=== PATIENT | male | born 1940 | race Two or more races ===

== ENCOUNTER 2024-11-09 09:48 | Emergency (ER) | payer OTHER, SELFPAY ==
[2024-11-09 09:59] VITALS: BP 187/79; PULSE 96; TEMP 37; O2SAT 98; BMI 32.3
--- NOTE | 2024-11-09 13:50 | ED_ITS ---
HPI - Abdominal Pain General Chief Complaint: Abdominal Pain Stated Complaint: ABDOMINAL PAIN Time Seen by Provider: 11/09/24 10:06 Mode of arrival: walk-in Limitations: no limitations History of Present Illness HPI narrative: The patient is coming to the ER with abdominal pain mostly only in the left lower abdomen and right, the patient mentioned that the pain only there when he strains to go to the bathroom and he did notice some constipation for the last 3 days although he did have some small bowel movement yesterday, the patient has not been using any [id number] constipation medication he did try some prune juice Related Data Home Medications ?Medication ?Instructions ?Recorded ?Confirmed albuterol sulfate 90 mcg/actuation inhalation 11/09/24 aerosol inhaler amlodipine 10 mg tablet mg 11/09/24 finasteride 5 mg tablet mg 11/09/24 lisinopril 20 mg tablet mg 11/09/24 omeprazole 20 mg capsule,delayed mg 11/09/24 release Previous Rx's ?Medication ?Instructions ?Recorded amoxicillin 875 mg-potassium 1 tab PO Q8H 7 days #21 tabs 11/09/24 clavulanate 125 mg tablet bisacodyl 5 mg tablet,delayed 5 mg PO DAILY PRN constipation #10 11/09/24 release (Dulcolax (bisacodyl)) tabs Allergies Allergy/AdvReac Type Severity Reaction Status Date / Time No Known Drug Allergies Allergy Verified 11/09/24 10:03 Review of Systems ROS Status of ROS 10 or more systems reviewed and unremark able except as noted in history and below PFSH PFSH Social History Little interest or pleasure in doing things: not at all Feeling down, depressed, or hopeless: not at all Exam Narrative Exam Narrative: Nurses notes and vital signs reviewed and patient is not hypoxic. General: Well-appearing and in no apparent distress. Skin: Warm, dry, no pallor noted. No rash. Head: Normocephalic, atraumatic. Neck: Supple, non-tender. Eye: Pupils are equal, round and EOMI. No scleral icterus. Ears, Nose, Mouth, and Throat: TM are clear, no nasal mucosal hypertrophy. Oral mucosa is moist, no posterior oropharynx erythema, uvula is mid-line Cardiovascular: Regular Rate and Rhythm without murmur, gallop or rub. Respiratory: No accessory muscle use or respiratory distress. Lungs are clear to auscultation, no wheezing, rales or rhonchi Chest Wall: no tenderness Back: No midline thoracic or lumbar vertebral tenderness. No CVA tenderness Musculoskeletal: normal ROM, no calf or popliteal tenderness, no lower extremity edema/swelling GI: Abdomen is soft, tenderness in the left lower quadrant with deep palpation Constitutional Vital Signs, click to edit/add: Last Vital Signs Temp 98.6 F 11/09/24 09:59 Pulse 96 H 11/09/24 09:59 Resp 20 11/09/24 09:59 BP 187/79 H 11/09/24 09:59 Pulse Ox 98 11/09/24 09:59 O2 Del Method Room Air 11/09/24 09:59 Course Vital Signs Vital signs: Vital Signs Temperature 98.6 F 11/09/24 09:59 Pulse Rate 96 H 11/09/24 09:59 Respiratory Rate 20 11/09/24 09:59 Blood Pressure 187/79 H 11/09/24 09:59 Pulse Oximetry 98 11/09/24 09:59 Oxygen Delivery Method Room Air 11/09/24 09:59 Temperature 98.6 F 11/09/24 09:59 Pulse Rate 96 H 11/09/24 09:59 Respiratory Rate 20 11/09/24 09:59 Blood Pressure 187/79 H 11/09/24 09:59 Pulse Oximetry 98 11/09/24 09:59 Oxygen Delivery Method Room Air 11/09/24 09:59 MDM - Abdominal Pain MDM Narrative Medical decision making narrative: The patient CAT scan of the abdomen shows a diverticulitis that is mild Patient started Augmentin 3 times daily according to up-to-date and he also started on Dulcolax Patient instructed about hydration and soft diet for the next few days The patient is to follow up with primary care physician in next 2-3 days or to return to the emergency department should any of the signs or symptoms worsen or new symptoms develop. The patient agrees with the following Diagnosis and Treatment plan and the patient will be discharged home. Discharge Plan Discharge Chief Complaint: Abdominal Pain Clinical Impression: Diverticulitis Patient Disposition: Home, Self-Care Time of Disposition Decision: 11:03 Prescriptions / Home Meds: New amoxicillin-pot clavulanate 875-125 mg tablet 1 tab PO Q8H 7 Days Qty: 21 0RF bisacodyl [Dulcolax (bisacodyl)] 5 mg tablet,delayed release (DR/EC) 5 mg PO DAILY PRN (Reason: constipation) Qty: 10 0RF No Action lisinopril 20 mg tablet amlodipine 10 mg tablet omeprazole 20 mg capsule,delayed release(DR/EC) albuterol sulfate 90 mcg/actuation HFA aerosol inhaler INHALATION finasteride 5 mg tablet Print Language: [place] Instructions: Diverticulitis (ED), GI (Gastrointestinal) Soft Diet (ED) Referrals: Linda Bradley NP [Primary Care Provider] - 1 week Discharge Date/Time: 11/09/24 11:11
== END 2024-11-09 11:11 | disposition home or self-care (01) ==
PROVIDERS: Emergency Provider Emergency Medicine; PCP Nurse Practitioner
DX: K57.32 Diverticulitis of large intestine without perforation or abscess without bleeding (principal)
CPT/HCPCS: 74176; 99284

== ENCOUNTER 2025-01-07 09:23 | Outpatient (OUT) | payer OTHER, SELFPAY ==
--- NOTE | 2025-01-07 09:30 | XR_ITS ---
[place] [id number] Patient Name: FLEIZ ALVARADO MRN: [id number] date: 1940 Sex: M Assigned Patient Location: [facility] Current Patient Location: [facility] Accession/Order Number: [id number] Exam Date: 01/07/2025 13:42 Report Date: 01/07/2025 13:43 At the request of: AWAIS SORTO NP Procedure: XR lumbar spine 2-3V LUMBAR SPINE - 2 views CLINICAL HISTORY: Lumbar Back Pain COMPARISON: None FINDINGS: Vertebral body heights appear maintained. Diffuse moderate degenerative disc disease with endplate and facet joint degenerative changes. SI joints also demonstrate degenerative change. Mild scoliosis. XR/XR lumbar spine 2-3V IMPRESSION: MILD SCOLIOSIS WITH MODERATE MULTILEVEL DEGENERATIVE DISC DISEASE. Impression dictated by: Surya Salinas Jr., D.O.01/07/2025 1:43 PM Dictation Location: [place] [address] Electronically authenticated by: [id number] Y Date: 01/07/2025 13:43
== END 2025-01-07 09:24 | disposition home or self-care (01) ==
LOC: RAD 09:25
PROVIDERS: PCP Nurse Practitioner; Visit Provider Nurse Practitioner
DX: M54.50 Low back pain, unspecified (principal); M51.369 Other intervertebral disc degeneration, lumbar region without mention of lumbar back pain or lower extremity pain
CPT/HCPCS: 72100

== ENCOUNTER 2025-04-14 09:49 | Outpatient (OUT) | payer OTHER, SELFPAY ==
--- OUTSIDE RECORDS SUMMARY | 2025-04-14 09:51 | XMS_ITS | Encounter Summary ---
Author Organization [facility] Address [address], [address] [place] [address] Care Team Providers Care Consumer Lender Name Role Phone Satinder Dyer Primary Care Provider Unavailabl e Reason for Visit * Reason Comments Medication Refill Encounter Details Date Type Department Care Team (Late st Contact Info) Description 10/26/2016 Refill [facility] - [address] [place] [id number] Gavin Najera MD [address] [place] [address] Medication Refill Social History Tobacco Use Types Packs/Day Years Used Date Smoking Tobacco: Never Smokeless Tobacco: Never Alcohol Use Standard Drinks/Week Comments No 0 (1 standard drink = 0.6 oz pur e alcohol) Sex and Gender Information Value Date Recorded Sex Assigned at Not on file Legal Sex Male 11:37 AM EST Gender Identity Not on file Sexual Orientation Not on file documented as of this encounter Plan of Treatment Not on file documented as of this encounter Visit Diagnoses Diagnosis Nocturia Benign non-nodular prostatic hyperplasia with lower urinary tract symptoms documented in this encounter Care Teams Consumer Lender Relationship Specialty Start Date End Date Satinder Dyer PCP - General 07/15/15 documented as of this encounter
--- OUTSIDE RECORDS SUMMARY | 2025-04-14 09:51 | XMS_ITS | Encounter Summary ---
Author Organization [facility] Address [address] [place] [address] Care Team Providers Care Jointer Submarine Cable Name Role Phone JulianneedinadeemLinda edwards STACIE Unavailable [phone] Zohaib Cross MD Unavailable Zohaib Cross MD Primary Care Provider [phone] Encounter Details Date Type Department Care Team (Late st Contact Info) Description 11/16/2024 [facility] [address] [place] [address] Social History Tobacco Use Types Packs/Day Years Used Date Smoking Tobacco: Never Smokeless Tobacco: Never Alcohol Use Standard Drinks/Week Comments Yes 0 (1 standard drink = 0.6 oz pur e alcohol) 2-4 times a month Humiliation, Afraid, Rape, and Kick questionnair e Answer Date Recorded Within the last year, have y ou been afraid of your partner or ex-partner? No 12/03/2023 Within the last year, have y ou been humiliated or emotionally abused in other ways by your partner or ex-partner? No Within the last year, have y ou been kicked, hit, slapped, or otherwise physically hurt by your partner or ex-partner? No 12/03/2023 Within the last year, have y ou been raped or forced to have any kind of sexual activity by your partner or ex-partner? No 12/03/2023 Social Connection and Isolation Panel [NHANES] A nswer Date Recorded In a typical week, how many times do you talk on the phone with family, friends, or neighbors? Never 12/03/19 24 How often do you get togethe r with friends or relatives? Three times a week 12/03/2023 How often do you attend chur ch or episcopal services? 1 to 4 times per year 12/03/2023 Do you belong to any clubs o r organizations such as sabianist groups, unions, fraternal or athletic groups, or school groups? No 12/03/2023 How often do you attend meet ings of the clubs or organizations you belong to? Never 12/03/2023 Are you , , di vorced, , never , or living with a partner? 12/03/2023 AUDIT-C Answer Date Recorded Q1: How often do you have a drink containing alc ohol? Monthly or less 12/03/2023 Q2: How many drinks containi ng alcohol do you have on a typical day when you are drinking? 1 or 2 12/03/2023 Q3: How often do you have si x or more drinks on one occasion? Less than monthly 12/03/2023 Overall Financial Resource Strain (CARDIA) Answe r Date Recorded How hard is it for you to pa y for the very basics like food, housing, medical care, and heating? Not hard at all 12/03/2023 PHQ-2 Answer Date Recorded Patient Health Questionnaire-2 Score 0 12/03/2023 [facility] - Occupational Stress Questionnaire Answer Date Recorded Do you feel stress - tense, restless, nervous, or anxious, or unable to sleep at night because your mind is troubled all the time - these days? To some extent 12/03/2023 Exercise Vital Sign Answer Date Recorde d On average, how many days pe r week do you engage in moderate to strenuous exercise (like a brisk walk)? 4 days 12/03/2023 On average, how many minutes do you engage in exercise at this level? 60 min 12/03/2023 Hunger Vital Sign Answer Date Recorded Within the past 12 months, y ou worried that your food would run out before you got the money to buy more. Never true 12/03/19 24 Within the past 12 months, t he food you bought just didn't last and you didn't have money to get more. Never true 12/03/2023 PRAPARE - Transportation Answer Date Re corded In the past 12 months, has l ack of transportation kept you from medical appointments or from getting medications? No 11/14 In the past 12 months, has l ack of transportation kept you from meetings, work, or from getting things needed for daily living? No 12/03/2023 Housing Stability Vital Sign Answer Jim e Recorded In the last 12 months, was t here a time when you were not able to pay the mortgage or rent on time? No 12/03/2023 In the last 12 months, how many places have you lived? 1 12/03/2023 In the last 12 months, was t here a time when you did not have a steady place to sleep or slept in a m[facility] (including now)? No 12/03/2023 Sex and Gender Information Value Date Recorded Sex Assigned at Not on file Legal Sex Male 7:34 PM EDT Gender Identity Not on file Sexual Orientation Not on file documented as of this encounter Plan of Treatment Upcoming Encounters Date Type Department Care Team (Late st Contact Info) Description 05/04/2025 9:40 AM EDT Office Visit [facility] [address] [place] [address] Linda Bradley NP [address] [place] [address] 12/07/2025 11:00 AM EDT Office Visit [facility] [address] [place] [address] Linda Bradley NP [address] [place] [address] documented as of this encounter Procedures Procedure Name Priority Date/Time Associated Diagnosis Comments CT ABDOMEN PELVIS W AND WO IV CONTRAST Routine 11/16/2024 10:12 AM EST documented in this encounter Results * CT abdomen pelvis w and wo IV contrast (11/16/2024 10:12 AM EST) Anatomical Region Laterality Modality Body, Pelvis, Abdomen Computed T omography [facility] CT PROCEDURES Final Result documented in this encounter Visit Diagnoses Not on filedocumented in this encounter Additional Health Concerns Assessment Noted Time PHQ-9 Depression Total Score: 3 12/03/19 24 10:28 AM EDT documented as of this encounter Care Teams Jointer Submarine Cable Relationship Specialty Start Date End Date Zohaib Cross MD [address] [place] [phone] PCP - Devoted 09/16/22 Zohaib Cross MD [address] [place] [phone] PCP - General Family Medicine 10/24/23 Linda Bradley NP [address] [place] [phone] Nurse Practitioner Family Medicine 05/17/23 documented as of this encounter
--- OUTSIDE RECORDS SUMMARY | 2025-04-14 09:51 | XMS_ITS | Encounter Summary ---
Author Organization [facility] Address [address] [place] [address] Care Team Providers Care Material Manager Name Role Phone Julianneedijaxon Linda STACIE Unavailable [phone] Zohaib Cross MD Unavailable Zohaib Cross MD Primary Care Provider [phone] Encounter Details Date Type Department Care Team (Late st Contact Info) Description 12/09/2023 Abstract [facility] [address] [place] [address] Ruben Irwin DOUGH CUTTING MACHINE OPERATOR [address] [place], [place] [id number] Social History Tobacco Use Types Packs/Day Years [...] often do you attend chur ch or mandaen services? 1 to 4 times per year 12/03/2023 Do you belong to any clubs o r organizations such as temple groups, unions, fraternal or athletic groups, or [...] Recorded Patient Health Questionnaire-2 Score 0 12/03/2023 [facility] - Occupational Stress [...] place to sleep or slept in a prison (including now)? No 12/03/2023 Sex and Gender [...] Office Visit [facility] [address] [place] [address] Linda Bradley NP [address] [place] [address] 12/07/2025 11:00 AM EDT Office Visit [facility] [address] [place] [address] Linda Bradley NP [address] [place] [phone] documented as of this encounter Visit Diagnoses Not on filedocumented in this encounter Additional Health Concerns Assessment Noted Time PHQ-9 Depression Total Score: 3 12/03/19 24 10:28 AM EDT documented as of this encounter Care Teams Material Manager Relationship Specialty Start Date End Date Zohaib Cross MD [address] [place] [phone] PCP - [facility] 09/16/22 Zohaib Cross MD [address] [place] [address] PCP - General Family Medicine 10/24/23 Linda Bradley NP [address] [place] [phone] Nurse Practitioner Family Medicine 05/17/23 documented as of this encounter
--- OUTSIDE RECORDS SUMMARY | 2025-04-14 09:51 | XMS_ITS | Clinical Summary ---
Author Organization [facility] Address [address] [place] [address] Care Team Providers Care Cytotechnologist/Cytology Supervisor Name Role Phone Julianneedijaxon Linda QUINONES Unavailable [phone] Zohaib Cross MD Unavailable Zohiab Cross MD Primary Care Provider [phone] Allergies No known active allergies Medications Blood Glucose Monitoring Suppl ([employer] Verio Reflect) w/Device kit 1 each by Other route Daily as needed (as needed) 3 Active Financetes[employer]Touch Verio test strip 1 each by Other route Daily as needed 3 Active albuterol HFA 90 mcg/act inhalerIndicatio ns:Bronchitis Inhale 2 puffs every 6 (six) hours if needed for shortness of breath or wheezing 18 g 5 Active Fluticasone-Umec lidin-Vilant (Trelegy Ellipta) 100-62.5-25 MCG/ACT aerosol powderIndication s:Moderate persistent asthma without complication (HCC) Inhale 1 puff Daily Rinse mouth after use 1 each 1 5 Active fluticasone (Flonase) 50 MCG/ACT nasal sprayIndications :Allergic rhinitis, unspecified seasonality, unspecified trigger Administer 2 sprays into each nostril Daily Shake gently. Before first use, prime pump. After use, clean tip and replace cap. 16 g 2 5 Active loratadine (Claritin) 10 MG tabletIndication s:Allergic rhinitis, unspecified seasonality, unspecified trigger Take 1 tablet (10 mg) by mouth Daily 30 tablet 2 5 Active finasteride (Proscar) 5 MG tablet Take 5 mg by mouth Daily 5 Active aspirin 81 MG EC tabletIndication s:Essential hypertension Take 1 tablet (81 mg) by mouth Daily 90 tablet 2 5 025 Active amLODIPine (Norvasc) 10 MG tabletIndication s:Essential hypertension Take 1 tablet (10 mg) by mouth Daily 90 tablet 1 5 025 Active metFORMIN (Glucophage) 500 MG tabletIndication s:Type 2 diabetes mellitus without complication, without long-term current use of insulin ([facility]) Take 1 tablet (500 mg) by mouth in the morning. Take with meals. 90 tablet 1 5 025 Active omeprazole (PriLOSEC) [address] capsuleIndicatio ns:Gastroesophag eal reflux disease, unspecified whether esophagitis present Take 1 capsule (20 mg) by mouth in the morning. Take before meals. 90 capsule 1 5 025 Active lisinopril 30 MG tabletIndication s:Essential hypertension Take 1 tablet (30 mg) by mouth Daily 90 tablet 1 5 025 Active tamsulosin (Flomax) 0.4 MG 24 hr capsuleIndicatio ns:Benign prostatic hyperplasia, unspecified whether lower urinary tract symptoms present Take 1 capsule (0.4 mg) by mouth Daily Take 0.4 mg by mouth Daily 90 capsule 5 025 Active metFORMIN (Glucophage) 500 MG tabletIndication s:Type 2 diabetes mellitus without complication, without long-term current use of insulin (HCC) Take 1 tablet (500 mg) by mouth in the morning. Take with meals. 90 tablet 1 5 025 Discontin ued(Reord er) amLODIPine (Norvasc) 10 MG tabletIndication s:Essential hypertension Take 1 tablet (10 mg) by mouth Daily 90 tablet 1 5 025 Discontin ued(Reord er) omeprazole (PriLOSEC) [address] capsuleIndicatio ns:Gastroesophag eal reflux disease, unspecified whether esophagitis present Take 1 capsule (20 mg) by mouth in the morning. Take before meals. 90 capsule 1 5 025 Discontin ued(Reord er) tamsulosin (Flomax) 0.4 MG 24 hr capsule Take 0.4 mg by mouth Daily 5 025 Discontin ued(Reord er) lisinopril 30 MG tabletIndication s:Essential hypertension Take 1 tablet (30 mg) by mouth Daily 90 tablet 5 025 Discontin ued(Reord er) aspirin 81 MG EC tablet Take 81 mg by mouth Daily 025 Discontin ued(Reord er) Active Problems Problem Noted Date Diagnosed Date Dyspnea on exertion 03/16/2025 Assessment & Plan (03/16/2025 9:42 AM EDT): Check echo and pft Moderate persistent asthma without complication 01/06/2025 Assessment & Plan (03/16/2025 9:39 AM EDT): Current meds: trelegy as well as albuterol prn Order PFT's and ECHO Recommend using trelegy regularly Assessment & Plan (01/06/2025 11:28 AM EDT): Albuterol inhaler prn Add trelegy , rinse mouth after use Fu in 6 weeks Lumbar back pain 01/06/2025 Assessment & Plan (03/16/2025 9:39 AM EDT): plain film xray: mod DDD Would like to try chiropractor Diverticulitis 11/16/2024 Assessment & Plan (11/16/2024 10:38 AM EST): Er follow up from [facility] on 11/09/24 Given atbs and dietary changes We did discuss that likely his fluid intake and lack of fiber foods cause these episodic flares. He usually has about 2 per year, he was referred to general surgery in the past, however they did not feel her needed a scope, he denies any blood in stool Will have him add miralax in about 3 weeks Class 2 severe obesity due t o excess calories with serious comorbidity in adult 11/16/2024 Assessment & Plan (01/06/2025 6:42 AM EDT): Discussed with patient their BMI (actual, verses recommended). We have also discussed lifestyle modifications: attempts to perform physical activity as chronic conditions allow, also to monitor dietary intake: increasing protein/fruits/veggies and lowering carb intake (unless contraindicated). Limit sodas, juices, and sugary drinks. Assessment & Plan (12/02/2024 7:45 AM EDT): Discussed with patient their BMI (actual, verses recommended). We have also discussed lifestyle modifications: attempts to perform physical activity as chronic conditions allow, also to monitor dietary intake: increasing protein/fruits/veggies and lowering carb intake (unless contraindicated). Limit sodas, juices, and sugary drinks. Assessment & Plan (11/16/2024 6:35 AM EST): Discussed with patient their BMI (actual, verses recommended). We have also discussed lifestyle modifications: attempts to perform physical activity as chronic conditions allow, also to monitor dietary intake: increasing protein/fruits/veggies and lowering carb intake (unless contraindicated). Limit sodas, juices, and sugary drinks. Chronic conditions: DM, HTN. Bronchitis 09/14/2024 Assessment & Plan (01/06/2025 11:26 AM EDT): Last appt given atb, steroids, tessalon and cxr as well Resolved, I think now more baseline asthma sxs Assessment & Plan (12/21/2024 2:25 PM EDT): Atb, steroids, tessalon Cxr Fluids, rest Fu in 2 weeks for recheck Screening for prostate cancer 08/03/2024 Overview (08/10/2024): PSA: 05/30/2020: 2.99 08/04/2024: 3.45 Assessment & Plan (08/03/2024 1:34 PM EST): Check lab Type 2 diabetes mellitus wit h diabetic chronic kidney disease 04/07/2024 Assessment & Plan (12/02/2024 5:05 PM EDT): Check blood sugars daily, notify if <70 or >200. Take medications (pills or insulin) as directed. Monitor for s/s of hypoglycemia (sweaty, dizziness, nausea, vomiting, or shakiness). Watch for increase in thirst, urination, or appetite. Inspect feet frequently monitoring for open wounds , and also recommend yearly eye exam. Pt should attempt to remain as physically active as chronic conditions allow, as well as trying to follow a diet low in carbohydrates, and simple sugars. Current meds: tia, no statin, A1c: 6.5% 12/02/24 Assessment & Plan (08/03/2024 1:59 PM EST): Check blood sugars daily, notify if <70 or >200. Take medications (pills or insulin) as directed. Monitor for s/s of hypoglycemia (sweaty, dizziness, nausea, vomiting, or shakiness). Watch for increase in thirst, urination, or appetite. Inspect feet frequently monitoring for open wounds , and also recommend yearly eye exam. Pt should attempt to remain as physically active as chronic conditions allow, as well as trying to follow a diet low in carbohydrates, and simple sugars. Check A1c test in office: 6.5%, and he has not been taking his metformin for some time Chronic cough 03/10/2024 Other specified anemias 12/18/2023 Headache 12/03/2023 Diverticulosis 12/03/2023 Elevated prostate specific antigen (PSA) 024 Chronic kidney disease, stage III (moderate) Assessment & Plan (03/16/2025 6:19 AM EDT): Keep BP and glucose at goal Current meds: tia/amlodipine Assessment & Plan (08/03/2024 1:33 PM EST): Check labs Tinnitus, bilateral 12/03/2023 Hyperlipidemia 12/03/2023 Hearing deficit, bilateral 12/03/2023 Allergic rhinitis 12/03/2023 Encounter for subsequent [facility] wellness visit (AWV) in Medicare patient 12/03/2023 Assessment & Plan (12/02/2024 7:46 AM EDT): Reviewed Ht/Wt/BMI Recommend eye exam yearly Recommend dental exams twice a year Balance work/leisure activities Exercises is recommended most days of the week (appropriate as chronic conditions allow) Follow up yearly and prn Assessment & Plan (12/03/2023 11:17 AM EDT): Reviewed Ht/Wt/BMI Recommend eye exam yearly Recommend dental exams twice a year Balance work/leisure activities Exercises is recommended most days of the week (appropriate as chronic conditions allow) Follow up yearly and prn Obesity (BMI 30-39.9) 09/17/2023 Assessment & Plan (03/16/2025 6:19 AM EDT): Discussed with patient their BMI (actual, verses recommended). We have also discussed lifestyle modifications: attempts to perform physical activity as chronic conditions allow, also to monitor dietary intake: increasing protein/fruits/veggies and lowering carb intake (unless contraindicated). Limit sodas, juices, and sugary drinks. Assessment & Plan (09/14/2024 3:42 PM EST): Discussed with patient their BMI (actual, verses recommended). We have also discussed lifestyle modifications: attempts to perform physical activity as chronic conditions allow, also to monitor dietary intake: increasing protein/fruits/veggies and lowering carb intake (unless contraindicated). Limit sodas, juices, and sugary drinks. Assessment & Plan (08/03/2024 1:33 PM EST): Discussed with patient their BMI (actual, verses recommended). We have also discussed lifestyle modifications: attempts to perform physical activity as chronic conditions allow, also to monitor dietary intake: increasing protein/fruits/veggies and lowering carb intake (unless contraindicated). Limit sodas, juices, and sugary drinks. Also discussed oral medications that can be utilized for weight loss, as well as surgical options for weight loss. Constipation 08/14/2023 Essential hypertension 08/14/2023 Assessment & Plan (03/16/2025 6:17 AM EDT): Please check blood pressure daily and record DASH diet Limit caffeine Take medication as directed Contact office if chest pain, pressure, dizziness, shortness of breath, swelling legs Recommend slow position changes Current meds: amlodipine, lisinopril Assessment & Plan (01/06/2025 6:42 AM EDT): Please check blood pressure daily and record DASH diet Limit caffeine Take medication as directed Contact office if chest pain, pressure, dizziness, shortness of breath, swelling legs Recommend slow position changes Current meds: amlodipine, lisinopril, at last appt we increased dose on lisinopril to 30mg daily Assessment & Plan (12/02/2024 5:00 PM EDT): Please check blood pressure daily and record DASH diet Limit caffeine Take medication as directed Contact office if chest pain, pressure, dizziness, shortness of breath, swelling legs Recommend slow position changes Current meds: amlodipine, lisinopril, will increase dose on lisinopril to 30mg daily Follow up in 4 weeks for blood pressure check Assessment & Plan (08/03/2024 7:08 AM EST): Please check blood pressure daily and record DASH diet Limit caffeine Take medication as directed Contact office if chest pain, pressure, dizziness, shortness of breath, swelling legs Recommend slow position changes Assessment & Plan (12/03/2023 10:51 AM EDT): Labs are stable, BP is good No changes in meds Assessment & Plan (10/01/2023 4:35 PM EST): Under adequate control No changes in meds or doses Assessment & Plan (09/17/2023 10:19 AM EST): Is now compliant with taking meds daily as directed Is going to be having a knee replacement with dr phillips on 10/23/23 Needs pre op clearance will schedule this and needs pre op testing Gastroesophageal reflux disease 08/14/2023 Assessment & Plan (12/02/2024 7:44 AM EDT): Recommendations: freq small meals, nothing to eat or drink at least 2 hours prior to bed, limit caffeine, alcohol, as well as spicy foods Meds to limit or avoid if possible: NSAIDS Elevate HOB if possible Current med: omeprazole Assessment & Plan (08/03/2024 7:09 AM EST): Recommendations: freq small meals, nothing to eat or drink at least 2 hours prior to bed, limit caffeine, alcohol, as well as spicy foods Meds to limit or avoid if possible: NSAIDS Elevate HOB if possible Continue PPI Presence of right artificial knee joint 08/14/20 Status post left knee replacement 08/14/2023 BPH (benign prostatic hyperplasia) 05/19/2019 Overview (12/03/2023): [facility] Assessment & Plan (12/02/2024 7:45 AM EDT): Currently taking flomax Osteoarthritis of knees, bilateral 05/22/2017 Resolved Problems Problem Noted Date Diagnosed Date Resolved Date Chronic kidney disease, stage 2 (mild) 06/25/2024 08/03/2024 Chronic kidney disease, stage 2 (mild) 04/07/2024 04/07/2024 UTI symptoms 01/01/2024 08/03/2024 Abdominal pain, generalized 12/03/2023 12/03/2023 Elevated sed rate 12/03/2023 12/03/2023 Acute pain of left knee 10/27/202307/17 Type 2 diabetes mellitus wit hout complication, without long-term current use of insulin 09/17/2023 08/03/2024 Assessment & Plan (12/03/2023 10:53 AM EDT): No longer taking metformin, has not been taking for the last few months. Will check A1c Assessment & Plan (10/01/2023 4:35 PM EST): Compliant with meds, no acute diabetic complications noted Pending updated A1c test, order given at last visit, still not done, reprinted this and gave to pt to complete. Osteoarthritis 08/14/2023 08/03/2024 Osteoarthritis of right knee 08/14/2023 08/03/2024 Primary osteoarthritis of left knee 08/14/2023 12/03/2023 Presence of unspecified artificial knee joint 08/14/2003/16/2025 Encounters Date Type Department Care Team Description 04/12/20[address]ill [facility] [address] [place] [address] Linda Bradley NP 04/12/[address] [facility] [address] [place] [address] Linda Bradley NP Benign prostatic hyperplasia, unspecified whether lower urinary tract symptoms present (Primary Dx) 04/07/[address] [facility] [address] [place] [address] Linda Bradley, STACIE Essential hypertension ; Type 2 diabetes mellitus without complication, without long-term current use of insulin (HCC); Gastroesophageal reflux disease, unspecified whether esophagitis present 03/16/2025 9:20 AM EDT Office Visit [facility] [address] [place] [address] Linda Bradley, STACIE Dyspnea on exertion (Primary Dx); Moderate persistent asthma without complication (HCC); Essential hypertension ; Stage 3a chronic kidney disease ([facility]-HCC); Obesity (BMI 30-39.9); Lumbar back pain 03/16/2025 Bamboo flowsheet [facility] [address] [place] [address] Linda Bradley NP 03/10/20[address] [facility] [address] [place] [address] Linda Bradley NP Essential hypertension 03/09/2025 Abstract [facility] [address] [place] [address] Linda Bradley NP 03/08/[address] [facility] [address] [place] [address] Linda Bradley NP Essential hypertension 03/02/2025 Abstract [facility] [address] [place] [address] Linda Bradley NP from Last 3 Months Immunizations Immunization Administration Dates Next Due Pneumococcal Polysaccharide PPSV23 05/17/2020, Tdap 03/26/2023 Family History Medical History Relation Name Comments Throat cancer Father Relation Name Status Comments Father Mother Social History Tobacco Use Types Packs/Day Years Used Date Smoking Tobacco: Never Smokeless Tobacco: Never Tobacco Cessation:Counseling Given: No Alcohol Use Standard Drinks/Week Comments Yes 0 [...] with family, friends, or neighbors? Never 12/03/19 How often do you get togethe r with friends or relatives? Three times a week 12/03/2023 How often do you attend chur ch or taoist services? 1 to 4 times per year 12/03/2023 Do you belong to any clubs o r organizations such as hoahaoism groups, unions, fraternal or athletic groups, or [...] Date Recorded Patient Health Questionnaire-2 Score 0 12/02/2024 [facility] - Occupational Stress [...] place to sleep or slept in a fci (including now)? No 12/03/2023 Sex and Gender Information Value Date Recorded Sex Assigned at Not on file Legal Sex Male 7:34 PM EDT Gender Identity Not on file Sexual Orientation Not on file Last Filed Vital Signs Vital Sign Reading Time Taken Comments Blood Pressure 138/64 03/16/2025 9:34 AM EDT Pulse 90 03/16/2025 9:22 AM EDT Temperature 36.7 C (98.1 F) 03/16/2025 9:22 AM EDT Respiratory Rate 22 03/16/2025 9:22 AM EDT Oxygen Saturation 97% 03/16/2025 9:22 AM EDT Inhaled Oxygen Concentration - - Weight 90.2 kg (198 lb 12.8 oz) 03/16/2025 9:22 AM EDT Height 160 cm (5' 3 ) 11/16/2024 10:04 AM EST Body Mass Index 35.22 11/16/2024 10:04 AM EST Plan of Treatment Upcoming Encounters Date Type Department Care Team (Late st Contact Info) Description 05/04/2025 9:40 AM EDT Office Visit [facility] [address] [place] [address] Linda Bradley, STACIE [address] [place] [phone] 12/07/2025 11:00 AM EDT Office Visit [facility] [address] [place] [address] Linda Bradley NP [address] [place] [id number] Health Maintenance Due Date Last Done Comments Diabetes: Retinopathy Screening 1950 Pneumococcal Vaccine: 65+ Ye ars (2 of 2 - PCV) 05/17/2021 05/17/2020, 09/16/2016 Influenza Vaccine (#1) 2025 Diabetes: Hemoglobin A1C 06/04/2025 025, 08/03/2024, 04/15/2024, Additional history exists Diabetes: Urine Protein Screening 08/10/2025 08/10/2024, 04/15/2024, 03/06/2023 Medicare Annual Wellness (AWV) 12/02/2025 0 12/02/2024, 12/02/2024, 12/03/2023, Additional history exists Procedures Procedure Name Priority Date/Time Associated Diagnosis Comments POCT GLYCOSYLATED HEMOGLOBIN (HGB A1C) Routine 12/02/2024 4:57 PM EDT Type 2 diabetes mellitus with stage 3a chronic kidney disease, without long-term current use of insulin (HCC) MICROALBUMIN / CREATININE URINE RATIO Routine 08/10/2024 8:17 AM EST Essential hypertension Type 2 diabetes mellitus with stage 3a chronic kidney disease, without long-term current use of insulin (HCC) from Last 3 Months or Most Recently Relevant to Health Maintenance Results * (ABNORMAL) POCT glycosylated hemoglobin (Hb A1C) docked device (12/02/2024 4:57 PM EDT) Hemoglobin A1C 6.5% Blood Venous blood specimen / Unknown 12/02/2024 4:57 PM EDT us Linda Bradley NP POINT OF CARE TEST ENTER/EDIT O RDERABLES Final Result * Microalbumin / creatinine, urine ratio (08/10/2024 8:17 AM EST) Urine Urine specimen obtained by clean catch procedure / Unknown us Linda Bradley NP LAB URINE ORDERABLES Final Resu lt [facility] from Last 3 Months or Most Recently Relevant to Health Maintenance Insurance [employer] Care Teams Cytotechnologist/Cytology Supervisor Relationship Specialty Start Date End Date Zohaib Cross MD [address] [place] [phone] PCP - [facility] 09/16/22 Zohaib Cross MD [address] [place] [phone] PCP - General Family Medicine 10/24/23 Linda Bradley NP [address] [place] [phone] Nurse Practitioner Family Medicine 05/17/23
--- OUTSIDE RECORDS SUMMARY | 2025-04-14 09:51 | XMS_ITS | Patient Health Record ---
Author Organization [facility] Address [address] [place], [place] [id number] Care Team Providers Care Grade Teacher Name Role Phone Leela Weiss Unavailable Allergies No Known Allergies Reason For Referral No Information Immunizations Vaccine Route Administration Date Status Comme nts *Pneumococcal polysaccharide [id number] IM Intramuscular 05/17/2020 Administered Status:Complet e ,Reason:Given or N/A Social History Sex Assigned At : Social History Observation Description Sex Assigned At Male Problems Problem Type SNOMED Code ICD Code Onset Dates Problem Status W/U Status Risk Notes Problem Essential hypertension (72814341) Essential (primary) hypertension (I10) Active confirmed Comment:Good control, same regimen,Descript ion:Essential hypertension Problem Acute bronchitis due to mycoplasma pneumoniae (631477437) Acute bronchitis due to Mycoplasma pneumoniae (J20.0) Active confirmed Comment:Rx prednisone + doxycycline, Problem Allergic rhinitis caused by pollen (disorder) (97920727) Allergic rhinitis due to pollen (J30.1) Active confirmed Comment:Start Singulair (may need prior Auth, but has failed at least 3 antihistamines)+ Flonase., Problem Heartburn (21949332) Heartburn (R12) Active confirmed Comment:needs gi referral, last saw Dr krysta alonzo. cannot remember, may be established pt. Dr. Valero per chart. Pt to try tums to see if will relieve,Story:no t well controlled with ranitadine and nexium, Problem Vaccination given (331859838) Encounter for immunization (Z23) Active confirmed Problem Benign prostatic hypertrophy without outflow obstruction (878575199) BPH (benign prostatic hypertrophy) (600.00) (600.00) Active confirmed Comment:Make follow up appt. to discuss other Rx options., Problem Proteinuria (85667564) Abnormal presence of protein in urine (R80.9) 2007 Active confirmed Description:Prot einuria Problem Osteoarthritis of knee (603466449) Arthritis of knee, degenerative (M17.10) Active confirmed Comment:Moderat e ly severe. Encouraged him to keep walking as he is able. Handicapped Rx recommendation, 5 yrs, given. 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) Active confirmed Problem Gastroesophageal reflux disease (567620905) GERD (gastroesophage al reflux disease) (K21.9) Active confirmed Comment:Good control, same regimen., Problem Acute maxillary sinusitis (54318622) Acute maxillary antritis (J01.00) Active confirmed Comment:Rx amoxicillin, Afrin spray.,Descripti on:Acute maxillary sinusitis Problem Acute sinusitis (95097095) Sinusitis, acute (J01.90) Active confirmed Comment:-pt has acute sinusitis -has been going on for 2 weeks with sx not resolving, so will consider it bacterial at this time -will give augementin BID for 10 days -will also give antihistamine and mucinex for sx relief -suggest pt stop using nasal spray as that could be contributing to his very high blood pressure today -pt currently asymptomatic from a BP standpoint - but told that if he developed any sx of chst pain, palpitations, increased headache, dizziness, lightheadedness - needs to go to the ED - PVU -f/u as needed if sinus sx do not resolve, Problem Benign hypertrophy of prostate (600.0) (600.0) 2007 Active confirmed Problem Hyperlipidemia (01447152) Hyperlipidemia (E78.5) Active confirmed Comment:not taking a statiin - no mi , no strokes, Problem Depression screening (518140256) Screening for depression (Z13.31) Active confirmed Description:Dep r ession screening Problem Actinic keratosis () Keratosis, actinic (702.0) (702.0) 2007 Active confirmed Problem Fatigue (01919672) Fatigue (R53.83) Active confirmed Comment:Likely related to poor sleep due to BPH., Problem Osteoarthritis of knee (978471975) OA (osteoarthritis ) of knee (M17.9) Active confirmed Comment:Bilat. Stable, but painful. Recommend LOSING 10 lbs, first, if not enough benefit, then will REFER to Ortho for hyaluronate gel injections., Problem Depression screening (884420237) Depression screening (Z13.31) Active confirmed Problem Hypertension (60456817) Hypertension (I10) Active confirmed Comment:Good control, SAME regimen., Problem Hyperlipidemia (49929374) Hyperlipidemia NEC/NOS (272.4) (272.4) 2007 Active confirmed Problem Acute frontal sinusitis (03615546) Sinusitis, acute frontal (461.1) (461.1) Active confirmed Comment:Increase rest and fluids. C/w decongestant PRN. F/u in 1 week with any worsening or persisting symptoms. All questions answered. PVU., Problem Hypertension, essential (401.) (401) 2007 Active confirmed Problem Medication therapy changed (405391247822481) Medication therapy changed (Z79.899) Active confirmed Comment:will request 2 week follow up and repeat lab,Story:will drop nsaids and myranda due to dec. gfr: 54-45., Problem Wax in ear (394474874) Wax in ear (H61.20) Active confirmed Comment:needs irrigation after the viral syndrome resolves, Problem Low back pain (295661369) Lumbago (724.2) (724.2) 2008 Active confirmed Problem Asthma (827736618) Asthma (J45.909) Active confirmed Comment:will dx asthma and start albuterol inhlaer. Symptoms are chronic but mild,Story:impro shelly comfort, cleared secretions and inc. PFT with albuterol tx, Problem Avitaminosis D (82496891) Avitaminosis D (E55.9) 2008 Active confirmed Description:Cierra min D deficiency Problem Diverticulitis (43289667) Diverticulitis (K57.92) Active confirmed Problem Osteoarthritis of right knee joint (723400577761212) Osteoarthritis of right knee, unspecified osteoarthritis type (M17.11) Active confirmed Comment:Does N OT want to have knee surgery; injections don't last; opiates not a good option either; recommend staying active; will try naproxen instead of ibuprofen to see if that helps., Problem Medication refill (V68.1) (Z76.0) Active confirmed Comment:Refill Flomax, Problem Dyspnea (576200023) SOB (shortness of breath) (R06.02) Active confirmed Problem Acute upper respiratory infection (56236563) Acute upper respiratory infection (J06.9) 2008 Active confirmed Comment:Symptoma tic treatment, most likely viral, Problem Lower urinary tract symptoms due to benign prostatic hypertrophy (61796144545126) BPH associated with nocturia (N40.1) Active confirmed Comment:NO infection; Likely needs surgery at this point, since he is already on tamsulosin; I suggested taking it BID until he sees the urologist, but he needs to make appt today ([facility] [place])., Problem Urinary frequency (296090432) Urinary frequency (R35.0) Active confirmed Problem Cholesterol screening (030410191) Screening for cholesterol level (Z13.220) Active confirmed Problem Renal function tests abnormal (188958025) Decreased GFR (R94.4) Active confirmed Comment:will refer to nephrology,Story :no improvement with d/c of nsaid and MYRANDA inhibitor creatinine WNL, Problem Osteoarthritis of knee (338834901) Osteoarthritis, knee (M17.10) Active confirmed Comment:Gradua ll y worsening, so will talk with his ortho, about Rx options, but basically he has to decide when hes' ready for knee surgery. Meanwhile, PRN ibuprofen + ranitidine (on the days when he takes the NSAID)., Problem Allergic rhinitis (90986892) Allergic rhinitis (J30.9) 2009 Active confirmed Comment:pt to stop OTC nsal spray decongestant. PVU,Story:ASSESS MENT: 1. Avoid any irritants. 2. Will start nasal steroid. 3., Problem Essential hypertension (41990298) BP (high blood pressure) (I10) Active confirmed Comment:Up a bit today, not taking his meds every day. Cautioned to take them every day., Problem Joint pain (05139126) Pain in joint, unspecified site (719.40) (719.40) 2008 Active confirmed Problem Dermatitis (211639601) Dermatitis (L30.9) Active confirmed Comment:short course of steroids as pt has active dermatitis, Problem Hypertension (86196727) HTN (hypertension) (I10) Active confirmed Comment:Same regimen. Has enough for 4-5 months. Exercise, diet emphasized., Problem Administrative reason for encounter (625504500) Administrative encounter (Z02.9) Active confirmed Comment:Disabil i ty placard renewal, see attached [facility] letter., Problem Dyslipidemia (350180280) Dyslipidemia (E78.5) Active confirmed Comment:Doing well, continue same regimen. No need to treat the TGs other than dietary., Problem Preoperative cardiovascular examination (280474420) Preoperative cardiovascular examination (Z01.810) Active confirmed Comment:LOW ris k for upcoming knee surgery. See attached letter., Problem Impaired fasting glycaemia (736480831) Elevated fasting blood sugar (790.21) (790.21) Active confirmed Comment:Diet, exercise. Portion control., Problem Impaired fasting glycaemia (470319530) Elevated fasting glucose (R73.01) Active confirmed Comment:IMPROVE D , with dietary restrictions. CONTINUE. Get as much exercise as able., Problem Insomnia (387166375) Cannot sleep (G47.00) 2008 Active confirmed Description:Inso mnia Problem Osteoarthritis (226965966) OA (osteoarthritis ) (M19.90) Active confirmed Problem Impacted cerumen (08101930) Excessive ear wax, bilateral (H61.23) Active confirmed Problem Medicine refill (Z76.0) Active confirmed Comment:Omepraz o eran, for GERD. Make follow up appt for that, Problem terminal carman current use of non-steroidal anti-inflammatory drug (206498338157795) NSAID long-term use (Z79.1) Active confirmed Problem Essential hypertension (14607526) BP (high blood pressure) (401.9) (401.9) Active confirmed Comment:Good control, continue same regimen., Problem Acute pharyngitis (113849734) Acute pharyngitis (J02.9) 2008 Active confirmed Problem Benign prostatic hypertrophy without outflow obstruction (108049890) BPH (benign prostatic hyperplasia) (600.90) (600.90) Active confirmed Comment:Follow up with urology., Problem Elevated PSA (677848190) Elevated PSA (R97.20) Active confirmed Problem History of urinary frequency (Z87.898) Active confirmed Problem Heel pain (1259087) Heel pain (M79.673) Active confirmed Comment:improvi n g, will treat symptomatically, Problem Dizziness and giddiness (668773685) Dizziness on standing (R42) Active confirmed Comment:Could be related to Photo therapy , will do lab work .Continue same medication for now, Problem Acute bronchitis (disorder) (84157994) Bronchitis, acute (466.0) (466.0) 2008 Active confirmed Problem Sinusitis, acute (461.) (461) 2009 Active confirmed Story:ASSESSMENT : Symptoms and exam consistent with Acute sinusitis., Problem Leukocytosis (827233049) Leukocytosis (D72.829) Active confirmed Problem Acute maxillary sinusitis (98743290) Sinusitis, acute maxillary (461.0) (461.0) 2008 Active confirmed Problem Acute bronchitis (96545561) Bronchitis, acute (J20.9) Active confirmed Comment:Resolved ; and the CT scan, recommended due to the tortuous aorta seen on CXR, was Neg (see Scanneed Doccuments). Reassured. ., Problem Chest discomfort (282643179) Chest discomfort (R07.89) Active confirmed Comment:gettign base line testing due to pt age and HTN,Story:withou t alarm symptoms (no palps, dizziness, sweating, radiation, sob, cough, vomiting), Problem Gastroesophageal reflux disease (288531734) Reflux, esophageal (530.81) (530.81) 2008 Active confirmed Problem Abnormal CXR (R93.89) Active confirmed Comment:Recent CXR in ER showed prominent T-aortic knob, they recommended CT. will get CT, Problem Chronic pain (14171514) Chronic pain (G89.29) 2008 Active confirmed Problem Malaise and fatigue (472748280) Symptom, malaise and fatigue (780.7) (780.7) 2008 Active confirmed Plan Of Treatment No Information Insurance Providers Payer Name Payer Address Payer Phone Subscriber Number Group Number Insured Name Patient Relationship to Insured Coverage Start Date Coverage End Date Medicare NGS PPS [address] [place], [place] [id number] Ignacio Garrett Self - patient is the insured 4 [employer] [facility] [address] [address] [place] [address] [id number] 3 [facility] 0 Ignacio Garrett Self - patient is the insured 2 Medicare NGS PPS [address] [place], [place] [phone] [id number] Ignacio Garrett Self - patient is the insured 5 9 Medical (General) History Surgical History Surgery Date(Month/Year) SURGICAL: Tonsillectomy and adenoidectom y, ProblemStatus: Active, 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
--- OUTSIDE RECORDS SUMMARY | 2025-04-14 09:51 | XMS_ITS | Clinical Summary ---
Author Organization Secern[facility] tem Address [id number] [address] [place] [address] Care Team Providers Care Rehab Therapist Name Role Phone JulianneLinda marcos Robert BORJA-IMPROVEMENT MANAGER Primary Care Provider Allergies No known active allergies Medications tamsulosin (FLOMAX) 0.4 mg capsule,extende d release 24hr Take 1 capsule (0.4 mg total) by mouth nightly. Active amLODIPine (NORVASC) 5 mg tablet Take 2 tablets (10 mg total) by mouth in the morning. Active finasteride (PROSCAR) 5 mg tablet Take 1 tablet (5 mg total) by mouth in the morning. Active pattrkfy-qazr-R A-calcium &mins (THERAGRAN-M) 9 mg iron-400 mcg tablet Take 1 tablet by mouth in the morning. Active lisinopriL (PRINIVIL,ZESTR IL) 20 mg tablet Take 1 tablet (20 mg total) by mouth in the morning. Active omeprazole (PriLOSEC) 20 mg capsule Take 1 capsule (20 mg total) by mouth in the morning. Active Active Problems Problem Noted Date Diagnosed Date Primary osteoarthritis of left knee 10/23/2023 Osteoarthritis of knees, bilateral 05/22/2017 Immunizations Immunization Administration Dates Next Due Tdap 03/26/2023 Family History Medical History Relation Name Comments Cancer Father esophageal Relation Name Status Comments Father Mother Social History Tobacco Use Types Packs/Day Years Used Date Smoking Tobacco: Former Cigarettes Smokeless Tobacco: Never Tobacco Cessation:Counseling Given: Not Answered Alcohol Use Standard Drinks/Week Comments Yes 7 (1 standard drink = 0.6 oz pur e alcohol) 1 beer nightly Childcare Answer Date Recorded Childcare Unknown 02/25/2019 Employment Answer Date Recorded Employment Unknown 02/25/2019 Purpose - Life Answer Date Recorded Purpose and direction in life Unknown Sex and Gender Information Value Date Recorded Sex Assigned at Not on file Legal Sex Male 11:25 AM EDT Gender Identity Not on file Sexual Orientation Not on file Last Filed Vital Signs Vital Sign Reading Time Taken Comments Blood Pressure 139/69 10/23/2023 12:35 PM EST Pulse 71 10/23/2023 12:35 PM EST Temperature 36.1 C (97 F) 10/23/2023 10:05 AM EST Respiratory Rate 17 10/23/2023 12:05 PM EST Oxygen Saturation 96% 10/23/2023 12:35 PM EST Inhaled Oxygen Concentration - - Weight 86.2 kg (190 lb) 10/23/2023 6:49 AM EST Height 165.1 cm (5' 5 ) 10/23/2023 6:49 AM EST Body Mass Index 31.62 10/23/2023 6:49 AM EST Plan of Treatment Health Maintenance Due Date Last Done Comments Depression Screening 1951 Zoster (Shingles) Vaccine (1 of 2) 1989 Fall Risk Screening 2004 Tobacco Screening 10/23/2024 10/23/2023 Influenza Vaccine 05/17/2025 DTaP,Tdap and Td Vaccines (2 - Td or Tdap) 03/26/2033 03/26/2023 Medical Devices Implanted Type Area Graining Press Operator Device Identifier Shelf Expiration Date Model / Serial / Lot Cement Bn Palacos Radpq 40g Rpl [id number] - [id number] Implanted:Qty: 1 on 05/22/2017 by Satinder Martinez DO at [facility] Cement Right: Knee [employer] 08/21/2021 [id number] / [id number]- 01 / [id number] Cement Bn Palacos Radpq 40g Rpl [id number] - [id number] Implanted:Qty: 1 on 05/22/2017 by Satinder Martinez DO at [facility] Cement Right: Knee [employer] 10/22/202167-0270-601- 01 / [id number] 01 / [id number] Cement Bn Bio 40gm Rpl [id number] - [id number] Implanted:Qty: 1 on 10/23/2023 by Satinder Martinez DO at [facility] Cement Left: Knee [employer] 12/14/2025 [id number] / N/A / [id number] Cmpt Fem 10 Std Kn Rt Cmnt - [id number] Implanted:Qty: 1 on 05/22/2017 by Satinder Martinez DO at [facility] Orthopedic Implant Right: Knee [employer] [id number] 12/14/2026 [id number] / [id number] / [id number] Xtn Stm 30mm 14mm Kn Tib - [id number] Implanted:Qty: 1 on 05/22/2017 by Satinder Martinez DO at [facility] Orthopedic Implant Right: Knee [employer] 01/19/2027 [id number] / [id number] / [id number] [facility] Artc 14mm Persona 1012 - [id number] Implanted:Qty: 1 on 05/22/2017 by Satinder Martinez DO at [facility] Orthopedic Implant Right: Knee [employer] [id number] 11/13/2021 [id number] / [id number] / [id number] Cmpt Ptlr 35mm Alply Psn - [id number] Implanted:Qty: 1 on 05/22/2017 by Satinder Martinez DO at [facility] Orthopedic Implant Right: Knee [employer] [id number] 01/13/2025 [id number] / [id number] / [id number] Description:35 mm byron, 9.0 t hick Surface Artc 11mm Persona Ese Cngr 8-11 Ef Kn Lt Vivacit-E - Sn/A - [id number] Implanted:Qty: 1 on 10/23/2023 by Satinder Martinez DO at [facility] Orthopedic Implant Left: Knee [employer] [id number] 02/20/2028 66-5357-810- 11 / N/A / [id number] Component Ptlr 35mm Persona Alprickie Kn Strl Lf - Sn/A - [id number] Implanted:Qty: 1 on 10/23/2023 by Satinder Martinez DO at [facility] Orthopedic Implant Left: Knee [employer] [id number] 06/29/2028 [id number] / N/A / [id number] Persona The Personalized Knee System, Cruciate Retaining (Cr) Left 8, Pps Porous Plasma [place] Standard Femur Implanted:Qty: 1 on 10/23/2023 by Satinder Martinez DO at [facility] Other Implant Left: Knee [employer] [id number] 07/11/2033 26-9668-820- 01 / N/A / [id number] Persona The Personalized Knee System 0 Degree Spiked Keel Left Size E [place], Tibia Implanted:Qty: 1 on 10/23/2023 by Satinder Martinez DO at [facility] Other Implant Left: Knee [employer] [id number] 07/14/2033 30-7432-150- 01 / N/A / [id number] Bsplt Tib 5d G Kn Rt Cmnt Stm - [id number] Implanted:Qty: 1 on 05/22/2017 by Satinder Martinez DO at [facility] Plate Right: Knee [employer] [id number] 10/16/2026 [id number] / [id number] / [id number] Explanted Type Area Graining Press Operator Device Identifier Shelf Expiration Date Model / Serial / Lot Scr Gd 48mm Qd-Spr Kn Hd Mis - [id number] Explanted:Qty: 1 on 05/22/2017 by Satinder Martinez DO at [facility] Screw Right: Knee [employer] [id number] 11/13/2026 [id number] / NA / [id number] Incv/ Scr Bn 35mm 3.5mm St Dup Use [id number] - Sna - [id number] Explanted:Qty: 1 on 05/22/2017 by Satinder Martinez DO at [facility] Screw Right: Knee [employer] 03/15/2027 [id number] / NA / [id number] Scr Bn 35mm 6.5mm St Olaf Hip Rpl [id number] - [id number] Explanted:Qty: 1 on 05/22/2017 by Satinder Martinez DO at [facility] Screw Right: Knee [employer] [id number] 03/15/2027 72-3837-404-35 / NA / [id number] Scr Gd 48mm Qd-Spr Kn Hd Mis - [id number] Explanted:Qty: 1 on 05/22/2017 by Satinder Martinez DO at [facility] Screw Right: Knee [employer] [id number] 11/13/2026 [id number] / NA / [id number] Screw Bn 35mm 6.5mm St Hip Actb Trlg Strl Rpl [id number]+32 - Sn/A - [id number] Explanted:Qty: 2 on 10/23/2023 at [facility] Screw Left: Knee [employer] [id number] 11/27/2032 [id number] / N/A / [id number] Guide 27mm Hx Hd Scr Srg - Sn/A - [id number] Explanted:Qty: 2 on 10/23/2023 at [facility] Screw Left: Knee [employer] [id number] 05/14/203348-6562-214-27 / N/A / [id number] Screw Gd 48mm Qd-Spr Hex Hd Mis Strl - Sn/A - [id number] Explanted:Qty: 11 on 10/23/2023 at [facility] Screw Left: Knee [employer] [id number] 08/19/203385-3039-819-48 / N/A / [id number] Screw Gd 48mm Qd-Spr Hex Hd Mis Strl - Sn/A - [id number] Explanted:Qty: 1 on 10/23/2023 at [facility] Screw Left: Knee [employer] [id number] 07/07/2033 51-1067-123-48 / N/A / [id number] Insurance [employer] MEDICARE ADVANTAGE Care Teams Rehab Therapist Relationship Specialty Start Date End Date Linda Bradley, REGULATORY AFFAIRS COORDINATOR-IMPROVEMENT MANAGER PCP - General Nurse Practitioner 03/06/22
--- OUTSIDE RECORDS SUMMARY | 2025-04-14 09:51 | XMS_ITS | Encounter Summary ---
Author Organization [facility] Address [address] [place] [address] Care Team Providers Care Metal Inspector Name Role Phone Linda Bradley DIVISION ENGINEER Unavailable [phone] Zohaib Cross MD Unavailable Zohaib Cross MD Primary Care Provider [phone] Encounter Details Date Type Department Care Team (Late st Contact Info) Description 12/18/2023 Orders Only [facility] [address] [place] [address] Linda Bradley NP [address] [place] [address] Social History Tobacco Use Types Packs/Day Years [...] often do you attend chur ch or advent services? 1 to 4 times per year 12/03/2023 Do you belong to any clubs o r organizations such as religion groups, unions, fraternal or athletic groups, or [...] Recorded Patient Health Questionnaire-2 Score 0 12/03/2023 [facility] - Occupational [...] place to sleep or slept in a fdc (including now)? No 12/03/2023 Sex and Gender [...] Office Visit [facility] [address] [place] [address] Linda Bradley NP [address] [place] [phone] 12/07/2025 11:00 AM EDT Office Visit [facility] [address] [place] [address] Linda Bradley NP [address] [place] [phone] documented as of this encounter Procedures Procedure Name Priority Date/Time Associated Diagnosis Comments SCANNED LABS Routine 12/18/2023 9:40 AM EDT documented in this encounter Results * SCANNED LABS (12/18/2023 9:40 AM EDT) us Linda Bradley DIVISION ENGINEER LAB CHG PERFORMABLES Final Resu lt documented in this encounter Visit Diagnoses Not on filedocumented in this encounter Additional Health Concerns Assessment Noted Time PHQ-9 Depression Total Score: 3 12/03/19 24 10:28 AM EDT documented as of this encounter Care Teams Metal Inspector Relationship Specialty Start Date End Date Zohaib Cross MD [address] [place] [phone] PCP - Devoted 09/16/22 Zohaib Cross MD [address] [place] [address] PCP - General Family Medicine 10/24/23 Linda Bradley NP [address] [place] [address] Nurse Practitioner Family Medicine 05/17/23 documented as of this encounter
--- OUTSIDE RECORDS SUMMARY | 2025-04-14 09:51 | XMS_ITS | Encounter Summary ---
Author Organization [facility] Address [address] [address] Care Team Providers Care Dye Lab Technician Name Role Phone Linad Bradley STRAND AND BINDER CONTROLLER Unavailable [phone] Zohaib Cross MD Unavailable Zohaib Cross MD Primary Care Provider [phone] Encounter Details Date Type Department Care Team ([facility] Contact Info) Description 10/07/2023 Orders Only [facility] [address] [place] [address] Linda Bradley, STRAND AND BINDER CONTROLLER [address] [place] [address] Social History Tobacco Use Types Packs/Day Years Used Date Smoking Tobacco: Never Smokeless Tobacco: Never Alcohol Use Standard Drinks/Week Comments Yes 0 (1 standard drink = 0.6 oz pur e alcohol) 2-4 times a month PHQ-2 Answer Date Recorded Patient Health Questionnaire-2 Score 0 09/17/2023 Sex and Gender Information Value Date Recorded Sex Assigned at Not on file Legal Sex Male 7:34 PM EDT Gender Identity Not on file Sexual Orientation Not on file documented as of this encounter Plan of Treatment Upcoming Encounters Date Type Department Care Team ([facility] Contact Info) Description 05/04/2025 9:40 AM EDT Office Visit [facility] [address] [place] [address] Linda Bradley, STRAND AND BINDER CONTROLLER [address] [place] [address] 12/07/2025 11:00 AM EDT Office Visit [facility] [address] [place] [address] Linda Bradley NP [address] [place] [address] documented as of this encounter Procedures Procedure Name Priority Date/Time Associated Diagnosis Comments MISCELLANEOUS LAB TEST Routine 10/03/2023 10:33 AM EST documented in this encounter Results * - Miscellaneous Test (10/03/2023 10:33 AM EST) us Linda Bradley STRAND AND BINDER CONTROLLER LAB BLOOD ORDERABLES Final Resu lt documented in this encounter Visit Diagnoses Not on filedocumented in this encounter Care Teams Dye Lab Technician Relationship Specialty Start Date End Date Zohaib Cross MD [address] [place] [address] PCP - Devoted 09/16/22 Zohaib Cross MD [address] [place] [address] PCP - General Family Medicine 10/24/23 Linda Bradley NP [address] [place] [address] Nurse Practitioner Family Medicine 05/17/23 documented as of this encounter
--- OUTSIDE RECORDS SUMMARY | 2025-04-14 09:51 | XMS_ITS | Encounter Summary ---
Author Organization [facility] Address [address] [place] [address] Care Team Providers Care Title Clerk Name Role Phone Linda Bradley NP Unavailable [phone] Zohaib Cross MD Unavailable Zohaib Cross MD Primary Care Provider [phone] Encounter Details Date Type Department Care Team (Late st Contact Info) Description 03/09/2025 Abstract [facility] [address] [place] [address] Linda Bradley NP [address] [place] [address] Social History Tobacco Use Types Packs/Day Years [...] often do you attend chur ch or mosque services? 1 to 4 times per year 12/03/2023 Do you belong to any clubs o r organizations such as restoration groups, unions, fraternal or athletic groups, or [...] Recorded Patient Health Questionnaire-2 Score 0 12/02/2024 [facility] ional [facility] - Occupational [...] Office Visit [facility] [address] [place] [address] Linda Bradley NP [address] [place] [address] 12/07/2025 11:00 AM EDT [facility] [address] [place] [address] Linda Bradley NP [address] [place] [address] documented as of this encounter Visit Diagnoses Not on filedocumented in this encounter Additional Health Concerns Assessment Noted Time PHQ-9 Depression Total Score: 3 12/03/19 25 4:31 PM EDT documented as of this encounter Care Teams Title Clerk Relationship Specialty Start Date End Date Zohaib Cross MD [address] [place] [address] PCP - Devoted 09/16/22 Zohaib Cross MD [address] [place] [address] PCP - General Family Medicine 10/24/23 Linda Bradley NP [address] [place] [address] Nurse Practitioner Family Medicine 05/17/23 documented as of this encounter
--- OUTSIDE RECORDS SUMMARY | 2025-04-14 09:51 | XMS_ITS | Clinical Summary ---
Author Organization [facility] Address [address], [address] [place] [address] Care Team Providers Care Nurse Name Role Phone Satinder Dyer Primary Care Provider Unavailabl e Allergies No known active allergies Medications amLODIPine (NORVASC) 10 MG tablet Take 10 mg by mouth daily Active furosemide (LASIX) 40 MG tablet Take 40 mg by mouth 2 times daily Active carvedilol (COREG) 6.25 MG tablet Take 6.25 mg by mouth 2 times daily (with meals) Active tamsulosin (FLOMAX) 0.4 MG capsuleIndicati ons:Nocturia,BP H with obstruction/low er urinary tract symptoms Take 1 capsule by mouth daily 90 capsule 3 05/19/2019 Active finasteride (PROSCAR) 5 MG tabletIndicatio ns:BPH with obstruction/low er urinary tract symptoms,Noctur ia Take 1 tablet by mouth daily 90 tablet 3 05/19/2019 Active Active Problems No known active problems Social History Tobacco Use Types Packs/Day Years [...] Sign Reading Time Taken Comments Blood Pressure 164/94 05/19/2019 11:19 AM EDT has not taken BP medication today Pulse 77 05/19/2019 11:19 AM EDT Temperature 36.6 C (97.8 F) 05/19/2019 11:19 AM EDT Respiratory Rate 16 10/31/2017 10:0 2 AM EST Oxygen Saturation - - Inhaled Oxygen Concentration - - Weight 88.5 kg (195 lb) 05/19/2019 11:1 9 AM EDT Height 170.2 cm (5' 7 ) 05/19/2019 11:1 9 AM EDT Body Mass Index 30.54 05/19/2019 11:19 AM EDT Plan of Treatment Not on file Insurance MEDICARE MEDICARE Care Teams Nurse Relationship Specialty Start Date End Date Satinder Dyer PCP - General 07/15/15
--- OUTSIDE RECORDS SUMMARY | 2025-04-14 09:51 | XMS_ITS | Encounter Summary ---
Author Organization [facility] Address [address] [place] [address] Care Team Providers Care Sewing Machine Tester Name Role Phone Linda Bradley NP Unavailable [phone] Zohaib Cross MD Unavailable Zohaib Cross MD Primary Care Provider [phone] Encounter Details Date Type Department Care Team (Late st Contact Info) Description 03/02/2025 Abstract [facility] [address] [place] [address] Linda Bradley NP [address] [place] [address] Social History Tobacco Use Types Packs/Day Years [...] often do you attend chur ch or christian services? 1 to 4 times per year 12/03/2023 Do you belong to any clubs o r organizations such as rastafarian groups, unions, fraternal or athletic groups, or [...] Recorded Patient Health Questionnaire-2 Score 0 12/02/2024 [facility] Occupat ional Health - Occupational [...] place to sleep or slept in a skilled nursing (including now)? No 12/03/2023 Sex and Gender [...] Visit [facility] [address] [place] [address] Linda Bradley NP [address] [place] [address] 12/07/2025 11:00 AM EDT [facility] [address] [place] [address] Linda Bradley NP [address] [place] [address] documented as of this encounter Visit Diagnoses Not on filedocumented in this encounter Additional Health Concerns Assessment Noted Time PHQ-9 Depression Total Score: 3 12/03/19 25 4:31 PM EDT documented as of this encounter Care Teams Sewing Machine Tester Relationship Specialty Start Date End Date Zohaib Cross MD [address] [place] [address] PCP - Devoted 09/16/22 Zohaib Cross MD [address] [place] [address] PCP - General Family Medicine 10/24/23 Linda Bradley NP [address] [place] [address] Nurse Practitioner Family Medicine 05/17/23 documented as of this encounter
--- OUTSIDE RECORDS SUMMARY | 2025-04-14 09:51 | XMS_ITS | Encounter Summary ---
Author Organization [facility] Address [address] [place] [address] Care Team Providers Care Dinkey Driver Name Role Phone Linda Bradley NP Unavailable [phone] Zohaib Cross MD Unavailable Zohaib Cross MD Primary Care Provider [phone] Reason for Visit * Reason Onset Date Comments Med Refill 04/12/2025 Encounter Details Date Type Department Care Team (Late Contact Info) Description 04/12/2025 Refill [facility] [address] [address] Linda Bradley NP [address] [place] [address] Social History Tobacco Use Types Packs/Day Years [...] often do you attend chur ch or scientologist services? 1 to 4 times per year 12/03/2023 Do you belong to any clubs o r organizations such as evangelical groups, unions, fraternal or athletic groups, or [...] Recorded Patient Health Questionnaire-2 Score 0 12/02/2024 [facility] Occupat ional Health - Occupational [...] place to sleep or slept in a jail (including now)? No 12/03/2023 Sex and Gender Information Value Date Recorded Sex Assigned at Not on file Legal Sex Male 7:34 PM EDT Gender Identity Not on file Sexual Orientation Not on file documented as of this encounter Plan of Treatment Upcoming Encounters Date Type Department Care Team (Late st Contact Info) Description 05/04/2025 9:40 AM EDT Office Visit [facility] [address] [place] [address] Linda Bradley NP [address] [place] [address] 12/07/2025 11:00 AM EDT Office Visit [facility] [address] [place] [address] Linda Bradley NP [address] [place] [address] documented as of this encounter Visit Diagnoses Not on filedocumented in this encounter Additional Health Concerns Assessment Noted Time PHQ-9 Depression Total Score: 3 12/03/19 25 4:31 PM EDT documented as of this encounter Care Teams Dinkey Driver Relationship Specialty Start Date End Date Zohaib Cross MD [address] [place] [address] PCP - Devoted 09/16/22 Zohaib Cross MD [address] [place] [address] PCP - General Family Medicine 10/24/23 Linda Bradley NP [address] [place] [address] Nurse Practitioner Family Medicine 05/17/23 documented as of this encounter
--- OUTSIDE RECORDS SUMMARY | 2025-04-14 09:51 | XMS_ITS | Encounter Summary ---
Author Organization [facility] Address [address] [place] [address] Care Team Providers Care Top Frame Maker Name Role Phone Linda Bradley CRIMINAL DEFENSE ATTORNEY Unavailable [phone] Zohaib Cross MD Unavailable Zohaib Cross MD Primary Care Provider [phone] Encounter Details Date Type Department Care Team (Late Contact Info) Description 10/22/2023 Abstract [facility] [address] [facility] [address] [place] [address] Timo Durán DO [address] [facility] [address] [place] [address] Social History Tobacco Use Types Packs/Day Years [...] Upcoming Encounters Date Type Department Care Team ([facility] Contact Info) Description 05/04/2025 9:40 AM EDT Office Visit [facility] [address] [place] [address] Linda Bradley, CRIMINAL DEFENSE ATTORNEY [address] [place] [address] 12/07/2025 11:00 AM EDT Office Visit [facility] [address] [place] [address] Linda Bradley NP [address] [place] [address] documented as of this encounter Visit Diagnoses Not on filedocumented in this encounter Care Teams Top Frame Maker Relationship Specialty Start Date End Date Zohaib Cross MD [address] [place] [address] PCP - Devoted 09/16/22 Zohaib Cross MD [address] [place] [address] PCP - General Family Medicine 10/24/23 Linda Bradley NP [address] [place] [address] Nurse Practitioner Family Medicine 05/17/23 documented as of this encounter
--- OUTSIDE RECORDS SUMMARY | 2025-04-14 09:51 | XMS_ITS | Encounter Summary ---
Author Organization [facility] Address [address] [place] [address] Care Team Providers Care Customer Support Manager Name Role Phone Linda Bradley DELIVERY ROOM SUPERVISOR Unavailable [phone] Zohaib Cross MD Unavailable Zohaib Cross MD Primary Care Provider [phone] Encounter Details Date Type Department Care Team (Late st Contact Info) Description 04/07/2025 Refill [facility] [address] [place] [address] Linda Bradley NP [address] [place] [address] Essential hypertension ; Type 2 diabetes mellitus without complication, without long-term current use of insulin (HCC); Gastroesophageal reflux disease, unspecified whether esophagitis present Social History Tobacco Use Types Packs/Day Years [...] 12/03/2023 How often do you attend chur or rastafari services? 1 to 4 times per year 12/03/2023 Do you belong to any clubs o r organizations such as lutheran groups, unions, fraternal or athletic groups, or [...] Recorded Patient Health Questionnaire-2 Score 0 12/02/2024 [facility] of Occupat ional Health - Occupational Stress [...] place to sleep or slept in a [place] (including now)? No 12/03/2023 Sex and Gender [...] Office Visit [facility] [address] [place] [address] Linda Bradley NP [address] [place] [address] 12/07/2025 11:00 AM EDT Office Visit [facility] [address] [place] [address] Linda Bradley NP [address] [place] [address] documented as of this encounter Visit Diagnoses Diagnosis Essential hypertension Unspecified essential hypertension Type 2 diabetes mellitus without complication, without long-term current use of insulin (HCC) Gastroesophageal reflux disease, unspecified whether esophagitis present documented in this encounter Additional Health Concerns Assessment Noted Time PHQ-9 Depression Total Score: 3 12/03/19 25 4:31 PM EDT documented as of this encounter Care Teams Customer Support Manager Relationship Specialty Start Date End Date Zohaib Cross MD [address] [place] [address] PCP - Devoted 09/16/22 Zohaib Cross MD [address] [place] [address] PCP - General Family Medicine 10/24/23 Linda Bradley NP [address] [place] [address] Nurse Practitioner Family Medicine 05/17/23 documented as of this encounter
--- OUTSIDE RECORDS SUMMARY | 2025-04-14 09:51 | XMS_ITS | Encounter Summary ---
Author Organization [facility] Address [address] [place] [address] Care Team Providers Care Senior Technical Editor Name Role Phone Linda Bradley NP Unavailable [phone] Zohaib Cross MD Unavailable Zohaib Cross MD Primary Care Provider [phone] Reason for Visit * Reason Onset Date Comments Med Refill 03/10/2025 Encounter Details Date Type Department Care Team (Late Contact Info) Description 03/10/2025 Refill [facility] [address] [place] [address] Lnida Bradley NP [address] [place] [address] Essential hypertension Social History Tobacco Use Types Packs/Day Years [...] any clubs o r organizations such as rastafari groups, unions, fraternal or athletic groups, or [...] Recorded Patient Health Questionnaire-2 Score 0 12/02/2024 [facility] of Occupat ional Health - Occupational [...] place to sleep or slept in a halfway (including now)? No 12/03/2023 Sex and Gender [...] Office Visit [facility] [address] [place] [address] Linda Bradley NP [address] [place] [address] 12/07/2025 11:00 AM EDT Office Visit [facility] [address] [place] [address] Linda Bradley NP [address] [place] [address] documented as of this encounter Visit Diagnoses Diagnosis Essential hypertension Unspecified essential hypertension documented in this encounter Additional Health Concerns Assessment Noted Time PHQ-9 Depression Total Score: 3 12/03/19 25 4:31 PM EDT documented as of this encounter Care Teams Senior Technical Editor Relationship Specialty Start Date End Date Zohaib Cross MD [address] [place] [address] PCP - Devoted 09/16/22 Zohaib Cross MD [address] [place] [address] PCP - General Family Medicine 10/24/23 Linda Bradley NP [address] [place] [address] Nurse Practitioner Family Medicine 05/17/23 documented as of this encounter
--- OUTSIDE RECORDS SUMMARY | 2025-04-14 09:51 | XMS_ITS | Encounter Summary ---
Author Organization [facility] Address [address] [place] [address] Care Team Providers Care Bindery Worker Name Role Phone Linda Bradley MARKET ASSET PROTECTION MANAGER Unavailable [phone] Zohaib Cross MD Unavailable Zohaib Cross MD Primary Care Provider [phone] Encounter Details Date Type Department Care Team (Late st Contact Info) Description 12/21/2024 External Result [facility] [address] [place] [address] Linda Bradley NP [address] [place] [address] Social History Tobacco Use Types Packs/Day Years [...] often do you attend chur ch or jehovah's witness services? 1 to 4 times per year 12/03/2023 Do you belong to any clubs o r organizations such as mormon groups, unions, fraternal or athletic groups, or [...] Recorded Patient Health Questionnaire-2 Score 0 12/02/2024 [facility] - Occupational Stress Questionnaire Answer Date Recorded [...] place to sleep or slept in a assisted (including now)? No 12/03/2023 Sex and Gender [...] Visit [facility] [address] [place] [address] Linda Bradley NP [address] [place] [address] 12/07/2025 11:00 AM EDT Office Visit [facility] [address] [place] [address] Linda Bradley NP [address] [place] [address] documented as of this encounter Procedures Procedure Name Priority Date/Time Associated Diagnosis Comments XR CHEST 2 VIEWS 12/21/2024 7:05 PM EDT documented in this encounter Results * XR chest 2 views (12/21/2024 7:05 PM EDT) Anatomical Region Laterality Modality Chest Radiographic Elodia ging 12/21/2024 7:05 PM EDT Narrative 12/21/2024 7:04 PM EDT THIS EXAM WAS PERFORMED AT [facility] History: Cough Procedure: 2 view PA and Lateral chest radiograph. Comparison: 02/14/2021 Findings: The heart and lungs show no acute findings, and the mediastinum and leatha are grossly negative . No pneumothorax. Impression: No acute pulmonary process. Finalized by Ti Corona MD on 12/21/2024 7:04 PM Procedure Note Radiology, Radiologist, MD - 12/21/2024 THIS EXAM WAS PERFORMED AT [facility] History: Cough Procedure: 2 view PA and Lateral chest radiograph. Comparison: 02/14/2021 Findings: The heart and lungs show no acute findings, and the mediastinumand leatha are grossly negative . No pneumothorax. Impression: No acute pulmonary process. Finalized by Ti Corona MD on 12/21/2024 7:04 PM Linda Bradley MARKET ASSET PROTECTION MANAGER IMG XR PROCEDURES Final Result documented in this encounter Visit Diagnoses Not on filedocumented in this encounter Additional Health Concerns Assessment Noted Time PHQ-9 Depression Total Score: 3 12/03/19 25 4:31 PM EDT documented as of this encounter Care Teams Bindery Worker Relationship Specialty Start Date End Date Zohaib Cross MD [address] [place] [address] PCP - Devoted 09/16/22 Zohaib Cross MD [address] [place] [address] PCP - General Family Medicine 10/24/23 Linda Bradley NP [address] [place] [address] Nurse Practitioner Family Medicine 05/17/23 documented as of this encounter
--- OUTSIDE RECORDS SUMMARY | 2025-04-14 09:51 | XMS_ITS | Encounter Summary ---
Author Organization [facility] Address [address] [place] [address] Care Team Providers Care Genetics Teacher Name Role Phone Linda Bradley NP Unavailable [phone] Zohaib Cross MD Unavailable Zohaib Cross MD Primary Care Provider [phone] Reason for Visit * Reason Onset Date Comments Med Refill 04/12/2025 Encounter Details Date Type Department Care Team (Late Contact Info) Description 04/12/2025 Refill [facility] [address] [place] [address] Linda Bradley NP [address] [place] [address] Benign prostatic hyperplasia, unspecified whether lower urinary tract symptoms present (Primary Dx) Social History Tobacco Use Types Packs/Day Years [...] How often do you attend chur or alevism services? 1 to 4 times per year [...] Recorded Patient Health Questionnaire-2 Score 0 12/02/2024 [facility] Occupat ional Health - Occupational Stress [...] place to sleep or slept in a snf (including now)? No 12/03/2023 Sex and Gender [...] Office Visit [facility] [address] [place] [address] Linda Bradley NP [address] [place] [address] 12/07/2025 11:00 AM EDT Office Visit [facility] [address] [place] [address] Linda Bradley NP [address] [place] [address] documented as of this encounter Visit Diagnoses Diagnosis Benign prostatic hyperplasia, unspecified whether lower urinary tract symptoms present- Primary documented in this encounter Additional Health Concerns Assessment Noted Time PHQ-9 Depression Total Score: 3 12/03/19 25 4:31 PM EDT documented as of this encounter Care Teams Genetics Teacher Relationship Specialty Start Date End Date Zohaib Cross MD [address] [place] [address] PCP - Devoted 09/16/22 Zohaib Cross MD [address] [place] [address] PCP - General Family Medicine 10/24/23 Linda Bradley NP [address] [place] [address] Nurse Practitioner Family Medicine 05/17/23 documented as of this encounter
--- OUTSIDE RECORDS SUMMARY | 2025-04-14 09:51 | XMS_ITS | Encounter Summary ---
Author Organization [facility] Address [address] [place] [address] Care Team Providers Care Superintendent Of Generation Name Role Phone Linda Bradley PIPELINE GANG SUPERVISOR Unavailable [phone] Zohaib Cross MD Unavailable Zohaib Cross MD Primary Care Provider [phone] Encounter Details Date Type Department Care Team (Late st Contact Info) Description 09/15/2023 [facility] [address] [place] [address] Linda Bradley NP [address] [place] [address] Social History Tobacco Use Types Packs/Day Years Used Date Smoking Tobacco: Never Smokeless Tobacco: Never Tobacco Cessation:Counseling Given: Not Answered Alcohol Use Standard Drinks/Week Comments Yes 0 [...] on file documented as of this encounter Functional Status * Over the past 2 weeks, how often have you been bothered by any of the following problems? Question Answer Date of Assessment Author Little interest or pleasure in doing things Not at all 09/17/2023 9:23 AM RAJIV ROGERS Feeling down, depressed, or hopeless Not at all 09/17/2023 9:23 AM RAJIV ROGERS Patient Health Questionnaire -2 Score 0 09/17/2023 9:23 AM RAJIV ROGERS * Geriatric Depression Scale (Short Version) Question Answer Date of Assessment Author Are you basically satisfied with your life? Yes 09/17/2023 9:36 AM RAJIV ROGERS Have you dropped many of you r activities and interests? No 09/17/2023 9:36 AM VERA ROGERS Do you feel that your life i s empty? No 09/17/2023 9:36 AM RAJIV ROGERS Do you often get bored? No 09/17/2023 9:36 A M VERA ROGERS Are you in good spirits most of the time? Yes 09/17/2023 9:36 AM RAJIV ROGERS Are you afraid that somethin g bad is going to happen to you? No 09/17/2023 9:36 AM VERA ROGERS Do you feel happy most of the time? Yes 09/17 9:36 AM VERA ROGERS Do you often feel helpless? No 09/17/2023 9: 36 AM VERA ROGERS Do you prefer to stay at [facility], rather than going out and doing new things? No 09/17/2023 9:36 AM RAJIV ROGERS Do you feel you have more pr oblems with memory than most? No 09/17/2023 9:36 AM BRENDA ROGERS Do you think it is wonderful to be alive now? Yes 09/17/2023 9:36 AM RAJIV ROGERS Do you feel pretty worthless the way you are now? No 09/17/2023 9:36 AM RAJIV ROGERS Do you feel full of energy? Yes 09/17/2023 9: 36 AM VERA ROGERS Do you feel that your situat ion is hopeless? No 09/17/2023 9:36 AM RAJIV ROGERS Do you think that most peopl e are better off than you are? No 09/17/2023 9:36 AM VERA ROGERS Geriatric Depression Scale ( Short Version) Total 0 09/17/2023 9:36 AM RAJIV ROGERS documented as of this encounter Plan of Treatment Upcoming Encounters Date Type Department Care Team (Late st Contact Info) Description 05/04/2025 9:40 AM EDT Office Visit [facility] [address] [place] [address] Linda Bradley, STACIE [address] [place] [address] 12/07/2025 11:00 AM EDT Office Visit [facility] [address] [place] [address] Linda Bradley NP [address] [place] [address] documented as of this encounter Visit Diagnoses Not on filedocumented in this encounter Care Teams Superintendent Of Generation Relationship Specialty Start Date End Date Zohaib Cross MD [address] [place] [address] PCP - Devoted 09/16/22 Zohaib Cross MD [address] [place] [address] PCP - General Family Medicine 10/24/23 Linda Bradley NP [address] [place] [address] Nurse Practitioner Family Medicine 05/17/23 documented as of this encounter
--- NOTE | 2025-04-14 10:00 | CA_ITS ---
Patient Name: FELIZ ALVARADO MR#: [id number] : 1940 Exam Date: 04/14/2025 Ordering Doctor: EDMOND SORTO CNP ECHOCARDIOGRAM REPORT PROCEDURE: CA ECHO DOPPLER COMPLETE INDICATIONS: Dyspnea on exertion, hypertension COMPARISON: None. DESCRIPTION: COMPLETE ECHOCARDIOGRAM Real-time transthoracic echocardiography with 2D, M-mode, spectral and color flow Doppler performed. QUALITY: Technical quality was good. LEFT VENTRICLE: Normal chamber size. Mild concentric left ventricular hypertrophy. Normal systolic function. LV EF: Normal left ventricular ejection fraction, (60-65%). DIASTOLIC: Normal diastolic function. ATRIAL SEPTUM: Visually appears intact. LEFT ATRIUM: Normal chamber size. RIGHT ATRIUM: Normal chamber size. RIGHT VENTRICLE: Normal chamber size. Normal right ventricular systolic function. TRICUSPID VALVE: Normal mobility and thickness. No stenosis with trivial regurgitation. No evidence of pulmonary hypertension. RVSP 24 mmHg MITRAL VALVE: Normal mobility and thickness. No evidence of mitral valve stenosis. There is no mitral annular calcification. Trivial mitral regurgitation. AORTIC VALVE: Normal trileaflet appearance. No visible sclerosis. Normal leaflet mobility. No evidence of aortic valve stenosis. Mild aortic regurgitation. AORTIC ROOT: Mildly dilated, measuring 4.1 cm. Ascending aorta is normal in size, measuring 3.3 cm. PULMONIC VALVE: Normal thickness and mobility. No stenosis. No regurgitation. PERICARDIUM: No evidence of pericardial effusion. IVC: Collapses with inspiration. IVC is normal in size. PLEURA: CONCLUSION: 1. Mild concentric left ventricular hypertrophy with normal systolic function. LVEF is estimated at 60-65%. 2. Normal right ventricular size and systolic function. 3. Mild aortic regurgitation. 4. Mildly dilated aortic root (4.1 cm). 5. Normal right sided pressures. Adult Echocardiography Procedure Report Left Ventricle LVEDD (3.7 - 5.6 cm): 4.70 cm LVESD (2.2 - 4.0 cm): 3.17 cm LVIVS thickness (0.6 - 1.2 cm): 1.30 cm LVPW thickness (0.5 - 1.0 cm): 1.20 cm e': 0.12 m/s E - e': 5.73 LVOT Max Gradient: 11.70 mm[Hg] LVOT Area (cm2): 1.71 m/s Peak Velocity (LVOT): 1.71 m/s Mean Velocity (LVOT): 1.06 m/s LVOT Diameter 2.65 cm Left Ventricular Ejection Fraction: 60-65 % Left Atrium LA Volume Index (2D A2C): 18.40 ml/m2 Left Atrium Systolic Dimension: 3.21 cm Mitral Valve MV E to A Ratio: 0.66 Mitral Valve A-Wave Peak Velocity: 1.07 m/s Mitral Valve E-Wave Peak Velocity: 0.71 m/s Right Ventricle Aorta AO Root Diam: 4.15 cm Ascending Ao Diam: 3.26 cm Aortic Valve AoV Area (Peak Slim): 4.66 cm2, 4.66 cm2 AoV Area (VTI): 4.65 cm2, 4.65 cm2 Deceleration [place]: 4.44 m/s2 Pressure Half-Time: 354.93 ms Peak Velocity(Antegrade Flow): 2.02 m/s Peak Gradient(Antegrade Flow): 16.37 mm[Hg] Mean Velocity(Antegrade Flow): 1.32 m/s Mean Gradient(Antegrade Flow): 8.15 mm[Hg] Velocity Time Integral: 40.54 cm Tricuspid Valve Peak Velocity (Regurgitant Flow): 2.27 m/s Pulmonic Valve Peak Gradient: 7.20 mm[Hg], 7.01 mm[Hg] Right Atrium Right Atrium Systolic Pressure: 47.18 ml, 47.18 ml Dictated by: Timo Brown M.D. on 04/14/2025 at 19:15 Approved by: Timo Brown M.D. on 04/14/2025 at 19:22
== END 2025-04-14 09:50 | disposition home or self-care (01) ==
LOC: CARD 09:49
PROVIDERS: PCP Nurse Practitioner; Visit Provider Nurse Practitioner
DX: R06.09 Other forms of dyspnea (principal); I10 Essential (primary) hypertension
CPT/HCPCS: 93306

== ENCOUNTER 2025-06-02 16:34 | Outpatient (OUT) | payer OTHER, SELFPAY ==
--- OUTSIDE RECORDS SUMMARY | 2025-06-02 15:40 | XMS_ITS | Encounter Summary ---
Author Organization [facility] Address [address] [place] [address] Care Team Providers Care Movie Shot Camera Operator Name Role Phone Linda Bradley MD Primary Care Provider [phone] Reason for Referral * Imaging (Routine) - Pending Review Specialty Diagnoses / Procedures Referred By Contac t Referred To Contact Cardiology Diagnoses Nonrheumatic aortic valve insufficiency Ascending aorta enlargement Procedures Transthoracic echo (TTE) complete Simon Caban MD [address] [place] [address] Phone: tel: fax: Referral ID Status Reason Start Date Expiration Date Visits Requested Visits Authorized [id number] Pending Review Perform Procedure 06/02/2025 06/02/2026 1 1 * Imaging (Routine) - Pending Review Specialty Diagnoses / Procedures Referred By Contac t Referred To Contact Diagnoses Ascending aorta enlargement Procedures CTA Chest W IV Contrast Simon Caban MD [address] [place] [address] Phone: tel: fax: Referral ID Status Reason Start Date Expiration Date V isits Requested Visits Authorized [id number] Pending Review 06/02/2025 06/02/2026 1 1 * (Routine) - Pending Review Specialty Diagnoses / Procedures Referred By Contac t Referred To Contact Diagnoses Abnormal echocardiogram Procedures ECG 12 lead unit performed Simon Caban MD [address] [place] [address] Phone: tel: fax: Referral ID Status Reason Start Date Expiration Date V isits Requested Visits Authorized [id number] Pending Review 06/02/2025 06/02/2026 1 1 Reason for Visit * Reason Comments New Patient Patient is here toda y as a new patient to establish care with cardiology for an abnormal Echo. Patient complains of SOB and weakness in the hot weather occasional dizziness/lightheaded. Hypertension Hyperlipidemia Shortness of Breath Fatigue Dizziness Encounter Details Date Type Department Care Team (Late st Contact Info) Description 06/02/2025 3:40 PM EDT Office Visit [facility] [address] [place] [address] Simon Caban MD [address] [place] [address] Nonrheumatic aortic valve insufficiency (Primary Dx); Abnormal echocardiogram; Ascending aorta enlargement Social History Tobacco Use Types Packs/Day Years Used Date Smoking Tobacco: Never Smokeless Tobacco: Never Tobacco Cessation:Counseling Given: Not Answered Alcohol Use Standard Drinks/Week Comments Yes 0 (1 standard drink = 0.6 oz pur e alcohol) 1 beer nightly Sex and Gender Information Value Date Recorded Sex Assigned at Male 04/28/2025 10:53 AM EDT Legal Sex Male 10:51 AM EDT Gender Identity Male 04/28/2025 10:53 AM EDT Sexual Orientation Heterosexual or Straight 04/16 10:53 AM EDT documented as of this encounter Last Filed Vital Signs Vital Sign Reading Time Taken Comments Blood Pressure 148/72 06/02/2025 3:49 PM EDT Pulse 84 06/02/2025 3:49 PM EDT Temperature - - Respiratory Rate - - Oxygen Saturation 97% 06/02/2025 3:49 PM EDT Inhaled Oxygen Concentration - - Weight 87.5 kg (193 lb) 06/02/2025 3:49 PM EDT Height 165.1 cm (5' 5 ) 06/02/2025 3:49 PM EDT Body Mass Index 32.12 06/02/2025 3:49 PM EDT documented in this encounter Progress Notes * Simon Caban MD - 06/02/2025 3:40 PM EDT Subjective Patient ID: Ignacio Landis is a 85 y.o. male who presents for New Patient (Patient is here today as a new patient to establish care with cardiology for an abnormal Echo. Patient complains of SOBand weakness in the hot weather occasional dizziness/lightheaded. ), Hypertension, Hyperlipidemia, Shortness of Breath, Fatigue, and Dizziness. 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 Feels unstable when walking after two knee surgeries Able to carry groceries, not sob if goes up stairs or carries groceries Was able to carry 4 bags of cement 80 lbs to car Yesterday helped carry a refrigerator with his daughter Hypertension Associated symptoms include shortness of breath. Pertinent negatives include no chest pain. Hyperlipidemia Associated symptoms include shortness of breath. Pertinent negatives include no chest pain. Shortness of Breath Pertinent negatives include no chest pain. Fatigue Associated symptoms include fatigue. Pertinent negatives include no chest pain. Dizziness Associated symptoms include fatigue. Pertinent negatives include no chest pain. Review of Systems Constitutional: Positive for fatigue. Respiratory: Positive for shortness of breath. Negative for chest tightness. Cardiovascular: Negative for chest pain. Neurological: Positive for dizziness. Negative for seizures and syncope. Objective Visit Vitals BP 148/72 (BP Location: Right arm, Patient Position: Sitting) Pulse 84 Physical Exam Constitutional: Appearance: Normal appearance. He is normal weight. HENT: Head: Normocephalic and atraumatic. Cardiovascular: Rate and Rhythm: Normal rate and regular rhythm. No extrasystoles are present. Pulses: Normal pulses. Carotid pulses are 2+ on the right side and 2+ on the left side. Heart sounds: Heart sounds not distant. Murmur heard. Systolic murmur is present with a grade of 1/6. Decrescendo diastolic murmur is present with a grade of 2/4. Pulmonary: Effort: Pulmonary effort is normal. Breath sounds: Normal breath sounds. Musculoskeletal: Right lower leg: No edema. Left lower leg: No edema. Skin: General: Skin is warm and dry. Neurological: General: No focal deficit present. Mental Status: He is alert and oriented to person, place, and time. Psychiatric: Mood and Affect: Mood normal. Behavior: Behavior normal. Assessment/Plan Mr Landis has mild aortic insufficiency and LV not dilated. Will obtain CT contrast to evaluate ascending aorta since it is dilated on echo and to assess aorta above echo windows. He is not limited inactivity, he carried a refrigerator yesterday! Plan: echo 1 year CTA chest now to assess ascending aorta BMP before contrast CT Diagnosis Plan 1. Nonrheumatic aortic valve insufficiency 2. Abnormal echocardiogram ECG 12 lead unit performed 3. Ascending aorta enlargement Orders Placed This Encounter Procedures ??? ECG 12 lead unit performed This back office order was created through the Back Office Visit Navigator section. Release to Patient: Immediately No results found for this or any previous visit (from the past 36 hours). Follow up in about 1 year (around 06/02/2026), or reassess echo before visit for AR. documented in this encounter Plan of Treatment Scheduled Orders Name Type Priority Associated Diagnoses Orde r Schedule CTA Chest W IV Contrast Imaging Routine Ascending aorta enlargement Expected: 06/02/2025, Expires: 06/02/2026 Basic metabolic panel Lab Routine Ascending aorta enlargement Expected: 06/02/2025 (Approximate), Expires: 06/02/2026 Transthoracic echo (TTE) complete Echocardiography Routine Nonrheumatic aortic valve insufficiency Ascending aorta enlargement Expected: 06/02/2025 (Approximate), Expires: 06/02/2027 documented as of this encounter Procedures Procedure Name Priority Date/Time Associated Diagnosis Comments ECG 12 LEAD UNIT PERFORMED Routine 06/02/2025 3:49 PM EDT Abnormal echocardiogram documented in this encounter Results * ECG 12 lead unit performed (06/02/2025 3:49 PM EDT) us Simon Caban MD ECG ORDERABLES Final Resu lt documented in this encounter Visit Diagnoses Diagnosis Nonrheumatic aortic valve insufficiency- Primary Abnormal echocardiogram Nonspecific (abnormal) findings on radiological and other examination of other intrathoracic organs Ascending aorta enlargement documented in this encounter Care Teams Movie Shot Camera Operator Relationship Specialty Start Date End Date Linda Bradley MD [address] [place] [address] PCP - General Nurse Practitioner 05/21/25 documented as of this encounter
--- OUTSIDE RECORDS SUMMARY | 2025-06-02 16:40 | XMS_ITS | Clinical Summary ---
Author Organization [employer] Address [id number] [address] [place] [address] Care Team Providers Care Corporate Relations Director Name Role Phone JulianneLinda marcos Robert BORJA-COLD TYPE ARTIST Primary Care Provider Allergies No known active allergies Medications tamsulosin (FLOMAX) 0.4 mg capsule,extende d release 24hr Take 1 capsule (0.4 mg total) by mouth nightly. Active amLODIPine (NORVASC) 5 mg tablet Take 2 tablets (10 mg total) by mouth in the morning. Active finasteride (PROSCAR) 5 mg tablet Take 1 tablet (5 mg total) by mouth in the morning. Active ddpvblgl-kzcs-N A-calcium &mins (THERAGRAN-M) 9 mg iron-400 mcg [...] 03/26/2033 03/26/2023 Medical Devices Implanted Type Area Optical Instrument Assembler Device Identifier Shelf Expiration Date Model / Serial / Lot Cement Bn Palacos Radpq 40g Rpl [id number] - [id number] Implanted:Qty: 1 on 05/22/2017 by Satinder Martinez DO at [facility] Cement Right: Knee [employer] 08/21/2021 [id number] / [id number]- 01 / [id number] Cement Bn Palacos Radpq 40g Rpl [id number] - [id number] Implanted:Qty: 1 on 05/22/2017 by Satinder Martinez DO at [facility] Cement Right: Knee [employer] 10/22/202155-7994-857- 01 / 19-2507-933- 01 / [id number] Cement Bn Bio 40gm Rpl [id number] - [id number] Implanted:Qty: 1 on 10/23/2023 by Satinder Martinez DO at [facility] Cement Left: Knee [employer] 12/14/2025 [id number] / N/A / [id number] Cmpt Fem 10 Std Kn Rt Cmnt - [id number] Implanted:Qty: 1 on 05/22/2017 by Satinder Martinez DO at [facility] Orthopedic Implant Right: Knee [employer] [id number] 12/14/2026 [id number] / [id number] / [id number] Xtn Stm 30mm 14mm Kn Tib - [id number] Implanted:Qty: 1 on 05/22/2017 by Satinder Martinez DO at [facility] Orthopedic Implant Right: Knee [employer] 01/19/2027 [id number] / [id number] / [id number] [facility] Artc 14mm Persona 1012 - [id number] Implanted:Qty: 1 on 05/22/2017 by Satinder Martinez DO at [facility] Orthopedic Implant Right: Knee [employer] [id number] 11/13/2021 [id number] / [id number] / [id number] Cmpt Ptlr 35mm Alply Psn - [id number] Implanted:Qty: 1 on 05/22/2017 by Satinder Martinez DO at [facility] Orthopedic Implant Right: Knee [employer] [id number] 01/13/2025 [id number] / [id number] / [id number] Description:35 mm byron, 9.0 t hick Surface Artc 11mm Persona Ese Cngr 8-11 Ef Kn Lt Vivacit-E - Sn/A - [id number] Implanted:Qty: 1 on 10/23/2023 by Satinder Martinez DO at [facility] Orthopedic Implant Left: Knee [employer] [id number] 02/20/2028 51-1181-904- 11 / N/A / [id number] Component Ptlr 35mm Persona Alprickie Kn Strl Lf - Sn/A - [id number] Implanted:Qty: 1 on 10/23/2023 by Satinder Martinez DO at [facility] Orthopedic Implant Left: Knee [employer] [id number] 06/29/2028 [id number] / N/A / [id number] Persona The Personalized Knee System, Cruciate Retaining (Cr) Left 8, Pps Porous Plasma [place] Standard Femur Implanted:Qty: 1 on 10/23/2023 by Satinder Martinez DO at [facility] Other Implant Left: Knee [employer] [id number] 07/11/2033 52-5737-646- 01 / N/A / [id number] Persona The Personalized Knee System 0 Degree Spiked Keel Left Size E [place], Tibia Implanted:Qty: 1 on 10/23/2023 by Satinder Martinez DO at [facility] Other Implant Left: Knee [employer] [id number] 07/14/2033 05-2533-523- 01 / N/A / [id number] Bsplt Tib 5d G Kn Rt Cmnt Stm - [id number] Implanted:Qty: 1 on 05/22/2017 by Satinder Martinez DO at [facility] Plate Right: Knee [employer] [id number] 10/16/2026 [id number] / [id number] / [id number] Explanted Type Area Optical Instrument Assembler Device Identifier Shelf Expiration Date Model / Serial / Lot Scr Gd 48mm Qd-Spr Kn Hd Mis - [id number] Explanted:Qty: 1 on 05/22/2017 by Satinder Martinez DO at [facility] Screw Right: Knee [employer] [id number] 11/13/2026 [id number] / NA / [id number] Incv/ Scr Bn 35mm 3.5mm St Dup Use [id number] - Sna - [id number] Explanted:Qty: 1 on 05/22/2017 by Satinder Martinez DO at [facility] Screw Right: Knee [employer] 03/15/2027 [id number] / NA / [id number] Scr Bn 35mm 6.5mm St Olaf Hip Rpl [id number] - [id number] Explanted:Qty: 1 on 05/22/2017 by Satinder Martinez DO at [facility] Screw Right: Knee [employer] [id number] 03/15/2027 73-8328-980-35 / NA / [id number] Scr Gd 48mm Qd-Spr Kn Hd Mis - [id number] Explanted:Qty: 1 on 05/22/2017 by Satinder Martinez DO at [facility] Screw Right: Knee [employer] [id number] 11/13/2026 [id number] / NA / [id number] Screw Bn 35mm 6.5mm St Hip Actb Trlg Strl Rpl [id number]+32 - Sn/A - [id number] Explanted:Qty: 2 on 10/23/2023 at [facility] Screw Left: Knee [employer] [id number] 11/27/2032 [id number] / N/A / [id number] Guide 27mm Hx Hd Scr Srg - Sn/A - [id number] Explanted:Qty: 2 on 10/23/2023 at [facility] Screw Left: Knee [employer] [id number] 05/14/203379-0886-505-27 / N/A / [id number] Screw Gd 48mm Qd-Spr Hex Hd Mis Strl - Sn/A - [id number] Explanted:Qty: 11 on 10/23/2023 at [facility] Screw Left: Knee [employer] [id number] 08/19/203313-1534-435-48 / N/A / [id number] Screw Gd 48mm Qd-Spr Hex Hd Mis Strl - Sn/A - [id number] Explanted:Qty: 1 on 10/23/2023 at [facility] Screw Left: Knee [employer] [id number] 07/07/2033 35-4025-384-48 / N/A / [id number] Insurance [employer] MEDIC[employer] ADVANTAGE Care Teams Corporate Relations Director Relationship Specialty Start Date End Date Linda Bradley, INDEPENDENT FREIGHT AGENT-COLD TYPE ARTIST PCP - General Nurse Practitioner 03/06/22
--- OUTSIDE RECORDS SUMMARY | 2025-06-02 16:40 | XMS_ITS | Encounter Summary ---
Author Organization [facility] Address [address] [place] [address] Care Team Providers Care After School Counselor Name Role Phone Linda Bradley LOAN ASSISTANT Unavailable [phone] Zohaib Cross MD Unavailable Zohaib Cross MD Primary Care Provider [phone] Encounter Details Date Type Department Care Team (Late st Contact Info) Description 10/22/2023 Abstract [facility] [address] [facility] [address] [place] [address] Timo Durán DO [address] [facility] [address] [place] [address] Social History Tobacco Use Types Packs/Day Years [...] on filedocumented in this encounter Care Teams After School Counselor Relationship Specialty Start Date End Date Zohaib Cross MD [address] [place] [address] PCP - Devoted 09/16/22 Zohaib Cross MD [address] [place] [address] PCP - General Family Medicine 10/24/23 Linda Bradley NP Nurse Practitioner Family Medicine 05/17/23 documented as of this encounter
--- OUTSIDE RECORDS SUMMARY | 2025-06-02 16:40 | XMS_ITS | Encounter Summary ---
Author Organization [facility] Address [address] [place] [address] Care Team Providers Care Longshore Equipment Operator Name Role Phone Julianneedijaxon Linda STACIE Unavailable [phone] Zohaib Cross MD Unavailable Zohaib Cross MD Primary Care Provider [phone] Encounter Details Date Type Department Care Team (Late st Contact Info) Description 12/09/2023 Abstract [facility] [address] [place] [address] Ruben Irwin MUSIC COMPOSITION TEACHER [address] [place], [place] [id number] Social History Tobacco Use Types Packs/Day Years [...] often do you attend chur ch or mormon services? 1 to 4 times per year 12/03/2023 Do you belong to any clubs o r organizations such as moravian groups, unions, fraternal or athletic groups, or [...] Recorded Patient Health Questionnaire-2 Score 0 12/03/2023 [facility] Occup[facility] - Occupational Stress [...] place to sleep or slept in a group home (including now)? No 12/03/2023 Sex and Gender [...] documented as of this encounter Care Teams Longshore Equipment Operator Relationship Specialty Start Date End Date Zhoaib Cross MD [address] [place] [address] PCP - Devoted 09/16/22 Zohaib Cross MD [address] [place] [address] PCP - General Family Medicine 10/24/23 Linda Bradley NP Nurse Practitioner Family Medicine 05/17/23 documented as of this encounter
--- OUTSIDE RECORDS SUMMARY | 2025-06-02 16:40 | XMS_ITS | Encounter Summary ---
Author Organization [facility] Address [address] [place] [address] Care Team Providers Care Rn Gyn Name Role Phone Linda Bradley LINEN MANAGER Unavailable [phone] Zohaib Cross MD Unavailable Zohaib Cross MD Primary Care Provider [phone] Encounter Details Date Type Department Care Team (Late st Contact Info) Description 09/15/2023 Abstract [facility] [address] [place] [address] Linda Bradley, LINEN MANAGER [address] [place] [address] Social History Tobacco Use Types Packs/Day Years [...] ROGERS Do you prefer to stay at [facility], rather than going out and doing new [...] on filedocumented in this encounter Care Teams Rn Gyn Relationship Specialty Start Date End Date Zohaib Cross MD [address] [place] [address] PCP - Devoted 09/16/22 Zohaib Cross MD [address] [place] [address] PCP - General Family Medicine 10/24/23 Linda Bradley NP Nurse Practitioner Family Medicine 05/17/23 documented as of this encounter
--- OUTSIDE RECORDS SUMMARY | 2025-06-02 16:40 | XMS_ITS | Clinical Summary ---
Author Organization [facility] Address [address] [place] [address] Care Team Providers Care Fourth Grade Teacher Name Role Phone Linda Bradley MD Primary Care Provider [phone] Allergies No known active allergies Medications albuterol 90 mcg/actuation inhaler Inhale 2 puffs every 6 (six) hours if needed. 5 Active amLODIPine (Norvasc) 10 mg tablet Take 10 mg by mouth in the morning. 5 07/06/20 25 Active finasteride (Proscar) 5 mg tablet Take 5 mg by mouth in the morning. 9 07/28/20 25 Active fluticasone-ume clidin-vilanter (Trelegy Ellipta) 100-62.5-25 mcg blister with device Inhale 1 puff in the morning. 5 Active aspirin 81 mg EC tablet Take 81 mg by mouth in the morning. 5 06/14/20 25 Active lisinopril 30 mg tablet Take 30 mg by mouth in the morning. 5 07/06/20 25 Active metFORMIN (Glucophage) 500 mg tablet Take 500 mg by mouth with breakfast and with evening meal. 5 Active omeprazole (PriLOSEC) [address] capsule Take 20 mg by mouth in the morning. 5 Active tamsulosin (Flomax) 0.4 mg 24 hr capsule Take 0.4 mg by mouth in the morning. 9 07/11/20 25 Active Active Problems Problem Noted Date Diagnosed Date Abnormal CXR 06/01/2025 Acute bronchitis due to Mycoplasma pneumoniae Acute frontal sinusitis 06/01/2025 Allergic rhinitis due to pollen 06/01/2025 Asthma 06/01/2025 Decreased GFR 06/01/2025 Dizziness and giddiness 06/01/2025 Dyslipidemia 06/01/2025 Elevated fasting glucose 06/01/2025 Encounters for administrative purposes Heartburn 06/01/2025 Heel pain 06/01/2025 History of urinary frequency 06/01/2025 Impacted cerumen 06/01/2025 Leukocytosis 06/01/2025 training and development director (current) use of n on-steroidal anti-inflammatories (nsaid) 06/01/2025 Medication therapy changed 06/01/2025 Encounter for issue of repeat prescription 06/01 Osteoarthritis of knee 06/01/2025 Urinary frequency 06/01/2025 Vesicular eczema 06/01/2025 Wax in ear 06/01/2025 Dyspnea on exertion 03/16/2025 Moderate persistent asthma without complication 01/06/2025 Class 2 severe obesity due t o excess calories with serious comorbidity in adult 11/16/2024 Diverticulitis 11/16/2024 Chronic cough 03/10/2024 Other specified anemias 12/18/2023 Chronic kidney disease, stage III (moderate) Diverticulosis 12/03/2023 Headache 12/03/2023 Hearing deficit, bilateral 12/03/2023 High prostate specific antigen (PSA) 12/03/2023 Tinnitus, bilateral 12/03/2023 Obesity (BMI 30-39.9) 09/17/2023 Constipation 08/14/2023 Presence of right artificial knee joint 08/14/20 BPH (benign prostatic hyperplasia) 05/19/2019 Overview (06/01/2025): [facility] Allergic rhinitis 03/14/2010 Avitaminosis D 08/16/2009 Fatigue 08/03/2009 Joint pain 08/03/2009 Lumbar back pain 08/03/2009 Chronic pain 07/12/2009 Acute upper respiratory infection 07/06/2009 Acute bronchitis 04/06/2009 Insomnia 02/28/2009 Gastroesophageal reflux disease 12/09/2008 Actinic keratosis 09/06/2008 Proteinuria 09/06/2008 Essential hypertension 12/22/2007 Hyperlipidemia 12/22/2007 Encounters Date Type Department Care Team Description 06/02/2025 3:40 PM EDT Office Visit [facility] [place] [address] [place] [address] Simon Caban MD Nonrheumatic aortic valve insufficiency (Primary Dx); Abnormal echocardiogram; Ascending aorta enlargement 04/29/2025 Orders Only [facility] [address] [place] [address] Provider, MD Regan from Last 3 Months Family History Medical History Relation Name Comments Dementia Brother 1 bite Brother 2 Throat cancer Father old age Mother Cancer Sister Relation Name Status Comments Brother 1 Brother 2 Father Mother Sister Social History Tobacco Use Types Packs/Day Years [...] Heterosexual or Straight 04/16 10:53 AM EDT Last Filed Vital Signs Vital Sign Reading [...] Mass Index 32.12 06/02/2025 3:49 PM EDT Plan of Treatment Health Maintenance Due Date Last Done Comments Diabetes: Hemoglobin A1C 1940 Medicare Annual Wellness (AWV) 1940 Diabetes: Retinopathy Screening 1949 Depression Screening 1951 Zoster Vaccines (1 of 2) 1989 Fall Risk Screening 2004 Pneumococcal Vaccine: 50+ Years (2 of 2 - PCV) 05/17/2021 05/17/2020, 09/16/2016 COVID-19 Vaccine ( - 2023-2 5 season) 2025 Influenza Vaccine (#1) 2025 Diabetes: Urine Protein Screening 08/10/2025 08/10/2024 Adult Tetanus 03/26/2033 03/26/2023 HIB Vaccines Aged Out No longer eligi ble based on patient's age to complete this topic HPV Vaccines Aged Out No longer eligi ble based on patient's age to complete this topic IPV Vaccines Aged Out No longer eligi ble based on patient's age to complete this topic Meningococcal B Vaccine Aged Out No l onger eligible based on patient's age to complete this topic Meningococcal Vaccine Aged Out No anushka meghan eligible based on patient's age to complete this topic Rotavirus Vaccines Aged Out No longer eligible based on patient's age to complete this topic Procedures Procedure Name Priority Date/Time Associated Diagnosis Comments ECG 12 LEAD UNIT PERFORMED Routine 06/02/2025 3:49 PM EDT Abnormal echocardiogram COMPLETE TRANSTHORACIC ECHO (TTE) W/WO IMAGING AGENT, STRAIN, 3D, BUBBLE STUDY Routine 04/29/2025 11:21 AM EDT from Last 3 Months Results * ECG 12 lead unit performed (06/02/2025 3:49 PM EDT) Simon Caban MD ECG ORDERABLES Final Resu lt * Complete Echo (TTE) w/wo Imaging Agent, Strain, 3D, Bubble Study (04/29/2025 11:21 AM EDT) Anatomical Region Laterality Modality Ultrasound Historical Provider CV ECHO PROCEDURES Final Result from Last 3 Months Insurance [employer] Care Teams Fourth Grade Teacher Relationship Specialty Start Date End Date Linda Bradley MD [address] [place] [address] PCP - General Nurse Practitioner 05/21/25
--- OUTSIDE RECORDS SUMMARY | 2025-06-02 16:40 | XMS_ITS | Patient Health Record ---
Author Organization [facility] Address [address] [place], [place] [id number] Care Team Providers Care Painter Helper Spray Name Role Phone Leela Weiss Unavailable Allergies No Known Allergies Reason For Referral No Information Immunizations Vaccine Route Administration Date Status Comme nts *Pneumococcal polysaccharide [id number] IM Intramuscular 05/17/2020 Administered Status:Complet e ,Reason:Given or N/A Social History Sex Assigned At : Social History Observation Description Sex Assigned At Male Problems Problem Type SNOMED Code ICD Code Onset Dates Problem Status W/U Status Risk Notes Problem Essential hypertension (76096726) Essential (primary) hypertension (I10) Active confirmed Comment:Good control, same regimen,Descript ion:Essential hypertension Problem Acute bronchitis due to mycoplasma pneumoniae (321892747) Acute bronchitis due to Mycoplasma pneumoniae (J20.0) Active confirmed Comment:Rx prednisone + doxycycline, Problem Allergic rhinitis caused by pollen (disorder) (45569715) Allergic rhinitis due to pollen (J30.1) Active confirmed Comment:Start Singulair (may need prior Auth, but has failed at least 3 antihistamines)+ Flonase., Problem Heartburn (44968221) Heartburn (R12) Active confirmed Comment:needs gi referral, last saw Dr krysta alonzo. cannot remember, may be established pt. Dr. Valero per chart. Pt to try tums to see if will relieve,Story:no t well controlled with ranitadine and nexium, Problem Vaccination given (740634335) Encounter for immunization (Z23) Active confirmed Problem Benign prostatic hypertrophy without outflow obstruction (759679021) BPH (benign prostatic hypertrophy) (600.00) (600.00) Active confirmed Comment:Make follow up appt. to discuss other Rx options., Problem Proteinuria (66491525) Abnormal presence of protein in urine (R80.9) 2007 Active confirmed Description:Prot einuria Problem Osteoarthritis of knee (353283875) Arthritis of knee, degenerative (M17.10) Active confirmed Comment:Moderat e ly severe. Encouraged him to keep walking as he is able. Handicapped Rx recommendation, 5 yrs, given. 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) Active confirmed Problem Gastroesophageal reflux disease (495491069) GERD (gastroesophage al reflux disease) (K21.9) Active confirmed Comment:Good control, same regimen., Problem Acute maxillary sinusitis (47254141) Acute maxillary antritis (J01.00) Active confirmed Comment:Rx amoxicillin, Afrin spray.,Descripti on:Acute maxillary sinusitis Problem Acute sinusitis (74004269) Sinusitis, acute (J01.90) Active confirmed Comment:-pt has [...] (600.0) (600.0) 2007 Active confirmed Problem Hyperlipidemia (37889606) Hyperlipidemia (E78.5) Active confirmed Comment:not taking a statiin - no mi , no strokes, Problem Depression screening (478075382) Screening for depression (Z13.31) Active confirmed Description:Dep r ession screening Problem Actinic keratosis () Keratosis, actinic (702.0) (702.0) 2007 Active confirmed Problem Fatigue (19645135) Fatigue (R53.83) Active confirmed Comment:Likely related to poor sleep due to BPH., Problem Osteoarthritis of knee (657741975) OA (osteoarthritis ) of knee (M17.9) Active confirmed Comment:Bilat. Stable, but painful. Recommend LOSING 10 lbs, first, if not enough benefit, then will REFER to Ortho for hyaluronate gel injections., Problem Depression screening (327659043) Depression screening (Z13.31) Active confirmed Problem Hypertension (78460840) Hypertension (I10) Active confirmed Comment:Good control, SAME regimen., Problem Hyperlipidemia (87047202) Hyperlipidemia NEC/NOS (272.4) (272.4) 2007 Active confirmed Problem Acute frontal sinusitis (30895838) Sinusitis, acute frontal (461.1) (461.1) Active confirmed Comment:Increase rest and fluids. C/w decongestant PRN. F/u in 1 week with any worsening or persisting symptoms. All questions answered. PVU., Problem Hypertension, essential (401.) (401) 2007 Active confirmed Problem Medication therapy changed (144795991129952) Medication therapy changed (Z79.899) Active confirmed Comment:will request 2 week follow up and repeat lab,Story:will drop nsaids and myranda due to dec. gfr: 54-45., Problem Wax in ear (476269682) Wax in ear (H61.20) Active confirmed Comment:needs irrigation after the viral syndrome resolves, Problem Low back pain (779615961) Lumbago (724.2) (724.2) 2008 Active confirmed Problem Asthma (997758384) Asthma (J45.909) Active confirmed Comment:will dx asthma and start albuterol inhlaer. Symptoms are chronic but mild,Story:impro shelly comfort, cleared secretions and inc. PFT with albuterol tx, Problem Avitaminosis D (09904820) Avitaminosis D (E55.9) 2008 Active confirmed Description:Cierra min D deficiency Problem Diverticulitis (67565458) Diverticulitis (K57.92) Active confirmed Problem Osteoarthritis of right knee joint (894898469391227) Osteoarthritis of right knee, unspecified osteoarthritis type (M17.11) Active confirmed Comment:Does N OT want to have knee surgery; injections don't last; opiates not a good option either; recommend staying active; will try naproxen instead of ibuprofen to see if that helps., Problem Medication refill (V68.1) (Z76.0) Active confirmed Comment:Refill Flomax, Problem Dyspnea (803326241) SOB (shortness of breath) (R06.02) Active confirmed Problem Acute upper respiratory infection (49041315) Acute upper respiratory infection (J06.9) 2008 Active confirmed Comment:Symptoma tic treatment, most likely viral, Problem Lower urinary tract symptoms due to benign prostatic hypertrophy (06288562529505) BPH associated with nocturia (N40.1) Active confirmed Comment:NO infection; Likely needs surgery at this point, since he is already on tamsulosin; I suggested taking it BID until he sees the urologist, but he needs to make appt today ([facility], [facility] [place])., Problem Urinary frequency (316120054) Urinary frequency (R35.0) Active confirmed Problem Cholesterol screening (631720885) Screening for cholesterol level (Z13.220) Active confirmed Problem Renal function tests abnormal (332658434) Decreased GFR (R94.4) Active confirmed Comment:will refer to nephrology,Story :no improvement with d/c of nsaid and MYRANDA inhibitor creatinine WNL, Problem Osteoarthritis of knee (582096431) Osteoarthritis, knee (M17.10) Active confirmed Comment:Gradua ll y worsening, so will talk with his ortho, about Rx options, but basically he has to decide when hes' ready for knee surgery. Meanwhile, PRN ibuprofen + ranitidine (on the days when he takes the NSAID)., Problem Allergic rhinitis (71572118) Allergic rhinitis (J30.9) 2009 Active confirmed Comment:pt to stop OTC nsal spray decongestant. PVU,Story:ASSESS MENT: 1. Avoid any irritants. 2. Will start nasal steroid. 3., Problem Essential hypertension (57488137) BP (high blood pressure) (I10) Active confirmed Comment:Up a bit today, not taking his meds every day. Cautioned to take them every day., Problem Joint pain (90682852) Pain in joint, unspecified site (719.40) (719.40) 2008 Active confirmed Problem Dermatitis (735016102) Dermatitis (L30.9) Active confirmed Comment:short course of steroids as pt has active dermatitis, Problem Hypertension (42386056) HTN (hypertension) (I10) Active confirmed Comment:Same regimen. Has enough for 4-5 months. Exercise, diet emphasized., Problem Administrative reason for encounter (988289038) Administrative encounter (Z02.9) Active confirmed Comment:Disabil i ty placard renewal, see attached [facility] letter., Problem Dyslipidemia (808527163) Dyslipidemia (E78.5) Active confirmed Comment:Doing well, continue same regimen. No need to treat the TGs other than dietary., Problem Preoperative cardiovascular examination (594876265) Preoperative cardiovascular examination (Z01.810) Active confirmed Comment:LOW ris k for upcoming knee surgery. See attached letter., Problem Impaired fasting glycaemia (366797725) Elevated fasting blood sugar (790.21) (790.21) Active confirmed Comment:Diet, exercise. Portion control., Problem Impaired fasting glycaemia (907539214) Elevated fasting glucose (R73.01) Active confirmed Comment:IMPROVE D , with dietary restrictions. CONTINUE. Get as much exercise as able., Problem Insomnia (120369848) Cannot sleep (G47.00) 2008 Active confirmed Description:Inso mnia Problem Osteoarthritis (342299666) OA (osteoarthritis ) (M19.90) Active confirmed Problem Impacted cerumen (50287392) Excessive ear wax, bilateral (H61.23) Active confirmed Problem Medicine refill (Z76.0) Active confirmed Comment:Omemaria luisaz o eran, for GERD. Make follow up appt for that, Problem [facility] current use of non-steroidal anti-inflammatory drug (917906967151784) NSAID long-term use (Z79.1) Active confirmed Problem Essential hypertension (86507019) BP (high blood pressure) (401.9) (401.9) Active confirmed Comment:Good control, continue same regimen., Problem Acute pharyngitis (715424396) Acute pharyngitis (J02.9) 2008 Active confirmed Problem Benign prostatic hypertrophy without outflow obstruction (453343823) BPH (benign prostatic hyperplasia) (600.90) (600.90) Active confirmed Comment:Follow up with urology., Problem Elevated PSA (917648369) Elevated PSA (R97.20) Active confirmed Problem History of urinary frequency (Z87.898) Active confirmed Problem Heel pain (4896769) Heel pain (M79.673) Active confirmed Comment:improvi n g, will treat symptomatically, Problem Dizziness and giddiness (092558994) Dizziness on standing (R42) Active confirmed Comment:Could be related to Photo therapy , will do lab work .Continue same medication for now, Problem Acute bronchitis (disorder) (50426138) Bronchitis, acute (466.0) (466.0) 2008 Active confirmed Problem Sinusitis, acute (461.) (461) 2009 Active confirmed Story:ASSESSMENT : Symptoms and exam consistent with Acute sinusitis., Problem Leukocytosis (012769186) Leukocytosis (D72.829) Active confirmed Problem Acute maxillary sinusitis (25385721) Sinusitis, acute maxillary (461.0) (461.0) 2008 Active confirmed Problem Acute bronchitis (04810704) Bronchitis, acute (J20.9) Active confirmed Comment:Resolved ; and the CT scan, recommended due to the tortuous aorta seen on CXR, was Neg (see Scanneed Doccuments). Reassured. ., Problem Chest discomfort (638883683) Chest discomfort (R07.89) Active confirmed Comment:gettign base line testing due to pt age and HTN,Story:withou t alarm symptoms (no palps, dizziness, sweating, radiation, sob, cough, vomiting), Problem Gastroesophageal reflux disease (557071376) Reflux, esophageal (530.81) (530.81) 2008 Active confirmed Problem Plain X-ray of chest abnormal (finding) (5007579014) Abnormal CXR (R93.89) Active confirmed Comment:Recent CXR in ER showed prominent T-aortic knob, they recommended CT. will get CT, Problem Chronic pain (23329847) Chronic pain (G89.29) 2008 Active confirmed Problem Malaise and fatigue (274598593) Symptom, malaise and fatigue (780.7) (780.7) 2008 Active confirmed Plan Of Treatment No Information Insurance Providers Payer Name Payer Address Payer Phone Subscriber Number Group Number Insured Name Patient Relationship to Insured Coverage Start Date Coverage End Date Medicare NGS PPS [address] [place], [place] [id number] GarrettLams Self - patient is the insured 4 [employer] [facility] [address] [address] [place] [phone] [id number] Ignacio Garrett Self - patient is the insured 2 Medicare NGS PPS [address] [place], [place] [id number] Ignacio Garrett Self - patient is the insured 5 9 Medical (General) History Surgical History Surgery Date(Month/Year) SURGICAL: Tonsillectomy and adenoidectom y, ProblemStatus: Active, 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
--- OUTSIDE RECORDS SUMMARY | 2025-06-02 16:40 | XMS_ITS | Encounter Summary ---
Author Organization [facility] Address [address] [place] [address] Care Team Providers Care Rate Examiner Name Role Phone Linda Bradley REGIONAL VICE PRESIDENT LIFE SALES Unavailable [phone] Zohaib Cross MD Unavailable Zohaib Cross MD Primary Care Provider [phone] Encounter Details Date Type Department Care Team (Late st Contact Info) Description 12/21/2024 External Result Encounter [facility] [address] [place] [address] Linda Bradley, STACIE [address] [place] [address] Social History Tobacco Use Types Packs/Day Years [...] often do you attend chur ch or taoism services? 1 to 4 times per year 12/03/2023 Do you belong to any clubs o r organizations such as worship groups, unions, fraternal or athletic groups, or [...] Score 0 12/02/2024 [facility] Answer Date [...] on file documented as of this encounter Procedures Procedure Name Priority Date/Time Associated Diagnosis Comments XR CHEST 2 VIEWS 12/21/2024 7:05 PM EDT documented in this encounter Results * XR chest 2 views (12/21/2024 7:05 PM EDT) Anatomical Region Laterality Modality Chest Radiographic Elodia ging 12/21/2024 7:05 PM EDT Narrative 12/21/2024 7:04 PM EDT THIS EXAM WAS PERFORMED AT [facility] History: Cough Procedure: 2 view PA and Lateral chest radiograph. Comparison: 02/14/2021 Findings: The heart and lungs show no acute findings, and the mediastinum and leatha are grossly negative . No pneumothorax. Impression: No acute pulmonary process. Finalized by Ti Corona MD on 12/21/2024 7:04 PM Procedure Note Radiology, Radiologist, - 12/21/2024 THIS EXAM WAS PERFORMED AT [facility] History: Cough Procedure: 2 view PA and Lateral chest radiograph. Comparison: 02/14/2021 Findings: The heart and lungs show no acute findings, and the mediastinumand leatha are grossly negative . No pneumothorax. Impression: No acute pulmonary process. Finalized by Ti Corona MD on 12/21/2024 7:04 PM Linda Bradley REGIONAL VICE PRESIDENT LIFE SALES IMG XR PROCEDURES Final Result documented in this encounter Visit Diagnoses Not on filedocumented in this encounter Additional Health Concerns Assessment Noted Time PHQ-9 Depression Total Score: 3 12/03/19 25 4:31 PM EDT documented as of this encounter Care Teams Rate Examiner Relationship Specialty Start Date End Date Zohaib Cross MD [address] [place] [address] PCP - Devoted 09/16/22 Zohaib Cross MD [address] [place] [address] PCP - General Family Medicine 10/24/23 Linda Bradley NP Nurse Practitioner Family Medicine 05/17/23 documented as of this encounter
--- OUTSIDE RECORDS SUMMARY | 2025-06-02 16:40 | XMS_ITS | Clinical Summary ---
Author Organization [facility] Address [address] [place] [address] Care Team Providers Care Reservation Clerk Name Role Phone Kirk Linda QUINONES Unavailable [phone] Zohaib Cross MD Unavailable Zohaib Cross MD Primary Care Provider [phone] Allergies No known active allergies Medications Blood Glucose Monitoring Suppl (Cloud Content Verio Reflect) w/Device kit 1 each by Other route Daily as needed (as needed) 3 Active Sensegonuch Verio test strip 1 each by Other [...] mouth Daily 30 tablet 2 5 Active aspirin 81 MG EC tabletIndication s:Essential hypertension Take 1 tablet (81 mg) by mouth Daily 90 tablet 2 5 025 Active amLODIPine (Norvasc) 10 MG tabletIndication s:Essential hypertension Take 1 tablet (10 mg) by mouth Daily 90 tablet 1 5 025 Active omeprazole [...] mouth Daily 90 capsule 5 025 Active finasteride (Proscar) 5 MG tabletIndication s:Benign prostatic hyperplasia, unspecified whether lower urinary tract symptoms present Take 1 tablet (5 mg) by mouth Daily 90 tablet 1 5 025 Active metFORMIN (Glucophage) 500 MG tabletIndication s:Type 2 diabetes mellitus without complication, without long-term current use of insulin (HCC) Take 1 tablet (500 mg) by mouth in the morning. Take with meals. 90 tablet 1 5 025 Discontin ued(Thera py completed ) Active Problems Problem Noted Date Diagnosed Date Abnormal echocardiogram 04/15/2025 Assessment & Plan (05/04/2025 6:28 AM EDT): Dilated aortic root 4.1cm, referred to [facility] Cardiology Dyspnea on exertion 03/16/2025 Assessment & Plan (03/16/2025 9:42 AM EDT): Check echo and pft Moderate persistent asthma without complication 01/06/2025 Assessment & Plan (05/04/2025 10:23 AM EDT): Current meds: trelegy as well as albuterol prn ECHO completed PFT's: not completed, recommend pt call [facility] reschedule Assessment & Plan (03/16/2025 9:39 AM EDT): [...] 10:38 AM EST): Er follow up from [facility] on 11/09/24 Given atbs and dietary [...] comorbidity in adult 11/16/2024 Assessment & Plan (05/04/2025 6:27 AM EDT): Discussed with patient their BMI (actual, verses recommended). We have also discussed lifestyle modifications: attempts to perform physical activity as chronic conditions allow, also to monitor dietary intake: increasing protein/fruits/veggies and lowering carb intake (unless contraindicated). Limit sodas, juices, and sugary drinks. Assessment & Plan (01/06/2025 6:42 AM EDT): [...] chronic kidney disease 04/07/2024 Assessment & Plan (05/04/2025 10:16 AM EDT): Check blood sugars daily, notify if [...] Current meds: tia, no statin, A1c: 6.5% 05/04/2025, 6.5% 12/02/24 Assessment & Plan (12/02/2024 5:05 PM EDT): [...] 12/03/2023 Allergic rhinitis 12/03/2023 Encounter for subsequent [facility] wellness visit (AWV) in Medicare [...] 08/14/2023 Essential hypertension 08/14/2023 Assessment & Plan (05/04/2025 6:26 AM EDT): Please check blood pressure daily and record DASH diet Limit caffeine Take medication as directed Contact office if chest pain, pressure, dizziness, shortness of breath, swelling legs Recommend slow position changes Current meds: amlodipine, lisinopril Assessment & Plan (03/16/2025 6:17 AM EDT): [...] 08/14/20 BPH (benign prostatic hyperplasia) 05/19/2019 Overview (12/03/2023): [facility] Assessment & Plan (12/02/2024 7:45 [...] Presence of unspecified artificial knee joint 08/14/2003/16/2025 Status post left knee replacement 08/14/2023 05/04/2025 Encounters Date Type Department Care Team Description 05/04/2025 9:40 AM EDT Office Visit [facility] [address] [place] [phone] Linda Bradley NP Essential hypertension (Primary Dx); Moderate persistent asthma without complication (HCC); Type 2 diabetes mellitus with stage 3a chronic kidney disease, without long-term current use of insulin (HCC); Class 2 severe obesity due to excess calories with serious comorbidity and body mass index (BMI) of 35.0 to 35.9 in adult ([facility]-HCC); Abnormal echocardiogram 05/04/[address] [facility] [address] [place] [phone] Linda Bradley NP 04/29/2025 Refill [facility] [address] [place] [phone] Linda Bradley NP Benign prostatic hyperplasia, unspecified whether lower urinary tract symptoms present (Primary Dx) 04/15/2025 Orders Only [facility] [address] [place] [address] Linda Bradley NP Essential hypertension (Primary Dx); Dyspnea on exertion; Abnormal echocardiogram 04/14/2025 Clinisync Result Encounter [facility] External Department Unsolicited Linda Bradley NP 04/12/2025 Refill [facility] [address] [place] [address] Linda Bradley NP 04/12/2025 Refill [facility] [address] [place] [address] Linda Bradley NP Benign prostatic hyperplasia, unspecified whether lower urinary tract symptoms present (Primary Dx) 04/07/2025 Refill [facility] [address] [place] [address] Linda Bradley NP Essential hypertension ; Type 2 diabetes mellitus without complication, without long-term current use of insulin (HCC); Gastroesophageal reflux disease, unspecified whether esophagitis present 03/16/2025 9:20 AM EDT Office Visit [facility] [address] [place] [address] Linda Bradley NP Dyspnea on exertion (Primary Dx); Moderate persistent asthma without complication (HCC); Essential hypertension ; Stage 3a chronic kidney disease ([facility]-HCC); Obesity (BMI 30-39.9); Lumbar back pain 03/16/[address] [facility] [address] [place] [phone] Linda Bradley NP 03/10/2025 Refill [facility] [address] [place] [address] Linda Bradley NP Essential hypertension 03/09/2025 Abstract [facility] [address] [place] [phone] Linda Bradley NP 03/08/2025 Refill [facility] [address] [place] [phone] Linda Bradley NP Essential hypertension 03/02/2025 Abstract [facility] [address] [place] [phone] Linda Bradley NP from Last 3 Months [...] often do you attend chur ch or shinto services? 1 to 4 times per year 12/03/2023 Do you belong to any clubs o r organizations such as confucianism groups, unions, fraternal or athletic groups, or [...] Recorded Patient Health Questionnaire-2 Score 0 12/02/2024 [facility] - Occupational Stress Questionnaire Answer Date [...] place to sleep or slept in a senior living (including now)? No 12/03/2023 Sex and Gender Information Value Date Recorded Sex Assigned at Not on file Legal Sex Male 7:34 PM EDT Gender Identity Not on file Sexual Orientation Not on file Last Filed Vital Signs Vital Sign Reading Time Taken Comments Blood Pressure 138/70 05/04/2025 9:53 AM EDT Pulse 84 05/04/2025 9:53 AM EDT Temperature 36.8 C (98.3 F) 05/04/2025 9:53 AM EDT Respiratory Rate 22 05/04/2025 9:53 AM EDT Oxygen Saturation 96% 05/04/2025 9:53 AM EDT Inhaled Oxygen Concentration - - Weight 88.8 kg (195 lb 12.8 oz) 05/04/2025 9:53 AM EDT Height 160 cm (5' 3 ) 11/16/2024 10:04 AM EST Body Mass Index 34.68 11/16/2024 10:04 AM EST Plan of Treatment Health Maintenance Due Date Last Done Comments Diabetes: Retinopathy Screening 1950 Pneumococcal Vaccine: 65+ Ye ars (2 of 2 - PCV) 05/17/2021 05/17/2020, 09/16/2016 Influenza Vaccine (#1) 2025 Diabetes: Urine Protein Screening 08/10/2025 08/10/2024, 04/15/2024, 03/06/2023 Diabetes: Hemoglobin A1C 11/04/2025 025, 12/02/2024, 08/03/2024, Additional history exists Medicare Annual Wellness (AWV) 12/02/2025 0 12/02/2024, 12/02/2024, 12/03/2023, Additional history exists Procedures Procedure Name Priority Date/Time Associated Diagnosis Comments BASIC METABOLIC PANEL Routine 05/10/2025 9:48 AM EDT Essential hypertension Type 2 diabetes mellitus with stage 3a chronic kidney disease, without long-term current use of insulin (HCC) CBC (INCLUDES DIFF/PLT) Routine 05/10/2025 9:48 AM EDT Moderate persistent asthma without complication (HCC) POCT GLYCOSYLATED HEMOGLOBIN (HGB A1C) Routine 05/04/2025 10:40 AM EDT Type 2 diabetes mellitus with stage 3a chronic kidney disease, without long-term current use of insulin (HCC) CA ECHO DOPPLER COMPLETE 04/14/2025 7:22 PM EDT MICROALBUMIN / CREATININE URINE RATIO Routine 08/10/2024 8:17 AM EST Essential hypertension Type 2 diabetes mellitus with stage 3a chronic kidney disease, without long-term current use of insulin (HCC) from Last 3 Months or Most Recently Relevant to Health Maintenance Results * CBC and differential (05/10/2025 9:48 AM EDT) Blood Venous blood specimen / Unknown Linda Bradley NP LAB BLOOD ORDERABLES Final Resu lt Performing Organization Address [facility] Co de Phone Number [facility] * Basic metabolic panel (05/10/2025 9:48 AM EDT) Blood Venous blood specimen / Unknown Linda Bradley NP LAB BLOOD ORDERABLES Final Resu lt [facility] * (ABNORMAL) POCT glycosylated hemoglobin (Hb A1C) docked device (05/04/2025 10:40 AM EDT) Hemoglobin A1C 6.5 Blood Venous blood specimen / Unknown 05/04/2025 10:40 AM EDT Linda Bradley NP POINT OF CARE TEST ENTER/EDIT O RDERABLES Final Result * CA ECHO DOPPLER COMPLETE (04/14/2025 7:22 PM EDT) Anatomical Region Laterality Modality Other 04/14/2025 7:22 PM EDT Narrative 04/14/2025 7:23 [place] [address] Cardiology Report Signed Patient: FELIZ RUCKER MR#: [id number] : 1940 Acct:[id number] Age/Sex: 84 / M ADM Date: 04/14/25 Loc: CARD Attending Dr: Linda Bradley NP Ordering Physician: Linda Bradley NP Date of Service: 04/14/25 Procedure(s): CA echo doppler complete Accession Number(s): [id number] cc: Linda Bradley NP Patient Name: FELIZ ALVARADO MR#: [id number] : 1940 Exam Date: 04/14/2025 Ordering Doctor: EDMOND BRADLEY CNP ECHOCARDIOGRAM REPORT PROCEDURE: CA ECHO DOPPLER COMPLETE INDICATIONS: Dyspnea on exertion, hypertension COMPARISON: None. DESCRIPTION: COMPLETE ECHOCARDIOGRAM Real-time transthoracic echocardiography with 2D, M-mode, spectral and color flow Doppler performed. QUALITY: Technical quality was good. LEFT VENTRICLE: Normal chamber size. Mild concentric left ventricular hypertrophy. Normal systolic function. LV EF: Normal left ventricular ejection fraction, (60-65%). DIASTOLIC: Normal diastolic function. ATRIAL SEPTUM: Visually appears intact. LEFT ATRIUM: Normal chamber size. RIGHT ATRIUM: Normal chamber size. RIGHT VENTRICLE: Normal chamber size. Normal right ventricular systolic function. TRICUSPID VALVE: Normal mobility and thickness. No stenosis with trivial regurgitation. No evidence of pulmonary hypertension. RVSP 24 mmHg MITRAL VALVE: Normal mobility and thickness. No evidence of mitral valve stenosis. There is no mitral annular calcification. Trivial mitral regurgitation. AORTIC VALVE: Normal trileaflet appearance. No visible sclerosis. Normal leaflet mobility. No evidence of aortic valve stenosis. Mild aortic regurgitation. AORTIC ROOT: Mildly dilated, measuring 4.1 cm. Ascending aorta is normal in size, measuring 3.3 cm. PULMONIC VALVE: Normal thickness and mobility. No stenosis. No regurgitation. PERICARDIUM: No evidence of pericardial effusion. IVC: Collapses with inspiration. IVC is normal in size. PLEURA: CONCLUSION: 1. Mild concentric left ventricular hypertrophy with normal systolic function. LVEF is estimated at 60-65%. 2. Normal right ventricular size and systolic function. 3. Mild aortic regurgitation. 4. Mildly dilated aortic root (4.1 cm). 5. Normal right sided pressures. Adult Echocardiography Procedure Report Left Ventricle LVEDD (3.7 - 5.6 cm): 4.70 cm LVESD (2.2 - 4.0 cm): 3.17 cm LVIVS thickness (0.6 - 1.2 cm): 1.30 cm LVPW thickness (0.5 - 1.0 cm): 1.20 cm e': 0.12 m/s E - e': 5.73 LVOT Max Gradient: 11.70 mm[Hg] LVOT Area (cm2): 1.71 m/s Peak Velocity (LVOT): 1.71 m/s Mean Velocity (LVOT): 1.06 m/s LVOT Diameter 2.65 cm Left Ventricular Ejection Fraction: 60-65 % Left Atrium LA Volume Index (2D A2C): 18.40 ml/m2 Left Atrium Systolic Dimension: 3.21 cm Mitral Valve MV E to A Ratio: 0.66 Mitral Valve A-Wave Peak Velocity: 1.07 m/s Mitral Valve E-Wave Peak Velocity: 0.71 m/s Right Ventricle Aorta AO Root Diam: 4.15 cm Ascending Ao Diam: 3.26 cm Aortic Valve AoV Area (Peak Slim): 4.66 cm2, 4.66 cm2 AoV Area (VTI): 4.65 cm2, 4.65 cm2 Deceleration Treutlen: 4.44 m/s2 Pressure Half-Time: 354.93 ms Peak Velocity(Antegrade Flow): 2.02 m/s Peak Gradient(Antegrade Flow): 16.37 mm[Hg] Mean Velocity(Antegrade Flow): 1.32 m/s Mean Gradient(Antegrade Flow): 8.15 mm[Hg] Velocity Time Integral: 40.54 cm Tricuspid Valve Peak Velocity (Regurgitant Flow): 2.27 m/s Pulmonic Valve Peak Gradient: 7.20 mm[Hg], 7.01 mm[Hg] Right Atrium Right Atrium Systolic Pressure: 47.18 ml, 47.18 ml Dictated by: Sheldon Brown M.D. on 04/14/2025 at 19:15 Approved by: Sheldon Brown M.D. on 04/14/2025 at 19:22 Dictated By: SHELDON BROWN Signed By: 04/14/251922 DD/ 21 TD/TT: Timber Framer: Procedure Note Radiology, Radiologist, MD - 04/14/2025 [place] [address] Cardiology Report Signed Patient: NAVJOT RUCKER#: [id number] : 1940cct:[id number] Age/Sex: 84 / MADM Date: 04/14/25 Loc: CARD Attending Dr: Linda Bradley NP Ordering Physician: Linda Bradley NP Date of Service: 04/14/25 Procedure(s): CA echo doppler complete Accession Number(s): [id number] cc: Linda Bradley NP Patient Name: FELIZ ALVARADO MR#: [id number] : 1940 Exam Date: 04/14/2025 Ordering Doctor: EDMOND BRADLEY CNP ECHOCARDIOGRAM REPORT PROCEDURE: CA ECHO DOPPLER COMPLETE INDICATIONS: Dyspnea on exertion, hypertension COMPARISON: None. DESCRIPTION: COMPLETE ECHOCARDIOGRAM Real-time transthoracic echocardiography with 2D, M-mode, spectral and color flow Dopplerperformed. QUALITY: Technical quality was good. LEFT VENTRICLE: Normal chamber size. Mild concentric left ventricular hypertrophy. Normal systolic function. LV EF: Normal left ventricular ejection fraction, (60-65%). DIASTOLIC: Normal diastolic function. ATRIAL SEPTUM: Visually appears intact. LEFT ATRIUM: Normal chamber size. RIGHT ATRIUM: Normal chamber size. RIGHT VENTRICLE: Normal chamber size. Normal right ventricularsystolic function. TRICUSPID VALVE: Normal mobility and thickness. No stenosis withtrivial regurgitation. No evidence of pulmonary hypertension. RVSP 24 mmHg MITRAL VALVE: Normal mobility and thickness. No evidence of mitralvalve stenosis. There is no mitral annular calcification. Trivial mitral regurgitation. AORTIC VALVE: Normal trileaflet appearance. No visible sclerosis.Normal leaflet mobility. No evidence of aortic valve stenosis. Mild aortic regurgitation. AORTIC ROOT: Mildly dilated, measuring 4.1 cm. Ascending aorta isnormal in size, measuring 3.3 cm. PULMONIC VALVE: Normal thickness and mobility. No stenosis. No regurgitation. PERICARDIUM: No evidence of pericardial effusion. IVC: Collapses with inspiration. IVC is normal in size. PLEURA: CONCLUSION: 1. Mild concentric left ventricular hypertrophy with normal systolicfunction. LVEF is estimated at 60-65%. 2. Normal right ventricular size and systolic function. 3. Mild aortic regurgitation. 4. Mildly dilated aortic root (4.1 cm). 5. Normal right sided pressures. Adult Echocardiography Procedure Report Left Ventricle LVEDD (3.7 - 5.6 cm): 4.70 cm LVESD (2.2 - 4.0 cm): 3.17 cm LVIVS thickness (0.6 - 1.2 cm): 1.30 cm LVPW thickness (0.5 - 1.0 cm): 1.20 cm e': 0.12 m/s E - e': 5.73 LVOT Max Gradient: 11.70 mm[Hg] LVOT Area (cm2): 1.71 m/s Peak Velocity (LVOT): 1.71 m/s Mean Velocity (LVOT): 1.06 m/s LVOT Diameter 2.65 cm Left Ventricular Ejection Fraction: 60-65 % Left Atrium LA Volume Index (2D A2C): 18.40 ml/m2 Left Atrium Systolic Dimension: 3.21 cm Mitral Valve MV E to A Ratio: 0.66 Mitral Valve A-Wave Peak Velocity: 1.07 m/s Mitral Valve E-Wave Peak Velocity: 0.71 m/s Right Ventricle Aorta AO Root Diam: 4.15 cm Ascending Ao Diam: 3.26 cm Aortic Valve AoV Area (Peak Slim): 4.66 cm2, 4.66 cm2 AoV Area (VTI): 4.65 cm2, 4.65 cm2 Deceleration Treutlen: 4.44 m/s2 Pressure Half-Time: 354.93 ms Peak Velocity(Antegrade Flow): 2.02 m/s Peak Gradient(Antegrade Flow): 16.37 mm[Hg] Mean Velocity(Antegrade Flow): 1.32 m/s Mean Gradient(Antegrade Flow): 8.15 mm[Hg] Velocity Time Integral: 40.54 cm Tricuspid Valve Peak Velocity (Regurgitant Flow): 2.27 m/s Pulmonic Valve Peak Gradient: 7.20 mm[Hg], 7.01 mm[Hg] Right Atrium Right Atrium Systolic Pressure: 47.18 ml, 47.18 ml Dictated by: Sheldon Brown M.D. on 04/14/2025 at 19:15 Approved by: Sheldon Brown M.D. on 04/14/2025 at 19:22 Dictated By: SHELDON BROWN Signed By:04/14/251922 DD/ 21 TD/TT: Timber Framer: us Linad Bradley NP [facility] Final Result * Microalbumin / creatinine, urine ratio (08/10/2024 8:17 AM EST) Urine Urine specimen obtained by clean catch procedure / Unknown us Linda Bradely NP LAB URINE ORDERABLES Final Resu lt [facility] from Last 3 Months or Most Recently Relevant to Health Maintenance Insurance [employer] Care Teams Reservation Clerk Relationship Specialty Start Date End Date Zohaib Cross MD [address] [place] [address] PCP - [facility] 09/16/22 Zohaib Cross MD [address] [place] [address] PCP - General Family Medicine 10/24/23 Linda Bradley NP Nurse Practitioner Family Medicine 05/17/23
--- OUTSIDE RECORDS SUMMARY | 2025-06-02 16:40 | XMS_ITS | Encounter Summary ---
Author Organization [facility] Address [address] [place] [address] Care Team Providers Care Phlebotomy Instructor Name Role Phone Linda Bradley CARDIOLOGY RN Unavailable [phone] Zohaib Cross MD Unavailable Zohaib Cross MD Primary Care Provider [phone] Encounter Details Date Type Department Care Team (Late st Contact Info) Description 03/02/2025 Abstract [facility] [address] [place] [address] Linda Bradley, STACIE [address] [place] [address] Social History Tobacco Use Types Packs/Day Years [...] often do you attend chur ch or tenriism services? 1 to 4 times per year 12/03/2023 Do you belong to any clubs o r organizations such as yazdanism groups, unions, fraternal or athletic groups, or [...] Recorded Patient Health Questionnaire-2 Score 0 12/02/2024 [facility] Questionnaire Answer Date [...] documented as of this encounter Care Teams Phlebotomy Instructor Relationship Specialty Start Date End Date Zohaib Cross MD [address] [place] [address] PCP - [facility] 09/16/22 Zohaib Cross MD [address] [place] [address] PCP - General Family Medicine 10/24/23 Linda Bradley NP Nurse Practitioner Family Medicine 05/17/23 documented as of this encounter
--- OUTSIDE RECORDS SUMMARY | 2025-06-02 16:40 | XMS_ITS | Encounter Summary ---
Author Organization [facility] Address [address] [place] [address] Care Team Providers Care Hebrew Teacher Name Role Phone Linda Bradley DEHYDRATION PLANT OPERATOR Unavailable [phone] Zohaib Cross MD Unavailable Zohaib Cross MD Primary Care Provider [phone] Encounter Details Date Type Department Care Team (Late st Contact Info) Description 03/09/2025 Abstract [facility] [address] [place] [address] Linda Bradley, STACIE [address] [place] [address] Social History Tobacco Use Types Packs/Day Years [...] often do you attend chur ch or episcopalian services? 1 to 4 times per year 12/03/2023 Do you belong to any clubs o r organizations such as anabaptist groups, unions, fraternal or athletic groups, or [...] Recorded Patient Health Questionnaire-2 Score 0 12/02/2024 [facility] - Occupational Stress Questionnaire Answer Date [...] documented as of this encounter Care Teams Hebrew Teacher Relationship Specialty Start Date End Date Zohaib Cross MD [address] [place] [address] PCP - [facility] 09/16/22 Zohaib Cross MD [address] [place] [address] PCP - General Family Medicine 10/24/23 Linda Bradley NP Nurse Practitioner Family Medicine 05/17/23 documented as of this encounter
--- OUTSIDE RECORDS SUMMARY | 2025-06-02 16:40 | XMS_ITS | Encounter Summary ---
Author Organization [facility] Address [address] [place] [address] Care Team Providers Care Training And Development Director Name Role Phone Linda Bradley HARDWARE INSTALLER Unavailable [phone] Zohaib Cross MD Unavailable Zohaib Cross MD Primary Care Provider [phone] Encounter Details Date Type Department Care Team (Late st Contact Info) Description 12/18/2023 Orders Only [facility] [address] [place] [address] Linda Bradley, HARDWARE INSTALLER [address] [place] [address] Social History Tobacco Use Types Packs/Day Years [...] often do you attend chur ch or anglican services? 1 to 4 times per year 12/03/2023 Do you belong to any clubs o r organizations such as christianity groups, unions, fraternal or athletic groups, or [...] Recorded Patient Health Questionnaire-2 Score 0 12/03/2023 [facility] - Occupational Stress Questionnaire Answer Date Recorded [...] place to sleep or slept in a longterm (including now)? No 12/03/2023 Sex and Gender [...] (12/18/2023 9:40 AM EDT) us Linda Bradley HARDWARE INSTALLER LAB CHG PERFORMABLES Final Resu lt documented in this encounter Visit Diagnoses Not on filedocumented in this encounter Additional Health Concerns Assessment Noted Time PHQ-9 Depression Total Score: 3 12/03/19 24 10:28 AM EDT documented as of this encounter Care Teams Training And Development Director Relationship Specialty Start Date End Date Zohaib Cross MD [address] [place] [address] PCP - [facility] 09/16/22 Zohaib Cross MD [address] [place] [address] PCP - General Family Medicine 10/24/23 Linda Bradley NP Nurse Practitioner Family Medicine 05/17/23 documented as of this encounter
--- OUTSIDE RECORDS SUMMARY | 2025-06-02 16:40 | XMS_ITS | Clinical Summary ---
Author Organization [facility] Address [address], [address] [place] [address] Care Team Providers Care Core Winder Machine Operator Name Role Phone Satinder Dyer Primary Care [...] on file Insurance MEDICARE MEDICARE Care Teams Core Winder Machine Operator Relationship Specialty Start Date End Date Satinder Dyer PCP - General 07/15/15
--- OUTSIDE RECORDS SUMMARY | 2025-06-02 16:40 | XMS_ITS | Encounter Summary ---
Author Organization [facility] Address [address] [place] [address] Care Team Providers Care Sales Intern Name Role Phone Linda Bradley NP Unavailable [phone] Zohaib Cross MD Unavailable Zohaib Cross MD Primary Care Provider [phone] Encounter Details Date Type Department Care Team (Late st Contact Info) Description 10/07/2023 Orders Only [facility] [address] [place] [address] Linda Bradley NP [address] [place] [address] Social History Tobacco Use Types Packs/Day Years [...] - Miscellaneous Test (10/03/2023 10:33 AM EST) Linda Bradley NP LAB BLOOD ORDERABLES Final Resu lt documented in this encounter Visit Diagnoses Not on filedocumented in this encounter Care Teams Sales Intern Relationship Specialty Start Date End Date Zohaib Cross MD [address] [place] [address] PCP - [facility] 09/16/22 Zohaib Cross MD [address] [place] [address] PCP - General Family Medicine 10/24/23 Linda Bradley NP Nurse Practitioner Family Medicine 05/17/23 documented as of this encounter
--- OUTSIDE RECORDS SUMMARY | 2025-06-02 16:40 | XMS_ITS | Encounter Summary ---
Author Organization [facility] Address [address] [place] [address] Care Team Providers Care Pig Iron Loader Name Role Phone Julianneedinadeemgrace Linda STACIE Unavailable [phone] Zohaib Cross MD Unavailable Zohaib Cross MD Primary Care Provider [phone] Encounter Details Date Type Department Care Team (Late st Contact Info) Description 11/16/2024 Orders Only [facility] [address] [place] [address] Social History Tobacco Use Types [...] often do you attend chur ch or druze services? 1 to 4 times per year [...] Recorded Patient Health Questionnaire-2 Score 0 12/03/2023 [facility] - Occupational [...] place to sleep or slept in a usp (including now)? No 12/03/2023 Sex and Gender [...] Modality Body, Pelvis, Abdomen Computed T omography [facility] CT PROCEDURES Final Result documented in this encounter Visit Diagnoses Not on filedocumented in this encounter Additional Health Concerns Assessment Noted Time PHQ-9 Depression Total Score: 3 12/03/19 24 10:28 AM EDT documented as of this encounter Care Teams Pig Iron Loader Relationship Specialty Start Date End Date Zohaib Cross MD [address] [place] [phone] PCP - Devoted 09/16/22 Zohaib Cross MD [address] [place] [id number] PCP - General Family Medicine 10/24/23 Linda Bradley NP Nurse Practitioner Family Medicine 05/17/23 documented as of this encounter
--- OUTSIDE RECORDS SUMMARY | 2025-06-02 16:40 | XMS_ITS | Encounter Summary ---
Author Organization [facility] Address [address], [address] [place] [address] Care Team Providers Care Apprentice Cook Name Role Phone Satinder Dyer Primary Care Provider Unavailabl e Reason for Visit * Reason Comments Medication Refill Encounter Details Date Type Department Care Team (Late st Contact Info) Description 10/26/2016 Refill [facility] - [address] [place] [id number] Gavin Najera MD [address] [place] [address] Medication Refill Social History Tobacco Use Types [...] symptoms documented in this encounter Care Teams Apprentice Cook Relationship Specialty Start Date End Date Satinder Dyer PCP - General 07/15/15 documented as of this encounter
[2025-06-02 17:20] LABS: Anion Gap 10.9; Blood Urea Nitrogen 27.0 mg/dL (7.0-18.0); Calcium 8.9 mg/dL (8.5-10.1); Carbon Dioxide 28.3 mmol/L (21.0-32.0); Chloride 107 mmol/L (98-107); Estimated GFR (African America >60 (>=60 mL/min/1.73m^2); Estimated GFR (Non-African Ame 53 (>=60 mL/min/1.73m^2); Glucose 137 mg/dL (74-106); Potassium 4.2 mmol/L (3.5-5.1); Sodium 142 mmol/L (136-145)
--- OUTSIDE RECORDS SUMMARY | 2025-06-02 17:27 | XMS_ITS | CCD ---
Author Organization [facility] Care Team Providers Care Compliance Nurse Name Role Phone CATHY TAYLOR Unavailable Unavailable ANALILIA GRANADOS Unavailable Unavailable Shaye Puentes Unavailable AICHHOLZ, GENERAL LEDGER ACCOUNTANT LINDA Admitting Unavailable AICHHOLZ, GENERAL LEDGER ACCOUNTANT LINDA Attending Unavailable AICHHOLZ, GENERAL LEDGER ACCOUNTANT LINDA Primary Care Unavailable AICHHOLZ, GENERAL LEDGER ACCOUNTANT LINDA Consulting Unavailable DR DEBRA VALENTE Consulting Unavailable AICHHOLZ, GENERAL LEDGER ACCOUNTANT LINDA Admitting Unavailable AICHHOLZ, GENERAL LEDGER ACCOUNTANT LINDA Attending Unavailable AICHHOLZ, GENERAL LEDGER ACCOUNTANT LINDA Primary Care Unavailable AICHHOLZ, GENERAL LEDGER ACCOUNTANT LINDA Consulting Unavailable AICHHOLZ, GENERAL LEDGER ACCOUNTANT LINDA Admitting Unavailable AICHHOLZ, GENERAL LEDGER ACCOUNTANT LINDA Attending Unavailable AICHHOLZ, GENERAL LEDGER ACCOUNTANT LINDA Primary Care Unavailable AICHHOLZ, GENERAL LEDGER ACCOUNTANT LINDA Consulting Unavailable AICHHOLZ, GENERAL LEDGER ACCOUNTANT LINDA Admitting Unavailable AICHHOLZ, GENERAL LEDGER ACCOUNTANT LINDA Attending Unavailable AICHHOLZ, GENERAL LEDGER ACCOUNTANT LINDA Primary Care Unavailable AICHHOLZ, GENERAL LEDGER ACCOUNTANT LINDA Consulting Unavailable AICHHOLZ, LINDA J Primary Care Physician [phone] Raoul BURKS Attending Unavailable LINDA BRADLEY J Referring Unavailabl e Raoul BURKS Attending Unavailable Aichholz PIPELINES MANAGER, Linda Unavailable Zohaib Cross MD Unavailable Zohaib Crsos MD Primary Care Provider Aichjaxon PIPELINES MANAGER, Linda Unavailable Zohaib Cross MD Unavailable Aicpriti SALES TRAINER-Linda PRUITT Primary Care Provider LINDA BRADLEY Referring Unavailable LINDA BRADLEY Primary Care Unavailable EBBE MCCLAIN Attending Unavailable BEBE MCCLAIN Referring Unavailable LINDA BRADLEY Attending Unavailable BEBE MCCLAIN Referring Unavailable BEBE MCCLAIN Attending Unavailable LINDA BRADLEY Attending Unavailable LINDA BRADLEY Attending Unavailable KIRK, LINDA Attending Unavailable KIRK, LINDA Attending Unavailable KIRK, LINDA Attending Unavailable KIRK, LINDA Attending Unavailable KIRK, LINDA Attending Unavailable Allergies Allergy Classification Reported Allergen(s) Allergy Type Date of Onset Reaction(s) Facility (1 source) No Known Medication Allergies; Translations: [No Known Medication Allergies] Propensity to adverse reactions (disorder) [facility] Repository Medications Current Medications Medication Drug Class(es) Dates Sig (Normalized) Sig (Original) [id number] 200 actuat albuterol 0.09 mg/actuat metered dose inhaler (20 sources) beta2-Adrenergic Agonist Start: 09-14-2024 End: 01-20-2025 take 2 puff(s) by inhalation every six hours for wheezing albuterol HFA 90 mcg/act inhaler Indications: Bronchitis Inhale 2 puffs every 6 (six) hours if needed for shortness of breath or wheezing 18 g 12/21/2024 Active Start: 09-05-2023 End: 09-04-2024 take 2 puff(s) by inhalation every six hours for wheezing albuterol HFA 90 mcg/act inhaler Indications: COVID-19 , Viral upper respiratory tract infection Inhale 2 puffs every 6 (six) hours if needed for wheezing or shortness of breath 1 g 0 09/05/2023 09/04/2024 Active amLODIPine 10 mg oral tablet (20 sources) Dihydropyridine Calcium Channel Jigar Start: 03-02-2024 End: 07-06-2025 take 1 tablet by mouth once daily amLODIPine (Norvasc) 10 MG tablet Indications: Essential hypertension Take 1 tablet (10 mg) by mouth Daily 90 tablet 1 04/07/2025 07/06/2025 Active Start: 09-17-2023 End: 10-23-2023 take 10 mg by mouth once daily 10 mg, oral, Daily, First dose on Sat10/23/23 at 1415, Look-alike/sound-alike medication - verify indication for use. Avoid grapefruit juice. Start: 08-22-2022 take 1 tablet by marlyn th once daily amLODIPine 10 mg Tab 10 mg = 1 tab(s), Oral, Daily, Refills(s) 0 Start Date: 08/22/22 Status: Ordered take 2 tablets by mo [facility] in the morning amLODIPine (NORVASC) 5 mg tablet Take 2 tablets (10 mg total) by mouth in the morning. 0 Active amLODIPine Besyl ate Active amoxicillin 500 mg oral tablet (6 sources) Penicillin-class Antibacterial Start: 10-28-2023 take 4 tablets by mouth once at mealtime amoxicillin (Amoxil) 500 MG tablet Indications: Prophylactic antibiotic 4 tabs PO once 30-60 mins before procedure with food 4 tablet 3 10/30/2023 Active amoxicillin 875 mg / clavulanate 125 mg oral tablet (13 sources) Penicillin-class Antibacterial Start: 11-09-2024 End: 01-06-2025 amoxicillin-clavu lanate (Augmentin) 875-125 MG tablet 11/09/2024 01/06/2025 Discontinued (Therapy completed) Start: 09-14-2024 End: 09-24-2024 take 1 tablet by mouth in the morning amoxicillin-clavulanate (Augmentin) 875-125 MG tablet Indications: Bronchitis Take 1 tablet (875 mg) by mouth in the morning and 1 tablet (875 mg) before bedtime. Do all this for 10 days. Take with food. 20 tablet 09/14/2024 09/24/2024 Active aspirin 81 mg delayed release oral tablet (20 sources) Platelet Aggregation Inhibitor, Nonsteroidal Anti-inflammatory Drug Start: 08-03-2024 End: 06-14-2025 take 1 tablet by mouth once daily aspirin 81 MG EC tablet Indications: Essential hypertension Take 1 tablet (81 mg) by mouth Daily 90 tablet 2 03/16/2025 06/14/2025 Active benzonatate 200 mg oral capsule (6 sources) Non-narcotic Antitussive Start: 12-17-2024 End: 12-27-2024 take 1 capsule by mouth three times daily as needed for cough benzonatate (Tessalon) 200 MG capsule Indications: Chronic cough Take 1 capsule (200 mg) by mouth 3 (three) times a day as needed for cough for up to 10 days Do not crush or chew. 30 capsule 12/17/2024 12/27/2024 Active Start: 09-14-2024 End: 09-21-2024 take 1 capsule by mouth three times daily as needed for cough benzonatate (Tessalon) 200 MG capsule Indications: Bronchitis Take 1 capsule (200 mg) by mouth 3 (three) times a day as needed for cough for up to 7 days Do not crush or chew. 21 capsule 09/14/2024 09/21/2024 Active Blood Glucose Monitoring Sup pl (OneTouch Verio Reflect) w/Device kit (20 sources) Start: 08-15-2023 Blood Glucose Monitoring Suppl (OneTouch Verio Reflect) w/Device kit 1 each by Other route Daily as needed (as needed) 08/15/2023 Active Start: 08-15-2023 Blood Glucose Monitoring Suppl (OneTouch Verio Reflect) w/Device kit 1 each by Other route Daily as needed (as needed) 0 08/15/2023 Active doxycycline hyclate 100 mg oral tablet (4 sources) Tetracycline-class Drug Start: 12-21-2024 End: 01-06-2025 doxycycline (Vibra-Tabs) 100 MG tablet Indications: Bronchitis Take 1 tablet (100 mg) by mouth in the morning and 1 tablet (100 mg) before bedtime. Do all this for 10 days. Take with a full glass of water and do not lie down for at least 30 minutes after.. 20 tablet 12/21/2024 01/06/2025 Discontinued (Therapy completed) ferrous sulfate 325 mg delayed release oral tablet (7 sources) Start: 09-26-2023 End: 11-25-2023 take 1 tablet by mouth at mealtime ferrous sulfate (Fe Tabs) 325 (65 Fe) MG EC tablet Indications: Primary osteoarthritis of left knee Take 1 tablet (325 mg) by mouth in the morning. Take with meals. Do not crush, chew, or split.. 30 tablet 1 09/26/2023 11/25/2023 Active finasteride 5 mg oral tablet (20 sources) 5-alpha Reductase Inhibitor Start: 01-23-2025 End: 07-28-2025 take 1 tablet by mouth once daily finasteride (Proscar) 5 MG tablet Indications: Benign prostatic hyperplasia, unspecified whether lower urinary tract symptoms present Take 1 tablet (5 mg) by mouth Daily 90 tablet 1 04/29/2025 07/28/2025 Active Start: 04-23-2024 End: 01-04-2025 take 1 tablet by mouth once daily finasteride (Proscar) 5 MG tablet Indications: Benign prostatic hyperplasia, unspecified whether lower urinary tract symptoms present Take 1 tablet (5 mg) by mouth Daily 90 tablet 1 10/06/2024 01/04/2025 Active Start: 08-22-2022 End: 10-23-2023 take 1 tablet by mouth once daily 5 mg, oral, Daily, First dose on Sat10/23/23 at 1415, Look-alike/sound-alike medication - verify indication for use. Crushed or broken tablets should not be handled by a woman who is or may become because of the potential for absorption and the subsequent potential risk to fetus. Finasteride Acti ve fluticasone propionate 0.05 mg/actuat metered dose nasal spray (14 sources) Corticosteroid Start: 01-06-2025 End: 02-05-2025 take 2 spray(s) nasal route once daily fluticasone (Flonase) 50 MCG/ACT nasal spray Indications: Allergic rhinitis, unspecified seasonality, unspecified trigger Administer 2 sprays into each nostril Daily Shake gently. Before first use, prime pump. After use, clean tip and replace cap. 16 g 2 01/06/2025 Active 30 actuat fluticasone furoate 0.1 mg/actuat / umeclidinium 0.0625 mg/actuat / vilanterol 0.025 mg/actuat dry powder inhaler (14 sources) Anticholinergic, Corticosteroid, beta2-Adrenergic Agonist Start: 01-06-2025 End: 02-05-2025 take 1 puff(s) by mouth once daily Fluticasone-Umec lidin-Vilant (Trelegy Ellipta) 100-62.5-25 MCG/ACT aerosol powder Indications: Moderate persistent asthma without complication (HCC) Inhale 1 puff Daily Rinse mouth after use 1 each 1 01/06/2025 Active hydroCHLOROthiazide / Lisinopril (1 source) Thiazide Diuretic, Angiotensin Converting Enzyme Inhibitor Lisinopril-hydro CHLOROthiazide Active lisinopril 30 mg oral tablet (20 sources) Angiotensin Converting Enzyme Inhibitor Start: 03-08-2025 End: 07-06-2025 take 1 tablet by mouth once daily lisinopril 30 MG tablet Indications: Essential hypertension Take 1 tablet (30 mg) by mouth Daily 90 tablet 1 04/07/2025 07/06/2025 Active Start: 12-02-2024 End: 03-02-2025 take 1 tablet by mouth once daily lisinopril 30 MG tablet Indications: Essential hypertension (CMS/HCC) Take 1 tablet (30 mg) by mouth Daily 90 tablet 12/02/2024 03/02/2025 Active Start: 03-02-2024 End: 01-04-2025 take 1 tablet by mouth once daily lisinopril 20 MG tablet Indications: Hypertension Take 1 tablet (20 mg) by mouth Daily 90 tablet 10/06/2024 01/04/2025 Active Start: 10-03-2023 End: 01-01-2024 take 20 mg by mouth once daily 20 mg, oral, Daily, Fir st dose on Sat10/23/23 at 1415, Look-alike/sound-alike medication - verify indication for use. loratadine 10 mg oral tablet (14 sources) Start: 01-06-2025 End: 02-05-2025 take 1 tablet by mouth once daily loratadine (Claritin) 10 MG tablet Indications: Allergic rhinitis, unspecified seasonality, unspecified trigger Take 1 tablet (10 mg) by mouth Daily 30 tablet 2 01/06/2025 Active metFORMIN hydrochloride 500 mg oral tablet (20 sources) Biguanide Start: 02-29-2024 End: 07-06-2025 take 1 tablet by mouth at mealtime metFORMIN (Glucophage) 500 MG tablet Indications: Type 2 diabetes mellitus without complication, without long-term current use of insulin (HCC) Take 1 tablet (500 mg) by mouth in the morning. Take with meals. 90 tablet 1 04/07/2025 05/04/2025 Discontinued (Therapy completed) Start: 10-14-2023 End: 01-22-2024 take 1 tablet by mouth at mealtime metFORMIN (Glucophage) 500 MG tablet Indications: Type 2 Diabetes Mellitus Take 1 tablet (500 mg) by mouth in the morning. Take with meals. 100 tablet 1 10/14/2023 01/22/2024 Active sylwgwrz-aqdi-UZ-calcium &mi ns (THERAGRAN-M) 9 mg iron-400 mcg tablet (3 sources) jqreqmau-drlb-VZ -calcium &mins (THERAGRAN-M) 9 mg iron-400 mcg tablet Take 1 tablet by mouth in the morning. 0 haayzuzk-bjxb-JS -calcium &mins (THERAGRAN-M) 9 mg iron-400 mcg tablet Take 1 tablet by mouth in the morning. 0 Active Naproxen (1 source) Nonsteroidal Anti-inflammatory Drug Naprosyn Active omega 6-fds-hec-fish oil (Fish OiL) 300-1,000 mg capsule (1 source) omega 3-dha-epa- fish oil (Fish OiL) 300-1,000 mg capsule Take by mouth daily. 0 Active omeprazole 20 mg delayed release oral capsule (20 sources) Proton Pump Inhibitor Start: 024 End: 025 take 1 capsule by mouth before mealtime omeprazole (PriLOSEC) [address] capsule Indications: Gastroesophageal reflux disease, unspecified whether esophagitis present Take 1 capsule (20 mg) by mouth in the morning. Take before meals. 90 capsule 1 04/07/2025 07/06/2025 Active Start: 08-22-2022 take 1 capsule by [facility] once daily omeprazole 20 mg Cap-DR 20 mg = 1 cap(s), Oral, Daily, Refills(s) 0 Start Date: 08/22/22 Status: Ordered predniSONE 20 mg oral tablet (2 sources) Start: 12-21-2024 End: 12-26-2024 take 1 tablet by mouth in the morning predniSONE (Deltasone) 20 MG tablet Indications: Bronchitis Take 1 tablet (20 mg) by mouth in the morning and 1 tablet (20 mg) in the evening. Take with meals. Do all this for 5 days. Take with food. 10 tablet 12/21/2024 12/26/2024 Active tamsulosin hydrochloride 0.4 mg oral capsule (20 sources) alpha-Adrenerg ic Jigar Start: 01-07-2025 End: 07-11-2025 take 1 capsule by mouth once daily tamsulosin (Flomax) 0.4 MG 24 hr capsule Indications: Benign prostatic hyperplasia, unspecified whether lower urinary tract symptoms present Take 1 capsule (0.4 mg) by mouth Daily Take 0.4 mg by mouth Daily 90 capsule 04/12/2025 07/11/2025 Active Start: 10-06-2024 End: 01-06-2025 take 1 capsule by mouth every twenty-four hours at bedtime tamsulosin (Flomax) 0.4 MG 24 hr capsule Indications: Benign prostatic hyperplasia, unspecified whether lower urinary tract symptoms present Take 1 capsule (0.4 mg) by mouth at bedtime 90 capsule 1 10/06/2024 01/06/2025 Active Start: 07-08-2024 End: 10-05-2024 take 1 capsule by mouth once daily tamsulosin (Flomax) 0.4 MG 24 hr capsule Take 0.4 mg by mouth Daily 07/08/2024 10/05/2024 Discontinued (Reorder) Start: 03-31-2024 End: 06-29-2024 take 1 capsule by mouth every twenty-four hours at bedtime tamsulosin (Flomax) 0.4 MG 24 hr capsule Indications: Benign prostatic hyperplasia, unspecified whether lower urinary tract symptoms present Take 1 capsule (0.4 mg) by mouth at bedtime 90 capsule 1 03/31/2024 06/29/2024 Active Start: 10-23-2023 End: 10-23-2023 take 0.4 mg by mouth once daily 0.4 mg, oral, Nightly, First dose on Sat10/23/23 at 2200, Do not crush or chew. Start: 08-22-2022 take 1 capsule by mo uth once daily tamsulosin 0.4 mg Cap 0.4 mg = 1 cap(s), Oral, Daily, Refills(s) 0 Start Date: 08/22/22 Status: Ordered Tamsulosin HCl A ctive Completed/Discontinued Medications Medication Drug Class(es) Dates Sig (Normalized) Sig (Original) acetaminophen 500 mg oral tablet (2 sources) Start: 10-23-2023 End: 10-23-2023 take 1000 mg by mouth every six hours 1,000 mg, oral, Every 6 hours scheduled, First dose on Sat10/23/23 at 1415, Start 6 hours after the pre-op dose. Start: 10-23-2023 End: 10-23-2023 acetaminophen (TYLENOL) tabl et 650 mg calcium chloride 0.0014 meq/ml / potassium chloride 0.004 meq/ml / sodium chloride 0.103 meq/ml / sodium lactate 0.028 meq/ml injectable solution (2 sources) Start: 10-23-2023 End: 10-23-2023 take 125 mL intravenously every hour 125 mL/hr, intravenous, Continuous, Starting on Sat10/23/23 at 1415 Start: 10-23-2023 End: 10-23-2023 lactated ringers infusion ceFAZolin 2000 mg injection (1 source) Cephalosporin Antibacterial Start: 10-23-2023 End: 10-23-2023 take 2000 mg intravenously every eight hours 2,000 mg, intravenous, at 100 mL/hr, Administer over 30 Minutes, Every 8 hours, First dose on Sat10/23/23 at 1400, For 2 doses, Pharmacy to adjust per renal function; Start 8 hours after pre-op dose for total of 3 doses including pre-op dose. Infuse all doses within 24 hours of initial dose. For patient less than 120 kg. Look-alike/sound-alike medication - verify indication for use., Indication: Surgical prophylaxis celecoxib 200 mg oral capsule (2 sources) Nonsteroidal Anti-inflammatory Drug Start: 10-23-2023 End: 10-23-2023 200 mg, oral, 2 times daily, First dose on Sat10/23/23 at 2100, Use with caution for patients with renal insufficiency or greater than 80 years of age. Start 12 hours after the Pre-op dose; IF already receiving ketorolac [TORADOL], then start 12 hours after last ketorolac [TORADOL] dose. Look-alike/sound-alike medication - verify indication for use. Start: 10-23-2023 End: 10-23-2023 celecoxib (CeleBREX) capsule 200 mg esomeprazole 40 mg delayed release oral capsule (2 sources) Proton Pump Inhibitor End: 09-26-2023 take 1 capsule by mouth once daily before breakfast esomeprazole (NexIUM) 40 mg capsule Take 1 capsule (40 mg total) by mouth every morning before breakfast. 0 09/26/2023 Discontinued (Therapy completed) NexIUM Active Fish Oils (12 sources) End: 08-03-2024 omega-3 (Fish Oil) 1200 MG c apsule 1 capsule 1 (one) time each day at the same time. 08/03/2024 Discontinued (Therapy completed) omega-3 (Fish Oi l) 1200 MG capsule 1 capsule 1 (one) time each day at the same time. Active omega-3 (Fish Oi l) 1200 MG capsule 1 capsule 1 (one) time each day at the same time. 0 Active 0.5 ml HYDROmorphone hydrochloride 1 mg/ml prefilled syringe (2 sources) Opioid Agonist Start: 10-23-2023 End: 10-23-2023 HYDROmorphone (PF) (DILAUDID) injection 0.5 mg methylPREDNISolone (7 sources) Corticosteroid Start: 11-25-2024 End: 12-21-2024 methylPREDNISolone (Medrol Dospak) 4 MG tablets Indications: Acute pain of right knee Follow schedule on package instructions 21 tablet 11/25/2024 12/21/2024 Discontinued (Therapy completed) Start: 11-25-2024 methylPREDNISo lone (Medrol Dospak) 4 MG tablets Indications: Acute pain of right knee Follow schedule on package instructions 21 tablet 11/25/2024 Active Start: 09-14-2024 End: 09-21-2024 methylPREDNISolone (Medrol D ospak) 4 MG tablets Indications: Bronchitis Take with food Follow schedule on package instructions 21 tablet 09/14/2024 09/21/2024 Active Naloxone (1 source) Opioid Antagonist Start: 10-23-2023 End: 10-23-2023 naloxone (NARCAN) injection 0.1 mg 2 ml ondansetron 2 mg/ml injection (3 sources) Serotonin-3 Receptor Antagonist Start: 10-23-2023 End: 10-23-2023 take 4 mg intravenously every six hours as needed for nausea and vomiting 4 mg, intravenous, Every 6 hours PRN, nausea, vomiting, Starting on Sat10/23/23 at 1402, Administer over 2-5 minutes. Start: 03-28-2018 End: 09-26-2023 take 1 tablet by mouth every eight hours as needed for nausea and vomiting ondansetron ODT (ZOFRAN-ODT) 4 mg disintegrating tablet Dissolve 1 tablet (4 mg total) on tongue every 8 (eight) hours as needed for nausea or vomiting for up to 15 doses. 15 tablet 0 03/28/2018 09/26/2023 Discontinued (Therapy completed) oxyCODONE (2 sources) Opioid Agonist Start: 10-23-2023 End: 02-07-2024 take 1 tablet by mouth every three hours as needed for pain oxyCODONE (ROXICODONE) immediate release tablet 5 mg Start: 10-22-2023 End: 10-27-2023 take 1 tablet by mouth every six hours for pain oxyCODONE (Roxicodone) 5 MG immediate release tablet Indications: Post-operative pain Take 1 tablet (5 mg) by mouth every 6 (six) hours if needed for moderate pain for up to 5 days 20 tablet 0 10/22/2023 10/27/2023 Active pantoprazole 40 mg delayed release oral tablet (1 source) Proton Pump Inhibitor Start: 10-23-2023 End: 10-23-2023 40 mg, oral, Daily, First dose on Sat10/23/23 at 1415, Look-alike/sound-alike medication - verify indication for use. If patient is receiving enteral feeding, consider alternative PPI or continue IV pantoprazole until the delayed-release tablet can be taken orally, Indication: Stress Ulcer Prophylaxis (Contraindication to H2RA) tranexamic acid 650 mg oral tablet (1 source) Antifibrinolytic Agent Start: 10-23-2023 End: 10-23-2023 tranexamic acid (LYSTEDA) tablet 1,950 mg Problems Active Problems Problem Classification Problem Date Documented Date Episodic/Chronic Asthma (20 sources) Uncomplicated moderate persistent asthma; Translations: [Moderate persistent asthma, uncomplicated] Onset: 01-06-2025 01-06-2025 Chronic Biliary tract disease (1 source) Calculus of gallbladder without cholecystitis without obstruction; Translations: [CALCU GB W/O CHOLECYST W/O OBST] Onset: 08-13-2022 Episodic Chronic kidney disease (20 sources) Chronic kidney disease stage 3A ; Translations: [Stage 3a chronic kidney disease (HCC) (CMS/HCC)] Onset: 12-03-2023 Resolved: 08-03-2024 08-03-2024 Chronic Diabetes mellitus with complications (20 sources) Type 2 diabetes mellitus; Translations: [Type 2 diabetes mellitus with diabetic chronic kidney disease] Onset: 04-07-2024 08-03-2024 Chronic Diabetes mellitus without complication (6 sources) Prediabetes; Translations: [Prediabetes] Onset: 12-11-2021 Episodic Disorders of lipid metabolism (20 sources) Hyperlipidemia, unspecified; Translations: [Hyperlipidemia] Onset: 12-06-2021 Chronic Diverticulosis and diverticulitis (20 sources) Diverticulosis of large intestine without perforation or abscess without bleeding; Translations: [Diverticula of intestine] Onset: 08-13-2022 Chronic Esophageal disorders (20 sources) Gastroesophageal reflux disease; Translations: [Gastro-esophageal reflux disease without esophagitis] Onset: 08-22-2022 Chronic Essential hypertension (20 sources) Hypertensive disorder; Translations: [Essential hypertension] Onset: 08-14-2023 08-22-2022 Chronic Hyperplasia of prostate (20 sources) Benign prostatic hyperplasia; Translations: [Benign prostatic hyperplasia without lower urinary tract symptoms] Onset: 05-19-2019 08-22-2022 Chronic Osteoarthritis (20 sources) Osteoarthritis of left knee joint; Translations: [Unilateral primary osteoarthritis, left knee] Onset: 05-22-2017 Resolved: 08-03-2024 10-27-2023 Chronic Other aftercare (1 source) Antibiotic prophylaxis indicated; Translations: [correction (current) use of antibiotics] 10-28-2023 Episodic Other connective tissue disease (20 sources) Artificial knee joint present; Translations: [Presence of left artificial knee joint] Onset: 08-14-2023 Resolved: 03-16-2025 10-27-2023 Chronic Other ear and sense organ disorders (1 source) Hearing loss 08-22-2022 Chronic Other ear and sense organ disorders (20 sources) Hearing problem; Translations: [Unspecified hearing loss, bilateral] Onset: 12-03-2023 12-03-2023 Chronic Other hematologic conditions (4 sources) Elevated erythrocyte sedimentation rate; Translations: [ELEVATED ERYTHROCYTE SED RATE] Onset: 08-08-2022 Episodic Other lower respiratory disease (16 sources) Dyspnea on exertion; Translations: [Other forms of dyspnea] Onset: 03-16-2025 03-16-2025 Episodic Other nutritional; endocrine; and metabolic disorders (20 sources) Body mass index 30+ - obesity; Translations: [Body mass index (BMI) 31.0-31.9, adult] Onset: 09-17-2023 08-22-2022 Chronic Other nutritional; endocrine; and metabolic disorders (1 source) Obesity 08-22-2022 Chronic Other nutritional; endocrine; and metabolic disorders (20 sources) Severe obesity; Translations: [Class 2 severe obesity due to excess calories with serious comorbidity in adult] Onset: 11-16-2024 11-16-2024 Chronic Other screening for suspected conditions (not mental disorders or infectious disease) (20 sources) Elevated prostate specific antigen [PSA]; Translations: [Encounter for screening for malignant neoplasm of prostate] Onset: 12-11-2021 Episodic Other upper respiratory disease (20 sources) Allergic rhinitis; Translations: [Allergic rhinitis, unspecified] Onset: 12-03-2023 08-22-2022 Chronic Unclassified (2 sources) Elevated prostate specific antigen [PSA]; Translations: [Elevated prostate specific antigen (PSA)] Onset: 10-28-2017 Unclassified (1 source) Past or Other Problems Problem Classification Problem Date Documented Da te Episodic/Chronic Abdominal pain (20 sources) Generalized abdominal pain; Translations: [Generalized abdominal pain] Onset: 08-13-2022 Resolved: 12-03-2023 Episodic Chronic obstructive pulmonary disease and bronchiectasis (20 sources) Bronchitis; Translations: [Bronchitis, not specified as acute or chronic] Onset: 09-14-2024 09-14-2024 Episodic Deficiency and other anemia (20 sources) Anemia; Translations: [Other specified anemias] Onset: 12-18-2023 12-18-2023 Episodic Diabetes mellitus without complication (20 sources) Type 2 diabetes mellitus without complication; Translations: [Type 2 diabetes mellitus without complications] Onset: 09-17-2023 Resolved: 08-03-2024 09-17-2023 Chronic Genitourinary symptoms and ill-defined conditions (20 sources) Urinary symptoms ; Translations: [Unspecified symptoms and signs involving the genitourinary system] Onset: 01-01-2024 Resolved: 08-03-2024 08-03-2024 Episodic Headache; including migraine (20 sources) Headache; Translations: [Headache] Onset: 12-03-2023 12-03-2023 Episodic Mood disorders (20 sources) Mood disorders Onset: 12-03-2023 Resolved: 12-02-2024 12-03-2023 Other connective tissue disease (20 sources) History of total knee arthroplasty; Translations: [Presence of left artificial knee joint] Onset: 08-14-2023 Resolved: 05-04-2025 10-27-2023 Chronic Other ear and sense organ disorders (20 sources) Bilateral tinnitus; Translations: [Tinnitus, bilateral] Onset: 12-03-2023 12-03-2023 Episodic Other gastrointestinal disorders (20 sources) Constipation; Translations: [Constipation, unspecified] Onset: 08-14-2023 08-14-2023 Episodic Other hematologic conditions (20 sources) ESR raised; Translations: [Elevated erythrocyte sedimentation rate] Onset: 12-03-2023 Resolved: 12-03-2023 12-03-2023 Episodic Other lower respiratory disease (20 sources) Chronic cough; Translations: [Chronic cough] Onset: 03-10-2024 03-10-2024 Episodic Other non-traumatic joint disorders (20 sources) Pain in left knee; Translations: [Pain in joint, lower leg] Onset: 10-27-2023 Resolved: 08-03-2024 10-27-2023 Episodic Other upper respiratory infections (1 source) Acute upper respiratory infection, unspecified Onset: 02-26-2022 Resolved: 02-26-2022 Episodic Spondylosis; intervertebral disc disorders; other back problems (18 sources) Low back pain; Translations: [Lumbar back pain] Onset: 01-06-2025 01-06-2025 Episodic Unclassified (1 source) Exposure to COVID-19 virus Z20.822 Onset: 02-26-2022 Resolved: 02-26-2022 Results Test Name Value Interpretation Reference Range Facility HbA1c (Bld) [Mass fraction]o n 05-04-2025 Interpretation and review of laboratory results Abnormal [facility] - Hematology and Cell countson 05-04-2025 HbA1c (Bld) [Mass fraction] 6.5 % [facility] Orders Onlyon 04-29-2025 Orders Only [id number] Feliz Garrett 1940 M Date Provider Department Center 04/29/2025 [id number], HISTORICAL [facility] Hos No family history on file Normal [facility] CA ECHO DOPPLER COMPLETEon 0 04-14-[address] [address] Cardiology Report Signed Patient: FELIZ RUCKER MR#: [id number] : 1940 Acct:[id number] Age/Sex: 84 / M ADM Date: 04/14/25 Loc: CARD Attending Dr: Linda J Aichholz PIPELINES MANAGER Ordering Physician: Linda Bradley NP Date of Service: 04/14/25 Procedure(s): CA echo doppler complete Accession Number(s): [id number] cc: Linda Bradley NP Patient Name: FELIZ LANDIS MR#: [id number] : 1940 Exam Date: 04/14/2025 Ordering Doctor: [...] Area (VTI): 4.65 cm2, 4.65 cm2 Deceleration Cooke: 4.44 m/s2 Pressure Half-Time: 354.93 ms Peak Velocity(Antegrade Flow): 2.02 m/s Peak Gradient(Antegrade Flow): 16.37 mm[Hg] Mean Velocity(Antegrade Flow): 1.32 m/s Mean Gradient(Antegrade Flow): 8.15 mm[Hg] Velocity Time Integral: 40.54 cm Tricuspid Valve Peak Velocity (Regurgitant Flow): 2.27 m/s Pulmonic Valve Peak Gradient: 7.20 mm[Hg], 7.01 mm[Hg] Right Atrium Right Atrium Systolic Pressure: 47.18 ml, 47.18 ml Dictated by: Sheldon Srivastava M.D. on 04/14/2025 at 19:15 Approved by: Sheldon Srivastava M.D. on 04/14/2025 at 19:22 Dictated By: SHELDON SRIVASTAVA (more content not included)... [employer] Radiology, Radiologist, - 04/14/2025 [place] [address] Cardiology Report Signed Patient: FELIZ RUCKER MR#: [id number] : 1940 Acct:[id number] Age/Sex: 84 / M ADM Date: 04/14/25 Loc: CARD Attending Dr: Linda Bradley NP Ordering Physician: Linda Bradley NP Date of Service: 04/14/25 Procedure(s): CA echo doppler complete Accession Number(s): [id number] cc: Linda Bradley NP Patient Name: FELIZ LANDIS MR#: [id number] : 1940 Exam Date: 04/14/2025 Ordering Doctor: [...] Area (VTI): 4.65 cm2, 4.65 cm2 Deceleration Cooke: 4.44 m/s2 Pressure Half-Time: 354.93 ms Peak Velocity(Antegrade Flow): 2.02 m/s Peak Gradient(Antegrade Flow): 16.37 mm[Hg] Mean Velocity(Antegrade Flow): 1.32 m/s Mean Gradient(Antegrade Flow): 8.15 mm[Hg] Velocity Time Integral: 40.54 cm Tricuspid Valve Peak Velocity (Regurgitant Flow): 2.27 m/s Pulmonic Valve Peak Gradient: 7.20 mm[Hg], 7.01 mm[Hg] Right Atrium Right Atrium Systolic Pressure: 47.18 ml, 47.18 ml Dictated by: Sheldon Srivastava M.D. on 04/14/2025 at 19:15 Approved by: Sheldon Srivastava M.D. on 04/14/2025 at 19:22 Dictated By: SHELDON SRIVASTAVA Signed By: 04/14/251922 DD/ 21 TD/TT: Hook Up Driver: [facility] Radiology Study observation (narrative) [facility] CA ECHO DOPPLER COMPLETEOrde red By: Radiologist Radiology on 04-14-2025 [facility] Work Phone: XR LUMBAR SPINE 2 OR 3Von The [address] [address] XRay Report Signed Patient: FELIZ RUCKER MR#: [id number] : 1940 Acct:[id number] Age/Sex: 84 / M ADM Date: 01/07/25 Loc: RAD Attending Dr: Linda Bradley PIPELINES MANAGER Ordering Physician: Linda Bradley NP Date of Service: 01/07/25 Procedure(s): XR lumbar spine 2-3V Accession Number(s): [id number] cc: Linda Bradley NP [address] [id number] Patient Name: FELIZ LANDIS MRN: [id number] date: 1940 Sex: M Assigned Patient Location: [facility] Current Patient Location: [facility] Accession/Order Number: [id number] Exam Date: 01/07/2025 13:42 Report Date: 01/07/2025 13:43 At the request of: LINDA BRADLEY NP Procedure: XR lumbar spine 2-3V LUMBAR SPINE - 2 views CLINICAL HISTORY: Lumbar Back Pain COMPARISON: None FINDINGS: Vertebral body heights appear maintained. Diffuse moderate degenerative disc disease with endplate and facet joint degenerative changes. SI joints also demonstrate degenerative change. Mild scoliosis. XR/XR lumbar spine 2-3V IMPRESSION: MILD SCOLIOSIS WITH MODERATE MULTILEVEL DEGENERATIVE DISC DISEASE. Impression dictated by: Surya Salinas Jr., D.O.01/07/2025 1:43 PM Dictation Location: [place] [address] Electronically authenticated by: [id number] Y Date: 01/07/2025 13:43 Dictated By: Surya Salinas M.D. Signed By: 01/07/25 1346 DD/ 1343 TD/TT: Hook Up Driver: [employer] Radiology, Radiologist, MD - 01/07/[address] [address] XRay Report Signed Patient: FELIZ RUCKER MR#: [id number] : 1940 Acct:[id number] Age/Sex: 84 / M ADM Date: 01/07/25 Loc: RAD Attending Dr: Linda Bradley NP Ordering Physician: Linad Bradley NP Date of Service: 01/07/25 Procedure(s): XR lumbar spine 2-3V Accession Number(s): [id number] cc: Linda Bradley NP [place] [address] Patient Name: FELIZ LANDIS MRN: [id number] date: 1940 Sex: M Assigned Patient Location: [facility] Current Patient Location: [facility] Accession/Order Number: [id number] Exam Date: 01/07/2025 13:42 Report Date: 01/07/2025 13:43 At the request of: LINDA BRADLEY NP Procedure: XR lumbar spine 2-3V LUMBAR SPINE - 2 views CLINICAL HISTORY: Lumbar Back Pain COMPARISON: None FINDINGS: Vertebral body heights appear maintained. Diffuse moderate degenerative disc disease with endplate and facet joint degenerative changes. SI joints also demonstrate degenerative change. Mild scoliosis. XR/XR lumbar spine 2-3V IMPRESSION: MILD SCOLIOSIS WITH MODERATE MULTILEVEL DEGENERATIVE DISC DISEASE. Impression dictated by: Surya Salinas Jr., D.O.01/07/2025 1:43 PM Dictation Location: [place] [address] Electronically authenticated by: [id number] Y Date: 01/07/2025 13:43 Dictated By: Surya Salinas M.D. Signed By: 01/07/25 1346 DD/ 1343 TD/TT: Hook Up Driver: [facility] Radiology Study observation (narrative) [facility] XR LUMBAR SPINE 2 OR 3VOrder ed By: Radiologist Radiology on 01-07-2025 [facility] [employer] Work Phone: XR Knee - left 1 or 2 Viewso n 10-12-2024 Imaging Result: 10/12/2024: Standing AP and LAT of left knee showed surgical position and alignment of prosthetic components without evidence of loosening or wear to the femoral, tibial, or patellar components. The alignment appeared to be anatomic. There was no evidence of accelerated or asymmetric wear to the patellar button or tibial tray. There was no evidence of fracture and/or dislocation. Impression: Stable LT total knee replacement. Bebe Mcclain SALES TRAINER-GENERAL LEDGER ACCOUNTANT [facility] Study observation (narrative) [facility] HbA1c (Bld) [Mass fraction]o n 08-03-2024 Interpretation and review of laboratory results Abnormal [facility] - Hematology and Cell countson 08-03-2024 HbA1c (Bld) [Mass fraction] 6.5 % [facility] ABO Rh Repeaton 10-23-2023 ABO O [facility] Rh Nom (Bld) Positive [facility] XR Knee - left 1 or 2 Viewso n 10-23-2023 Antonio Warner MD - 10/23/2023 CLINICAL INFORMATION: Post-operative evaluation TECHNIQUE/PROCEDURE: 2 views of the left knee COMPARISON: No relevant prior studies available. IMPRESSION: Left knee arthroplasty demonstrates anatomic alignment with expected postoperative changes in the soft tissues and the intra-articular space. Finalized by Antonio Warner MD on 10/23/2023 10:43 AM [facility] Radiology Study observation (narrative) [facility] XR Knee - left 1 or 2 ViewsO rdered By: Antonio Warner on 10-23-2023 [facility] Work Phone: Basic Metabolic Panelon 09-16 Anion gap [Moles/Vol] 8 mmol/L 5 - 15 mmol/L [facility] Calcium [Mass/Vol] 9.2 mg/dL 8.5 - 10. 5 mg/dL [facility] Chloride [Moles/Vol] 100 mmol/L 98 - 10 9 mmol/L [facility] CO2 [Moles/Vol] 29 mmol/L 22 - 32 mmol/L [facility] Creatinine [Mass/Vol] 1.17 mg/dL 0.60 - 1.30 mg/dL [facility] Comment on above: METHOD TRACEABLE TO IDMS STANDARD eGFR (CKD-EPI)non-race dependent 61 - PINF [facility] Comment on above: Reported eGFR is based on the CKD-EPI 2020 equation that does not use a race coefficient. Glucose [Mass/Vol] 120 mg/dL High 65 - 99 mg/dL [facility] Interpretation and review of laboratory results Abnormal [facility] Potassium [Moles/Vol] 4.3 mmol/L 3.5 - 5.0 mmol/L [facility] Sodium [Moles/Vol] 137 mmol/L 134 - 146 mmol/L [facility] Urea nitrogen [Mass/Vol] 18 mg/dL 5 - 27 mg/dL [facility] CBC auto differentialon 09-16 Basophils (Bld) [#/Vol] 0.1 10*3/uL [facility] Basophils/100 WBC (Bld) 0.9 % [facility] Eosinophils (Bld) [#/Vol] 0.0 10*3/uL [facility] Eosinophils/100 WBC (Bld) 0.4 % [facility] Erythrocyte distribution width (RBC) [Ratio] 14.2 % 11.5 - 15.0 % [facility] Hematocrit (Bld) [Volume fraction] 45.1 % 39 - 49 % [facility] Hemoglobin (Bld) [Mass/Vol] 15.0 g/dL 13.0 - 17.0 g/dL [facility] Lymphocytes (Bld) [#/Vol] 2.7 10*3/uL [facility] Lymphocytes/100 WBC (Bld) 35.3 % [facility] MCH (RBC) [Entitic mass] 30.1 pg 27 - 34 pg [facility] MCHC (RBC) [Mass/Vol] 33.2 g/dL 32 - 36 g/dL [facility] MCV (RBC) [Entitic vol] 91 fL 80 - 100 fL [facility] Monocytes (Bld) [#/Vol] 0.7 10*3/uL [facility] Monocytes/100 WBC (Bld) 8.6 % [facility] Neutrophils (Bld) [#/Vol] 4.2 10*3/uL [facility] Neutrophils/100 WBC (Bld) 54.8 % [facility] [employer] [facility] Platelet mean volume (Bld) [Entitic vol] 7.3 fL 7 - 12 fL [facility] Platelets (Bld) [#/Vol] 399 10*3/uL [facility] RBC (Bld) [#/Vol] 4.98 10*6/uL [facility] [employer] [facility] WBC corrected for nucl RBC Auto (Bld) [#/Vol] 7.6 [facility] [employer] [facility] ECG 12 leadon 09-26-2023 [facility] Patient Correspondenceon Patient Correspondence [id number] #1.00CD:127 Normal [facility] Facesheeton 08-23-2022 Facesheet [id number] #1.00CD:127 Normal [facility] Facesheet [id number] #1.00CD:127 Normal [facility] RAD - CT Reporton 08-15-2022 RAD - CT Report [id number] #1.00CD:127 [address] [facility] CT ABD/PELV W CONon 08-08-20 CT ABD/PELV W CON EXAMINATION: CT ABD/PELV W CON HISTORY: Abdominal colic ; chronic intermittent abdominal pain COMPARISON: CT abdomen pelvis 03/09/2021 TECHNIQUE: Axial, Coronal, and Sagittal images were obtained without and/or with IV contrast as indicated by examination type. Dose reduction techniques were achieved by using automated exposure control and/or adjustment of mA and/or kV according to patient size and/or use of iterative reconstruction technique. FINDINGS: LUNG BASES: Stable 4 mm nodule within the anterior lateral right lung base. A few stable 2-3 mm densities scattered within lung bases; nonspecific. LIVER: No enlargement, atrophy, suspicious density, or significant focal lesion. BILIARY: Heterogeneous gallbladder, likely containing multiple noncalcified stones. No appreciable wall thickening or abnormal duct dilation. PANCREAS: No lesion, fluid collection, or abnormal duct dilatation. SPLEEN: No enlargement or focal lesion. ADRENALS: Small fat density left adrenal nodule favoring a benign adenoma or lipoma. KIDNEYS: A few small benign-appearing renal cysts. No mass, obstruction, or calcification. BOWEL/MESENTERY: Marked diverticulosis throughout majority of colon length; no acute inflammatory changes or obstruction. No visible mass, obstruction, or bowel wall thickening of the stomach and small bowel. Normal appendix. AORTA/VASCULAR: No aneurysm or dissection. RETROPERITONEUM: No mass or adenopathy. LYMPH NODES: No adenopathy. URINARY BLADDER: Small diverticulum projecting from the posterior right and left margins. No visible focal wall thickening, lesion, or calculus. PELVIC ORGANS: Enlarged heterogeneous prostate. ABDOMINAL WALL: No mass or hernia. BONES: No bony lesion or fracture. Multilevel mild-moderate degenerative disc disease. OTHER: Negative. IMPRESSION: 1. Marked colonic diverticulosis without acute inflammatory changes. This may contribute to patient's symptoms. 2. No small bowel wall thickening as seen on prior study. 3. Cholelithiasis. 4. Additional chronic changes detailed above. Electronically authenticated by: DEBRA VALENTE Date: 2022-08-08 16:45 Normal [facility] Physician Referralon 022 Physician Referral [id number] #1.00CD:127 Normal [facility] CBC AUTO DIFFon 07-24-2022 BASO # 0.1 103/ul Normal 0.0-0.1 [facility] Comment on above: Performed By: #### C BC #### [facility] [address] [place] [address] Dr. Jorge Zavala Basophils/100 WBC (Bld) 0.4 % Normal 0.2-2.0 [facility] Comment on above: Performed By: #### C BC #### [facility] [address] [place] [address] [address] Jorge Zavala EO # 0.0 103/ul Normal 0.0-0.7 [facility] Comment on above: Performed By: #### C BC #### [facility] [address] [place] [address] [address] Jorge Zavala Eosinophils/100 WBC (Bld) 0.3 % Critically low 0.9-7.0 [facility] Comment on above: Performed By: #### C BC #### [facility] [address] [place] [address] Dr. Jorge Zavala Erythrocyte distribution width (RBC) [Ratio] 13.2 % Normal 11.0-15.0 [facility] Comment on above: Performed By: #### C BC #### [facility] [address] [place] [address] Dr. Jorge Zavala Hematocrit (Bld) [Volume fraction] 42.6 % Normal 42.0-54.0 [facility] Comment on above: Performed By: #### C BC #### [facility] [address] [place] [address] Dr. Jorge Zavala Hemoglobin (Bld) [Mass/Vol] 14.2 g/dL Normal 14.0-18.0 [facility] Comment on above: Performed By: #### C BC #### [facility] [address] [place] [address] Dr. Jorge Zavala IG # 0.05 10e3/ul Critically high 0.00-0.03 [facility] Comment on above: Performed By: #### C BC #### [facility] [address] [place] [address] Dr. Jorge Zavala IG % 0.4 % Normal 0.0-0.5 [facility] Comment on above: Performed By: #### C BC #### [facility] [address] [place] [address] Dr. Jorge Zavala LYMPH # 4.4 103/ul Critically high 1.2-3.8 [facility] Comment on above: Performed By: #### C BC #### [facility] [address] [place] [address] Dr. Jorge Zavala Lymphocytes/100 WBC (Bld) 39.0 % Normal 20.5-60.0 [facility] Comment on above: Performed By: #### C BC #### [facility] [address] [place] [address] Dr. Jorge Zavala MANUAL DIFF REQ NO Normal [facility] Comment on above: Performed By: #### C BC #### [facility] [address] [place] [address] [address] Jorge Zavala MCH (RBC) [Entitic mass] 30.0 pg Normal 25.9-34.0 [facility] Comment on above: Performed By: #### C BC #### [facility] [address] [place] [address] [address] Jorge Zavala MCHC (RBC) [Mass/Vol] 33.3 g/dL Normal 29.9-35.2 [facility] Comment on above: Performed By: #### C BC #### [facility] [address] [place] [address] [address] Jorge Zavala MCV (RBC) [Entitic vol] 90.1 fL Normal 80.0-94.0 [facility] Comment on above: Performed By: #### C BC #### [facility] [address] [place] [address] Dr. Jorge Zavala MONO # 0.9 103/ul Critically high 0.3-0.8 [facility] Comment on above: Performed By: #### C BC #### [facility] [address] [place] [address] Dr. Jorge Zavala Monocytes/100 WBC (Bld) 7.6 % Normal 1.7-12.0 [facility] Comment on above: Performed By: #### C BC #### [facility] [address] [place] [address] Dr. Jorge Zavala NEUT # 5.8 103/ul Normal 1.4-6.5 [facility] Comment on above: Performed By: #### C BC #### [facility] [address] [place] [address] Dr. Jorge Zavala Neutrophils/100 WBC (Bld) 52.3 % Normal 43.0-75.0 [facility] Comment on above: Performed By: #### C BC #### [facility] [address] [place] [address] Dr. Jorge Zavala Platelet mean volume (Bld) [Entitic vol] 9.1 fL Critically low 9.5-13.5 [facility] Comment on above: Performed By: #### C BC #### [facility] [address] [place] [address] [address] Jorge Zavala PLT 405 103/ul Normal 150-450 [facility] Comment on above: Performed By: #### C BC #### [facility] [address] [place] [address] Dr. Jorge Zavala RBC 4.73 106/ul Normal 4.70-6.10 [facility] Comment on above: Performed By: #### C BC #### [facility] [address] [place] [address] Dr. Jorge Zavala WBC 11.2 103/ul Critically high 4.0-11.0 [facility] Comment on above: Performed By: #### C BC #### [facility] [address] [place] [address] Dr. Jorge Zavala GLYCOHEMOGLOBIN A1Con 2021 ADA RECOMMENDATION SEE BELOW Normal [facility] Comment on above: Result Comment: ADA RECOMMENDED LIMIT 4.0 - 6.0 ADA THERAPEUTIC TARGET < 7.0 ACTION SUGGESTED > 7.0 Performed By: #### A 1C #### [facility] [address] [place] [address] Dr. Jorge Zavala Glucose [Mass/Vol] 131 mg/dL Normal [facility] Comment on above: Performed By: #### A 1C #### [facility] [address] [place] [address] Dr. Jorge Zavala HbA1c (Bld) [Mass fraction] 6.2 % Normal 4.5-6.2 [facility] Comment on above: Performed By: #### A 1C #### [facility] [address] [place] [address] Dr. Jorge Zavala PROF CHEM 8 (BAS METB)on Anion gap [Moles/Vol] 8.4 mmol/L Normal [facility] Comment on above: Performed By: #### C BC #### [facility] [address] [place] [address] Dr. Jorge Zavala Calcium [Mass/Vol] 8.4 mg/dL Critically low 8.5-10.1 [facility] Comment on above: Performed By: #### C BC #### [facility] [address] [place] [address] Dr. Jorge Zavala Chloride [Moles/Vol] 103 mmol/L Normal 98-107 [facility] Comment on above: Performed By: #### C BC #### [facility] [address] [place] [address] Dr. Jorge Zavala CO2 [Moles/Vol] 27.6 mmol/L Normal 21.0-32.0 [facility] Comment on above: Performed By: #### C BC #### [facility] [address] [place] [address] Dr. Jorge Zavala Creatinine [Mass/Vol] 1.32 mg/dL Critically high 0.70-1.30 [facility] Comment on above: Performed By: #### C BC #### [facility] [address] [place] [address] Dr. Jorge Zavala EGFR-AF TURKS AND CAICOS ISLANDER >60 Normal >=60 [facility] Comment on above: Performed By: #### C BC #### [facility] [address] [place] [address] Dr. Jorge Zavala EGFR-NON AF TURKS AND CAICOS ISLANDER 52 mL/min/1.73m2 Critically low >=60 [facility] Comment on above: Performed By: #### C BC #### [facility] [address] [place] [address] Dr. Jorge Zavala Glucose [Mass/Vol] 138 mg/dL Critically high 74-106 [facility] Comment on above: Performed By: #### C BC #### [facility] [address] [place] [address] Dr. Jorge Zavala Potassium [Moles/Vol] 4.0 mmol/L Normal 3.5-5.1 [facility] Comment on above: Performed By: #### C BC #### [facility] [address] [place] [address] Dr. Jorge Zavala Sodium [Moles/Vol] 135 mmol/L Critically low 136-145 [facility] Comment on above: Performed By: #### C BC #### [facility] [address] [place] [address] [address] Jorge Zavala Urea nitrogen [Mass/Vol] 20.0 mg/dL Critically high 7.0-18.0 [facility] Comment on above: Performed By: #### C BC #### [facility] [address] [place] [address] [address] Jorge Zavala Urea nitrogen/Creatinine [Mass ratio] 15.2 mg/mg Normal [facility] Comment on above: Performed By: #### C BC #### [facility] [address] [place] [address] [address] [facility] 53 mm/hr Critically high <=20 [facility] Comment on above: Performed By: #### S EDR #### [facility] [address] [place] [address] [address] Jorge Zavala COVID Quick Testingon 2021 Result Negative [facility] Other SARS-CoV-2 (COVID-19) RNA NA A+probe Ql (Resp)on 02-26-2022 SARS-CoV-2 (COVID-19) RNA IGLESIA+probe Ql (Unsp spec) Negative [facility] [employer] Other PSA, FREE AND TOTAL RATIOon 02-24-2022 % Free PSA 30.0 % Normal [facility] Comment on above: Result Comment: The table below lists the probability of prostate cancer for men with non-suspicious NADEGE results and total PSA between 4 and 10 ng/mL, by patient age (Laura et al, MARTHA 1998, 279:1542). % Free PSA 50-64 yr 65-75 yr 0.00-10.00% 56% 55% 10.01-15.00% 24% 35% 15.01-20.00% 17% 23% 20.01-25.00% 10% 20% >25.00% 5% 9% Please note: Laura et al did not make specific recommendations regarding the use of percent free PSA for any other population of men. Performed By: #### C BC #### [facility] [address] [place] [address] Dr. Jorge Zavala Prostate specific Ag [Mass/Vol] 4.0 ng/mL Normal 0.0-4.0 [facility] Comment on above: Result Comment: Juventino GILL methodology. . According to the [employer], Serum PSA should decrease and remain at undetectable levels after radical prostatectomy. The AUA defines biochemical recurrence as an initial PSA value 0.2 ng/mL or greater followed by a subsequent confirmatory PSA value 0.2 ng/mL or greater. Values obtained with different assay methods or kits cannot be used interchangeably. Results cannot be interpreted as absolute evidence of the presence or absence of malignant disease. Performed By: #### C BC #### [facility] [address] [place] [address] Dr. Jorge Zavala PSA, Free 1.20 ng/mL Normal N/A [facility] Comment on above: Result Comment: Juventino GILL methodology. Performed By: #### C BC #### [facility] [address] [place] [address] Dr. Jorge Zavala CBC AUTO DIFFon 12-06-2021 BASO # 0.0 103/ul Normal 0.0-0.1 [facility] Comment on above: Performed By: #### C BC #### [facility] [address] [place] [address] Dr. Jorge Zavala Basophils/100 WBC (Bld) 0.3 % Normal 0.2-2.0 [facility] Comment on above: Performed By: #### C BC #### [facility] [address] [place] [address] Dr. Jorge Zavala EO # 0.0 103/ul Normal 0.0-0.7 [facility] Comment on above: Performed By: #### C BC #### [facility] [address] [place] [address] Dr. Jorge Zavala Eosinophils/100 WBC (Bld) 0.3 % Critically low 0.9-7.0 [facility] Comment on above: Performed By: #### C BC #### [facility] [address] [place] [address] Dr. Jorge Zavala Erythrocyte distribution width (RBC) [Ratio] 12.9 % Normal 11.0-15.0 [facility] Comment on above: Performed By: #### C BC #### [facility] [address] [place] [address] Dr. Jorge Zavala Hematocrit (Bld) [Volume fraction] 44.8 % Normal 42.0-54.0 [facility] Comment on above: Performed By: #### C BC #### [facility] [address] [place] [address] Dr. Jorge Zavala Hemoglobin (Bld) [Mass/Vol] 14.6 g/dL Normal 14.0-18.0 [facility] Comment on above: Performed By: #### C BC #### [facility] [address] [place] [address] Dr. Jorge Zavala IG # 0.04 10e3/ul Critically high 0.00-0.03 [facility] Comment on above: Performed By: #### C BC #### [facility] [address] [place] [address] Dr. Jorge Zavala IG % 0.4 % Normal 0.0-0.5 [facility] Comment on above: Performed By: #### C BC #### [facility] [address] [place] [address] Dr. Jorge Zavala LYMPH # 2.9 103/ul Normal 1.2-3.8 [facility] Comment on above: Performed By: #### C BC #### [facility] [address] [place] [address] Dr. Jorge Zavala Lymphocytes/100 WBC (Bld) 30.2 % Normal 20.5-60.0 [facility] Comment on above: Performed By: #### C BC #### [facility] [address] [place] [address] Dr. Jorge Zavala MANUAL DIFF REQ NO Normal [facility] Comment on above: Performed By: #### C BC #### [facility] [address] [place] [address] Dr. Jorge Zavala MCH (RBC) [Entitic mass] 30.1 pg Normal 25.9-34.0 [facility] Comment on above: Performed By: #### C BC #### [facility] [address] [place] [address] Dr. Jorge Zavala MCHC (RBC) [Mass/Vol] 32.6 g/dL Normal 29.9-35.2 [facility] Comment on above: Performed By: #### C BC #### [facility] [address] [address] [address] Jorge Zavala MCV (RBC) [Entitic vol] 92.4 fL Normal 80.0-94.0 [facility] Comment on above: Performed By: #### C BC #### [facility] [address] [place] [address] Dr. Jorge Zavala MONO # 0.9 103/ul Critically high 0.3-0.8 [facility] Comment on above: Performed By: #### C BC #### [facility] [address] [place] [address] Dr. Jorge Zavala Monocytes/100 WBC (Bld) 8.9 % Normal 1.7-12.0 [facility] Comment on above: Performed By: #### C BC #### [facility] [address] [place] [address] Dr. Jorge Zavala NEUT # 5.7 103/ul Normal 1.4-6.5 [facility] Comment on above: Performed By: #### C BC #### [facility] [address] [place] [address] Dr. Jorge Zavala Neutrophils/100 WBC (Bld) 59.9 % Normal 43.0-75.0 [facility] Comment on above: Performed By: #### C BC #### [facility] [address] [place] [address] Dr. Jorge Zavala Platelet mean volume (Bld) [Entitic vol] 9.6 fL Normal 9.5-13.5 [facility] Comment on above: Performed By: #### C BC #### [facility] [address] [place] [address] Dr. Jorge Zavala PLT 312 103/ul Normal 150-450 [facility] Comment on above: Performed By: #### C BC #### [facility] [address] [place] [address] Dr. Jorge Zavala RBC 4.85 106/ul Normal 4.70-6.10 [facility] Comment on above: Performed By: #### C BC #### [facility] [address] [place] [address] Dr. Jorge Zavala WBC 9.5 103/ul Normal 4.0-11.0 [facility] Comment on above: Performed By: #### C BC #### [facility] [address] [place] [address] Dr. Jorge Zavala FERRITINon 12-06-2021 Ferritin [Mass/Vol] 135.0 ng/mL Normal 17.9-464.0 [facility] Comment on above: Performed By: #### F ERR, PSASC, IRON #### [facility] [address] [place] [address] Dr. Jorge Zavala GLYCOHEMOGLOBIN A1Con 2021 ADA RECOMMENDATION ADA THERAPEUTIC TARGET 6.0 - 7.0 ACTION SUGGESTED > 7.0 Normal [facility] Comment on above: Performed By: #### C BC #### [facility] [address] [place] [address] Dr. Jorge Zavala Glucose [Mass/Vol] 131 mg/dL Normal [facility] Comment on above: Performed By: #### C BC #### [facility] [address] [place] [address] Dr. Jorge Zavala HbA1c (Bld) [Mass fraction] 6.2 % Critically high <=6.0 [facility] Comment on above: Performed By: #### C BC #### [facility] [address] [place] [address] Dr. Jorge Zavala IRONon 12-06-2021 Iron [Mass/Vol] 93.0 ug/dL Normal 49.0-181.0 [facility] Comment on above: Performed By: #### F ERR, PSASC, IRON #### [facility] [address] [address] [address] Jorge Zavala LIPID PROFILEon 12-06-2021 CHOL-HDL RATIO NORM SEE BELOW Normal [facility] Comment on above: Result Comment: 3.3 - 4.4 LOW RISK 4.4 - 7.1 AVERAGE RISK 7.1 - 11.0 MODERATE RISK >11.0 HIGH RISK Performed By: #### C MP, LIPID #### [facility] [address] [address] [address] Jorge Zavala Cholesterol [Mass/Vol] 205 mg/dL Critically high <=200 [facility] Comment on above: Performed By: #### C MP, LIPID #### [facility] [address] [place] [address] Dr. Jorge Zavala Cholesterol in HDL [Mass/Vol] 33 mg/dL Critically low 40-60 [facility] Comment on above: Performed By: #### C MP, LIPID #### [facility] [address] [address] [address] Jorge Zavala Cholesterol in LDL [Mass/Vol] 127.2 mg/dL Normal [facility] Comment on above: Performed By: #### C MP, LIPID #### [facility] [address] [place] [address] Dr. Jorge Zavala Cholesterol.total/Ch olesterol in HDL [Mass ratio] 6.2 {ratio} Normal [facility] Comment on above: Performed By: #### C MP, LIPID #### [facility] [address] [address] [address] Jorge Zavala HDL NORMAL > or = 60 mg/dl - LOW CARDIOVASCULAR RISK <40 mg/dl - HIGH CARDIOVASCULAR RISK Normal [facility] Comment on above: Performed By: #### C MP, LIPID #### [facility] [address] [place] [address] Dr. Jorge Zavala LDL CALC NORMAL SEE BELOW Normal [facility] Comment on above: Result Comment: <100 mg/dl OPTIMAL 100 - 129 mg/dl NEAR OR ABOVE OPTIMAL 130 - 159 mg/dl BORDERLINE HIGH 160 - 189 mg/dl HIGH >190 mg/dl VERY HIGH Performed By: #### C MP, LIPID #### [facility] [address] [place] [address] Dr. Jorge Zavala Triglyceride [Mass/Vol] 224 mg/dL Critically high <=150 [facility] Comment on above: Performed By: #### C MP, LIPID #### [facility] [address] [address] [address] Jorge Zavala VLDL CALC 44.8 mg/dL Normal [facility] Comment on above: Performed By: #### C MP, LIPID #### [facility] [address] [address] [address] Jorge Zavala MICROALBUMIN, RAND URon 11-15 mALB 6.8 mg/L Normal <=30.0 [facility] Comment on above: Performed By: #### C BC #### [facility] [address] [place] [address] Dr. Jorge Zavala PROF 14(COMP METB)on 022 Albumin [Mass/Vol] 3.7 g/dL Normal 3.4-5.0 [facility] Comment on above: Performed By: #### C MP, LIPID #### [facility] [address] [place] [address] Dr. Jorge Zavala Albumin/Globulin [Mass ratio] 0.8 {ratio} Normal [facility] Comment on above: Performed By: #### C MP, LIPID #### [facility] [address] [place] [address] Dr. Jorge Zavala ALP [Catalytic activity/Vol] 93 U/L Normal 46-116 [facility] Comment on above: Performed By: #### C MP, LIPID #### [facility] [address] [place] [address] Dr. Jorge Zavala ALT [Catalytic activity/Vol] 30 U/L Normal 16-63 [facility] Comment on above: Performed By: #### C MP, LIPID #### [facility] [address] [place] [address] Dr. Jorge Zavala Anion gap [Moles/Vol] 11.5 mmol/L Normal [facility] Comment on above: Performed By: #### C MP, LIPID #### [facility] [address] [address] [address] Jorge Zavala AST [Catalytic activity/Vol] 25 U/L Normal 15-37 [facility] Comment on above: Performed By: #### C MP, LIPID #### [facility] [address] [address] [address] Jorge Zavala Bilirubin [Mass/Vol] 0.8 mg/dL Normal 0.2-1.3 [facility] Comment on above: Performed By: #### C MP, LIPID #### [facility] [address] [address] [address] Jorge Zavala Calcium [Mass/Vol] 8.5 mg/dL Normal 8.5-10.1 [facility] Comment on above: Performed By: #### C MP, LIPID #### [facility] [address] [address] [address] Jorge Zavala Chloride [Moles/Vol] 103 mmol/L Normal 98-107 [facility] Comment on above: Performed By: #### C MP, LIPID #### [facility] [address] [address] [address] Jorge Zavala CO2 [Moles/Vol] 27.7 mmol/L Normal 22.0-30.0 [facility] Comment on above: Performed By: #### C MP, LIPID #### [facility] [address] [address] [address] Jorge Zavala Creatinine [Mass/Vol] 1.36 mg/dL Critically high 0.66-1.25 [facility] Comment on above: Performed By: #### C MP, LIPID #### [facility] [address] [address] [address] Jorge Zavala EGFR-AF TURKS AND CAICOS ISLANDER >60 Normal >=60 [facility] Comment on above: Performed By: #### C MP, LIPID #### [facility] [address] [address] [address] Jorge Zavala EGFR-NON AF TURKS AND CAICOS ISLANDER 50 mL/min/1.73m2 Critically low >=60 [facility] Comment on above: Performed By: #### C MP, LIPID #### [facility] [address] [address] [address] Jorge Zavala Globulin (S) [Mass/Vol] 4.4 g/dL Normal [facility] Comment on above: Performed By: #### C MP, LIPID #### [facility] [address] [address] [address] Jorge Zavala Glucose [Mass/Vol] 118 mg/dL Critically high 74-106 [facility] Comment on above: Performed By: #### C MP, LIPID #### [facility] [address] [address] [address] Jorge Zavala Potassium [Moles/Vol] 4.2 mmol/L Normal 3.4-5.0 [facility] Comment on above: Performed By: #### C MP, LIPID #### [facility] [address] [place] [address] Dr. Jorge Zavala Protein [Mass/Vol] 8.1 g/dL Normal 6.1-8.2 [facility] Comment on above: Performed By: #### C MP, LIPID #### [facility] [address] [place] [address] Dr. Jorge Zavala Sodium [Moles/Vol] 138 mmol/L Normal 137-145 [facility] Comment on above: Performed By: #### C MP, LIPID #### [facility] [address] [place] [address] Dr. Jorge Zavala Urea nitrogen [Mass/Vol] 15.0 mg/dL Normal 7.0-18.0 [facility] Comment on above: Performed By: #### C MP, LIPID #### [facility] [address] [place] [address] Dr. Jorge Zavala Urea nitrogen/Creatinine [Mass ratio] 11.0 mg/mg Normal [facility] Comment on above: Performed By: #### C MP, LIPID #### [facility] [address] [place] [address] Dr. Jorge Zavala UA RANDOM W/MICROSCOPICon BACTERIA NONE SEEN Normal NONE SEEN [facility] Comment on above: Performed By: #### U AMIC #### [facility] [address] [address] [address] Jorge Zavala Bilirubin Ql (U) Negative Normal NEGATIVE [facility] Comment on above: Performed By: #### U AMIC #### [facility] [address] [address] [address] Jorge Zavala CAST NONE SEEN Normal NONE SEEN [facility] Comment on above: Performed By: #### U AMIC #### [facility] [address] [address] [address] Jorge Zavala Clarity (U) CLEAR Normal CLEAR [facility] Comment on above: Performed By: #### U AMIC #### [facility] [address] [address] [address] Jorge Zavala Color (U) YELLOW Normal YELLOW [facility] Comment on above: Performed By: #### U AMIC #### [facility] [address] [address] [address] Jorge Zavala Crystals LM Nom (Urine sed) NONE SEEN Normal NONE SEEN [facility] Comment on above: Performed By: #### U AMIC #### [facility] [address] [address] [address] Jorge Zavala Epithelial cells LM Ql (Urine sed) FEW Abnormal NONE SEEN /RARE [facility] Comment on above: Performed By: #### U AMIC #### [facility] [address] [address] [address] Jorge Zavala Glucose Ql (U) Negative Normal NEGATIVE [facility] Comment on above: Performed By: #### U AMIC #### [facility] [address] [address] [address] Jorge Zavala Hemoglobin Ql (U) Negative Normal NEGATIVE [facility] Comment on above: Performed By: #### U AMIC #### [facility] [address] [address] [address] Jorge Zavala Ketones Ql (U) Negative Normal NEGATIVE [facility] Comment on above: Performed By: #### U AMIC #### [facility] [address] [address] [address] Jorge Zavala LEUKOCYTES Negative Normal NEGATIVE [facility] Comment on above: Performed By: #### U AMIC #### [facility] [address] [address] [address] Jorge Zavala MUCOUS NONE SEEN Normal NONE SEEN [facility] Comment on above: Performed By: #### U AMIC #### [facility] [address] [address] [address] Jorge Zavala Nitrite Ql (U) Negative Normal NEGATIVE [facility] Comment on above: Performed By: #### U AMIC #### [facility] [address] [address] [address] Jorge Zavala pH (U) 6.0 [pH] Normal 5-9 [facility] Comment on above: Performed By: #### U AMIC #### [facility] [address] [place] [address] Dr. Jorge Zavala RBC NONE SEEN Abnormal 0-2 [facility] Comment on above: Performed By: #### U AMIC #### [facility] [address] [place] [address] Dr. Jorge Zavala SPEC GRAVITY 1.020 Normal 1.005-<=1.02 5 [facility] Comment on above: Performed By: #### U AMIC #### [facility] [address] [place] [address] Dr. Jorge Zavala UA PROTEIN Negative Normal NEGATIVE/ TRACE [facility] Comment on above: Performed By: #### U AMIC #### [facility] [address] [place] [address] Dr. Jorge Zavala Urobilinogen Qn (U) 0.2 {Nato'U}/dL Normal 0.2 - 1. 0 [facility] Comment on above: Performed By: #### U AMIC #### [facility] [address] [place] [address] Dr. Jorge Zavala WBC NONE SEEN Normal NONE SEEN [facility] Comment on above: Performed By: #### U AMIC #### [facility] [address] [place] [address] Dr. Jorge Zavala Progress Noteon 05-06-2018 HIM IP Note OR Quality Control Tester Normal [facility] HIM IP Note OR Quality Control Tester Normal [facility] Progress Noteon 10-31-2017 HIM IP Note OR Quality Control Tester Normal [facility] PSA, [employer] 10-29-2017 Prostatic Spec. Ag 5.48 ug/L High <4.1 [facility] Comment on above: Result Comment: The Jose Gu[employer]adlu[employer] ECLIA assay is used. Results obtained with different assay methods cannot be used interchangeably.[employer] [address] [place], [place] [id number] ([phone] Performed By: #### P SAD ####[id number] [place] [address] [id number] Vital Signs Date Time Vital Sign Value Performing Clinician Facility 05-04-2025 09:53-0400 Body mass index (BMI) [Ratio] 34.68 kg/m2 Linda Bradley PIPELINES MANAGER Work Phone: [facility] 05-04-2025 09:53-0400 Body temperature 98.29 [degF] Linda Bradley PIPELINES MANAGER Work Phone: [facility] 05-04-2025 09:53-0400 Body weight 88.81 kg Linda Bradley PIPELINES MANAGER Work Phone: [facility] 05-04-2025 09:53-0400 Diastolic blood pressure 70 mm[Hg] Linda Bradley PIPELINES MANAGER Work Phone: [facility] 05-04-2025 09:53-0400 Heart rate 84 /min Linda Bradley PIPELINES MANAGER Work Phone: [facility] 05-04-2025 09:53-0400 Respiratory rate 22 /min Linda Bradley PIPELINES MANAGER Work Phone: [facility] 05-04-2025 09:53-0400 SaO2% (BldA) [Mass fraction] 96 % Linda Bradley PIPELINES MANAGER Work Phone: [facility] 05-04-2025 09:53-0400 Systolic blood pressure 138 mm[Hg] Linda Darnellholz PIPELINES MANAGER Work Phone: [facility] 03-16-2025 09:34-0400 Diastolic blood pressure 64 mm[Hg] Linda Aichholz PIPELINES MANAGER Work Phone: [facility] 03-16-2025 09:34-0400 Systolic blood pressure 138 mm[Hg] Linda Aichholz PIPELINES MANAGER Work Phone: [facility] 03-16-2025 09:22-0400 Body mass index (BMI) [Ratio] 35.22 kg/m2 Linda Aichholz PIPELINES MANAGER Work Phone: [facility] 03-16-2025 09:22-0400 Body temperature 98.1 [degF] Linda Juliannehholz PIPELINES MANAGER Work Phone: [facility] 03-16-2025 09:22-0400 Body weight 90.17 kg Linda Juliannehholz PIPELINES MANAGER Work Phone: [facility] 03-16-2025 09:22-0400 Heart rate 90 /min Linda Aichholz PIPELINES MANAGER Work Phone: [facility] 03-16-2025 09:22-0400 Respiratory rate 22 /min Linda Juliannehholz PIPELINES MANAGER Work Phone: [facility] 03-16-2025 09:22-0400 SaO2% (BldA) [Mass fraction] 97 % Linda Juliannehholz PIPELINES MANAGER Work Phone: [facility] 01-06-2025 11:05-0400 Body mass index (BMI) [Ratio] 34.72 kg/m2 Linda Aichholz PIPELINES MANAGER Work Phone: [facility] 01-06-2025 11:05-0400 Body temperature 98.49 [degF] Linda Aichholz PIPELINES MANAGER Work Phone: [facility] 01-06-2025 11:05-0400 Body weight 88.91 kg Linda Aichholz PIPELINES MANAGER Work Phone: [facility] 01-06-2025 11:05-0400 Diastolic blood pressure 70 mm[Hg] Linda Aichholz PIPELINES MANAGER Work Phone: [facility] 01-06-2025 11:05-0400 Heart rate 87 /min Linda Aichholz PIPELINES MANAGER Work Phone: [facility] 01-06-2025 11:05-0400 Respiratory rate 22 /min Linda Aichholz PIPELINES MANAGER Work Phone: [facility] 01-06-2025 11:05-0400 SaO2% (BldA) [Mass fraction] 96 % Linda Aichholz PIPELINES MANAGER Work Phone: [facility] 01-06-2025 11:05-0400 Systolic blood pressure 138 mm[Hg] Linda Aichholz PIPELINES MANAGER Work Phone: [facility] 12-21-2024 14:03-0400 Body mass index (BMI) [Ratio] 34.29 kg/m2 Linda Aichholz PIPELINES MANAGER Work Phone: [facility] 12-21-2024 14:03-0400 Body temperature 98.8 [degF] Linda Aichholz PIPELINES MANAGER Work Phone: [facility] 12-21-2024 14:03-0400 Body weight 87.82 kg Linda Aichholz PIPELINES MANAGER Work Phone: [facility] 12-21-2024 14:03-0400 Diastolic blood pressure 72 mm[Hg] Linda Aichholz PIPELINES MANAGER Work Phone: [facility] 12-21-2024 14:03-0400 Heart rate 92 /min Linda Aichholz PIPELINES MANAGER Work Phone: [facility] 12-21-2024 14:03-0400 Respiratory rate 20 /min Linda Aichholz PIPELINES MANAGER Work Phone: [facility] 12-21-2024 14:03-0400 SaO2% (BldA) [Mass fraction] 94 % Linda Aichholz PIPELINES MANAGER Work Phone: [facility] 12-21-2024 14:03-0400 Systolic blood pressure 120 mm[Hg] Linda Darnellholz PIPELINES MANAGER Work Phone: [facility] 11-16-2024 10:10-0500 Diastolic blood pressure 80 mm[Hg] Linda Aichholz PIPELINES MANAGER Work Phone: [facility] 11-16-2024 10:10-0500 Systolic blood pressure 162 mm[Hg] Linad Darnellholz PIPELINES MANAGER Work Phone: [facility] 11-16-2024 10:04-0500 Body height 160 cm Linda Darnellholz PIPELINES MANAGER Work Phone: [facility] 11-16-2024 10:04-0500 Body mass index (BMI) [Ratio] 35.11 kg/m2 Linda Darnellholz PIPELINES MANAGER Work Phone: [facility] 11-16-2024 10:04-0500 Body temperature 98.49 [degF] Linda Darnellholz PIPELINES MANAGER Work Phone: [facility] 11-16-2024 10:04-0500 Body weight 89.9 kg Linda Darnellholz PIPELINES MANAGER Work Phone: [facility] 11-16-2024 10:04-0500 Heart rate 84 /min Linda Juliannehholz PIPELINES MANAGER Work Phone: [facility] 11-16-2024 10:04-0500 Respiratory rate 21 /min Linda Darnellholz PIPELINES MANAGER Work Phone: [facility] 11-16-2024 10:04-0500 SaO2% (BldA) [Mass fraction] 96 % Linda Juliannehholz PIPELINES MANAGER Work Phone: [facility] 09-14-2024 15:27-0500 Body mass index (BMI) [Ratio] 35.29 kg/m2 Linda Aichholz PIPELINES MANAGER Work Phone: [facility] 09-14-2024 15:27-0500 Body temperature 98.8 [degF] Lindadelaney Moorez PIPELINES MANAGER Work Phone: [facility] 09-14-2024 15:27-0500 Body weight 90.36 kg Linda Darnellholz PIPELINES MANAGER Work Phone: [facility] 09-14-2024 15:27-0500 Diastolic blood pressure 70 mm[Hg] Linda Darnellholz PIPELINES MANAGER Work Phone: [facility] 09-14-2024 15:27-0500 Heart rate 89 /min Linda Darnellholz PIPELINES MANAGER Work Phone: [facility] 09-14-2024 15:27-0500 Respiratory rate 22 /min Linda Darnellholz PIPELINES MANAGER Work Phone: [facility] 09-14-2024 15:27-0500 SaO2% (BldA) [Mass fraction] 97 % Linda Darnellholz PIPELINES MANAGER Work Phone: [facility] 09-14-2024 15:27-0500 Systolic blood pressure 110 mm[Hg] Linda Darnellholz PIPELINES MANAGER Work Phone: [facility] 08-03-2024 13:10-0500 Body height 160 cm Linda Darnellholz PIPELINES MANAGER Work Phone: [facility] 08-03-2024 13:10-0500 Body mass index (BMI) [Ratio] 35.25 kg/m2 Linda Darnellholz PIPELINES MANAGER Work Phone: [facility] 08-03-2024 13:10-0500 Body temperature 98.49 [degF] Linda Darnellholz PIPELINES MANAGER Work Phone: [facility] 08-03-2024 13:10-0500 Body weight 90.27 kg Linda Darnellholz PIPELINES MANAGER Work Phone: [facility] 08-03-2024 13:10-0500 Diastolic blood pressure 72 mm[Hg] Linda Aichholz PIPELINES MANAGER Work Phone: [facility] 08-03-2024 13:10-0500 Heart rate 92 /min Linda Patricknadeemz PIPELINES MANAGER Work Phone: [facility] 08-03-2024 13:10-0500 Respiratory rate 19 /min Linda Darnellholz PIPELINES MANAGER Work Phone: [facility] 08-03-2024 13:10-0500 SaO2% (BldA) [Mass fraction] 96 % Linda Patricknadeemz PIPELINES MANAGER Work Phone: [facility] 08-03-2024 13:10-0500 Systolic blood pressure 130 mm[Hg] Linda Moorez PIPELINES MANAGER Work Phone: [facility] 10-23-2023 12:35-0500 Diastolic blood pressure 69 mm[Hg] Analilia Martinez DO Work Phone: [facility] [employer] [facility] 10-23-2023 12:35-0500 Heart rate 71 /min Analilia Martinez DO Work Phone: [facility] 10-23-2023 12:35-0500 SaO2% (BldA) [Mass fraction] 96 % Analilia Martinez DO Work Phone: [facility] [employer] 10-23-2023 12:35-0500 Systolic blood pressure 139 mm[Hg] Analilia Martinez DO Work Phone: [facility] [employer] 10-23-2023 12:05-0500 Respiratory rate 17 /min Analilia Martinez DO Work Phone: [facility] [employer] [facility] 10-23-2023 10:05-0500 Body temperature 97 [degF] Analilia Martinez DO Work Phone: [facility] [employer] [facility] 10-23-2023 06:49-0500 Body height 165.1 cm Analilia VillalpandoMichelle DO Work Phone: [facility] 10-23-2023 06:49-0500 Body mass index (BMI) [Ratio] 31.62 kg/m2 Analilia Michelle DO Work Phone: [facility] [employer] [facility] 10-23-2023 06:49-0500 Body weight 86.18 kg Analilia Martinez DO Work Phone: [facility] [employer] [facility] 09-26-2023 10:41-0500 Body height 165.1 cm Pm 1 [facility] [employer] [facility] 09-26-2023 10:41-0500 Body mass index (BMI) [Ratio] 31.62 kg/m2 Pm 1 [facility] [employer] [facility] 09-26-2023 10:41-0500 Body weight 86.18 kg Pm 1 [facility] [employer] [facility] 08-22-2022 15:30-0500 Blood Pressure Location [employer] [facility] 08-22-2022 15:30-0500 Diastolic blood pressure 80 mm[Hg] [address] [employer] [facility] 08-22-2022 15:30-0500 Heart rate 80 /min [address] [employer] [facility] 08-22-2022 15:30-0500 Respiratory rate 16 /min [employer]oul [employer] [facility] 08-22-2022 15:30-0500 Systolic blood pressure 124 mm[Hg] Raoul [address] [employer] [facility] 02-26-2022 10:40-0400 Body height 167.64 cm Shaye Puentes Other [facility] Other 02-26-2022 10:40-0400 Body mass index (BMI) [Ratio] 31.47 kg/m2 Shaye Puentes Other [facility] Other 02-26-2022 10:40-0400 Body temperature 98.7 [degF] Shaye Puentes Other [facility] Other 02-26-2022 10:40-0400 Body weight 88.45 kg Shaye Puentes Other [facility] Other 02-26-2022 10:40-0400 Respiratory rate 18 /min Shaye Puentes Other [facility] Other 02-26-2022 10:40-0400 SaO2% (BldA) [Mass fraction] 96 % Shaye Puentes Other [facility] Other Encounters Encounter Date Encounter Type Care Provider Facility Start: 05-04-2025 End: 05-04-2025 Bamboo flowsheet Linda Kirk PIPELINES MANAGER Work Phone: [facility] Start: 05-04-2025 End: 05-04-2025 Bamboo flowsheet Linda Oscarz PIPELINES MANAGER Work Phone: [facility] Start: 05-04-2025 End: 05-04-2025 ambulatory LINDA OSCARZ Not Available Start: 05-04-2025 End: 05-04-2025 Office outpatient visit 25 minutes Linda Kirk PIPELINES MANAGER Work Phone: [facility] Comment on above: Essential hypertensi on (Primary Dx); Moderate persistent asthma without complication (HCC); Type 2 diabetes mellitus with stage 3a chronic kidney disease, without long-term current use of insulin (HCC); Class 2 severe obesity due to excess calories with serious comorbidity and body mass index (BMI) of 35.0 to 35.9 in adult ([facility]-HCC); Abnormal echocardiogram Start: 04-29-2025 End: 04-29-2025 Refill Linda Oscarz PIPELINES MANAGER Work Phone: [facility] Comment on above: Benign prostatic hyp erplasia, unspecified whether lower urinary tract symptoms present (Primary Dx) Start: 04-15-2025 End: 04-15-2025 Orders Only Linda Juliannehholz PIPELINES MANAGER Work Phone: [facility] Comment on above: Essential hypertensi on (Primary Dx); Dyspnea on exertion; Abnormal echocardiogram Start: 04-14-2025 End: 04-14-2025 Clinisync Result Encounter Linda Kirk PIPELINES MANAGER Work Phone: [facility] External Department Unsolicited Start: 04-14-2025 End: 04-14-2025 Clinisync Result Encounter Linda Kirk PIPELINES MANAGER Work Phone: [facility] External Department Unsolicited Start: 04-12-2025 End: 04-12-2025 Refill Linda Darnellholz PIPELINES MANAGER Work Phone: [facility] Comment on above: Benign prostatic hyp erplasia, unspecified whether lower urinary tract symptoms present (Primary Dx) Start: 04-07-2025 End: 04-07-2025 Refill Linda Darnellholz PIPELINES MANAGER Work Phone: [facility] Comment on above: Essential hypertensi on ; Type 2 diabetes mellitus without complication, without long-term current use of insulin ([facility]); Gastroesophageal reflux disease, unspecified whether esophagitis present Start: 03-16-2025 End: 03-16-2025 Bamboo flowsheet Linda Oscarz PIPELINES MANAGER Work Phone: [facility] Start: 03-16-2025 End: 03-16-2025 Bamboo flowsheet Linda Darnellholz PIPELINES MANAGER Work Phone: [facility] Start: 03-16-2025 End: 03-16-2025 ambulatory LINDA DARNELLHOLZ Not Available Start: 03-16-2025 End: 03-16-2025 Office outpatient visit 25 minutes Linda Kirk PIPELINES MANAGER Work Phone: [facility] Comment on above: Dyspnea on exertion (Primary Dx); Moderate persistent asthma without complication ([facility]); Essential hypertension ; Stage 3a chronic kidney disease ([facility]-HCC); Obesity (BMI 30-39.9); Lumbar back pain Start: 01-07-2025 End: 01-07-2025 Clinisync Result Encounter Linda Bradley PIPELINES MANAGER Work Phone: [facility] External Department Unsolicited Start: 01-07-2025 End: 01-07-2025 Clinisync Result Encounter Linda Kirk PIPELINES MANAGER Work Phone: [facility] External Department Unsolicited Start: 01-06-2025 End: 01-06-2025 Bamboo flowsheet Linda Kirk PIPELINES MANAGER Work Phone: [facility] Start: 01-06-2025 End: 01-06-2025 Bamboo flowsheet Linda Julianneedijaxon PIPELINES MANAGER Work Phone: [facility] Start: 01-06-2025 End: 01-06-2025 ambulatory LINDA KIRK Not Available Start: 01-06-2025 End: 01-06-2025 Office outpatient visit 25 minutes Linda Kirk PIPELINES MANAGER Work Phone: [facility] Comment on above: Moderate persistent asthma without complication (CMS/HCC) (Primary Dx); Bronchitis; Essential hypertension (CMS/HCC); Class 2 severe obesity due to excess calories with serious comorbidity and body mass index (BMI) of 35.0 to 35.9 in adult (CMS/HCC); Lumbar back pain; Allergic rhinitis, unspecified seasonality, unspecified trigger Start: 12-21-2024 End: 12-21-2024 ambulatory LINDA BRADLEY [facility] Start: 12-21-2024 End: 12-21-2024 Bamboo flowsheet Linda Kirk PIPELINES MANAGER Work Phone: [facility] Start: 12-21-2024 End: 12-21-2024 Bamboo flowsheet Linda Kirk PIPELINES MANAGER Work Phone: [facility] Start: 12-21-2024 End: 12-21-2024 Office outpatient visit 25 minutes Linda Bradley PIPELINES MANAGER Work Phone: [facility] Comment on above: Bronchitis (Primary Dx); Essential hypertension (CMS/HCC); Gastroesophageal reflux disease, unspecified whether esophagitis present Start: 12-21-2024 End: 12-21-2024 ambulatory LINDA AICHHOLZ Not Available Start: 12-17-2024 End: 12-17-2024 Refill Linda Aichholz PIPELINES MANAGER Work Phone: [facility] Comment on above: Chronic cough (Prima ry Dx) Start: 12-02-2024 End: 12-02-2024 ambulatory LINDA AICHHOLZ Not Available Start: 11-25-2024 End: 11-25-2024 Telephone encounter Yan Reinoso Anthony DO Work Phone: [facility] Comment on above: Pain Meds Start: 11-23-2024 End: 11-23-2024 ambulatory BEBE MCCLAIN Not Available Start: 11-16-2024 End: 11-16-2024 Bamboo flowsheet Linda Aichholz PIPELINES MANAGER Work Phone: [facility] Start: 11-16-2024 End: 11-16-2024 Bamboo flowsheet Linda Aichnadeemz PIPELINES MANAGER Work Phone: [facility] Start: 11-16-2024 End: 11-16-2024 Office outpatient visit 25 minutes Linda Aichholz PIPELINES MANAGER Work Phone: [facility] Comment on above: Diverticulitis (Prim kandice Dx); Obesity (BMI 30-39.9); Class 2 severe obesity due to excess calories with serious comorbidity and body mass index (BMI) of 35.0 to 35.9 in adult ([facility]); Type 2 diabetes mellitus without complication, without long-term current use of insulin ([facility]) Start: 11-16-2024 End: 11-16-2024 ambulatory LINDA AICHHOLZ Not Available Start: 10-12-2024 End: 10-12-2024 Bamboo flowsheet Bebe Mcclain PIPELINES MANAGER Work Phone: [facility] Start: 10-12-2024 End: 10-12-2024 Bamboo flowsheet Bebe Mcclain PIPELINES MANAGER Work Phone: [facility] Start: 10-12-2024 End: 10-12-2024 Office outpatient visit 15 minutes Bebe Mcclain PIPELINES MANAGER Work Phone: [facility] Comment on above: Status post total le ft knee replacement; Primary osteoarthritis of left knee Start: 10-12-2024 End: 10-12-2024 ambulatory BEBE MCCLAIN Not Available Start: 10-05-2024 End: 10-06-2024 Refill Karla Munguia PIPELINES MANAGER Work Phone: [facility] Comment on above: Benign prostatic hyp erplasia, unspecified whether lower urinary tract symptoms present (Primary Dx); Essential hypertension (CMS/HCC) Start: 09-30-2024 End: 09-30-2024 Refill Linda Aicediholz PIPELINES MANAGER Work Phone: [facility] Comment on above: Type 2 diabetes radha itus with stage 3a chronic kidney disease, without long-term current use of insulin (HCC) (CMS/[facility]) (Primary Dx) Start: 09-14-2024 End: 09-14-2024 Office outpatient visit 15 minutes Linda Bradley PIPELINES MANAGER Work Phone: [facility] Comment on above: Bronchitis (Primary Dx); Obesity (BMI 30-39.9); Essential hypertension (CMS/HCC); Gastroesophageal reflux disease, unspecified whether esophagitis present Start: 09-14-2024 End: 09-14-2024 Refill Linda Aichholz PIPELINES MANAGER Work Phone: [facility] Comment on above: Essential hypertensi on (CMS/HCC) Start: 08-03-2024 End: 08-03-2024 Bamboo flowsheet Linda Aicmathewz PIPELINES MANAGER Work Phone: [facility] Start: 08-03-2024 End: 08-03-2024 Bamboo flowsheet Linda Aichholz PIPELINES MANAGER Work Phone: [facility] Start: 08-03-2024 End: 08-03-2024 Telephone encounter Lindadelaney Bradley PIPELINES MANAGER Work Phone: [facility] Start: 08-03-2024 End: 08-03-2024 ambulatory LINDA AICHHOLZ Not Available Start: 08-03-2024 End: 08-03-2024 Office outpatient visit 25 minutes Linda Bradley PIPELINES MANAGER Work Phone: [facility] Comment on above: Essential hypertensi on (CMS/HCC) (Primary Dx); Gastroesophageal reflux disease, unspecified whether esophagitis present; Stage 3a chronic kidney disease (HCC) (CMS/HCC); Type 2 diabetes mellitus without complication, without long-term current use of insulin (CMS/HCC); Type 2 diabetes mellitus with stage 3a chronic kidney disease, without long-term current use of insulin (HCC) (CMS/HCC); Screening for prostate cancer; Obesity (BMI 30-39.9) Start: 06-15-2024 End: 06-15-2024 Telephone encounter Linda Bradley PIPELINES MANAGER Work Phone: [facility] Comment on above: Essential hypertensi on (CMS/HCC) Start: 12-03-2023 Patient encounter procedure Linda Bradley PIPELINES MANAGER Work Phone: [facility] Start: 10-31-2023 Bamboo flowsheet Analilia moralez DO Work Phone: [facility] Start: 10-31-2023 Bamboo flowsheet Analilia moralez DO Work Phone: [facility] Start: 10-31-2023 End: 10-31-2023 Postop follow up visit related to original px Analilia Martinez DO Work Phone: [facility] Comment on above: Status post total le ft knee replacement (Primary Dx) Start: 10-30-2023 End: 10-30-2023 ambulatory Dorothy Smith PT Work Phone: [facility] Comment on above: Primary osteoarthrit is of left knee (Primary Dx); Status post left knee replacement; Acute pain of left knee Start: 10-28-2023 Telephone encounter Bebe banks PIPELINES MANAGER Work Phone: [facility] Start: 10-28-2023 End: 10-28-2023 ambulatory Dorothy Smith PT Work Phone: [facility] Comment on above: Primary osteoarthrit is of left knee (Primary Dx); Status post left knee replacement; Acute pain of left knee Start: 10-25-2023 End: 10-25-2023 ambulatory Dorothy Smith PT Work Phone: [facility] Comment on above: Primary osteoarthrit is of left knee (Primary Dx); Status post left knee replacement; Acute pain of left knee; Presence of artificial knee joint, left Start: 10-23-2023 End: 10-23-2023 Subsequent hospital visit by physician Analilia Martinez DO Work Phone: [facility] - Surgery Start: 10-01-2023 Preoperative state Dorothy black PT Work Phone: [facility] [employer] Start: 09-26-2023 End: 09-26-2023 Patient encounter procedure [facility] Pre-Admission Testing 1 [facility] - Pre Admit Comment on above: Preop examination (P rimary Dx); Hypertension, unspecified type Start: 09-26-2023 End: 09-26-2023 Preprocedural examination done Pm 1 [facility] Start: 09-17-2023 Patient encounter status Dorothy Smith PT Work Phone: [facility] [employer] Start: 08-22-2022 End: 08-23-2022 ambulatory Raoul R NILL Facility: [place] Start: 08-22-2022 End: 08-22-2022 Patient encounter procedure Raoul R NILL General Surgery Nill/S[facility] [place] Start: 08-08-2022 End: 08-09-2022 ambulatory EDMOND BRADLEY Facility:[facility] Start: 07-25-2022 ambulatory Raoul R NILL Facility :[facility] [place] Start: 07-24-2022 End: 07-25-2022 ambulatory EDMOND BRADLEY Facility:[facility] Start: 02-26-2022 End: 02-26-2022 ambulatory hSaye Puentes Other [facility] [employer] Other Start: 02-26-2022 Office outpatient vi sit 25 minutes Shaye Puentes [facility] Start: 02-23-2022 End: 02-24-2022 ambulatory EDMOND BRADLEY Facility:[facility] Start: 12-06-2021 End: 12-07-2021 ambulatory EDMOND BRADLEY Facility:[facility] Start: 10-28-2017 End: 10-29-2017 Patient encounter CATHY SANTACROCE [facility] Procedures Date Procedure Procedure Detail Performing Clinician Start: 05-04-2025 Hemoglobin glycosylated a1c Linda edwards PIPELINES MANAGER Work Phone: Start: 04-14-2025 CA ECHO DOPPLER COMPLETE Linda Bradley N P Work Phone: Start: 01-07-2025 XR LUMBAR SPINE 2 OR 3V Linda Patricknadeemgrace PIPELINES MANAGER Work Phone: Start: 10-12-2024 Radiologic examination knee 1/2 views Bebe Mcclain PIPELINES MANAGER Work Phone: Start: 08-03-2024 Hemoglobin glycosylated a1c Linda edwards PIPELINES MANAGER Work Phone: Start: 10-23-2023 Radiologic examination knee 1/2 views Analilia Martinez DO Work Phone: Start: 10-23-2023 REPEATED ABORH Analilia Martinez DO Work Phone: Start: 12-06-2021 PSA screening EDMOND BRADLEY Comment on above: Performed By: #### FERR, PSASC, IRON ### # [facility] [address] [place] [address] Dr. Jorge Zavala Start: 10-28-2017 PSA, DIAGNOSTIC CATHY SANTACROCE Arthroplasty of right knee Antonio kamran BURKS Esophagogastroduodenoscopy Antonio krismaricruz KIMMIE Extraction of cataract Vernon alpa BURKS Plan of Treatment Date Care Activity Detail Author Start: 03-26-2033 DTaP,Tdap and Td Vaccines (2 - Td or Tdap) DTaP,Tdap and Td Vaccines (2 - Td or Tdap) [facility] Start: 12-07-2025 End: 12-07-2025 Patient encounter procedure 12/07/2025 11:00 AM EDT Office Visit [facility] [address] [place] [address] Linda Bradley NP [address] [place] [phone] [facility] Start: 12-02-2025 Medicare Annual Wellness (AWV) Medicare Annual Wellness (AWV) [facility] Start: 11-04-2025 Hemoglobin A1c measurement Diabetes: Hemoglobin A1C [facility] Start: 08-10-2025 Urine screening for protein Diabetes: Urine Protein Screening [facility] Start: 08-04-2025 End: 08-04-2025 Patient encounter procedure 08/04/2025 9:40 AM EST Office Visit [facility] [address] [place] [address] Linda Bradley, STACIE [address] [place] [phone] [facility] Start: 06-04-2025 Hemoglobin A1c measurement Diabetes: Hemoglobin A1C [facility] Start: 05-17-2025 Influenza vaccination [facility] Start: 05-04-2025 End: 05-04-2026 Basic metabolic 1998 panel - Serum or Plasma Basic metabolic panel Lab Routine Essential hypertension Type 2 diabetes mellitus with stage 3a chronic kidney disease, without long-term current use of insulin (HCC) Expected: 05/04/2025 (Approximate), Expires: 05/04/2026 [facility] Comment on above: Expected: 05/04/2025 (Approximate), Expi res: 05/04/2026 Start: 05-04-2025 End: 05-04-2026 CBC W Auto Differential panel - Blood CBC and differential Lab Routine Moderate persistent asthma without complication (HCC) Expected: 05/04/2025 (Approximate), Expires: 05/04/2026 [facility] Work Phone: Comment on above: Expected: 05/04/2025 (Approximate), Expi res: 05/04/2026 Start: 05-04-2025 End: 05-04-2025 Patient encounter procedure 05/04/2025 9:40 AM EDT Office Visit [facility] [address] [place] [phone] Linda Bradley, STACEI [address] [place] [phone] [facility] Start: 04-15-2025 Urine screening for protein Diabetes: Urine Protein Screening [facility] Start: 03-16-2025 End: 03-16-2027 Echocardiogram 2D complete Echocardiogram 2D complete Echocardiography Routine Essential hypertension Dyspnea on exertion Expected: 03/16/2025 (Approximate), Expires: 03/16/2027 [facility] Comment on above: Expected: 03/16/2025 (Approximate), Expi res: 03/16/2027 Start: 03-16-2025 End: 03-16-2026 Pulmonary function report Pulmonary Function Test Imaging Routine Moderate persistent asthma without complication (HCC) Dyspnea on exertion Expected: 03/16/2025, Expires: 03/16/2026 [facility] Work Phone: Comment on above: Expected: 03/16/2025, Expires: Start: 02-18-2025 End: 02-18-2025 Patient encounter procedure 02/18/2025 2:40 PM EDT [facility] [address] [place] [phone] Linda Bradley, PIPELINES MANAGER [address] [place] [phone] [facility] Start: 01-31-2025 Hemoglobin A1c measurement Diabetes: Hemoglobin A1C [facility] Start: 01-06-2025 End: 01-06-2026 XR Lumbar spine 2 or 3 Views XR lumbar spine 2 or 3 views Imaging Routine Lumbar back pain Expected: 01/06/2025, Expires: 01/06/2026 [facility] Work Phone: Comment on above: Expected: 01/06/2025, Expires: Start: 12-31-2024 End: 12-31-2024 Patient encounter procedure 12/31/2024 2:20 PM EDT Office Visit [facility] [address] [place] [address] Linda Bradley, PIPELINES MANAGER [address] [place] [phone] [facility] Start: 12-21-2024 End: 12-21-2024 Patient encounter procedure 12/21/2024 2:00 PM EDT [facility] [address] [place] [address] Linda Bradley, PIPELINES MANAGER [address] [place] [phone] Arrived [facility] Comment on above: Arrived Start: 12-21-2024 End: 12-21-2025 XR Chest 2 Views XR chest 2 views Imaging Routine Bronchitis Expected: 12/21/2024, Expires: 12/21/2025 [facility] Work Phone: Comment on above: Expected: 12/21/2024, Expires: Start: 12-02-2024 End: 12-02-2024 Patient encounter procedure 12/02/2024 4:30 PM EDT Office Visit [facility] [address] [place] [address] Linda Bradley, PIPELINES MANAGER [address] [place] [phone] [facility] Start: 12-02-2024 Medicare Annual Wellness (AWV) Medicare Annual Wellness (AWV) [facility] Start: 11-16-2024 End: 11-16-2024 Patient encounter procedure 11/16/2024 10:00 AM EST Office Visit [facility] [address] [place] [address] Linda Bradley, STACIE [address] [place] [address] Diverticulitis (Primary Dx); Obesity (BMI 30-39.9); Class 2 severe obesity due to excess calories with serious comorbidity and body mass index (BMI) of 35.0 to 35.9 in adult ([facility]) [facility] Comment on above: Diverticulitis (Primary Dx); Obesity (BMI 30-39.9); Class 2 severe obesity due to excess calories with serious comorbidity and body mass index (BMI) of 35.0 to 35.9 in adult ([facility]) Start: 10-16-2024 Hemoglobin A1c measurement Diabetes: Hemoglobin A1C [facility] Start: 10-12-2024 End: 10-12-2024 Patient encounter procedure [facility] Comment on above: Status post total left knee replacement; Primary osteoarthritis of left knee Start: 10-01-2024 Pneumococcal Vaccine: 65+ Years (2 - PCV) Pneumococcal Vaccine: 65+ Years (2 - PCV) [facility] Comment on above: Postponed from 05/17/2021 (Patient Refus ed) Start: 10-01-2024 Pneumococcal Vaccine: 65+ Years (2 of 2 - PCV) Pneumococcal Vaccine: 65+ Years (2 of 2 - PCV) [facility] Comment on above: Postponed from 05/17/2021 (Patient Refus ed) Start: 09-28-2024 Influenza vaccination Influenza Vaccine (#1) [facility] Comment on above: Postponed from 05/17/2024 (Patient Refus ed) Start: 09-26-2024 Adult BMI Screening Adult BMI Screening [facility] Start: 09-26-2024 Tobacco Screening Tobacco Screening [facility] Start: 09-14-2024 End: 09-14-2024 Patient encounter procedure 09/14/2024 3:20 PM EST Office Visit [facility] [address] [place] [address] Linda Bradley NP [address] [place] [address] [facility] Start: 08-03-2024 End: 08-03-2025 CBC W Auto Differential panel - Blood CBC and differential Lab Routine Gastroesophageal reflux disease, unspecified whether esophagitis present Stage 3a chronic kidney disease (HCC) (CMS/HCC) Expected: 08/03/2024 (Approximate), Expires: 08/03/2025 [facility] Work Phone: Comment on above: Expected: 08/03/2024 (Approximate), Expi res: 08/03/2025 Start: 08-03-2024 End: 08-03-2025 Comprehensive metabolic 2000 panel - Serum or Plasma Comprehensive metabolic panel Lab Routine Essential hypertension (CMS/HCC) Stage 3a chronic kidney disease (HCC) (CMS/HCC) Type 2 diabetes mellitus with stage 3a chronic kidney disease, without long-term current use of insulin (HCC) (CMS/HCC) Expected: 08/03/2024 (Approximate), Expires: 08/03/2025 [facility] Comment on above: Expected: 08/03/2024 (Approximate), Expi res: 08/03/2025 Start: 08-03-2024 End: 08-03-2025 Lipid 1996 panel - Serum or Plasma Lipid panel Lab Routine Type 2 diabetes mellitus with stage 3a chronic kidney disease, without long-term current use of insulin (HCC) (CMS/HCC) Expected: 08/03/2024 (Approximate), Expires: 08/03/2025 [facility] Comment on above: Expected: 08/03/2024 (Approximate), Expi res: 08/03/2025 Start: 08-03-2024 End: 08-03-2025 Microalbumin/Creatinine panel in random Urine Microalbumin / creatinine, urine ratio Lab Routine Essential hypertension (CMS/HCC) Type 2 diabetes mellitus with stage 3a chronic kidney disease, without long-term current use of insulin (HCC) ([facility]) Expected: 08/03/2024 (Approximate), Expires: 08/03/2025 [facility] Comment on above: Expected: 08/03/2024 (Approximate), Expi res: 08/03/2025 Start: 08-03-2024 End: 08-03-2025 Prostate specific Ag [Mass/volume] in Serum or Plasma PSA Lab Routine Screening for prostate cancer Expected: 08/03/2024 (Approximate), Expires: 08/03/2025 [facility] Comment on above: Expected: 08/03/2024 (Approximate), Expi res: 08/03/2025 Start: 08-03-2024 End: 08-03-2025 Urinalysis complete panel - Urine Urinalysis with reflex microscopic (clean catch) Lab Routine Essential hypertension ([facility]) Type 2 diabetes mellitus with stage 3a chronic kidney disease, without long-term current use of insulin (HCC) ([facility]) Expected: 08/03/2024 (Approximate), Expires: 08/03/2025 [facility] Comment on above: Expected: 08/03/2024 (Approximate), Expi res: 08/03/2025 Start: 05-17-2024 Influenza vaccination Influenza Vaccine (#1) [facility] Start: 03-15-2024 Influenza vaccination Influenza Vaccine (#1) [facility] Comment on above: Postponed from 05/17/2023 (Patient Refus ed) Start: 03-06-2024 Urine screening for protein Diabetes: Urine Protein Screening [facility] Start: 12-03-2023 End: 12-03-2023 Patient encounter procedure 12/03/2023 10:30 AM EDT Office Visit [facility] [address] [place] [address] Linda Bradley NP [address] [place] [address] [facility] Start: 11-07-2023 End: 11-07-2023 Patient encounter procedure 11/07/2023 10:30 AM EST Office Visit [facility] [address] [place] [place] [id number] Bebe Mcclain, PIPELINES MANAGER [address] [place], [place] [id number] [facility] Start: 10-31-2023 End: 10-31-2023 Patient encounter procedure [facility] Comment on above: Status post total left knee replacement (Primary Dx) Start: 10-23-2023 End: 10-23-2023 Admission to same day surgery center 10/23/2023 7:45 AM EST - 10/23/2023 10:15 AM EST Surgery [facility] - Surgery [address] [facility] [address] Analilia Martinez, DO [address] [place] [address] REPLACEMENT TOTAL JOINT KNEE [67396 (CPT )] [facility] Comment on above: REPLACEMENT TOTAL JOINT KNEE [95745 (CPT )] Start: 10-23-2023 End: 10-23-2023 Arthrp kne condyle&platu medial&lat compartments REPLACEMENT TOTAL JOINT KNEE left knee degenerative joint disease 10/23/2023 7:45 AM EST [facility] Start: 10-23-2023 Subsequent hospital visit by physician 10/23/2023 7:45 AM EST Hospital Encounter [facility] - Surgery [address] [place] [address] Analilia Martinez, DO [address] [place] [address] [facility] - Surgery Start: 10-15-2023 End: 09-20-2024 Crossmatch RBC Crossmatch RBC Blood Bank Routine Preop examination Hypertension, unspecified type Expected: 10/15/2023, Expires: 09/20/2024 [facility] Comment on above: Expected: 10/15/2023, Expires: Start: 10-15-2023 End: 09-20-2024 Type and screen(includes indirect soctty) Type and screen(includes indirect scotty) Blood Bank Routine Preop examination Hypertension, unspecified type Expected: 10/15/2023, Expires: 09/20/2024 [facility] Work Phone: Comment on above: Expected: 10/15/2023, Expires: Start: 05-17-2023 Influenza vaccination Influenza Vaccine [facility] Start: 08-08-2022 Medicare Annual Wellness (AWV) Medicare Annual Wellness (AWV) [facility] Start: 05-17-2021 Pneumococcal Vaccine: 65+ Years (2 of 2 - PCV) Pneumococcal Vaccine: 65+ Years (2 of 2 - PCV) [facility] Start: 2004 Fall Risk Screening Fall Risk Screening [facility] Start: 1989 Administration of varicella zoster vaccine Zoster (Shingles) Vaccine (1 of 2) [facility] Start: 1957 Adult BMI Follow Up Plan Adult BMI Follow Up Plan [facility] Start: 1951 Depression Screening Depression Screening [facility] Start: 1949 Glaucoma screening Diabetes: Retinopathy Screening [facility] Start: 1939 Hemoglobin A1c measurement Diabetes: Hemoglobin A1C [facility] Start: 1939 Medicare Annual Wellness Visit Medicare Annual Wellness Visit [facility] Immunizations Immunization Date Immunization Notes Care Provider Fa cility 03-26-2023 tetanus toxoid, redu sarbjit diphtheria toxoid, and acellular pertussis vaccine, adsorbed Pmh 1 [facility] 05-17-2020 pneumococcal polysaccharide vaccine, 23 valent Linda Bradley PIPELINES MANAGER Work Phone: [facility] 09-16-2016 pneumococcal polysaccharide vaccine, 23 valent Linda Bradley PIPELINES MANAGER Work Phone: [facility] NEGATED: Highlighted row has not occurred!08-22-2022 influenza virus vaccine, unspecified formulation Raoul BURKS [facility] [place] Payers Date Payer Category Payer Medicare (Managed Care) [employer] [id number] 2022 Unknown [id number] 2022 Medicare [id number] 2015 Medicare [id number] 1959 Medicare [id number] 1939 Unknown [id number] 2.16.840.1.587357.3.579. 2.593 1939 Unknown [id number] 2.16.840.1.894308.3.579. 2.593 1939 Unknown [id number] 2.16.840.1.643828.3.579. 2.593 1939 Unknown [id number] 2.16.840.1.000422.3.579. 2.593 1939 Unknown [id number] 2.16.840.1.575284.3.579. 2.727 1939 Unknown [id number] 2.16.840.1.960261.3.579. 2.727 1939 Unknown [id number] 2.16.840.1.059525.3.579. 2.1286 1939 Unknown [id number] 2.16.840.1.161672.3.579. 2.1259 1939 Unknown [id number] 2.16.840.1.812323.3.579. 2.1259 1939 Unknown [id number] 2.16.840.1.465052.3.579. 2.1258 1939 Unknown [id number] 2.16.840.1.852147.3.579. 2.1258 1939 Unknown [id number] 2.16.840.1.289310.3.579. 2.1258 1939 Unknown [id number] 2.16.840.1.734912.3.579. 2.1258 1939 Unknown [id number] 2.16.840.1.394584.3.579. 2.1258 1939 Unknown [id number] 2.16.840.1.661480.3.579. 2.1258 1939 Unknown [id number] 2.16.840.1.024015.3.579. 2.1258 1939 Unknown [id number] 2.16.840.1.721064.3.579. 2.1258 1939 Unknown [id number] 2.16.840.1.559630.3.579. 2.1258 1939 Unknown [id number] 2.16.840.1.575023.3.579. 2.1259 Social History Date Type Detail Facility Unknown if ever smoked [facility] Start: 10-01-2023 End: 12-03-2023 Sex Assigned At [facility] Start: 08-22-2022 End: 08-14-2023 Tobacco smoking status Never smoked tobacco (finding) [facility] [place] Tobacco smoking status Never [facility] [place] Start: 08-14-2023 End: 10-23-2023 Tobacco use and exposure Smokeless tobacco non-user [facility] Start: 10-01-2023 End: 05-04-2025 Alcohol intake Current drinker of alcohol (finding) [facility] Start: 10-01-2023 End: 12-03-2023 History of Social function [facility] Start: 09-15-2023 Alcohol Comment 2-4 times a month [facility] Start: 1939 Sex Assigned At Not on file [facility] Within the last year , have you been afraid of your partner or ex-partner? No [facility] Are you now , , , , never or living with a partner? [facility] How often to you hav e a drink containing alcohol? Monthly or less [facility] How many standard drinks containing alcohol do you have on a typical day? 1 or 2 [facility] How often do you hav e 6 or more drinks on 1 occasion? Less than monthly [facility] Do you feel stress - tense, restless, nervous, or anxious, or unable to sleep at night because your mind is troubled all the time - these days [OSQ] To some extent [facility] (I/We) worried wheth er (my/our) food would run out before (I/we) got money to buy more. Never true [facility] Start: 09-26-2023 End: 10-23-2023 Tobacco smoking status [facility] Ex-smoker [facility] History of tobacco use Current smoker [facility] Start: 09-26-2023 Alcohol Comment 1 beer nightly [facility] History of tobacco use Cigarette Smoker P [facility] Medical Equipment Procedure Code Equipment Code Equipment Origin al Text Equipment Identifier Dates [id number] Start: 08-15-2023 End: 09-30-2024 1 each by Other route Daily as needed [id number] Start: 08-15-2023 1 each by Other route Daily as needed (daily as needed) [id number] Start: 09-30-2024 End: 01-08-2025 Cement Bn Palaco s Radpq 40g Rpl [id number] - [id number] Start: 05-22-2017 Srfc Artc 14mm P ersona 10-12 - [id number] +[id number]$$ [id number], [id number] FDA Start: 05-22-2017 Bsplt Tib 5d G K n Rt Cmnt [facility] - [id number] +[id number]$$ [id number] FDA Start: 05-22-2017 Cement Bn Bio 40 gm Rpl [id number] - [id number] Start: 10-23-2023 Component Ptlr 3 5mm Persona Alply Kn Strl Lf - Sn/A - [id number] 83(21)N/A, [id number] FDA Start: 10-23-2023 Persona The Personalized Knee System 0 Degree Spiked Keel Left Size E [place], Tibia ()[id number] 42(21)N/A, [id number]_[facility] FDA Start: 10-23-2023 Functional Status Date Assessment Result Facility 08-22-2022 Functional Status N/A General Dao cathy [facility] Clinical Notes 02-26-2022 to 05-04-2025 JAY JAY CHAMPAGNE - 05/04/2025 9:40 AM Ena Bradley NP - 05/04/2025 9:40 AM Ena Bradley, STACIE - 05/04/2025 6:28 AM Ena Bradley, STACIE - 05/04/2025 6:27 AM EDTPatient Instructions Note Date & Type Note Facility 05-04-2025 History of Presen t illness Narrative Pt wanted to talk to you about seeing the psychometric examiner and getting the result that his heart is enlarged. Images from the original note were not included. Feliz Garrett is a 85 y.o. male presents with chief complaint of No chief complaint on file. HPI: Here for recheck: Does not take his metformin, does not like taking pills, no freq thirst/urination/no NT or open sores in feet BP; is taking meds as directed, no dizziness or light headed. Swelling in legs end of day, better in am, no CP/pressure Dyspnea: no changes in sxs, did not get the PFT completed, did get ECHO ECHO dialated aortic root, has upcoming appt with cardiology SUBJECTIVE: MEDICATIONS: Current Outpatient Medications Medication Instructions albuterol HFA 90 mcg/act inhaler 2 puffs, Inhalation, Every 6 hours PRN amLODIPine (NORVASC) 10 mg, Oral, Daily aspirin 81 mg, Oral, Daily Blood Glucose Monitoring Suppl ([employer] Reflect) w/Device kit 1 each, Daily PRN finasteride (PROSCAR) 5 mg, Oral, Daily fluticasone (Flonase) 50 MCG/ACT nasal spray 2 sprays, Each Nostril, Daily, Shake gently. Before first use, prime pump. After use, clean tip and replace cap. Ltnnirfgmmx-Gmgqbapgo-Izupwb (Trelegy Ellipta) 100-62.5-25 MCG/ACT aerosol powder 1 puff, Inhalation, Daily, Rinse mouth after use lisinopril 30 mg, Oral, Daily loratadine (CLARITIN) 10 mg, Oral, Daily omeprazole (PRILOSEC) 20 mg, Oral, Daily before breakfast [employer] test strip 1 each, Daily PRN tamsulosin (FLOMAX) 0.4 mg, Oral, Daily, Take 0.4 mg by mouth Daily ALLERGIES: No Known Allergies REVIEW OF SYMPTOMS: Review of Systems Constitutional: Negative for activity change, appetite change and unexpected weight change. HENT: Negative for ear pain, nosebleeds, sneezing, trouble swallowing and voice change. Eyes: Negative for pain, discharge and visual disturbance. Respiratory: Positive for shortness of breath. Negative for apnea, chest tightness and wheezing. Cardiovascular: Positive for leg swelling. Gastrointestinal: Negative for abdominal distention, blood in stool, constipation and diarrhea. Genitourinary: Negative for decreased urine volume, difficulty urinating, dysuria and hematuria. Skin: Negative for color change. Neurological: Negative for dizziness, tremors and seizures. Psychiatric/Behavioral: Negative for agitation, decreased concentration, hallucinations, self-injury and suicidal ideas. The patient is not nervous/anxious. Hematological: Negative for adenopathy. Does not bruise/bleed easily. Endocrine: Negative for cold intolerance, heat intolerance, polydipsia and polyuria. Allergic/Immunologic: Negative for environmental allergies and food allergies. PAST MEDICAL HISTORY Past Medical History: Diagnosis Date Abdominal pain, generalized 12/03/2023 Abnormal kidney function Allergic rhinitis 12/03/2023 BPH (benign prostatic hyperplasia) 05/19/2019 [facility] Chronic kidney disease, stage III (moderate) ([facility]) 12/03/2023 Diverticulosis 12/03/2023 Elevated prostate specific antigen (PSA) 12/03/2023 Elevated sed rate 12/03/2023 Headache 12/03/2023 Hearing deficit, bilateral 12/03/2023 History of 2019 novel coronavirus disease (COVID-19) Hyperlipidemia 12/03/2023 Obesity (BMI 30-39.9) 09/17/2023 Tinnitus, bilateral 12/03/2023 Type 2 diabetes mellitus without complication, without long-term current use of insulin ([facility]) 09/17/2023 Past Surgical History: Procedure Laterality Date EYE SURGERY Bilateral B/L EYE IMPLANT 2011 ? SHOULDER SURGERY Right 1979 [facility] - DR VELOZ TONSILLECTOMY TOTAL KNEE ARTHROPLASTY Right 06/01/2017 dr martinez TOTAL KNEE ARTHROPLASTY Left 10/23/2023 Dr martinez family history includes Throat cancer in his father. OBJECTIVE: Visit Vitals BP 138/70 (BP Location: Left arm, Patient Position: Sitting, BP Cuff Size: Adult long) Pulse 84 Temp 98.3 F (Temporal) Resp 22 Wt 195 lb 12.8 oz SpO2 96% BMI 34.68 kg/m Smoking Status Never BSA 1.99 m Physical Exam Vitals and nursing note reviewed. Constitutional: Appearance: Normal appearance. HENT: Head: Normocephalic. Right Ear: External ear normal. Left Ear: External ear normal. Nose: Nose normal. Mouth/Throat: Mouth: Mucous membranes are moist. Pharynx: Oropharynx is clear. Eyes: Extraocular Movements: Extraocular movements intact. Conjunctiva/sclera: Conjunctivae normal. Neck: Vascular: No carotid bruit. Cardiovascular: Rate and Rhythm: Normal rate and regular rhythm. Pulses: Normal pulses. Heart sounds: Normal heart sounds. No murmur heard. Pulmonary: Effort: Pulmonary effort is normal. Breath sounds: Normal breath sounds. No wheezing or rhonchi. Abdominal: General: Bowel sounds are normal. Palpations: Abdomen is soft. Musculoskeletal: Cervical back: Neck supple. Right lower leg: No edema. Left lower leg: No edema. Skin: General: Skin is warm and dry. Capillary Refill: Capillary refill takes 2 to 3 seconds. Neurological: General: No focal deficit present. Mental Status: He is alert. Psychiatric: Mood and Affect: Mood normal. Behavior: Behavior normal. Thought Content: Thought content normal. Judgment: Judgment normal. ASSESSMENT AND PLAN: Follow up in about 3 months (around 08/04/2025) for Recheck. Problem List Items Addressed This Visit Essential hypertension - Primary Please check blood pressure daily and record DASH diet Limit caffeine Take medication as directed Contact office if chest pain, pressure, dizziness, shortness of breath, swelling legs Recommend slow position changes Current meds: amlodipine, lisinopril Relevant Orders Basic metabolic panel Type 2 diabetes mellitus with diabetic chronic kidney disease (HCC) Check blood sugars daily, notify if <70 [...] no statin, A1c: 6.5% 05/04/2025, 6.5% 12/02/24 Relevant Orders POCT glycosylated hemoglobin (Hb A1C) docked device Basic metabolic panel Class 2 severe obesity due to excess calories with serious comorbidity in adult ([facility]) Discussed with patient their BMI (actual, verses recommended). We have also discussed lifestyle modifications: attempts to perform physical activity as chronic conditions allow, also to monitor dietary intake: increasing protein/fruits/veggies and lowering carb intake (unless contraindicated). Limit sodas, juices, and sugary drinks. Moderate persistent asthma without complication ([facility]) Current meds: trelegy as well as albuterol prn ECHO completed PFT's: not completed, recommend pt call [facility] reschedule Relevant Orders CBC and differential Abnormal echocardiogram Dilated aortic root 4.1cm, referred to [facility] Associated Problem(s): Abnormal echocardiogram Dilated aortic root 4.1cm, referred to [facility] Associated Problem(s): Class 2 severe obesity due to excess calories with serious comorbidity in adult ([facility]) Discussed with patient their BMI (actual, verses recommended). We have also discussed lifestyle modifications: attempts to perform physical activity as chronic conditions allow, also to monitor dietary intake: increasing protein/fruits/veggies and lowering carb intake (unless contraindicated). Limit sodas, juices, and sugary drinks. Associated Problem(s): Type 2 diabetes mellitus with diabetic chronic kidney disease (HCC) Check blood sugars daily, notify if <70 [...] no statin, A1c: 6.5% 05/04/2025, 6.5% 12/02/24 Associated Problem(s): Essential hypertension Please check blood pressure daily and record DASH diet Limit caffeine Take medication as directed Contact office if chest pain, pressure, dizziness, shortness of breath, swelling legs Recommend slow position changes Current meds: amlodipine, lisinopril Associated Problem(s): Moderate persistent asthma without complication (HCC) Current meds: trelegy as well as albuterol prn ECHO completed PFT's: not completed, recommend pt call [facility] reschedule documented in this encounter [facility] 05-04-2025 Instructions Linda Bradley NP - 05/04/2025 9:40 AM EDT Call [facility] about rescheduling the Pulmonary Function Test A1c for diabetes is good as well, 6.5% if you want to stay off your diabetes pills we will just periodic monitor it Go see psychometric examiner documented in this encounter [facility] 03-16-2025 History of Presen t illness Narrative Associated Problem(s): Dyspnea on exertion Check echo and pft Very sob Images from the original note were not included. Feliz Garrett is a 84 y.o. male presents with chief complaint of Asthma HPI: Asthma: many years, humidity makes worse, occ cough phlegm yellow sometimes, was doing some wheezing, no recently Gave samples of trelegy last appt, has used some, not daily. Some swelling in legs. No bloody sputum. Lumbar back pain: still there, worse with prolonged standing, prolonged walking. Pressure feeling, no NT in legs, some weak feeling in leg SUBJECTIVE: MEDICATIONS: Current Outpatient Medications Medication Instructions albuterol HFA 90 mcg/act inhaler 2 puffs, Inhalation, Every 6 hours PRN amLODIPine (NORVASC) 10 mg, Oral, Daily Blood Glucose Monitoring Suppl ([employer] Reflect) w/Device kit 1 each, Daily PRN finasteride (PROSCAR) 5 mg, Daily fluticasone (Flonase) 50 MCG/ACT nasal spray 2 sprays, Each Nostril, Daily, Shake gently. Before first use, prime pump. After use, clean tip and replace cap. Btsigsdejpp-Socqboouw-Bulvlv (Trelegy Ellipta) 100-62.5-25 MCG/ACT aerosol powder 1 puff, Inhalation, Daily, Rinse mouth after use lisinopril 30 mg, Oral, Daily loratadine (CLARITIN) 10 mg, Oral, Daily metFORMIN (GLUCOPHAGE) 500 mg, Oral, Daily with breakfast omeprazole (PRILOSEC) 20 mg, Oral, Daily before breakfast [employer] test strip 1 each, Daily PRN tamsulosin (FLOMAX) 0.4 mg, Daily ALLERGIES: No Known Allergies REVIEW OF SYMPTOMS: Review of Systems Constitutional: Negative for activity change, appetite change and unexpected weight change. HENT: Negative for ear pain, nosebleeds, sneezing, trouble swallowing and voice change. Eyes: Negative for pain, discharge and visual disturbance. Respiratory: Positive for shortness of breath. Negative for apnea, chest tightness and wheezing. Cardiovascular: Negative for leg swelling. Gastrointestinal: Negative for abdominal distention, blood in stool, constipation and diarrhea. Genitourinary: Negative for decreased urine volume, difficulty urinating, dysuria and hematuria. Musculoskeletal: Positive for back pain. Skin: Negative for color change. Neurological: Negative for dizziness, tremors and seizures. Psychiatric/Behavioral: Negative for agitation, decreased concentration, hallucinations, self-injury and suicidal ideas. The patient is not nervous/anxious. Hematological: Negative for adenopathy. Does not bruise/bleed easily. Endocrine: Negative for cold intolerance, heat intolerance, polydipsia and polyuria. Allergic/Immunologic: Negative for environmental allergies and food allergies. PAST MEDICAL HISTORY Past Medical History: Diagnosis Date Abdominal pain, generalized 12/03/2023 Abnormal kidney function Allergic rhinitis 12/03/2023 BPH (benign prostatic hyperplasia) 05/19/2019 [facility] Chronic kidney disease, stage III (moderate) ([facility]) 12/03/2023 Diverticulosis 12/03/2023 Elevated prostate specific antigen (PSA) 12/03/2023 Elevated sed rate 12/03/2023 Headache 12/03/2023 Hearing deficit, bilateral 12/03/2023 History of 2019 novel coronavirus disease (COVID-19) Hyperlipidemia 12/03/2023 Obesity (BMI 30-39.9) 09/17/2023 Tinnitus, bilateral 12/03/2023 Type 2 diabetes mellitus without complication, without long-term current use of insulin (HCC) 09/17/2023 Past Surgical History: Procedure Laterality Date EYE SURGERY Bilateral B/L EYE IMPLANT 2011 ? SHOULDER SURGERY Right 1979 [facility] REPA[facility] - DR VELOZ TONSILLECTOMY TOTAL KNEE ARTHROPLASTY Right 06/01/2017 dr martinez TOTAL KNEE ARTHROPLASTY Left 10/23/2023 Dr martinez family history includes Throat cancer in his father. OBJECTIVE: Visit Vitals BP 138/64 (BP Location: Left arm, Patient Position: Sitting, BP Cuff Size: Large adult) Pulse 90 Temp 98.1 F (Temporal) Resp 22 Wt 198 lb 12.8 oz SpO2 97% BMI 35.22 kg/m Smoking Status Never BSA 2 m Physical Exam Vitals and nursing note reviewed. Constitutional: Appearance: Normal appearance. He is obese. He is ill-appearing. HENT: Head: Normocephalic. Right Ear: Tympanic membrane, ear canal and external ear normal. Left Ear: Tympanic membrane, ear canal and external ear normal. Nose: Rhinorrhea present. Comments: Pale and boggy Mouth/Throat: Mouth: Mucous membranes are moist. Pharynx: Oropharynx is clear. No oropharyngeal exudate or posterior oropharyngeal erythema. Eyes: Extraocular Movements: Extraocular movements intact. Conjunctiva/sclera: Conjunctivae normal. Neck: Vascular: No carotid bruit. Cardiovascular: Rate and Rhythm: Normal rate and regular rhythm. Pulses: Normal pulses. Heart sounds: Murmur heard. Pulmonary: Effort: Pulmonary effort is normal. Breath sounds: Normal breath sounds. No wheezing or rhonchi. Abdominal: General: Bowel sounds are normal. Palpations: Abdomen is soft. Musculoskeletal: Cervical back: Neck supple. Right lower leg: No edema. Left lower leg: No edema. Lymphadenopathy: Cervical: No cervical adenopathy. Skin: General: Skin is warm and dry. Capillary Refill: Capillary refill takes 2 to 3 seconds. Neurological: General: No focal deficit present. Mental Status: He is alert. Psychiatric: Mood and Affect: Mood normal. Behavior: Behavior normal. Thought Content: Thought content normal. Judgment: Judgment normal. ASSESSMENT AND PLAN: No follow-ups on file. Problem List Items Addressed This Visit Essential hypertension Please check blood pressure daily and record DASH diet Limit caffeine Take medication as directed Contact office if chest pain, pressure, dizziness, shortness of breath, swelling legs Recommend slow position changes Current meds: amlodipine, lisinopril Relevant Medications aspirin 81 MG EC tablet Other Relevant Orders Echocardiogram 2D complete Obesity (BMI 30-39.9) Discussed with patient their BMI (actual, verses recommended). We have also discussed lifestyle modifications: attempts to perform physical activity as chronic conditions allow, also to monitor dietary intake: increasing protein/fruits/veggies and lowering carb intake (unless contraindicated). Limit sodas, juices, and sugary drinks. Chronic kidney disease, stage III (moderate) (CMS-HCC) Keep BP and glucose at goal Current meds: tia/amlodipine Moderate persistent asthma without complication ([facility]) Current meds: trelegy as well as albuterol prn Order PFT's and ECHO Recommend using trelegy regularly Relevant Orders Pulmonary Function Test Lumbar back pain plain film xray: mod DDD Would like to try chiropractor Dyspnea on exertion - Primary Check echo and pft Relevant Orders Pulmonary Function Test Echocardiogram 2D complete Associated Problem(s): Lumbar back pain plain film xray: mod DDD Would like to try chiropractor Associated Problem(s): Obesity (BMI 30-39.9) Discussed with patient their BMI (actual, verses recommended). We have also discussed lifestyle modifications: attempts to perform physical activity as chronic conditions allow, also to monitor dietary intake: increasing protein/fruits/veggies and lowering carb intake (unless contraindicated). Limit sodas, juices, and sugary drinks. Associated Problem(s): Chronic kidney disease, stage III (moderate) ([facility]) Keep BP and glucose at goal Current meds: tia/amlodipine Associated Problem(s): Moderate persistent asthma without complication (HCC) Current meds: trelegy as well as albuterol prn Order PFT's and ECHO Recommend using trelegy regularly Associated Problem(s): Essential hypertension Please check blood pressure daily and record DASH diet Limit caffeine Take medication as directed Contact office if chest pain, pressure, dizziness, shortness of breath, swelling legs Recommend slow position changes Current meds: amlodipine, lisinopril documented in this encounter [facility] 03-16-2025 Instructions Linda Bradley NP - 03/16/2025 9:20 AM EDT Will order Ultra sound of heart and breathing test at [facility], they should call you for appt You can try chiropractor for your neck and low back Also please schedule a diabetic eye appt with your eye doctor documented in this encounter [facility] 01-06-2025 History of Presen t illness Narrative Associated Problem(s): Moderate persistent asthma without complication (CMS/HCC) Albuterol inhaler prn Add trelegy , rinse mouth after use Fu in 6 weeks Still coughing here and there. Wheezing and SOB Uses the albuterol inhaler once in a while Arthritis pain flaring up-back and shoulder Images from the original note were not included. Feliz Garrett is a 84 y.o. male presents with chief complaint of No chief complaint on file. HPI: Here for fu of bronchitis: Feels about 75% better, no fever, not as much coughing, mucus: no blood no color Does have sinus congestion., no color, can feel ears pop when blowing knows Some wheezing, more at night time Asthma in the past, does not know when or what causes flare ups. Also would like an xray for low back, has a lot of pressure in lower back w prolonged standing wants to see if has arthritis SUBJECTIVE: MEDICATIONS: Current Outpatient Medications Medication Instructions albuterol HFA 90 mcg/act inhaler 2 puffs, Inhalation, Every 6 hours PRN amLODIPine (NORVASC) 10 mg, Oral, Daily amoxicillin-clavulanate (Augmentin) 875-125 MG tablet Blood Glucose Monitoring Suppl ([employer] Verio Reflect) w/Device kit 1 each, Daily PRN Lancets ([employer] Delica Plus [id number]) misc 1 each, Other, Daily PRN lisinopril 30 mg, Oral, Daily metFORMIN (GLUCOPHAGE) 500 mg, Oral, Daily with breakfast omeprazole (PRILOSEC) 20 mg, Oral, Daily before breakfast OneTouch Verio test strip 1 each, Daily PRN ALLERGIES: No Known Allergies REVIEW OF SYMPTOMS: Review of Systems Constitutional: Negative for activity change, appetite change and unexpected weight change. HENT: Negative for ear pain, nosebleeds, sneezing, trouble swallowing and voice change. Eyes: Negative for pain, discharge and visual disturbance. Respiratory: Positive for cough and wheezing. Negative for apnea and chest tightness. Cardiovascular: Negative for leg swelling. Gastrointestinal: Negative for abdominal distention, blood in stool, constipation and diarrhea. Genitourinary: Negative for decreased urine volume, difficulty urinating, dysuria and hematuria. Skin: Negative for color change. Neurological: Negative for dizziness, tremors and seizures. Psychiatric/Behavioral: Negative for agitation, decreased concentration, hallucinations, self-injury and suicidal ideas. The patient is not nervous/anxious. Hematological: Negative for adenopathy. Does not bruise/bleed easily. Endocrine: Negative for cold intolerance, heat intolerance, polydipsia and polyuria. Allergic/Immunologic: Negative for environmental allergies and food allergies. PAST MEDICAL HISTORY Past Medical History: Diagnosis Date Abdominal pain, generalized 12/03/2023 Abnormal kidney function Allergic rhinitis 12/03/2023 BPH (benign prostatic hyperplasia) 05/19/2019 [facility] Chronic kidney disease, stage III (moderate) (HCC) ([facility]) 12/03/2023 Diverticulosis 12/03/2023 Elevated prostate specific antigen (PSA) 12/03/2023 Elevated sed rate 12/03/2023 Headache 12/03/2023 Hearing deficit, bilateral 12/03/2023 History of 2019 novel coronavirus disease (COVID-19) Hyperlipidemia ([facility]) 12/03/2023 Obesity (BMI 30-39.9) 09/17/2023 Tinnitus, bilateral 12/03/2023 Type 2 diabetes mellitus without complication, without long-term current use of insulin 09/17/2023 Past Surgical History: Procedure Laterality Date EYE SURGERY Bilateral B/L EYE IMPLANT 2011 ? SHOULDER SURGERY Right 1979 [facility] - DR VELOZ TONSILLECTOMY TOTAL KNEE ARTHROPLASTY Right 06/01/2017 dr martinez TOTAL KNEE ARTHROPLASTY Left 10/23/2023 Dr martinez family history includes Throat cancer in his father. OBJECTIVE: Visit Vitals BP 138/70 (BP Location: Right arm, Patient Position: Sitting, BP Cuff Size: Adult long) Pulse 87 Temp 98.5 F (Temporal) Resp 22 Wt 196 lb SpO2 96% BMI 34.72 kg/m Smoking Status Never BSA 1.99 m Physical Exam Vitals and nursing note reviewed. Constitutional: Appearance: Normal appearance. He is obese. He is not ill-appearing or diaphoretic. HENT: Head: Normocephalic. Right Ear: Ear canal and external ear normal. Left Ear: Ear canal and external ear normal. Ears: Comments: Clear fluid bilat Nose: Congestion and rhinorrhea present. Mouth/Throat: Mouth: Mucous membranes are moist. Pharynx: Oropharynx is clear. No oropharyngeal exudate or posterior oropharyngeal erythema. Eyes: Extraocular Movements: Extraocular movements intact. Conjunctiva/sclera: Conjunctivae normal. Cardiovascular: Rate and Rhythm: Normal rate and regular rhythm. Pulses: Normal pulses. Heart sounds: Normal heart sounds. Pulmonary: Effort: Pulmonary effort is normal. Breath sounds: Normal breath sounds. No wheezing or rhonchi. Abdominal: General: Bowel sounds are normal. Palpations: Abdomen is soft. Musculoskeletal: Cervical back: Neck supple. Right lower leg: No edema. Left lower leg: No edema. Lymphadenopathy: Cervical: No cervical adenopathy. Skin: General: Skin is warm and dry. Capillary Refill: Capillary refill takes 2 to 3 seconds. Neurological: General: No focal deficit present. Mental Status: He is alert. Psychiatric: Mood and Affect: Mood normal. Behavior: Behavior normal. Thought Content: Thought content normal. Judgment: Judgment normal. ASSESSMENT AND PLAN: No follow-ups on file. Problem List Items Addressed This Visit Essential hypertension ([facility]) Please check blood pressure daily and record DASH diet Limit caffeine Take medication as directed Contact office if chest pain, pressure, dizziness, shortness of breath, swelling legs Recommend slow position changes Current meds: amlodipine, lisinopril, at last appt we increased dose on lisinopril to 30mg daily Allergic rhinitis Relevant Medications fluticasone (Flonase) 50 MCG/ACT nasal spray loratadine (Claritin) 10 MG tablet Bronchitis - Primary Last appt given atb, steroids, tessalon and cxr as well Resolved, I think now more baseline asthma sxs Class 2 severe obesity due to excess calories with serious comorbidity in adult ([facility]) Discussed with patient their BMI (actual, verses recommended). We have also discussed lifestyle modifications: attempts to perform physical activity as chronic conditions allow, also to monitor dietary intake: increasing protein/fruits/veggies and lowering carb intake (unless contraindicated). Limit sodas, juices, and sugary drinks. Moderate persistent asthma without complication ([facility]) Albuterol inhaler prn Add trelegy , rinse mouth after use Fu in 6 weeks Relevant Medications Ceokzlupvur-Szamhdwux-Nlmafa (Trelegy Ellipta) 100-62.5-25 MCG/ACT aerosol powder Lumbar back pain Relevant Orders XR lumbar spine 2 or 3 views Associated Problem(s): Class 2 severe obesity due to excess calories with serious comorbidity in adult ([facility]) Discussed with patient their BMI (actual, verses recommended). We have also discussed lifestyle modifications: attempts to perform physical activity as chronic conditions allow, also to monitor dietary intake: increasing protein/fruits/veggies and lowering carb intake (unless contraindicated). Limit sodas, juices, and sugary drinks. Associated Problem(s): Essential hypertension ([facility]) Please check blood pressure daily and record DASH diet Limit caffeine Take medication as directed Contact office if chest pain, pressure, dizziness, shortness of breath, swelling legs Recommend slow position changes Current meds: amlodipine, lisinopril, at last appt we increased dose on lisinopril to 30mg daily Associated Problem(s): Bronchitis Last appt given atb, steroids, tessalon and cxr as well Resolved, I think now more baseline asthma sxs documented in this encounter [facility] 01-06-2025 Instructions Linda Bradley NP - 01/06/2025 11:00 AM EDT Trelegy inhaler; 1 puff once a day, rinse mouth after use, you will take this every day Albuterol: only use as needed for wheezing or shortness of breath Also add allergy pill and nasal spray every day Xray order for low back documented in this encounter [facility] 12-21-2024 Note XR CHEST 2 VWS History: Cough Procedure: 2 view PA and Lateral chest radiograph. Comparison: 02/14/2021 Findings: The heart and lungs show no acute findings, and the mediastinum and leatha are grossly negative . No pneumothorax. Impression: No acute pulmonary process. Finalized by Debra Corona MD on 12/21/2024 7:04 PM [facility] 12-21-2024 History of Presen t illness Narrative Associated Problem(s): Bronchitis Atb, steroids, tessalon Cxr Fluids, rest Fu in 2 weeks for recheck Pt started having symptoms last week, slight headache, cough, chest tightness, chest congestion, drainage, right ear pain, sore throat, yellowish mucus when coughing, sinus pressure. No other symptoms. Pt has tried using vicks otc did not help Images from the original note were not included. Feliz Garrett is a 84 y.o. male presents with chief complaint of Cough HPI: Cough This is a new problem. The current episode started in the past 7 days. The problem has been gradually worsening. The problem occurs constantly. The cough is Productive of sputum. Associated symptoms include nasal congestion, rhinorrhea and wheezing. Pertinent negatives include no ear congestion or ear pain. Nothing aggravates the symptoms. He has tried OTC cough suppressant for the symptoms. The treatment provided mild relief. There is no history of COPD or environmental allergies. SUBJECTIVE: MEDICATIONS: Current Outpatient Medications Medication Instructions albuterol HFA 90 mcg/act inhaler 2 puffs, Inhalation, Every 6 hours PRN amLODIPine (NORVASC) 10 mg, Oral, Daily amoxicillin-clavulanate (Augmentin) 875-125 MG tablet benzonatate (TESSALON) 200 mg, Oral, 3 times daily PRN, Do not crush or chew. Blood Glucose Monitoring Suppl ([employer] Verio Reflect) w/Device kit 1 each, Daily PRN doxycycline (VIBRA-TABS) 100 mg, Oral, 2 times daily, Take with a full glass of water and do not lie down for at least 30 minutes after. finasteride (PROSCAR) 5 mg, Oral, Daily Lancets ([employer] Delica Plus [id number]) misc 1 each, Other, Daily PRN lisinopril 30 mg, Oral, Daily metFORMIN (GLUCOPHAGE) 500 mg, Oral, Daily with breakfast omeprazole (PRILOSEC) 20 mg, Oral, Daily before breakfast [employer] Verio test strip 1 each, Daily PRN predniSONE (DELTASONE) 20 mg, Oral, 2 times daily with meals, Take with food tamsulosin (FLOMAX) 0.4 mg, Oral, Nightly ALLERGIES: No Known Allergies REVIEW OF SYMPTOMS: Review of Systems Constitutional: Positive for fatigue. Negative for activity change, appetite change and unexpected weight change. HENT: Positive for rhinorrhea. Negative for ear pain, nosebleeds, sneezing, trouble swallowing and voice change. Eyes: Negative for pain, discharge and visual disturbance. Respiratory: Positive for cough and wheezing. Negative for apnea and chest tightness. Cardiovascular: Negative for leg swelling. Gastrointestinal: Negative for abdominal distention, blood in stool, constipation and diarrhea. Genitourinary: Negative for decreased urine volume, difficulty urinating, dysuria and hematuria. Skin: Negative for color change. Neurological: Negative for dizziness, tremors and seizures. Psychiatric/Behavioral: Negative for agitation, decreased concentration, hallucinations, self-injury and suicidal ideas. The patient is not nervous/anxious. Hematological: Negative for adenopathy. Does not bruise/bleed easily. Endocrine: Negative for cold intolerance, heat intolerance, polydipsia and polyuria. Allergic/Immunologic: Negative for environmental allergies and food allergies. PAST MEDICAL HISTORY Past Medical History: Diagnosis Date Abdominal pain, generalized 12/03/2023 Abnormal kidney function Allergic rhinitis 12/03/2023 BPH (benign prostatic hyperplasia) 05/19/2019 [facility] Chronic kidney disease, stage III (moderate) (HCC) ([facility]) 12/03/2023 Diverticulosis 12/03/2023 Elevated prostate specific antigen (PSA) 12/03/2023 Elevated sed rate 12/03/2023 Headache 12/03/2023 Hearing deficit, bilateral 12/03/2023 History of 2019 novel coronavirus disease (COVID-19) Hyperlipidemia (CMS/HCC) 12/03/2023 Obesity (BMI 30-39.9) 09/17/2023 Tinnitus, bilateral 12/03/2023 Type 2 diabetes mellitus without complication, without long-term current use of insulin 09/17/2023 Past Surgical History: Procedure Laterality Date EYE SURGERY Bilateral B/L EYE IMPLANT 2011 ? SHOULDER SURGERY Right 1979 [facility] - DR VELOZ TONSILLECTOMY TOTAL KNEE ARTHROPLASTY Right 06/01/2017 dr martinez TOTAL KNEE ARTHROPLASTY Left 10/23/2023 Dr martinez family history includes Throat cancer in his father. OBJECTIVE: Visit Vitals BP 120/72 (BP Location: Left arm, Patient Position: Sitting, BP Cuff Size: Large adult) Pulse 92 Temp 98.8 F (Temporal) Resp 20 Wt 193 lb 9.6 oz SpO2 94% BMI 34.29 kg/m Smoking Status Never BSA 1.98 m Physical Exam Vitals and nursing note reviewed. Constitutional: Appearance: Normal appearance. HENT: Head: Normocephalic. Right Ear: Tympanic membrane, ear canal and external ear normal. Left Ear: Tympanic membrane, ear canal and external ear normal. Nose: Congestion and rhinorrhea present. Mouth/Throat: Mouth: Mucous membranes are moist. Pharynx: Oropharynx is clear. No oropharyngeal exudate or posterior oropharyngeal erythema. Eyes: Extraocular Movements: Extraocular movements intact. Conjunctiva/sclera: Conjunctivae normal. Neck: Vascular: No carotid bruit. Cardiovascular: Rate and Rhythm: Normal rate and regular rhythm. Pulses: Normal pulses. Heart sounds: Normal heart sounds. No murmur heard. Pulmonary: Effort: Pulmonary effort is normal. Breath sounds: Wheezing and rhonchi present. Abdominal: General: Bowel sounds are normal. Palpations: Abdomen is soft. Musculoskeletal: Cervical back: Neck supple. Right lower leg: Edema present. Left lower leg: Edema present. Comments: Trace pre tibial Lymphadenopathy: Cervical: No cervical adenopathy. Skin: General: Skin is warm and dry. Capillary Refill: Capillary refill takes 2 to 3 seconds. Neurological: General: No focal deficit present. Mental Status: He is alert. Psychiatric: Mood and Affect: Mood normal. Behavior: Behavior normal. Thought Content: Thought content normal. Judgment: Judgment normal. ASSESSMENT AND PLAN: Follow up in about 2 weeks (around 01/04/2025) for Recheck. Problem List Items Addressed This Visit Essential hypertension (CMS/HCC) Relevant Medications amLODIPine (Norvasc) 10 MG tablet Gastroesophageal reflux disease Relevant Medications omeprazole (PriLOSEC) [address] capsule Bronchitis - Primary Atb, steroids, tessalon Cxr Fluids, rest Fu in 2 weeks for recheck Relevant Medications doxycycline (Vibra-Tabs) 100 MG tablet predniSONE (Deltasone) 20 MG tablet albuterol HFA 90 mcg/act inhaler Other Relevant Orders XR chest 2 views documented in this encounter [facility] 12-21-2024 Instructions Linda Bradley NP - 12/21/2024 2:00 PM EDT Chest xray: order given Meds: prednisone steroid twice a day for 5 days, take with food, antibiotic twice a day for 10 day Recheck in 2 weeks, if worsening in breathing go to ER Taking the steroids may worsening your acid reflux, make sure you are continuing to take your omeprazole as directed Drink plenty of fluids documented in this encounter [facility] 11-25-2024 Telephone encounter Note Yes I will send in MDP for patient. [facility] 11-25-2024 Miscellaneous Notes Yes I will send in MDP for patient. Patients daughter, Tati Garcia, called and said that her Dad is having a lot of pain and wanted to know if he can get pain medication that he originally turned down patient was here on Thursday 11/23 with Bebe. Please advise? Daughters number [phone] documented in this encounter [facility] 11-25-2024 Telephone encounter Note Patients daughter, Tati Garcia, called and said that her Dad is having a lot of pain and wanted to know if he can get pain medication that he originally turned down patient was here on Thursday 11/23 with Bebe. Please advise? Daughters number [phone] [facility] 11-16-2024 History of Presen t illness Narrative Pt is not having any abdominal pain today, no pain at all and no complaints of headaches. States he is taking his medication; BP medication this morning around 8:30am-9am Images from the original note were not included. Feliz Garrett is a 84 y.o. male presents with chief complaint of No chief complaint on file. HPI: ER fu for diverticulitis [facility] ER on 11/09/24: uncomplicated diverticulitis, sent home on atb No fever, chills, no NVD, no abd pain, tolerating medications no difficulty Does not drink a lot of fluids, as well as has a poor diet with not a lot of fiber rich foods SUBJECTIVE: MEDICATIONS: Current Outpatient Medications Medication Instructions albuterol HFA 90 mcg/act inhaler 2 puffs, Inhalation, Every 6 hours PRN amLODIPine (NORVASC) 10 mg, Oral, Daily amoxicillin-clavulanate (Augmentin) 875-125 MG tablet Blood Glucose Monitoring Suppl ([employer] Verio Reflect) w/Device kit 1 each, Daily PRN finasteride (PROSCAR) 5 mg, Oral, Daily Lancets (OneTouch Delica Plus [id number]) misc 1 each, Other, Daily PRN lisinopril 20 mg, Oral, Daily metFORMIN (GLUCOPHAGE) 500 mg, Oral, Daily with breakfast omeprazole (PRILOSEC) 20 mg, Oral, Daily before breakfast OneTouch Verio test strip 1 each, Daily PRN tamsulosin (FLOMAX) 0.4 mg, Oral, Nightly ALLERGIES: No Known Allergies REVIEW OF SYMPTOMS: Review of Systems Constitutional: Negative for activity change, appetite change and unexpected weight change. HENT: Negative for ear pain, nosebleeds, sneezing, trouble swallowing and voice change. Eyes: Negative for pain, discharge and visual disturbance. Respiratory: Negative for apnea, chest tightness and wheezing. Cardiovascular: Negative for leg swelling. Gastrointestinal: Negative for abdominal distention, blood in stool, constipation and diarrhea. Genitourinary: Negative for decreased urine volume, difficulty urinating, dysuria and hematuria. Skin: Negative for color change. Neurological: Negative for dizziness, tremors and seizures. Psychiatric/Behavioral: Negative for agitation, decreased concentration, hallucinations, self-injury and suicidal ideas. The patient is not nervous/anxious. Hematological: Negative for adenopathy. Does not bruise/bleed easily. Endocrine: Negative for cold intolerance, heat intolerance, polydipsia and polyuria. Allergic/Immunologic: Negative for environmental allergies and food allergies. PAST MEDICAL HISTORY Past Medical History: Diagnosis Date Abdominal pain, generalized 12/03/2023 Abnormal kidney function Allergic rhinitis 12/03/2023 BPH (benign prostatic hyperplasia) 05/19/2019 [facility] Chronic kidney disease, stage III (moderate) (HCC) ([facility]) 12/03/2023 Diverticulosis 12/03/2023 Elevated prostate specific antigen (PSA) 12/03/2023 Elevated sed rate 12/03/2023 Headache 12/03/2023 Hearing deficit, bilateral 12/03/2023 History of 2019 novel coronavirus disease (COVID-19) Hyperlipidemia ([facility]) 12/03/2023 Obesity (BMI 30-39.9) 09/17/2023 Tinnitus, bilateral 12/03/2023 Type 2 diabetes mellitus without complication, without long-term current use of insulin ([facility]) 09/17/2023 Past Surgical History: Procedure Laterality Date EYE SURGERY Bilateral B/L EYE IMPLANT 2011 ? SHOULDER SURGERY Right 1979 [facility] [address] - DR VELOZ TONSILLECTOMY TOTAL KNEE ARTHROPLASTY Right 06/01/2017 dr martinez TOTAL KNEE ARTHROPLASTY Left 10/23/2023 Dr martinez family history includes Throat cancer in his father. OBJECTIVE: Visit Vitals BP 162/80 (BP Location: Right arm, Patient Position: Sitting, BP Cuff Size: Adult long) Pulse 84 Temp 98.5 F (Temporal) Resp 21 Ht 5' 3 Wt 198 lb 3.2 oz SpO2 96% BMI 35.11 kg/m Smoking Status Never BSA 2 m Physical Exam Vitals and nursing note reviewed. Constitutional: Appearance: Normal appearance. He is obese. HENT: Head: Normocephalic. Right Ear: External ear normal. Left Ear: External ear normal. Nose: Nose normal. Mouth/Throat: Mouth: Mucous membranes are moist. Pharynx: Oropharynx is clear. Eyes: Extraocular Movements: Extraocular movements intact. Conjunctiva/sclera: Conjunctivae normal. Cardiovascular: Rate and Rhythm: Normal rate and regular rhythm. Pulses: Normal pulses. Heart sounds: Normal heart sounds. Pulmonary: Effort: Pulmonary effort is normal. No respiratory distress. Breath sounds: Normal breath sounds. No wheezing. Abdominal: General: Bowel sounds are normal. There is no distension. Palpations: Abdomen is soft. There is no mass. Tenderness: There is no abdominal tenderness. There is no guarding or rebound. Musculoskeletal: Cervical back: Neck supple. Right lower leg: No edema. Left lower leg: No edema. Skin: General: Skin is warm and dry. Capillary Refill: Capillary refill takes 2 to 3 seconds. Neurological: General: No focal deficit present. Mental Status: He is alert. Psychiatric: Mood and Affect: Mood normal. Behavior: Behavior normal. Thought Content: Thought content normal. Judgment: Judgment normal. ASSESSMENT AND PLAN: Follow up for Next scheduled follow-up. Problem List Items Addressed This Visit Obesity (BMI 30-39.9) Diverticulitis - Primary Er follow up from [facility] on 11/09/24 Given atbs and dietary changes [...] 3 weeks Class 2 severe obesity due to excess calories with serious comorbidity in adult ([facility]) Discussed with patient their BMI (actual, verses recommended). We have also discussed lifestyle modifications: attempts to perform physical activity as chronic conditions allow, also to monitor dietary intake: increasing protein/fruits/veggies and lowering carb intake (unless contraindicated). Limit sodas, juices, and sugary drinks. Chronic conditions: DM, HTN. Other Visit Diagnoses Type 2 diabetes mellitus without complication, without long-term current use of insulin ([facility]) Relevant Medications metFORMIN (Glucophage) 500 MG tablet Associated Problem(s): Class 2 severe obesity due to excess calories with serious comorbidity in adult ([facility]) Discussed with patient their BMI (actual, verses recommended). We have also discussed lifestyle modifications: attempts to perform physical activity as chronic conditions allow, also to monitor dietary intake: increasing protein/fruits/veggies and lowering carb intake (unless contraindicated). Limit sodas, juices, and sugary drinks. Chronic conditions: DM, HTN. Associated Problem(s): Diverticulitis Er follow up from [facility] on 11/09/24 Given atbs and dietary changes [...] him add miralax in about 3 weeks documented in this encounter [facility] 11-16-2024 Instructions Linda Bradley NP - 11/16/2024 10:00 AM EST Finish antibiotics Fluids: would recommend drinking approx 64 oz water daily Also need to limit foods that can cause constipation We would recommend also in about 3 weeks or so increase the fiber in your diet: green leafy vegetables, fruits, whole grain foods. Also we will add Miralax 17grams in 4-6 oz of fluid and drink that once a day. Again do not start until about 3 weeks from now 12/07/24 documented in this encounter [facility] 10-12-2024 History of Presen t illness Narrative Images from the original note were not included. HISTORY OF PRESENT ILLNESS: EST PT Feliz Garrett is an 84 y.o. @ male. ~ 1 YR S/P LT TKA (10/23/23). XRAY LT KNEE TODAY EPIC 10/12/24 DOING WELL. HE IS WALKING WELL, DENIES PAIN IN THE KNEE. ADMITS SOME WEAKNESS IN LEGS. PLEASED WITH OUTCOME OF SURGERY . ALLERGIES: No Known Allergies HOME MEDICATIONS: Current Outpatient Medications Medication Instructions albuterol HFA 90 mcg/act inhaler 2 puffs, Inhalation, Every 6 hours PRN amLODIPine (NORVASC) 10 mg, Oral, Daily aspirin 81 mg, Oral, Daily Blood Glucose Monitoring Suppl ([employer] Verio Reflect) w/Device kit 1 each, Daily PRN finasteride (PROSCAR) 5 mg, Oral, Daily Lancets (Moe DeloTouch Delica Plus [id number]) misc 1 each, Other, Daily PRN lisinopril 20 mg, Oral, Daily metFORMIN (GLUCOPHAGE) 500 mg, Oral, Daily with breakfast omeprazole (PRILOSEC) 20 mg, Oral, Daily before breakfast OneTouch Verio test strip 1 each, Daily PRN tamsulosin (FLOMAX) 0.4 mg, Oral, Nightly PHYSICAL EXAM: Left Knee Exam Tenderness The patient is experiencing no tenderness. Range of Motion Extension: 0 Flexion: 120 Tests Varus: negative Valgus: negative Other Scars: present Sensation: normal Pulse: present Swelling: none Vitals: There is no height or weight on file to calculate BMI. Tobacco Use: Low Risk (09/14/2024) Patient History Smoking Tobacco Use: Never Smokeless Tobacco Use: Never Passive Exposure: Not on file Alcohol Use: Not At Risk (12/03/2023) AUDIT-C Frequency of Alcohol Consumption: Monthly or less Average Number of Drinks: 1 or 2 Frequency of Binge Drinking: Less than monthly IMAGING: XR knee 1 or 2 views left Imaging Result: 10/12/2024: Standing AP and LAT of left knee showed surgical position and alignment of prosthetic components without evidence of loosening or wear to the femoral, tibial, or patellar components. The alignment appeared to be anatomic. There was no evidence of accelerated or asymmetric wear to the patellar button or tibial tray. There was no evidence of fracture and/or dislocation. Impression: Stable LT total knee replacement. Bebe Mcclain SALES TRAINER-GENERAL LEDGER ACCOUNTANT Procedures Orders Placed This Encounter Procedures XR knee 1 or 2 views left Order Specific Question: Reason for exam: Answer: PAIN ASSESSMENT: ICD-10-CM 1. Status post total left knee replacement Z96.652 2. Primary osteoarthritis of left knee M17.12 XR knee 1 or 2 views left PLAN: I reviewed xray with patient which showed stable LT TKA. He is doing well overall with little pain. States he does still have some apprehension with stairs but no giving out sensation. He will follow up in 1 year for RCK and xray. I recommend tylenol for any breakthrough pain. I discussed with the patient the general recommendation for the use of prophylactic antibiotics prior to dental work after joint replacement. I advised the patient that the use of prophylactic antibiotics for dental work is a controversial topic. I currently have recommended that prophylactic antibiotics be used postop and I did advise the patient that the guidelines and recommendations may change on this in the future. Questions answered in laymen terms at the bedside. The diagnosis, home exercise plan and any ongoing restrictions/ recommendations reviewed. If unable to be reached in office, I recommend evaluation at nearest Emergency Room if any symptoms worsened or new symptoms develop for requiring urgent evaluation. Bebe Mcclain APRN-GENERAL LEDGER ACCOUNTANT documented in this encounter [facility] 09-14-2024 History of Presen t illness Narrative Associated Problem(s): Obesity (BMI 30-39.9) Discussed with patient their BMI (actual, verses recommended). We have also discussed lifestyle modifications: attempts to perform physical activity as chronic conditions allow, also to monitor dietary intake: increasing protein/fruits/veggies and lowering carb intake (unless contraindicated). Limit sodas, juices, and sugary drinks. 4 days ago pt was under the crawl space and since he has had a scratchy throat and and coughing yellow-greenish mucus. Pt has pain, tightness in the chest, sob, wheezing, very light headaches. Watery eyes (he has had that for a long time) Images from the original note were not included. Feliz Garrett is a 84 y.o. male presents with chief complaint of Hypertension HPI: 4 days ago pt was under the crawl space and since he has had a scratchy throat and and coughing yellow-greenish mucus. Pt has pain, tightness in the chest, sob, wheezing, very light headaches. Watery eyes (he has had that for a long time) No fever, +wheeze, Cough: yellow/green, freq cough, +nasal congestion, no body aches, no NVD SUBJECTIVE: MEDICATIONS: Current Outpatient Medications Medication Instructions albuterol HFA 90 mcg/act inhaler 2 puffs, Inhalation, Every 6 hours PRN amLODIPine (NORVASC) 10 mg, Oral, Daily amoxicillin-clavulanate (Augmentin) 875-125 MG tablet 875 mg, Oral, 2 times daily, Take with food aspirin 81 mg, Oral, Daily benzonatate (TESSALON) 200 mg, Oral, 3 times daily PRN, Do not crush or chew. Blood Glucose Monitoring Suppl (AutoeBid Verio Reflect) w/Device kit 1 each, Daily PRN finasteride (PROSCAR) 5 mg, Daily Lancets (Moe DeloTouch Delica Plus [id number]) misc 1 each, Daily PRN lisinopril 20 mg, Oral, Daily metFORMIN (GLUCOPHAGE) 500 mg, Oral, Daily with breakfast methylPREDNISolone (Medrol Dospak) 4 MG tablets Take with food Follow schedule on package instructions omeprazole (PRILOSEC) 20 mg, Oral, Daily before breakfast OneTouch Verio test strip 1 each, Daily PRN tamsulosin (FLOMAX) 0.4 mg, Daily ALLERGIES: No Known Allergies REVIEW OF SYMPTOMS: Review of Systems Constitutional: Negative for activity change, appetite change and unexpected weight change. HENT: Positive for sore throat. Negative for ear pain, nosebleeds, sinus pressure, sneezing, trouble swallowing and voice change. Eyes: Negative for pain, discharge and visual disturbance. Watery eyes Respiratory: Positive for cough, choking and wheezing. Negative for apnea and chest tightness. Cardiovascular: Negative for leg swelling. Gastrointestinal: Negative for abdominal distention, blood in stool, constipation and diarrhea. Genitourinary: Negative for decreased urine volume, difficulty urinating, dysuria and hematuria. Skin: Negative for color change. Neurological: Negative for dizziness, tremors and seizures. Psychiatric/Behavioral: Negative for agitation, decreased concentration, hallucinations, self-injury and suicidal ideas. The patient is not nervous/anxious. Hematological: Negative for adenopathy. Does not bruise/bleed easily. Endocrine: Negative for cold intolerance, heat intolerance, polydipsia and polyuria. Allergic/Immunologic: Negative for environmental allergies and food allergies. PAST MEDICAL HISTORY Past Medical History: Diagnosis Date Abdominal pain, generalized 12/03/2023 Abnormal kidney function Allergic rhinitis 12/03/2023 BPH (benign prostatic hyperplasia) 05/19/2019 [facility] Chronic kidney disease, stage III (moderate) (HCC) ([facility]) 12/03/2023 Diverticulosis 12/03/2023 Elevated prostate specific antigen (PSA) 12/03/2023 Elevated sed rate 12/03/2023 Headache 12/03/2023 Hearing deficit, bilateral 12/03/2023 History of 2019 novel coronavirus disease (COVID-19) Hyperlipidemia ([facility]) 12/03/2023 Obesity (BMI 30-39.9) 09/17/2023 Tinnitus, bilateral 12/03/2023 Type 2 diabetes mellitus without complication, without long-term current use of insulin ([facility]) 09/17/2023 Past Surgical History: Procedure Laterality Date EYE SURGERY Bilateral B/L EYE IMPLANT 2011 ? SHOULDER SURGERY Right 1980 [facility] - DR VELOZ TONSILLECTOMY TOTAL KNEE ARTHROPLASTY Right 06/01/2017 dr martinez TOTAL KNEE ARTHROPLASTY Left 10/23/2023 Dr martinez family history includes Throat cancer in his father. OBJECTIVE: Visit Vitals BP 110/70 (BP Location: Left arm, Patient Position: Sitting, BP Cuff Size: Adult long) Pulse 89 Temp 98.8 F (Temporal) Resp 22 Wt 199 lb 3.2 oz SpO2 97% BMI 35.29 kg/m Smoking Status Never BSA 2 m Physical Exam Vitals and nursing note reviewed. Constitutional: General: He is not in acute distress. Appearance: Normal appearance. He is obese. He is not toxic-appearing. HENT: Head: Normocephalic. Right Ear: Tympanic membrane, ear canal and external ear normal. Left Ear: Tympanic membrane, ear canal and external ear normal. Nose: Congestion and rhinorrhea present. Mouth/Throat: Mouth: Mucous membranes are moist. Pharynx: Oropharynx is clear. No oropharyngeal exudate or posterior oropharyngeal erythema. Eyes: Extraocular Movements: Extraocular movements intact. Conjunctiva/sclera: Conjunctivae normal. Cardiovascular: Rate and Rhythm: Normal rate and regular rhythm. Pulses: Normal pulses. Heart sounds: Normal heart sounds. Pulmonary: Effort: Pulmonary effort is normal. Breath sounds: Wheezing (exp) present. Comments: Moist cough, hacky Abdominal: General: Bowel sounds are normal. There is no distension. Palpations: Abdomen is soft. There is no mass. Tenderness: There is no abdominal tenderness. Hernia: No hernia is present. Musculoskeletal: Cervical back: Neck supple. Right lower leg: No edema. Left lower leg: No edema. Lymphadenopathy: Cervical: No cervical adenopathy. Skin: General: Skin is warm and dry. Capillary Refill: Capillary refill takes 2 to 3 seconds. Neurological: General: No focal deficit present. Mental Status: He is alert. Psychiatric: Mood and Affect: Mood normal. Behavior: Behavior normal. Thought Content: Thought content normal. Judgment: Judgment normal. ASSESSMENT AND PLAN: Follow up for Next scheduled follow-up. Problem List Items Addressed This Visit Essential hypertension (CMS/HCC) Relevant Medications lisinopril 20 MG tablet Gastroesophageal reflux disease Relevant Medications omeprazole (PriLOSEC) [address] ball Obesity (BMI 30-39.9) Discussed with patient their BMI (actual, verses recommended). We have also discussed lifestyle modifications: attempts to perform physical activity as chronic conditions allow, also to monitor dietary intake: increasing protein/fruits/veggies and lowering carb intake (unless contraindicated). Limit sodas, juices, and sugary drinks. Bronchitis - Primary Relevant Medications albuterol HFA 90 mcg/act inhaler amoxicillin-clavulanate (Augmentin) 875-125 MG tablet methylPREDNISolone (Medrol Dospak) 4 MG tablets benzonatate (Tessalon) 200 MG capsule documented in this encounter [facility] 09-14-2024 Instructions Linda Bradley NP - 09/14/2024 3:20 PM EST Antibiotic: augmentin twice a day for 10 days, Steroids: take as package insert states, take with food-may cause a temporary increase in blood sugar Inhaler: albuterol 2 puffs every 6 hours for wheezing or shortness of breath, may cause you to feel jittery for about 10 minutes after taking Cough: tessalon pearls every 8 hours as needed for cough Drink plenty of fluids, and rest If not feeling ANY better on 09/17/24, call office and I will order a chest xray If worsening in symptoms prior to this go to ER documented in this encounter [facility] 08-03-2024 Telephone encounter Note Please tell pt that his A1c is 6.5%, I would like him to take his metformin at 500mg daily, however if he does not want to take it we can monitor. Also he does need to get his diabetic eye exam completed [place] [facility] 08-03-2024 Miscellaneous Notes Please tell pt that his A1c is 6.5%, I would like him to take his metformin at 500mg daily, however if he does not want to take it we can monitor. Also he does need to get his diabetic eye exam completed [place] documented in this encounter [facility] 08-03-2024 History of Presen t illness Narrative Associated Problem(s): Screening for prostate cancer Check lab Associated Problem(s): Obesity (BMI 30-39.9) Discussed with patient their BMI (actual, verses recommended). We have also discussed lifestyle modifications: attempts to perform physical activity as chronic conditions allow, also to monitor dietary intake: increasing protein/fruits/veggies and lowering carb intake (unless contraindicated). Limit sodas, juices, and sugary drinks. Also discussed oral medications that can be utilized for weight loss, as well as surgical options for weight loss. Associated Problem(s): Chronic kidney disease, stage III (moderate) (HCC) (CMS/HCC) Check labs Images from the original note were not included. Feliz Garrett is a 84 y.o. male presents with chief complaint of GERD, Hypertension, and Diabetes HPI: GERD He complains of heartburn (occ). He reports no abdominal pain, no chest pain, no dysphagia, no sore throat, no tooth decay or no wheezing. This is a chronic problem. The current episode started more than 1 year ago. The problem occurs frequently. The problem has been unchanged. There are no known risk factors. He has tried a PPI for the symptoms. The treatment provided significant relief. Hypertension This is a chronic problem. The current episode started more than 1 year ago. The problem is controlled. Associated symptoms include shortness of breath. Pertinent negatives include no chest pain, orthopnea, palpitations or peripheral edema. There are no associated agents to hypertension. Risk factors for coronary artery disease include diabetes mellitus, dyslipidemia, male gender and obesity. Past treatments include TIA inhibitors and calcium channel blockers. The current treatment provides significant improvement. There are no compliance problems. There is no history of CVA. Diabetes He presents for his follow-up diabetic visit. He has type 2 diabetes mellitus. His disease course has been stable. There are no hypoglycemic associated symptoms. Pertinent negatives for hypoglycemia include no dizziness, nervousness/anxiousness, seizures or tremors. Pertinent negatives for diabetes include no chest pain, no polydipsia, no polyphagia and no polyuria. There are no hypoglycemic complications. Symptoms are stable. Pertinent negatives for diabetic complications include no CVA, heart disease, nephropathy or peripheral neuropathy. Risk factors for coronary artery disease include diabetes mellitus, dyslipidemia, hypertension, male sex and obesity. An TIA inhibitor/angiotensin II receptor jigar is being taken. Eye exam is not current. SUBJECTIVE: MEDICATIONS: Current Outpatient Medications Medication Instructions amLODIPine (NORVASC) 10 mg, Oral, Daily aspirin 81 mg, Oral, Daily Blood Glucose Monitoring Suppl (AutoeBid Verio Reflect) w/Device kit 1 each, Daily PRN finasteride (PROSCAR) 5 mg, Daily Lancets (AutoeBid Delica Plus [id number]) misc 1 each, Daily PRN lisinopril 20 mg, Oral, Daily metFORMIN (GLUCOPHAGE) 500 mg, Daily with breakfast omeprazole (PRILOSEC) 20 mg, Oral, Daily before breakfast [employer] Verio test strip 1 each, Other, Daily PRN tamsulosin (FLOMAX) 0.4 mg, Daily ALLERGIES: No Known Allergies REVIEW OF SYMPTOMS: Review of Systems Constitutional: Negative for activity change, appetite change and unexpected weight change. HENT: Negative for ear pain, nosebleeds, sneezing, sore throat, trouble swallowing and voice change. Eyes: Negative for pain, discharge and visual disturbance. Respiratory: Positive for shortness of breath. Negative for apnea, chest tightness and wheezing. Cardiovascular: Positive for leg swelling. Negative for chest pain, palpitations and orthopnea. Gastrointestinal: Positive for heartburn (occ). Negative for abdominal distention, abdominal pain, blood in stool, constipation, diarrhea and dysphagia. GERD Genitourinary: Negative for decreased urine volume, difficulty urinating, dysuria and hematuria. Skin: Negative for color change. Neurological: Negative for dizziness, tremors and seizures. Psychiatric/Behavioral: Negative for agitation, decreased concentration, hallucinations, self-injury and suicidal ideas. The patient is not nervous/anxious. Hematological: Negative for adenopathy. Does not bruise/bleed easily. Endocrine: Negative for cold intolerance, heat intolerance, polydipsia, polyphagia and polyuria. Allergic/Immunologic: Negative for environmental allergies and food allergies. PAST MEDICAL HISTORY Past Medical History: Diagnosis Date Abdominal pain, generalized 12/03/2023 Abnormal kidney function Allergic rhinitis 12/03/2023 BPH (benign prostatic hyperplasia) 05/19/2019 [facility] Chronic kidney disease, stage III (moderate) (HCC) ([facility]) 12/03/2023 Diverticulosis 12/03/2023 Elevated prostate specific antigen (PSA) 12/03/2023 Elevated sed rate 12/03/2023 Headache 12/03/2023 Hearing deficit, bilateral 12/03/2023 History of 2019 novel coronavirus disease (COVID-19) Hyperlipidemia ([facility]) 12/03/2023 Obesity (BMI 30-39.9) 09/17/2023 Tinnitus, bilateral 12/03/2023 Type 2 diabetes mellitus without complication, without long-term current use of insulin ([facility]) 09/17/2023 Past Surgical History: Procedure Laterality Date EYE SURGERY Bilateral B/L EYE IMPLANT 2011 ? SHOULDER SURGERY Right 1979 [facility] - DR VELOZ TONSILLECTOMY TOTAL KNEE ARTHROPLASTY Right 06/01/2017 dr martinez TOTAL KNEE ARTHROPLASTY Left 10/23/2023 Dr martinez family history includes Throat cancer in his father. OBJECTIVE: Visit Vitals BP 130/72 (BP Location: Left arm, Patient Position: Sitting, BP Cuff Size: Adult long) Pulse 92 Temp 98.5 F (Temporal) Resp 19 Ht 5' 3 Wt 199 lb SpO2 96% BMI 35.25 kg/m Smoking Status Never BSA 2 m Physical Exam Vitals and nursing note reviewed. Constitutional: Appearance: Normal appearance. He is obese. He is not ill-appearing or diaphoretic. HENT: Head: Normocephalic. Right Ear: Tympanic membrane, ear canal and external ear normal. Left Ear: Tympanic membrane, ear canal and external ear normal. Nose: Nose normal. Mouth/Throat: Mouth: Mucous membranes are moist. Pharynx: Oropharynx is clear. Eyes: Extraocular Movements: Extraocular movements intact. Conjunctiva/sclera: Conjunctivae normal. Neck: Vascular: No carotid bruit. Cardiovascular: Rate and Rhythm: Normal rate and regular rhythm. Pulses: Normal pulses. Heart sounds: Normal heart sounds. Pulmonary: Effort: Pulmonary effort is normal. Breath sounds: Normal breath sounds. No wheezing or rales. Abdominal: General: Bowel sounds are normal. There is no distension. Palpations: Abdomen is soft. There is no mass. Tenderness: There is no abdominal tenderness. There is no guarding or rebound. Hernia: No hernia is present. Musculoskeletal: Cervical back: Neck supple. Right lower leg: No edema. Left lower leg: No edema. Lymphadenopathy: Cervical: No cervical adenopathy. Skin: General: Skin is warm and dry. Capillary Refill: Capillary refill takes 2 to 3 seconds. Neurological: General: No focal deficit present. Mental Status: He is alert. Psychiatric: Mood and Affect: Mood normal. Behavior: Behavior normal. Thought Content: Thought content normal. Judgment: Judgment normal. ASSESSMENT AND PLAN: No follow-ups on file. Problem List Items Addressed This Visit Essential hypertension ([facility]) - Primary Please check blood pressure daily and record DASH diet Limit caffeine Take medication as directed Contact office if chest pain, pressure, dizziness, shortness of breath, swelling legs Recommend slow position changes Relevant Medications amLODIPine (Norvasc) 10 MG tablet aspirin 81 MG EC tablet Other Relevant Orders Comprehensive metabolic panel Microalbumin / creatinine, urine ratio Urinalysis with reflex microscopic (clean catch) Gastroesophageal reflux disease Recommendations: freq small meals, nothing to eat or drink at least 2 hours prior to bed, limit caffeine, alcohol, as well as spicy foods Meds to limit or avoid if possible: NSAIDS Elevate HOB if possible Continue PPI Relevant Orders CBC and differential Obesity (BMI 30-39.9) Discussed with patient their BMI (actual, verses recommended). We have also discussed lifestyle modifications: attempts to perform physical activity as chronic conditions allow, also to monitor dietary intake: increasing protein/fruits/veggies and lowering carb intake (unless contraindicated). Limit sodas, juices, and sugary drinks. Also discussed oral medications that can be utilized for weight loss, as well as surgical options for weight loss. RESOLVED: Type 2 diabetes mellitus without complication, without long-term current use of insulin ([facility]) Relevant Medications aspirin 81 MG EC tablet Chronic kidney disease, stage III (moderate) (HCC) ([facility]) Check labs Relevant Orders CBC and differential Comprehensive metabolic panel Type 2 diabetes mellitus with diabetic chronic kidney disease ([facility]) Check blood sugars daily, notify if <70 [...] simple sugars. Check A1c test in office: Relevant Orders Comprehensive metabolic panel Lipid panel Microalbumin / creatinine, urine ratio Urinalysis with reflex microscopic (clean catch) POCT glycosylated hemoglobin (Hb A1C) docked device Screening for prostate cancer Check lab Relevant Orders PSA Associated Problem(s): Type 2 diabetes mellitus with diabetic chronic kidney disease ([facility] NETWORK/[facility]) Check blood sugars daily, notify if <70 [...] simple sugars. Check A1c test in office: Associated Problem(s): Gastroesophageal reflux disease Recommendations: freq small meals, nothing to eat or drink at least 2 hours prior to bed, limit caffeine, alcohol, as well as spicy foods Meds to limit or avoid if possible: NSAIDS Elevate HOB if possible Continue PPI Associated Problem(s): Essential hypertension ([facility]) Please check blood pressure daily and record DASH diet Limit caffeine Take medication as directed Contact office if chest pain, pressure, dizziness, shortness of breath, swelling legs Recommend slow position changes documented in this encounter [facility] 08-03-2024 Instructions Linda Bradley NP - 08/03/2024 1:00 PM EST Check labs, fasting 8 hours Continue all meds Fu in 3 months documented in this encounter [facility] 06-15-2024 Telephone encounter Note Please call to schedule a fu appt with me [place] [facility] 06-15-2024 Miscellaneous Notes Please call to schedule a fu appt with me [place] documented in this encounter [facility] 10-31-2023 History of Presen t illness Narrative Images from the original note were not included. HISTORY OF PRESENT ILLNESS: Feliz Garrett is an 83 y.o. @ male. Chief complaint s/p LT TKA LT knee: 1st po 8 days s/p LT TKA (10/23/23). Ambulating with walker. Sargent intact, no redness or drainage. Here with his daughter. Taking ASA 325 MEDICATION: Current Outpatient Medications on File Prior to Visit Medication Sig Dispense Refill albuterol HFA 90 mcg/act inhaler Inhale 2 puffs every 6 (six) hours if needed for wheezing or shortness of breath (Patient not taking: Reported on 10/01/2023) 1 g 0 amLODIPine (Norvasc) 10 MG tablet Take 1 tablet (10 mg) by mouth in the morning. 30 tablet 3 amoxicillin (Amoxil) 500 MG tablet 4 tabs PO once 30-60 mins before procedure with food 4 tablet 3 Blood Glucose Monitoring Suppl ([employer] Verio Reflect) w/Device kit 1 each by Other route Daily as needed (as needed) ferrous sulfate (Fe Tabs) 325 (65 Fe) MG EC tablet Take 1 tablet (325 mg) by mouth in the morning. Take with meals. Do not crush, chew, or split.. (Patient not taking: Reported on 10/01/2023) 30 tablet 1 finasteride (Proscar) 5 MG tablet 1 (one) time each day at the same time. Flomax 0.4 MG 24 hr capsule 1 capsule 1 (one) time each day at the same time. Lancets ([employer]oe[employer] Delica Plus [id number]) misc 1 each by Other route Daily as needed (daily as needed) lisinopril 20 MG tablet Take 1 tablet (20 mg) by mouth in the morning. 90 tablet 1 metFORMIN (Glucophage) 500 MG tablet Take 1 tablet (500 mg) by mouth in the morning. Take with meals. 100 tablet 1 omega-3 (Fish Oil) 1200 MG capsule 1 capsule 1 (one) time each day at the same time. omeprazole (PriLOSEC) [address] capsule 1 capsule 1 (one) time each day at the same time [employer] test strip 1 each by Other route Daily as needed [] oxyCODONE (Roxicodone) 5 MG immediate release tablet Take 1 tablet (5 mg) by mouth every 6 (six) hours if needed for moderate pain for up to 5 days 20 tablet 0 [DISCONTINUED] amoxicillin (Amoxil) 500 MG tablet 4 tabs PO once 30-60 mins before procedure with food 4 tablet 3 No current facility-administered medications on file prior to visit. MEDICAL HISTORY: Past Medical History: Diagnosis Date Abdominal pain, generalized Abnormal CBC Abnormal kidney function Allergic rhinitis Arthritis At low risk for fall BPH (benign prostatic hyperplasia) 05/19/2019 [facility] Chronic kidney disease, stage III (moderate) (HCC) (CMS/HCC) Diverticulosis DM type 2 (diabetes mellitus, type 2) (CMS/HCC) Elevated prostate specific antigen (PSA) Elevated sed rate Epigastric abdominal pain Epigastric abdominal pain, burning in nature. Worsens with food sometimes. Associated heart burn EGD many years ago showed stomach inflammation Fatigue GERD (gastroesophageal reflux disease) Headache Hearing deficit, bilateral History of 2019 novel coronavirus disease (COVID-19) Hyperlipidemia ([facility]/HCC) Hypertension ([facility]) Influenza vaccination declined Neoplasm, uncertain whether benign or malignant Obesity (BMI 30-39.9) 09/17/2023 Obesity with body mass index (BMI) of 30.0 to 39.9 Pre-op testing 09/17/2023 Prediabetes Tinnitus, bilateral Type 2 diabetes mellitus without complication, without long-term current use of insulin ([facility]) 09/17/2023 ALLERGIES: No Known Allergies VITALS: Visit Vitals Smoking Status Never PHYSICAL EXAM: Ortho Exam LEFT KNEE Ambulating with a walker Sargent removed, steri strips applied. No active drainage, warmth and erythema ROM 0-95 EFFUSION IMAGING: ASSESSMENT: ICD-10-CM 1. Status post total left knee replacement Z96.652 PLAN: I reviewed surgical findings with patient and discussed plan of care. Recommend that patient continues with ANABEL hose until 4 weeks post op. Encouraged patient to continue working on ROM and ambulation. Reminded to hold off non-urgent dental appts for 6 months post op- and abx prophylaxis following: Questions answered in laymen terms at the bedside. The diagnosis, home exercise plan and any ongoing restrictions/ recommendations reviewed. If unable to be reached in office, I recommend evaluation at nearest Emergency Room if any symptoms worsened or new symptoms develop for requiring urgent evaluation. Follow up in 1 week with Bebe for wound check. Recommend hold ASA. Dr. Martinez obtained history and examined the patient, I am acting as scribe for Dr. Martinez/, HERLINDA Martinez D.O. documented in this encounter [facility] 10-30-2023 History of Presen t illness Narrative Physical Therapy Physical Therapy Daily Visit Patient Name: Feliz Garrett Today's Date: 10/30/2023 Subjective Current Problem: s/p left TKA with pain and difficulty walking. Pt is being seen today for a follow up visit for s/p left TKA. Date of Surgery: 10-23-23 same day discharge. Current deficits: Difficulty with all mobility secondary to recent left TKA. Visit Number 3. Time In: 10:00 am; Time out: 10:38 am Total time: 38 minutes [id number] TherEx x 30 minutes [id number] gait training x 8 minutes Precautions: WBAT left LE; left TKA protocol. Pain Management: The patient is complaining of pain located in the left knee and thigh region. Pain rating 5-7/10. The pain is improved by ice and medication 1 every 12 hours of percocet and Tylenol as needed. The pain is aggravated by activity. The pain is described as aching, throbbing and stiffness. Prior level of function: Ambulation: antalgic gait pattern on left LE. Assistive devices: FWW, cane, shower. ADL and IADL: Independent. Home Environment: Pt lives with his family in a two story home with 4-5 steps to enter with HR and full flight of stairs to second. Bedroom and bath on first floor level home. Objective General Visit Information: Passive ROM: Left knee 10 to 95 degrees. Joint play: hypomobile. Manual muscle testing: Left knee flexion/extension: 3/5. Palpation: Minimal warmth upon palpation, consistent with post-operative conditions. Surgical incision intact with anyi and open to air. Has blanchable redness/bruising anterior knee. Pictures sent to [facility]/NATALIO Randall. . Special tests: Negative Wilber Sign. Functional Mobility: Bed Mobility: NT, sleeping in recliner Sit to Stand: mod indep/supervision Stair Negotiation: SBA Ambulation: Patient is ambulating with mild antalgic type pattern with FWW, step to gait pattern with transition to even reciprocal gait pattern; good heel to toe gait pattern; Supe[employer]ision. Pt ambulated approx 500' x 2 with slow cecily. Limited knee flexion during swing phase. Tinetti Gait and Balance Assessment: Sitting balance: Steady, safe = 1. Rises from chair: Able, uses arms to help = 1. Attempts to rise: Able, requires > 1 attempt = 1. Immediate standing balance (first 5 seconds): Steady but uses walker or other support = 1. Standing balance: Steady but uses walker or other support = 1. Nudged: Staggers, grabs, catches self = 1. Eyes closed: Steady = 1. Turning 360 degrees: Discontinuous steps = 0 , Unsteady (grabs, staggers) = 0. Sitting down: Uses arms or not a smooth motion = 1. Balance Score: 8/16. Indication of gait: No hesitancy = 1. Step of length and height: Step to = 0. Foot clearance: L foot clears floor = 1 , R foot clears floor = 1. Step symmetry: Right and left step length no equal = 0. Step continuity: Stopping or discontinuity between steps = 0. Path: Mild/moderate deviation or uses w/ aid = 1. Trunk: No sway but flex knees or back or uses arms for stability = 1. Walking time: Heels apart = 0. Gait score: 01/25. Total Score = Balance + Gait . Tinetti tool score: < = 18 High. Physical Education Intervention Physical Therapy Education: Pt was educated on the importance of cyrotherapy and elevation. Reviewed proper pillow placement under LE to maintain good extension. Stressed the importance also of ambulating at at least every other hour for 2-5 minutes duration and completion of HEP 2x/day. Patient was educated with regards to signs and symptoms to monitor with respect to blood clots and infection. Therapeutic Exercise : Pt completed left LE supine exercises of glut sets, quad sets and ankle pumps (hourly) at this time, 10x. Pt completed 10x of knee flexion with gentle flexion stretch with plastic bag. Completed standing heel raises and left marches, hip abduction' added ham curls and standing SLR. HEP updated and reviewed. Gait Training: Gait training this date with FWW with instruction for step to gait pattern that was able to transition to reciprocal gait pattern with good heel to toe pattern and knee flexion during swing. Therapeutic Activity: Worked on proper sit to stand, stand to sit transfers this date from bedside; good carryover with Supervision only with verbal cues for proper sequencing and hand placement. Assessment & Plan Assessment Impairments: abnormal gait, abnormal or restricted ROM, impaired balance, impaired physical strength, pain with function and weight-bearing intolerance Barriers to therapy: Pain Prognosis: good Goals Short Term Goals Goal 1 : Patient will be independent with HEP with good compliance and independence. Goal 2 : Patient will demonstrate 5-90 degrees of passive range of motion of left knee flexion. Goal 3 : Patient will ambulate >6 minutes modified independently with wheeled walker with good reciprocal gait pattern. Goal 4 : Patient will demonstrate all sit< >stand transfers and supine< >sit bed mobility, modified independent with no cues for proper sequencing. Goal 5 : Patient will ascend/descend 4-5 steps with AD and railing with supervision, step to gait pattern. Speeder Worker Goals Goal 1 : Patient will demonstrate 0-110 degrees of active left knee flexion in order to improve indpendence with ambulation up and down steps. Goal 2 : Patient will demonstrate 4+/5 or better right knee strength in order to safely return to activities of interest. Goal 3 : Patient will ambulate community distances on even and uneven surfaces, independently with no AD, normalized gait pattern and < 1/10 report of pain in leftt knee. Goal 4 : Pt will ascend/descend 12 steps with railing with reciprical gait pattern independently. Goal 5 : Patient will demonstrate good static and dynamic standing balance for >15 mintues without LOB or increase in knee pain. Goal 6 : Pt will improve Tinetti Balance test to 28/28 to indicate no fall risk. Plan Planned modality interventions: cryotherapy Planned therapy interventions: bed mobility training, dressing changes, functional ROM exercises, gait training, home exercise program, manual therapy, neuromuscular re-education, soft tissue mobilization, strengthening, stretching, therapeutic activities and transfer training Frequency: 1-3x/week. Duration in weeks: 3 Treatment plan discussed with: patient Plan details: Educated to continue icing and elevating. Educated patient not to over do it. Pt was also instructed by this PT to stay on a pain pill schedule to assist with pain. This PT also instructed that patient needs to start his antibiotic before going to get his implant placed on his tooth. documented in this encounter [facility] 10-28-2023 Telephone encounter Note Post op dental appointment. Is having implant that needs to be completed. Will send in abx but we recommend avoiding all dental work that is not an emergency for 6 months after surgery due to risk of infection. Patient notified. [facility] 10-28-2023 Miscellaneous Notes Post op dental appointment. Is having implant that needs to be completed. Will send in abx but we recommend avoiding all dental work that is not an emergency for 6 months after surgery due to risk of infection. Patient notified. documented in this encounter [facility] 10-28-2023 History of Presen t illness Narrative Physical Therapy Physical Therapy Daily Visit Patient Name: Feliz Garrett Today's Date: 10/25/2023 Subjective Current Problem: s/p left TKA with pain and difficulty walking. Pt is being seen today for a follow up visit for s/p left TKA. Date of Surgery: 10-23-23 same day discharge. Current deficits: Difficulty with all mobility secondary to recent left TKA. Visit Number 2. Time In: 10:00 am; Time out: 10:40 am Total time: 40 minutes [id number] TherEx x 30 minutes [id number] gait training x 10 minutes Precautions: WBAT left LE; left TKA protocol. Pain Management: The patient is complaining of pain located in the left knee and thigh region. Pain rating 5-7/10. The pain is improved by ice and medication 1 every 12 hours of percocet and Tylenol as needed. The pain is aggravated by activity. The pain is described as aching, throbbing and stiffness. Prior level of function: Ambulation: antalgic gait pattern on left LE. Assistive devices: FWW, cane, shower. ADL and IADL: Independent. Home Environment: Pt lives with his family in a two story home with 4-5 steps to enter with HR and full flight of stairs to second. Bedroom and bath on first floor level home. Objective General Visit Information: Passive ROM: Left knee 10 to 80 degrees. Joint play: hypomobile. Manual muscle testing: Left knee flexion/extension: 2+/5. Palpation: Minimal warmth upon palpation, consistent with post-operative conditions. Surgical incision intact with anyi and AB dressing; minimal serum dressing. Minimal edema throughout thigh and knee. Dressing and Tia wrapped were soak with water due to patient taking a shower with everything on. New TEDS and dressing were applied. Special tests: Negative Wilber Sign. Functional Mobility: Bed Mobility: NT, sleeping in recliner Sit to Stand: SBA Stair Negotiation: TBA Ambulation: Patient is ambulating with mild antalgic type pattern with FWW, step to gait pattern with transition to uneven reciprocal gait pattern; good heel to toe gait pattern; SBA. Pt ambulated approx 200' x 2 with slow cecily. Limited knee flexion during swing phase. Tinetti Gait and Balance Assessment: Sitting balance: Steady, safe = 1. Rises from chair: Able, uses arms to help = 1. Attempts to rise: Able, requires > 1 attempt = 1. Immediate standing balance (first 5 seconds): Steady but uses walker or other support = 1. Standing balance: Steady but uses walker or other support = 1. Nudged: Staggers, grabs, catches self = 1. Eyes closed: Steady = 1. Turning 360 degrees: Discontinuous steps = 0 , Unsteady (grabs, staggers) = 0. Sitting down: Uses arms or not a smooth motion = 1. Balance Score: 8/16. Indication of gait: No hesitancy = 1. Step of length and height: Step to = 0. Foot clearance: L foot clears floor = 1 , R foot clears floor = 1. Step symmetry: Right and left step length no equal = 0. Step continuity: Stopping or discontinuity between steps = 0. Path: Mild/moderate deviation or uses w/ aid = 1. Trunk: No sway but flex knees or back or uses arms for stability = 1. Walking time: Heels apart = 0. Gait score: 5/12. Total Score = Balance + Gait 13/28. Tinetti tool score: < = 18 High. Physical Education Intervention Physical Therapy Education: Pt was educated on the importance of cyrotherapy and elevation. Reviewed proper pillow placement under LE to maintain good extension. Stressed the importance also of ambulating at at least every other hour for 2-5 minutes duration and completion of HEP 2x/day. Patient was educated with regards to signs and symptoms to monitor with respect to blood clots and infection. Therapeutic Exercise : Pt completed left LE supine exercises of glut sets, quad sets and ankle pumps (hourly) at this time, 10x. Pt completed 10x of knee flexion with gentle flexion stretch with plastic bag. Completed standing heel raises and left marches; added hip abduction. HEP issued and instructed. Gait Training: Gait training this date with FWW with instruction for step to gait pattern for left affective LE with increase cues for heel to toe pattern and knee flexion during swing. Therapeutic Activity: Worked on proper sit to stand, stand to sit transfers this date from bedside; good carryover with SBA only with verbal cues for proper sequencing and hand placement. Assessment & Plan Assessment Impairments: abnormal gait, abnormal or restricted ROM, impaired balance, impaired physical strength, pain with function and weight-bearing intolerance Barriers to therapy: Pain Prognosis: good Goals Short Term Goals Goal 1 : Patient will be independent with HEP with good compliance and independence. Goal 2 : Patient will demonstrate 5-90 degrees of passive range of motion of left knee flexion. Goal 3 : Patient will ambulate >6 minutes modified independently with wheeled walker with good reciprocal gait pattern. Goal 4 : Patient will demonstrate all sit< >stand transfers and supine< >sit bed mobility, modified independent with no cues for proper sequencing. Goal 5 : Patient will ascend/descend 4-5 steps with AD and railing with supervision, step to gait pattern. Correction Goals Goal 1 : Patient will demonstrate 0-110 degrees of active left knee flexion in order to improve indpendence with ambulation up and down steps. Goal 2 : Patient will demonstrate 4+/5 or better right knee strength in order to safely return to activities of interest. Goal 3 : Patient will ambulate community distances on even and uneven surfaces, independently with no AD, normalized gait pattern and < 1/10 report of pain in leftt knee. Goal 4 : Pt will ascend/descend 12 steps with railing with reciprical gait pattern independently. Goal 5 : Patient will demonstrate good static and dynamic standing balance for >15 mintues without LOB or increase in knee pain. Goal 6 : Pt will improve Tinetti Balance test to 28/28 to indicate no fall risk. Plan Planned modality interventions: cryotherapy Planned therapy interventions: bed mobility training, dressing changes, functional ROM exercises, gait training, home exercise program, manual therapy, neuromuscular re-education, soft tissue mobilization, strengthening, stretching, therapeutic activities and transfer training Frequency: 1-3x/week. Duration in weeks: 3 Treatment plan discussed with: patient Plan details: Educated to continue icing and elevating. Educated patient not to over do it. Pt was also instructed by this PT to stay on a pain pill schedule to assist with pain. documented in this encounter [facility] 10-25-2023 History of Presen t illness Narrative Physical Therapy Physical Therapy Evaluation Patient Name: Feliz Garrett Today's Date: 10/25/2023 Subjective Current Problem: s/p left TKA with pain and difficulty walking. Pt is being seen today for initial evaluation for s/p left TKA. Date of Surgery: 10-23-23 same day discharge. Current deficits: Difficulty with all mobility secondary to recent left TKA. Visit Number 1. Time In: 10:00 am; Time out: 10:45 am Total time: 45 minutes [id number] PT Eval x 20 minutes [id number] TherEx x 15 minutes [id number] gait training x 10 minutes Precautions: WBAT left LE; left TKA protocol. Pain Management: The patient is complaining of pain located in the left knee and thigh region. Pain rating 5-7/10. The pain is improved by ice and medication 1 every 6 hours of percocet and Tylenol as needed. The pain is aggravated by activity. The pain is described as aching, throbbing and stiffness. Prior level of function: Ambulation: antalgic gait pattern on left LE. Assistive devices: FWW, cane, shower. ADL and IADL: Independent. Home Environment: Pt lives with his family in a two story home with 4-5 steps to enter with HR and full flight of stairs to second. Bedroom and bath on first floor level home. Objective General Visit Information: Passive ROM: Left knee 10 to 75 degrees. Joint play: hypomobile. Manual muscle testing: Left knee flexion/extension: 2+/5. Palpation: Minimal warmth upon palpation, consistent with post-operative conditions. Surgical incision intact with anyi and AB dressing; minimal bloody dressing. Minimal edema throughout thigh and knee. Dressing and Tia wrapped were soak with water due to patient taking a shower with everything on. New TEDS and dressing were applied. Special tests: Negative Wilber Sign. Functional Mobility: Bed Mobility: NT, sleeping in recliner Sit to Stand: SBA Stair Negotiation: TBA Ambulation: Patient is ambulating with mild antalgic type pattern with FWW, step to gait pattern with transition to uneven reciprocal gait pattern; good heel to toe gait pattern; SBA. Pt ambulated approx 200' x 2 with slow cecily. Limited knee flexion during swing phase. Tinetti Gait and Balance Assessment: Sitting balance: Steady, safe = 1. Rises from chair: Able, uses arms to help = 1. Attempts to rise: Able, requires > 1 attempt = 1. Immediate standing balance (first 5 seconds): Steady but uses walker or other support = 1. Standing balance: Steady but uses walker or other support = 1. Nudged: Staggers, grabs, catches self = 1. Eyes closed: Steady = 1. Turning 360 degrees: Discontinuous steps = 0 , Unsteady (grabs, staggers) = 0. Sitting down: Uses arms or not a smooth motion = 1. Balance Score: 8/16. Indication of gait: No hesitancy = 1. Step of length and height: Step to = 0. Foot clearance: L foot clears floor = 1 , R foot clears floor = 1. Step symmetry: Right and left step length no equal = 0. Step continuity: Stopping or discontinuity between steps = 0. Path: Mild/moderate deviation or uses w/ aid = 1. Trunk: No sway but flex knees or back or uses arms for stability = 1. Walking time: Heels apart = 0. Gait score: /. Total Score = Balance + Gait 28. Tinetti tool score: < = 18 High. Physical Education Intervention Physical Therapy Education: Pt was educated on the importance of cyrotherapy and elevation. Reviewed proper pillow placement under LE to maintain good extension. Stressed the importance also of ambulating at at least every other hour for 2-5 minutes duration and completion of HEP 2x/day. Patient was educated with regards to signs and symptoms to monitor with respect to blood clots and infection. Therapeutic Exercise : Pt completed left LE supine exercises of glut sets, quad sets and ankle pumps (hourly) at this time, 10x. Pt completed 10x of knee flexion with gentle flexion stretch with plastic bag. Completed standing heel raises and left marches. HEP issued and instructed. Gait Training: Gait training this date with FWW with instruction for step to gait pattern for left affective LE with increase cues for heel to toe pattern and knee flexion during swing. Therapeutic Activity: Worked on proper sit to stand, stand to sit transfers this date from bedside; good carryover with SBA only with verbal cues for proper sequencing and hand placement. Assessment & Plan Assessment Impairments: abnormal gait, abnormal or restricted ROM, impaired balance, impaired physical strength, pain with function and weight-bearing intolerance Barriers to therapy: Pain Prognosis: good Goals Short Term Goals Goal 1 : Patient will be independent with HEP with good compliance and independence. Goal 2 : Patient will demonstrate 5-90 degrees of passive range of motion of left knee flexion. Goal 3 : Patient will ambulate >6 minutes modified independently with wheeled walker with good reciprocal gait pattern. Goal 4 : Patient will demonstrate all sit< >stand transfers and supine< >sit bed mobility, modified independent with no cues for proper sequencing. Goal 5 : Patient will ascend/descend 4-5 steps with AD and railing with supervision, step to gait pattern. Speeder Worker Goals Goal 1 : Patient will demonstrate 0-110 degrees of active left knee flexion in order to improve indpendence with ambulation up and down steps. Goal 2 : Patient will demonstrate 4+/5 or better right knee strength in order to safely return to activities of interest. Goal 3 : Patient will ambulate community distances on even and uneven surfaces, independently with no AD, normalized gait pattern and < 1/10 report of pain in leftt knee. Goal 4 : Pt will ascend/descend 12 steps with railing with reciprical gait pattern independently. Goal 5 : Patient will demonstrate good static and dynamic standing balance for >15 mintues without LOB or increase in knee pain. Goal 6 : Pt will improve Tinetti Balance test to 28/28 to indicate no fall risk. Plan Planned modality interventions: cryotherapy Planned therapy interventions: bed mobility training, dressing changes, functional ROM exercises, gait training, home exercise program, manual therapy, neuromuscular re-education, soft tissue mobilization, strengthening, stretching, therapeutic activities and transfer training Frequency: 1-3x/week. Duration in weeks: 3 Treatment plan discussed with: patient Plan details: Educated to continue icing and elevating. Educated patient not to over do it. Pt will continues to benefit from PT interventions to improve overall strength, ROM and functional mobility to achieve PLOF. documented in this encounter [facility] 10-23-2023 Progress note Formatting of t his note is different from the original. Physical Therapy Evaluation Discharge Recommendations PT Recommendations: Home Home Recommendations: Intermittent caregiver support for: Post Discharge Therapy Recommendations: Home Physical Therapy Robotics Mechanic Support for-: ADL Deficits, Mobility Deficits Past Medical History: Diagnosis Date Arthritis Asthma long time ago, no inhaler use BPH (benign prostatic hypertrophy) COVID-19 01/2021 GERD (gastroesophageal reflux disease) Hyperlipidemia Hypertension PONV (postoperative nausea and vomiting) Visual impairment glasses Past Surgical History: Procedure Laterality Date REPLACMENT TOTAL JOINT KNEE Right 05/22/2017 Performed by Analilia Martinez DO at [facility] CU[facility] REPAIR Right 6 Clicks: Basic Mobility Turning from your back to your side while in a flat bed without using bed rails?: None Moving from lying on your back to sitting on side of flat bed without using bed rails?: A little Moving to and from bed to a chair (including w/c)?: A little Standing up from a chair using your arms (e.g. w/c or bedside chair)?: A little To walk in hospital room?: A little Climbing 3-5 steps with a railing?: A little Scoring 6 Clicks: Basic Mobility Raw Score: 19 CMS G Code Modifier: CJ Therapy Plan Need for skilled Physical Therapy to address deficits in functional mobility due to a status decline resulting from S/P L TKA on 10/23/[address] Martinez. PT Treatment/Interventions: Functional transfer training, LE strengthening/ROM, Endurance training, Balance, Stair training, Bed mobility, Gait training, Functional activities, Neuromuscular reeducation PT Frequency: Other (comment) (1-2x/day) PT Duration: 10 days Patient Response to Treatment: Tolerated evaluation without adverse reaction Assessment Patient Assessment Therapy Problem List: Abnormal posture, Decreased balance, Decreased endurance, Decreased mobility, Decreased LE ROM, Decreased LE strength Patient Response to Treatment: Tolerated evaluation without adverse reaction Mood/Affect: Appropriate for circumstances Rehab Prognosis: Good, With continued PT status post acute discharge Visit RN Communication: Yes Medical Record Reviewed: Yes PT Type of Visit: Evaluation Precautions Activity: Early mobility ok pass, Ok to evaluate per RN Equipment: rolling walker, nonskid socks Weight Bearing Status: WBAT L LE Telemetry/Refrigeration System Installer: No Oxygen Used: room air Other: S/P L TKA Pain Assessment Pain Assessment: No/denies pain Home Living Type of Home: House Home Layout: Two level, Able to live on main level with bedroom/bathroom Stairs to Enter: 5 Hand Rails: Left Bathroom Shower/Tub: Tub/shower unit Bathroom Toilet: Standard Bathroom Equipment: Grab bars in shower, Grab bars around toilet, Shower chair, Hand-held shower Bathroom Accessibility: Accessible via walker Home Equipment: Rolling walker, Cane Prior Function Lives With: Daughter Receives Help From: Family Level of Mobility: Independent with ADLs and functional transfers or gait Homemaking Assistance: Independent Hearing / Speech / Vision Hearing: Hard of hearing/hearing concerns Speech: Within Functional Limits Current Vision: Wears glasses all the time Cognition Overall Cognitive Status: Within Functional Limits Bed Mobility Supine to Sit: Stand by assist Sit to Supine: Stand by assist Transfers Sit to Stand: Contact guard assist Stand to Sit: Contact guard assist Gait Base of Support: Within Functional Limits Pattern: Decreased cecily, Antalgic gait Gait Assistance: Contact guard assist Assistive Device: Rolling walker Gait Distance: 200ft 2 Turns: Yes Stair Management Technique: Step to pattern, Forwards, With walker Stair Management Assistance: Contact guard assist, Verbal cues Number of Stairs: 5 x 4 step ups Other: Cues throughout for safe walker usage including proximity and transitions to sitting Balance Sitting Balance: Static: Good Sitting Balance: Dynamic: Good Standing Balance: Static: Fair Standing Balance: Dynamic: Fair RLE Assessment: (4-/5) LLE Assessment: (3/5) Activity Tolerance Endurance: Tolerates <30 minutes activity WITHOUT vital sign changes Plan Physical Therapy Care Plan Physical Therapy Care Plan (Active) Template: PT - Physical Therapy Problem: Activity Tolerance Dates: Start: 10/23/23 Disciplines: PT Goal: Tolerate 30 minutes of activity WITH rest breaks Dates: Start: 10/23/23 Expected End: 11/01/23 Description: Goal Description: Disciplines: PT Problem: Gait Dates: Start: 10/23/23 Disciplines: PT Goal: Patient will perform gait with Stand By Assist Dates: Start: 10/23/23 Expected End: 11/01/23 Description: Pt to be able to ambulate 300ft with walker to be able to safely manage household distances at discharge. Disciplines: PT Problem: Stairs/Curb Dates: Start: 10/23/23 Disciplines: PT Goal: Patient will perform stairs/curb with Stand By Assist Dates: Start: 10/23/23 Expected End: 11/01/23 Description: Pt to ascend and descend 5 stairs with left handrails to be able to safely enter house at discharge. Disciplines: PT Problem: Standing Balance Dates: Start: 10/23/23 Disciplines: PT Goal: Improve balance to good Dates: Start: 10/23/23 Expected End: 11/01/23 Description: Static Dynamic Pt to have balance of good in order to decrease risk of falls at discharge. Disciplines: PT Problem: Transfers Dates: Start: 10/23/23 Disciplines: PT Goal: Patient will perform transfers with Stand By Assist Dates: Start: 10/23/23 Expected End: 11/01/23 Description: Goal Description: Pt to be able to safely transfer with least amount of assistance to demonstrate decreased need for caregiver assistance and ease with home transfers. Disciplines: PT Physical Therapy Care Plan (Resolved) There are no resolved problems. Principal Problem: Primary osteoarthritis of left knee [facility] 10-23-2023 Miscellaneous Notes Physical Therapy Evaluation Discharge Recommendations PT Recommendations: Home Home Recommendations: Intermittent caregiver support for: Post Discharge Therapy Recommendations: Home Physical Therapy Robotics Mechanic Support for-: ADL Deficits, Mobility Deficits Past Medical History: Diagnosis Date Arthritis Asthma long time ago, no inhaler use BPH (benign prostatic hypertrophy) COVID-19 01/2021 GERD (gastroesophageal reflux disease) Hyperlipidemia Hypertension PONV (postoperative nausea and vomiting) Visual impairment glasses Past Surgical History: Procedure Laterality Date REPLACMENT TOTAL JOINT KNEE Right 05/22/2017 Performed by Analilia Martinez DO at [facility] CU[facility] REPAIR Right 6 Clicks: Basic Mobility Turning from your back to your side while in a flat bed without using bed rails?: None Moving from lying on your back to sitting on side of flat bed without using bed rails?: A little Moving to and from bed to a chair (including w/c)?: A little Standing up from a chair using your arms (e.g. w/c or bedside chair)?: A little To walk in hospital room?: A little Climbing 3-5 steps with a railing?: A little Scoring 6 Clicks: Basic Mobility Raw Score: 19 CMS G Code Modifier: CJ Therapy Plan Need for skilled Physical Therapy to address deficits in functional mobility due to a status decline resulting from S/P L TKA on 10/23/[address] Martinez. PT Treatment/Interventions: Functional transfer training, LE strengthening/ROM, Endurance training, Balance, Stair training, Bed mobility, Gait training, Functional activities, Neuromuscular reeducation PT Frequency: Other (comment) (1-2x/day) PT Duration: 10 days Patient Response to Treatment: Tolerated evaluation without adverse reaction Assessment Patient Assessment Therapy Problem List: Abnormal posture, Decreased balance, Decreased endurance, Decreased mobility, Decreased LE ROM, Decreased LE strength Patient Response to Treatment: Tolerated evaluation without adverse reaction Mood/Affect: Appropriate for circumstances Rehab Prognosis: Good, With continued PT status post acute discharge Visit RN Communication: Yes Medical Record Reviewed: Yes PT Type of Visit: Evaluation Precautions Activity: Early mobility ok pass, Ok to evaluate per RN Equipment: rolling walker, nonskid socks Weight Bearing Status: WBAT L LE Telemetry/Refrigeration System Installer: No Oxygen Used: room air Other: S/P L TKA Pain Assessment Pain Assessment: No/denies pain Home Living Type of Home: House Home Layout: Two level, Able to live on main level with bedroom/bathroom Stairs to Enter: 5 Hand Rails: Left Bathroom Shower/Tub: Tub/shower unit Bathroom Toilet: Standard Bathroom Equipment: Grab bars in shower, Grab bars around toilet, Shower chair, Hand-held shower Bathroom Accessibility: Accessible via walker Home Equipment: Rolling walker, Cane Prior Function Lives With: Daughter Receives Help From: Family Level of Mobility: Independent with ADLs and functional transfers or gait Homemaking Assistance: Independent Hearing / Speech / Vision Hearing: Hard of hearing/hearing concerns Speech: Within Functional Limits Current Vision: Wears glasses all the time Cognition Overall Cognitive Status: Within Functional Limits Bed Mobility Supine to Sit: Stand by assist Sit to Supine: Stand by assist Transfers Sit to Stand: Contact guard assist Stand to Sit: Contact guard assist Gait Base of Support: Within Functional Limits Pattern: Decreased cecily, Antalgic gait Gait Assistance: Contact guard assist Assistive Device: Rolling walker Gait Distance: 200ft 2 Turns: Yes Stair Management Technique: Step to pattern, Forwards, With walker Stair Management Assistance: Contact guard assist, Verbal cues Number of Stairs: 5 x 4 step ups Other: Cues throughout for safe walker usage including proximity and transitions to sitting Balance Sitting Balance: Static: Good Sitting Balance: Dynamic: Good Standing Balance: Static: Fair Standing Balance: Dynamic: Fair RLE Assessment: (-) LLE Assessment: (11/18) Activity Tolerance Endurance: Tolerates <30 minutes activity WITHOUT vital sign changes Plan Physical Therapy Care Plan Physical Therapy Care Plan (Active) Template: PT - Physical Therapy Problem: Activity Tolerance Dates: Start: 10/23/23 Disciplines: PT Goal: Tolerate 30 minutes of activity WITH rest breaks Dates: Start: 10/23/23 Expected End: 11/01/23 Description: Goal Description: Disciplines: PT Problem: Gait Dates: Start: 10/23/23 Disciplines: PT Goal: Patient will perform gait with Stand By Assist Dates: Start: 10/23/23 Expected End: 11/01/23 Description: Pt to be able to ambulate 300ft with walker to be able to safely manage household distances at discharge. Disciplines: PT Problem: Stairs/Curb Dates: Start: 10/23/23 Disciplines: PT Goal: Patient will perform stairs/curb with Stand By Assist Dates: Start: 10/23/23 Expected End: 11/01/23 Description: Pt to ascend and descend 5 stairs with left handrails to be able to safely enter house at discharge. Disciplines: PT Problem: Standing Balance Dates: Start: 10/23/23 Disciplines: PT Goal: Improve balance to good Dates: Start: 10/23/23 Expected End: 11/01/23 Description: Static Dynamic Pt to have balance of good in order to decrease risk of falls at discharge. Disciplines: PT Problem: Transfers Dates: Start: 10/23/23 Disciplines: PT Goal: Patient will perform transfers with Stand By Assist Dates: Start: 10/23/23 Expected End: 11/01/23 Description: Goal Description: Pt to be able to safely transfer with least amount of assistance to demonstrate decreased need for caregiver assistance and ease with home transfers. Disciplines: PT Physical Therapy Care Plan (Resolved) There are no resolved problems. Principal Problem: Primary osteoarthritis of left knee Summary: Left total knee replacement Feliz Landis Date of : 1940 Date of Surgery: 10/23/2023 Preoperative diagnosis: Primary osteoarthritis left knee Postoperative diagnosis: Same Procedure: Left total knee arthroplasty Implants: [place] persona size 8 Press-Fit CR femur, size E Press-Fit tibia, 11 mm medial constrained polyethylene spacer, size 35 patella cemented. Surgeon: Analilia Martinez DO Anesthesia: Anesthesiologist: Prateek Franz DO OUTDOOR LANDSCAPE ARCHITECT: Fang Cuevas APRN-[facility], Monitored Anesthesia Care, Spinal OR staff: Photo Stylist Primary: Heydi Manjarrez RN Scrub Person: Gomez Yolis; Felisha Moraima Supervisor [employer]crete [employer] Plant: Ester Pimentel Estimated blood loss: 50 mL Complications: None Findings: Tricompartmental osteoarthritis Procedure summary: After administration of spinal anesthesia the left lower extremity was prepped and draped in usual fashion although a tourniquet was applied it was not inflated during surgery. A time-out was taken. An anterior incision was made with a medial parapatellar approach the fat pad was excised the patella was cut in line tendon tendon it sized out to 35 and was prepared with a peg drill and covered with a protector The knee was placed in flexion a step drill was inserted a distal cut was taken at 4 . The extramedullary cutting guide was secured to the tibia referencing off the spine of the tibia cut was taken. The knee was placed in extension a spacer block was inserted the knee was balancing nicely The knee was placed back in flexion and an anterior reference Sizer was attached it sized out to an 8 drill holes were made and then the cutting block was applied distally. Anterior-posterior and chamfer cuts were taken. The cutting guide was removed and all remnants of meniscus were excised. Nice flat cuts were achieved and no recuts were required. Trial components were attached and a size 8 femur with a size E tibia produced a midline tracking patella with well balanced in flexion and extension. The tibial trial was left in place and it was prepared with a drill and a broach to accommodate a Press-Fit tibia. The graft drill holes were made for the pegs in the femur and all trial components were removed. The joint was irrigated and a size E Press-Fit tibia was impacted into place followed by a size 8 CR femur. Next an 11 mm spacer was clicked into place the knee was placed in terminal extension. The patella was washed with pulse lavage and dried and the button was cemented in place. It was held clamped until the cement was completely hardened. Meanwhile I soaked the knee in diluted Betadine The clamp was removed the knee was taken through range of motion the patella was tracking midline the knee was well balanced there was full terminal extension flexion past 120 I irrigated thoroughly I repaired the capsule with a 2. Ethibond suture in an 0 Vicryl suture the fat subcutaneous layers were closed with 0 Vicryl. Skin clips superficially bacitracin Adaptic and sterile dressings were applied. documented in this encounter [facility] 10-23-2023 Hospital course Narrative Summary: Status post left knee replaced Orthopaedic Discharge Summary Patient ID: Feliz Landis [id number] y.o. 1940 Admit date: 10/23/2023 Discharge date and time: No discharge date for patient encounter. Admitting Physician: Analilia Martinez DO Discharge Physician: same Admission Diagnoses: Severe degenerative joint disease left Knee Discharge Diagnoses: Severe degenerative joint disease left Knee Admission Condition: stable Discharged Condition: stable Indication for Admission: The patient was noted via outpatient basis to have recalcitrant pain and decreased range of motion to the operative knee with physical diagnostic modalities consistent with severe degenerative joint disease. They exhibited an antalgic gait which was affecting balance, coordination, stability on stairs and causing pain to hip and low back. They tried nonsteroidal anti-inflammatories, home exercise program, intra-articular cortisone injection, strength and fitness program at home without relief of symptoms. X-rays revealed severe tricompartmental degenerative joint disease to the operative knee with decrease joint space height noted tricompartmentally, marginal osteophytes noted, and flattening of the articular surfaces noted tricompartmentally. The patient requested to have a total knee arthroplasty performed because the pain was markedly affecting her activities of daily living and ability to sleep. Surgical procedure: Procedure(s): REPLACEMENT TOTAL JOINT KNEE (Left) - Wound Class: Clean - Incision Closure: Deep and Superficial Layers Significant Diagnostic Studies: Daily hemoglobin and hematocrit Hospital Course:See [facility] inpatient notes for specifics Patient was admitted to the hospital and underwent a left total knee arthroplasty on the above mentioned date. Postoperatively in the recovery room the patient had physical therapy and walked well his pain was controlled with oral medication. The patient had requested to go home and did not want to spend the night in the hospital. He was deemed stable to go home. He will continue all of his home medications as listed in the med reconciliation except for his fish oil. He will begin an adult aspirin 1 daily on the day after surgery. He was given a follow-up to follow up with me in the office. Disposition: Stable Patient Instructions: @MEDDISCHARGE@ Activity: Gait training with walker weightbearing as tolerated to left Lower extremity, Increased strength and range of motion operative knee. Diet: Regular home diet Wound Care: May shower daily and redressed the wound after Follow-up with Analilia Martinez DO in 10-14 days. Signed: Analilia Martinez DO documented in this encounter [facility] 10-23-2023 Note CLINICAL INFORMATION : Post-operative evaluation TECHNIQUE/PROCEDURE: 2 views of the left knee COMPARISON: No relevant prior studies available. IMPRESSION: Left knee arthroplasty demonstrates anatomic alignment with expected postoperative changes in the soft tissues and the intra-articular space. Finalized by Antonio Warner MD on 10/23/2023 10:43 AM [facility] 10-23-2023 Procedure note Summary: Left total knee replacement Feliz Landis Date of : 1940 Date of Surgery: 10/23/2023 Preoperative diagnosis: Primary osteoarthritis left knee Postoperative diagnosis: Same Procedure: Left total knee arthroplasty Implants: [place] persona size 8 Press-Fit CR femur, size E Press-Fit tibia, 11 mm medial constrained polyethylene spacer, size 35 patella cemented. Surgeon: Analilia Martinez DO Anesthesia: Anesthesiologist: Prateek Franz DO OUTDOOR LANDSCAPE ARCHITECT: Fang Cuevas APRN-[facility], Monitored Anesthesia Care, Spinal OR staff: Photo Stylist Primary: Heydi Manjarrez RN Scrub Person: Gomez Valera Supervisor [employer] Plant: Ester Pimentel Estimated blood loss: 50 mL Complications: None Findings: Tricompartmental osteoarthritis Procedure summary: After administration of spinal anesthesia the left lower extremity was prepped and draped in usual fashion although a tourniquet was applied it was not inflated during surgery. A time-out was taken. An anterior incision was made with a medial parapatellar approach the fat pad was excised the patella was cut in line tendon tendon it sized out to 35 and was prepared with a peg drill and covered with a protector The knee was placed in flexion a step drill was inserted a distal cut was taken at 4 . The extramedullary cutting guide was secured to the tibia referencing off the spine of the tibia cut was taken. The knee was placed in extension a spacer block was inserted the knee was balancing nicely The knee was placed back in flexion and an anterior reference Sizer was attached it sized out to an 8 drill holes were made and then the cutting block was applied distally. Anterior-posterior and chamfer cuts were taken. The cutting guide was removed and all remnants of meniscus were excised. Nice flat cuts were achieved and no recuts were required. Trial components were attached and a size 8 femur with a size E tibia produced a midline tracking patella with well balanced in flexion and extension. The tibial trial was left in place and it was prepared with a drill and a broach to accommodate a Press-Fit tibia. The graft drill holes were made for the pegs in the femur and all trial components were removed. The joint was irrigated and a size E Press-Fit tibia was impacted into place followed by a size 8 CR femur. Next an 11 mm spacer was clicked into place the knee was placed in terminal extension. The patella was washed with pulse lavage and dried and the button was cemented in place. It was held clamped until the cement was completely hardened. Meanwhile I soaked the knee in diluted Betadine The clamp was removed the knee was taken through range of motion the patella was tracking midline the knee was well balanced there was full terminal extension flexion past 120 I irrigated thoroughly I repaired the capsule with a 2. Ethibond suture in an 0 Vicryl suture the fat subcutaneous layers were closed with 0 Vicryl. Skin clips superficially bacitracin Adaptic and sterile dressings were applied. [facility] 10-23-2023 Attending History and physical note HISTORY AND PHYSICAL INTERVAL NOTE: Feliz Garrett Boby 1940 [id number] H&P reviewed. The patient was examined and there are no changes to the H&P. Analilia Martinez DO Source Note - Analilia Martinez DO - 10/18/2023 12:25 PM [facility] History and physical note HISTORY AND PHYSICAL INTERVAL NOTE: Feliz Landis 1940 [id number] H&P reviewed. The patient was examined and there are no changes to the H&P. Analilia Martinez DO Source Note - Analilia Martinez DO - 10/18/2023 12:25 PM EST [facility] 09-26-2023 Instructions Yaneth Cabrera RN - 09/26/2023 10:30 AM EST Preoperative Education Checklist- Joints/Spine Surgery date: 10/23/23 Surgery time: 0745 a.m. Arrival time: 0610 a.m. Return between 10/15-10/22/23 Mon-Fri 7 a.m.- 4 p.m. to [facility] for your last blood test where they will give you a green armband to bring in the day of your surgery! 1. Bring a photo ID and your insurance card with you the day of surgery. You will check in at the main lobby of the [facility]- registration desk is straight ahead as soon as you walk in. Tell them you are here for surgery. 2. If you have a Living Will/Durable Power of Manager Assembly for Health Care that is not on file here, please bring a copy the day of surgery. 3. Please shower/tub bath the night before surgery and use wipes as directed. Do not shower the morning of surgery- you will again use wipes when you arrive here at the hospital before getting into your surgical gown. Do not shave the area of your procedure for 2 days prior to your surgery. 4. NO powder, lotion, perfume/cologne, aftershave, make-up, deodorant, or hair products after you have bathed. 5. No nail greenlandic/acrylic on at least one finger. If you are having a hand, wrist, foot, or leg surgery then ALL nail greenlandic and artificial/acrylic nails MUST be removed from that hand or foot. 6. Avoid ALL Aspirin and non-steroidal anti-inflammatory drugs (Ibuprofen, Advil, Aleve, Excedrin, Meloxicam, Celebrex, fish/krill oil, etc.) for 7 days prior to surgery as instructed by your surgeon and/or prescribing doctor. Tylenol IS ALLOWED. If you are on Ticlid, Xarelto, Eliquis, Pradaxa, Plavix or Coumadin, please check with your prescribing doctor for instructions for when to stop them. 7. If you use an inhaler, continue to use it routinely. 8. Nothing to eat or drink (not even water, gum, mints, or hard candy!) AFTER midnight prior to your surgery. 7. Take only medications that you are instructed to on the morning of surgery with a TINY SIP OF WATER. 9. Choose a responsible adult that will be able to drive you home when you are discharged from your hospital stay for your surgery- no driving or operating any machinery for 24 hours after surgery. 10. When you dress for your appointment, please wear loose fitting clothing that is appropriate to accommodate your surgical area procedure. BRING WITH YOU ANY DEVICES YOU MAY NEED: ANABEL hose, ice machine, sling/swath, brace or special shoe, crutches, oversized sup-up or button up shirt, CPAP machine if staying overnight. 11. Do NOT wear jewelry, watches, or any piercings or metal for surgery. 12. Do NOT wear contact lenses for surgery- glasses are okay if needed. 13. The anesthesiologist will talk with you the day of surgery and will ask you to sign a Consent Form. 14. Refrain from smoking or any type of tobacco use for at least 8 hours or marijuana for 24 hours prior to arrival for your surgery. 15. If a GREEN BLOOD band is given to you, please bring it with you for the day of surgery. 16. Notify your surgeon if you develop any illness before your surgery. 17. If you are staying overnight, please DO NOT BRING your home medications with your. 18. If you have any questions prior to surgery, please call the Preadmission Testing office at [phone] Mon.-Fri. 7 a.m.-3 p.m. Leave a voicemail if needed. Pre-Surgery Instructions: Medication Instructions amLODIPine (NORVASC) 5 mg tablet Take morning of procedure finasteride (PROSCAR) 5 mg tablet Stop taking 0 days prior to procedure lisinopriL (PRINIVIL,ZESTRIL) 20 mg tablet Take morning of procedure kcjwzyqf-xmeg-KM-calcium &mins (THERAGRAN-M) 9 mg iron-400 mcg tablet Stop taking 0 days prior to procedure omega 2-ene-hrx-fish oil (Fish OiL) 300-1,000 mg capsule Stop taking 2 weeks prior to procedure omeprazole (PriLOSEC) 20 mg capsule Take morning of procedure tamsulosin (FLOMAX) 0.4 mg capsule,extended release 24hr Stop taking 0 days prior to procedure What to Expect Following Your Surgery After surgery you will be in the recovery room for approximately 1 hour before you are moved to your room. Please let your family and visitors know this. You may be in a bed that has a trapeze overhead to assist you with movement while in bed. After surgery you will have a Pires catheter in place (it is usually removed the first day after surgery after your first round of physical therapy has been completed), foot pumps on for circulation and prevention of blood clots, an IV, and possibly a LOGISTICS SOLUTION MANAGER pump and/or a NERVE BLOCK (both used for pain control). We will have you rate your pain on a scale from 0-10, with 10 being the highest possible pain level. We will NOT be able to get rid of ALL of your pain. We strive to keep you comfortable in the 3-5 range on the pain scale. PLEASE let your nurse know if your pain starts to creep up above a level of 5. We use a combination of IV medications, oral medications, ice, and elevation according to the doctor s orders in order to help keep your pain at a tolerable level. The first 24 hours after surgery are very busy! The doctor orders certain routine medications that are to be given up to every 4 hours along with breathing treatments and vital signs being assessed every 4 through the first night of your surgery in order to make sure that you are progressing as expected after surgery. This often makes it hard to sleep well the first night, but it is necessary to make sure that we are providing you the best care possible. We try to coordinate this care with each department in order to help you get as much uninterrupted sleep as possible. We also have earplugs and eye masks available by request to promote and enhance your sleep time. While here, you may see one of our Hospitalist physicians if your family doctor does not round on patients at [facility] to see you while you are here after surgery. Your orthopedic doctor will be directing all of your care and your discharge, but sometimes they need to consult with primary care/hospitalists in order to better serve you. Having the Hospitalists see you while in the hospital allows your primary care doctor to have more time in their offices, and the hospitalists will be in communication with your primary care doctor with updates on your care. Once discharged from the hospital, you will see your regular primary care physician as directed. While in the hospital you [facility] who work in the hospital and they will start seeing you the morning after surgery. Therapy from your orthopedic doctor s office will begin seeing you once you are discharged from the hospital- they are not contracted to provide your treatment while you are in the hospital. You may have spoken with a regional planner at your orthopedic doctor s office, but you will still review your discharge plan with our regional planner from here at the hospital in order to make sure that you understand all of your options prior to going home or to a facility. How to Avoid an Infection after Your Surgery Your doctor will give you specific instructions, but remember: -ALWAYS wash hands before caring for your incision. -No picking, scratching, or rubbing your incision. -No creams, lotion, powder, rubbing alcohol or hydrogen peroxide on the incision (can harm the tissue and slow healing). -Your doctor will give you specific instructions for what type of dressing you will need and how often it will need changed for infection purposes. -No tight clothing on incision. -Do not allow anyone to touch your incision unless they are cleaning, checking, or redressing it (be sure they wash their hands first). -No contact of your incision with pets; avoid sleeping with pets. -Take full course of antibiotic if prescribed for you after surgery- do not stop unless directed to by your physician. You may also be given an antibiotic prior to your surgery to help prevent surgical site infections. -Eat a healthy and varied diet including proteins, fruits, and vegetables to help promote wound healing and keep blood sugars under control if you are diabetic. -Smoking slows the healing process by decreasing the amount of oxygen in your blood that is needed for tissue healing. Try to avoid or stop smoking if possible. LOOK at your incision each morning and each night to check the progress of healing. Some soreness, numbness, itching and/or mild bruising around the incision is normal. Call your doctor if you notice any of the following: -Increased redness or hardening around the incision area. -Increased pain at the incision site. -Incision feels hot to the touch. -Swelling or pulling apart of the incision edges. -Yellow or green drainage or foul odor coming from the incision. -Bleeding from the incision (apply pressure as needed). -Fever higher than 101 degrees Fahrenheit for more than 4 hours. SHOWERING: Your doctor will give you specific instructions, but remember: -Be careful getting into and out of the shower. -Showers should be quick (5 minutes or less). -Use a clean washcloth to gently wash your incision with soap and water and pat the area dry with a clean towel. -No re-using wash cloths or towels; get a fresh one to clean your incision. -Do not soak in the bathtub, go swimming or use a hot tub (Jacuzzi), or perform activities where your incision is submerged in water or exposed to any fluids or substances until instructed by your doctor. -If your have the sticky strips (steri-strips) over the incision, it is OK to shower with them. Do not remove them. Let them fall off on their own. If you have a question, call your doctor s office. Go to the follow-up appointment with your doctor. documented in this encounter [facility] 09-26-2023 Miscellaneous Notes Preoperative Education Checklist- Joints/Spine Surgery date: 10/23/23 Surgery time: 0745 a.m. Arrival time: 0610 a.m. Return between 10/15-10/22/23 Mon-Fri 7 a.m.- 4 p.m. to [facility] for your last blood test where they will give you a green armband to bring in the day of your surgery! 1. Bring a photo ID and your insurance card with you the day of surgery. You will check in at the main lobby of the [facility]- registration desk is straight ahead as soon as you walk in. Tell them you are here for surgery. 2. If you have a Living Will/Durable Power of Manager Assembly for Health Care that is not on file here, please bring a copy the day of surgery. 3. Please shower/tub bath the night before surgery and use wipes as directed. Do not shower the morning of surgery- you will again use wipes when you arrive here at the hospital before getting into your surgical gown. Do not shave the area of your procedure for 2 days prior to your surgery. 4. NO powder, lotion, perfume/cologne, aftershave, make-up, deodorant, or hair products after you have bathed. 5. No nail greenlandic/acrylic on at least one finger. If you are having a hand, wrist, foot, or leg surgery then ALL nail greenlandic and artificial/acrylic nails MUST be removed from that hand or foot. 6. Avoid ALL Aspirin and non-steroidal anti-inflammatory drugs (Ibuprofen, Advil, Aleve, Excedrin, Meloxicam, Celebrex, fish/krill oil, etc.) for 7 days prior to surgery as instructed by your surgeon and/or prescribing doctor. Tylenol IS ALLOWED. If you are on Ticlid, Xarelto, Eliquis, Pradaxa, Plavix or Coumadin, please check with your prescribing doctor for instructions for when to stop them. 7. If you use an inhaler, continue to use it routinely. 8. Nothing to eat or drink (not even water, gum, mints, or hard candy!) AFTER midnight prior to your surgery. 7. Take only medications that you are instructed to on the morning of surgery with a TINY SIP OF WATER. 9. Choose a responsible adult that will be able to drive you home when you are discharged from your hospital stay for your surgery- no driving or operating any machinery for 24 hours after surgery. 10. When you dress for your appointment, please wear loose fitting clothing that is appropriate to accommodate your surgical area procedure. BRING WITH YOU ANY DEVICES YOU MAY NEED: ANABEL hose, ice machine, sling/swath, brace or special shoe, crutches, oversized sup-up or button up shirt, CPAP machine if staying overnight. 11. Do NOT wear jewelry, watches, or any piercings or metal for surgery. 12. Do NOT wear contact lenses for surgery- glasses are okay if needed. 13. The anesthesiologist will talk with you the day of surgery and will ask you to sign a Consent Form. 14. Refrain from smoking or any type of tobacco use for at least 8 hours or marijuana for 24 hours prior to arrival for your surgery. 15. If a GREEN BLOOD band is given to you, please bring it with you for the day of surgery. 16. Notify your surgeon if you develop any illness before your surgery. 17. If you are staying overnight, please DO NOT BRING your home medications with your. 18. If you have any questions prior to surgery, please call the Preadmission Testing office at [phone] Mon.-Fri. 7 a.m.-3 p.m. Leave a voicemail if needed. Pre-Surgery Instructions: Medication Instructions amLODIPine (NORVASC) 5 mg tablet Take morning of procedure finasteride (PROSCAR) 5 mg tablet Stop taking 0 days prior to procedure lisinopriL (PRINIVIL,ZESTRIL) 20 mg tablet Take morning of procedure xmdxxptp-leyd-RS-calcium &mins (THERAGRAN-M) 9 mg iron-400 mcg tablet Stop taking 0 days prior to procedure omega 4-ids-kco-fish oil (Fish OiL) 300-1,000 mg capsule Stop taking 2 weeks prior to procedure omeprazole (PriLOSEC) 20 mg capsule Take morning of procedure tamsulosin (FLOMAX) 0.4 mg capsule,extended release 24hr Stop taking 0 days prior to procedure What to Expect Following Your Surgery After surgery you will be in the recovery room for approximately 1 hour before you are moved to your room. Please let your family and visitors know this. You may be in a bed that has a trapeze overhead to assist you with movement while in bed. After surgery you will have a Pires catheter in place (it is usually removed the first day after surgery after your first round of physical therapy has been completed), foot pumps on for circulation and prevention of blood clots, an IV, and possibly a LOGISTICS SOLUTION MANAGER pump and/or a NERVE BLOCK (both used for pain control). We will have you rate your pain on a scale from 0-10, with 10 being the highest possible pain level. We will NOT be able to get rid of ALL of your pain. We strive to keep you comfortable in the 3-5 range on the pain scale. PLEASE let your nurse know if your pain starts to creep up above a level of 5. We use a combination of IV medications, oral medications, ice, and elevation according to the doctor s orders in order to help keep your pain at a tolerable level. The first 24 hours after surgery are very busy! The doctor orders certain routine medications that are to be given up to every 4 hours along with breathing treatments and vital signs being assessed every 4 through the first night of your surgery in order to make sure that you are progressing as expected after surgery. This often makes it hard to sleep well the first night, but it is necessary to make sure that we are providing you the best care possible. We try to coordinate this care with each department in order to help you get as much uninterrupted sleep as possible. We also have earplugs and eye masks available by request to promote and enhance your sleep time. While here, you may see one of our Hospitalist physicians if your family doctor does not round on patients at [facility] to see you while you are here after surgery. Your orthopedic doctor will be directing all of your care and your discharge, but sometimes they need to consult with primary care/hospitalists in order to better serve you. Having the Hospitalists see you while in the hospital allows your primary care doctor to have more time in their offices, and the hospitalists will be in communication with your primary care doctor with updates on your care. Once discharged from the hospital, you will see your regular primary care physician as directed. While in the hospital you will receive physical therapy from [facility] physical therapists who work in the hospital and they will start seeing you the morning after surgery. Therapy from your orthopedic doctor s office will begin seeing you once you are discharged from the hospital- they are not contracted to provide your treatment while you are in the hospital. You may have spoken with a regional planner at your orthopedic doctor s office, but you will still review your discharge plan with our regional planner from here at the hospital in order to make sure that you understand all of your options prior to going home or to a facility. How to Avoid an Infection after Your Surgery Your doctor will give you specific instructions, but remember: -ALWAYS wash hands before caring for your incision. -No picking, scratching, or rubbing your incision. -No creams, lotion, powder, rubbing alcohol or hydrogen peroxide on the incision (can harm the tissue and slow healing). -Your doctor will give you specific instructions for what type of dressing you will need and how often it will need changed for infection purposes. -No tight clothing on incision. -Do not allow anyone to touch your incision unless they are cleaning, checking, or redressing it (be sure they wash their hands first). -No contact of your incision with pets; avoid sleeping with pets. -Take full course of antibiotic if prescribed for you after surgery- do not stop unless directed to by your physician. You may also be given an antibiotic prior to your surgery to help prevent surgical site infections. -Eat a healthy and varied diet including proteins, fruits, and vegetables to help promote wound healing and keep blood sugars under control if you are diabetic. -Smoking slows the healing process by decreasing the amount of oxygen in your blood that is needed for tissue healing. Try to avoid or stop smoking if possible. LOOK at your incision each morning and each night to check the progress of healing. Some soreness, numbness, itching and/or mild bruising around the incision is normal. Call your doctor if you notice any of the following: -Increased redness or hardening around the incision area. -Increased pain at the incision site. -Incision feels hot to the touch. -Swelling or pulling apart of the incision edges. -Yellow or green drainage or foul odor coming from the incision. -Bleeding from the incision (apply pressure as needed). -Fever higher than 101 degrees Fahrenheit for more than 4 hours. SHOWERING: Your doctor will give you specific instructions, but remember: -Be careful getting into and out of the shower. -Showers should be quick (5 minutes or less). -Use a clean washcloth to gently wash your incision with soap and water and pat the area dry with a clean towel. -No re-using wash cloths or towels; get a fresh one to clean your incision. -Do not soak in the bathtub, go swimming or use a hot tub ([facility]), or perform activities where your incision is submerged in water or exposed to any fluids or substances until instructed by your doctor. -If your have the sticky strips (steri-strips) over the incision, it is OK to shower with them. Do not remove them. Let them fall off on their own. If you have a question, call your doctor s office. Go to the follow-up appointment with your doctor. CHG wipes and surgical instructions reviewed with patient and his daughter. Both verbalized understanding. documented in this encounter [facility] 09-26-2023 Nurse Note Preoperative Education Checklist- Joints/Spine Surgery date: 10/23/23 Surgery time: 0745 a.m. Arrival time: 0610 a.m. Return between 10/15-10/22/23 Mon-Fri 7 a.m.- 4 p.m. to [facility] for your last blood test where they will give you a green armband to bring in the day of your surgery! 1. Bring a photo ID and your insurance card with you the day of surgery. You will check in at the main lobby of the [facility]- registration desk is straight ahead as soon as you walk in. Tell them you are here for surgery. 2. If you have a Living Will/Durable Power of Manager Assembly for Health Care that is not on file here, please bring a copy the day of surgery. 3. Please shower/tub bath the night before surgery and use wipes as directed. Do not shower the morning of surgery- you will again use wipes when you arrive here at the hospital before getting into your surgical gown. Do not shave the area of your procedure for 2 days prior to your surgery. 4. NO powder, lotion, perfume/cologne, aftershave, make-up, deodorant, or hair products after you have bathed. 5. No nail greenlandic/acrylic on at least one finger. If you are having a hand, wrist, foot, or leg surgery then ALL nail greenlandic and artificial/acrylic nails MUST be removed from that hand or foot. 6. Avoid ALL Aspirin and non-steroidal anti-inflammatory drugs (Ibuprofen, Advil, Aleve, Excedrin, Meloxicam, Celebrex, fish/krill oil, etc.) for 7 days prior to surgery as instructed by your surgeon and/or prescribing doctor. Tylenol IS ALLOWED. If you are on Ticlid, Xarelto, Eliquis, Pradaxa, Plavix or Coumadin, please check with your prescribing doctor for instructions for when to stop them. 7. If you use an inhaler, continue to use it routinely. 8. Nothing to eat or drink (not even water, gum, mints, or hard candy!) AFTER midnight prior to your surgery. 7. Take only medications that you are instructed to on the morning of surgery with a TINY SIP OF WATER. 9. Choose a responsible adult that will be able to drive you home when you are discharged from your hospital stay for your surgery- no driving or operating any machinery for 24 hours after surgery. 10. When you dress for your appointment, please wear loose fitting clothing that is appropriate to accommodate your surgical area procedure. BRING WITH YOU ANY DEVICES YOU MAY NEED: ANABEL hose, ice machine, sling/swath, brace or special shoe, crutches, oversized sup-up or button up shirt, CPAP machine if staying overnight. 11. Do NOT wear jewelry, watches, or any piercings or metal for surgery. 12. Do NOT wear contact lenses for surgery- glasses are okay if needed. 13. The anesthesiologist will talk with you the day of surgery and will ask you to sign a Consent Form. 14. Refrain from smoking or any type of tobacco use for at least 8 hours or marijuana for 24 hours prior to arrival for your surgery. 15. If a GREEN BLOOD band is given to you, please bring it with you for the day of surgery. 16. Notify your surgeon if you develop any illness before your surgery. 17. If you are staying overnight, please DO NOT BRING your home medications with your. 18. If you have any questions prior to surgery, please call the Preadmission Testing office at [phone] Mon.-Fri. 7 a.m.-3 p.m. Leave a voicemail if needed. Pre-Surgery Instructions: Medication Instructions amLODIPine (NORVASC) 5 mg tablet Take morning of procedure finasteride (PROSCAR) 5 mg tablet Stop taking 0 days prior to procedure lisinopriL (PRINIVIL,ZESTRIL) 20 mg tablet Take morning of procedure htvbkasx-yfbu-UJ-calcium &mins (THERAGRAN-M) 9 mg iron-400 mcg tablet Stop taking 0 days prior to procedure omega 6-fcb-uxl-fish oil (Fish OiL) 300-1,000 mg capsule Stop taking 2 weeks prior to procedure omeprazole (PriLOSEC) 20 mg capsule Take morning of procedure tamsulosin (FLOMAX) 0.4 mg capsule,extended release 24hr Stop taking 0 days prior to procedure What to Expect Following Your Surgery After surgery you will be in the recovery room for approximately 1 hour before you are moved to your room. Please let your family and visitors know this. You may be in a bed that has a trapeze overhead to assist you with movement while in bed. After surgery you will have a Pires catheter in place (it is usually removed the first day after surgery after your first round of physical therapy has been completed), foot pumps on for circulation and prevention of blood clots, an IV, and possibly a LOGISTICS SOLUTION MANAGER pump and/or a NERVE BLOCK (both used for pain control). We will have you rate your pain on a scale from 0-10, with 10 being the highest possible pain level. We will NOT be able to get rid of ALL of your pain. We strive to keep you comfortable in the 3-5 range on the pain scale. PLEASE let your nurse know if your pain starts to creep up above a level of 5. We use a combination of IV medications, oral medications, ice, and elevation according to the doctor s orders in order to help keep your pain at a tolerable level. The first 24 hours after surgery are very busy! The doctor orders certain routine medications that are to be given up to every 4 hours along with breathing treatments and vital signs being assessed every 4 through the first night of your surgery in order to make sure that you are progressing as expected after surgery. This often makes it hard to sleep well the first night, but it is necessary to make sure that we are providing you the best care possible. We try to coordinate this care with each department in order to help you get as much uninterrupted sleep as possible. We also have earplugs and eye masks available by request to promote and enhance your sleep time. While here, you may see one of our Hospitalist physicians if your family doctor does not round on patients at [facility] to see you while you are here after surgery. Your orthopedic doctor will be directing all of your care and your discharge, but sometimes they need to consult with primary care/hospitalists in order to better serve you. Having the Hospitalists see you while in the hospital allows your primary care doctor to have more time in their offices, and the hospitalists will be in communication with your primary care doctor with updates on your care. Once discharged from the hospital, you will see your regular primary care physician as directed. While in the hospital you will receive physical therapy from [facility] physical therapists who work in the hospital and they will start seeing you the morning after surgery. Therapy from your orthopedic doctor s office will begin seeing you once you are discharged from the hospital- they are not contracted to provide your treatment while you are in the hospital. You may have spoken with a regional planner at your orthopedic doctor s office, but you will still review your discharge plan with our regional planner from here at the hospital in order to make sure that you understand all of your options prior to going home or to a facility. How to Avoid an Infection after Your Surgery Your doctor will give you specific instructions, but remember: -ALWAYS wash hands before caring for your incision. -No picking, scratching, or rubbing your incision. -No creams, lotion, powder, rubbing alcohol or hydrogen peroxide on the incision (can harm the tissue and slow healing). -Your doctor will give you specific instructions for what type of dressing you will need and how often it will need changed for infection purposes. -No tight clothing on incision. -Do not allow anyone to touch your incision unless they are cleaning, checking, or redressing it (be sure they wash their hands first). -No contact of your incision with pets; avoid sleeping with pets. -Take full course of antibiotic if prescribed for you after surgery- do not stop unless directed to by your physician. You may also be given an antibiotic prior to your surgery to help prevent surgical site infections. -Eat a healthy and varied diet including proteins, fruits, and vegetables to help promote wound healing and keep blood sugars under control if you are diabetic. -Smoking slows the healing process by decreasing the amount of oxygen in your blood that is needed for tissue healing. Try to avoid or stop smoking if possible. LOOK at your incision each morning and each night to check the progress of healing. Some soreness, numbness, itching and/or mild bruising around the incision is normal. Call your doctor if you notice any of the following: -Increased redness or hardening around the incision area. -Increased pain at the incision site. -Incision feels hot to the touch. -Swelling or pulling apart of the incision edges. -Yellow or green drainage or foul odor coming from the incision. -Bleeding from the incision (apply pressure as needed). -Fever higher than 101 degrees Fahrenheit for more than 4 hours. SHOWERING: Your doctor will give you specific instructions, but remember: -Be careful getting into and out of the shower. -Showers should be quick (5 minutes or less). -Use a clean washcloth to gently wash your incision with soap and water and pat the area dry with a clean towel. -No re-using wash cloths or towels; get a fresh one to clean your incision. -Do not soak in the bathtub, go swimming or use a hot tub (Jacuzzi), or perform activities where your incision is submerged in water or exposed to any fluids or substances until instructed by your doctor. -If your have the sticky strips (steri-strips) over the incision, it is OK to shower with them. Do not remove them. Let them fall off on their own. If you have a question, call your doctor s office. Go to the follow-up appointment with your doctor. [facility] [employer] [facility] 09-26-2023 Nurse Note CHG wipes and surgical instructions reviewed with patient and his daughter. Both verbalized understanding. [facility] [employer] [facility] 08-22-2022 Note Chief Complaint consultation for abdominal pain HPI Staff 82 year old male presents on consultation from Linda Bradley for abdominal pain. Reports burning left upper quadrant pain, worse after eating certain foods. States at times, pain can radiate from one side of abdomen to the other directly over umbilicus. Denies nausea or vomiting. Reports intermittent heartburn. Taking Omeprazole 20mg daily for 4-5 years. Denies change in bowel habits. States he had EGD many years ago with stomach inflammation . CT abdomen/pelvis completed 08/08 with cholelithiasis and diverticulosis. History of Present Illness 82 yo male with h/o htn, hyperlipidemia, GERD, BPH, referred for epigastric burning pain, worse after eating; no dysphagia or odynophagia, no early satiety; no N/V; no wt loss; had EGD 2016 with inflammation, reports colonoscopy 9 years ago, reportedly wnl; on Omeprazole 20 mg daily; no previous abdominal operations; recent abd/pelvic ct scan with diverticulosis and possible cholelithiasis; no tobacco use. patient reports pain is rare, only 2 x/year; no bowel changes or blood in stools, no melena. Review of Systems PHQ Score Initial Depression Screen Score: 0 ROS - Provider Constitutional: no fever, no sweats, no weight loss. Eyes: no glasses, no blurred vision, no visual loss. ENMT: no dentures, no hoarseness, no swallowing difficulties, no hearing loss, no ear infection(s), no nose bleeds. Cardiovascular: normal blood pressure, no chest pain, regular heartbeat, no heart murmur. Respiratory: no shortness of breath, no cough, no asthma, no wheezing. Gastrointestinal: no nausea, no vomiting, no diarrhea, no constipation, no blood in stool, no change in bowel habits, no abdominal pain, no hepatitis. Genitourinary: no kidney stones, no urine infection, no dysuria. Musculoskeletal: no pain, no weakness. Skin: no changing moles, no rash, no skin lumps. Neurologic: no seizures, no epilepsy, no headache. Psychiatric: no emotional or psychiatric problem. Heme/Lymph: no bleeding problems, no anemia, no blood clots, no transfusions. Allergy/Immunologic: no swollen lymph nodes/glands, no IV drug abuse. Other: Additional ROS info: Except as noted in the above Review of Systems and in the History of Present Illness, all other systems have been reviewed and are negative or noncontributory. Physical Exam Vitals & Measurements HR: 80(Peripheral) RR: 16 BP: 124/80 HT: 66 in HT: 167.6 cm WT: 90.8 kg WT: 199.76 lb BMI: 32.32 HEENT: normal conjunctiva, sclera clear, no scleral icterus, EOM intact, PERRLA, oral mucosa moist without lesions. Neck: trachea midline, no mass, symmetric, no thyromegaly or nodules, no adenopathy Respiratory: lungs CTA, respirations non labored. Cardiovascular: regular rate and rhythm, no murmur, no pedal edema or varicosities. Gastrointestinal: soft, non distended, no tenderness, no masses, no palpable hernias, diastasis recti no, no hepatosplenomegaly; normal bs Lymphatic: no cervical adenopathy, Musculoskeletal: normal gait, digits and nails without infection, nodes, cyanosis, clubbing. Skin: no rashes, no lesions, no ulcers, no subcutaneous nodules, induration. Psychiatric/Neuro: oriented to time, place, person, judgement normal, affect appropriate for age, insight intact, no focal deficits. Tests: x-rays reviewed, review of old records completed, Assessment/Plan 1. Epigastric pain (R10.13: Epigastric pain) controlled with PPI; rare episodes of pain if eats the wrong foods; no need for endoscopy at this time; will obtain EGD and colonoscopy reports. 2. Gastroesophageal reflux disease (K21.9: Gastro-esophageal reflux disease without esophagitis) see # 1 3. Diverticulosis of colon (K57.30: Diverticulosis of large intestine without perforation or abscess without bleeding) see # 1 Follow-up No qualifying data available Problem List/Past Medical History Ongoing Allergic rhinitis BMI 32.0-32.9,adult BPH (benign prostatic hyperplasia) Diverticulosis of colon Epigastric pain Gastroesophageal reflux disease Generalized abdominal pain Hearing deficit HTN (hypertension) Hyperlipidemia Obesity Pre-diabetes Historical No qualifying data Procedure/Surgical History Arthroplasty of right knee, Cataract extraction, EGD - Esophagogastroduodenoscopy. Medications amLODIPine 10 mg Tab, 10 mg= 1 tab(s), Oral, Daily finasteride 5 mg Tab, 5 mg= 1 tab(s), Oral, Daily omeprazole 20 mg Cap-DR, 20 mg= 1 cap(s), Oral, Daily tamsulosin 0.4 mg Cap, 0.4 mg= 1 cap(s), Oral, Daily Allergies No Known Allergies No Known Medication Allergies Social History Alcohol Current, Beer, 1-2 times per week, 08/22/2022 Substance Abuse - Denies Substance Abuse, 08/22/2022 Tobacco Never (less than 100 in lifetime) Tobacco Use:. Never Smokeless Tobacco Use:., 08/22/2022 Family History Family history is unknown Immunizations Vaccine Date Status Comments influenza virus vaccine, inac (more content not included)... [facility] Comment on above: Result Comment: Elec tronically Signed By: KIMMIE POPE, Raoul Ritchie\Date and Time Signed: 08/22/22 16:04 EST 02-26-2022 Evaluation note Encounter Date Diagnosis Assessment Notes Feb, Exposure to COVID-19 virus (ICD-10 - Z20.822) PCR is negative Feb, Viral URI (ICD-10 - J06.9) Symptoms appear viral today. Bacteria infections take several days to weeks of symptoms to develop. Recommend OTC medications such as Mucinex DM, Delsym, Cepocal Lozenges Continue tylenol/ibuprof en for general discomfort. Encourage fluids. Symptoms should improve within the next 10-14 days. If no improvement of symptoms in 14 days call primary care provider to discuss antibiotic therapy [facility] Other Evaluation + Plan note No data available for this section General Surgery [facility] Evaluation note* Diagnosis Primary osteoarthritis of left knee- Primary Status post left knee replacement Acute pain of left knee Presence of artificial knee joint, left documented in this encounter [facility]* Diagnosis Prophylactic antibiotic- Primary Encounter for long-term (current) use of antibiotics documented in this encounter [facility]* Diagnosis Primary osteoarthritis of left knee- Primary Status post left knee replacement Acute pain of left knee documented in this encounter [facility]* Diagnosis Primary osteoarthritis of left knee- Primary Status post left knee replacement Acute pain of left knee documented in this encounter [facility]* Diagnosis Status post total left knee replacement- Primary documented in this encounter [facility]* Diagnosis Essential hypertension (CMS/HCC)- Primary Unspecified essential hypertension Obesity (BMI 30-39.9) Type 2 diabetes mellitus without complication, without long-term current use of insulin (CMS/HCC) Pre-op testing Unspecified pre-operative examination Essential hypertension (CMS/HCC)- Primary Unspecified essential hypertension Obesity (BMI 30-39.9) Type 2 diabetes mellitus without complication, without long-term current use of insulin (CMS/HCC) Pre-operative clearance Unspecified pre-operative examination Encounter for subsequent annual wellness visit (AWV) in Medicare patient- Primary Essential hypertension (CMS/HCC) Unspecified essential hypertension Type 2 diabetes mellitus without complication, without long-term current use of insulin (CMS/HCC) Obesity (BMI 30-39.9) Essential hypertension (CMS/HCC)- Primary Unspecified essential hypertension Gastroesophageal reflux disease, unspecified whether esophagitis present Stage 3a chronic kidney disease (HCC) (CMS/HCC) Type 2 diabetes mellitus without complication, without long-term current use of insulin (CMS/HCC) Type 2 diabetes mellitus with stage 3a chronic kidney disease, without long-term current use of insulin (HCC) (CMS/HCC) Screening for prostate cancer Special screening for malignant neoplasm of prostate Obesity (BMI 30-39.9) documented in this encounter [facility] note* Diagnosis Essential hypertension (CMS/HCC) Unspecified essential hypertension documented in this encounter [facility]* Diagnosis Essential hypertension (CMS/HCC)- Primary Unspecified essential hypertension Obesity (BMI 30-39.9) Type 2 diabetes mellitus without complication, without long-term current use of insulin (CMS/HCC) Pre-op testing Unspecified pre-operative examination Essential hypertension (CMS/HCC)- Primary Unspecified essential hypertension Obesity (BMI 30-39.9) Type 2 diabetes mellitus without complication, without long-term current use of insulin (CMS/HCC) Pre-operative clearance Unspecified pre-operative examination Encounter for subsequent annual wellness visit (AWV) in Medicare patient- Primary Essential hypertension (CMS/HCC) Unspecified essential hypertension Type 2 diabetes mellitus without complication, without long-term current use of insulin (CMS/HCC) Obesity (BMI 30-39.9) Essential hypertension (CMS/HCC)- Primary Unspecified essential hypertension Gastroesophageal reflux disease, unspecified whether esophagitis present Stage 3a chronic kidney disease (HCC) (CMS/HCC) Type 2 diabetes mellitus without complication, without long-term current use of insulin (CMS/HCC) Type 2 diabetes mellitus with stage 3a chronic kidney disease, without long-term current use of insulin (HCC) (CMS/HCC) Screening for prostate cancer Special screening for malignant neoplasm of prostate Obesity (BMI 30-39.9) Essential hypertension (CMS/HCC) Unspecified essential hypertension documented in this encounter [facility] note* Diagnosis Essential hypertension (CMS/HCC)- Primary Unspecified essential hypertension Obesity (BMI 30-39.9) Type 2 diabetes mellitus without complication, without long-term current use of insulin (CMS/HCC) Pre-op testing Unspecified pre-operative examination Essential hypertension (CMS/HCC)- Primary Unspecified essential hypertension Obesity (BMI 30-39.9) Type 2 diabetes mellitus without complication, without long-term current use of insulin (CMS/HCC) Pre-operative clearance Unspecified pre-operative examination Encounter for subsequent annual wellness visit (AWV) in Medicare patient- Primary Essential hypertension (CMS/HCC) Unspecified essential hypertension Type 2 diabetes mellitus without complication, without long-term current use of insulin (CMS/HCC) Obesity (BMI 30-39.9) Essential hypertension (CMS/HCC)- Primary Unspecified essential hypertension Gastroesophageal reflux disease, unspecified whether esophagitis present Stage 3a chronic kidney disease (HCC) (CMS/HCC) Type 2 diabetes mellitus without complication, without long-term current use of insulin (CMS/HCC) Type 2 diabetes mellitus with stage 3a chronic kidney disease, without long-term current use of insulin (HCC) (CMS/HCC) Screening for prostate cancer Special screening for malignant neoplasm of prostate Obesity (BMI 30-39.9) Bronchitis- Primary Bronchitis, not specified as acute or chronic Obesity (BMI 30-39.9) Essential hypertension (CMS/HCC) Unspecified essential hypertension Gastroesophageal reflux disease, unspecified whether esophagitis present documented in this encounter [facility] note* Diagnosis Essential hypertension (CMS/HCC)- Primary Unspecified essential hypertension Obesity (BMI 30-39.9) Type 2 diabetes mellitus without complication, without long-term current use of insulin (CMS/HCC) Pre-op testing Unspecified pre-operative examination Essential hypertension (CMS/HCC)- Primary Unspecified essential hypertension Obesity (BMI 30-39.9) Type 2 diabetes mellitus without complication, without long-term current use of insulin (CMS/HCC) Pre-operative clearance Unspecified pre-operative examination Encounter for subsequent annual wellness visit (AWV) in Medicare patient- Primary Essential hypertension (CMS/HCC) Unspecified essential hypertension Type 2 diabetes mellitus without complication, without long-term current use of insulin (CMS/HCC) Obesity (BMI 30-39.9) Essential hypertension (CMS/HCC)- Primary Unspecified essential hypertension Gastroesophageal reflux disease, unspecified whether esophagitis present Stage 3a chronic kidney disease (HCC) (CMS/HCC) Type 2 diabetes mellitus without complication, without long-term current use of insulin (CMS/HCC) Type 2 diabetes mellitus with stage 3a chronic kidney disease, without long-term current use of insulin (HCC) (CMS/HCC) Screening for prostate cancer Special screening for malignant neoplasm of prostate Obesity (BMI 30-39.9) Bronchitis- Primary Bronchitis, not specified as acute or chronic Obesity (BMI 30-39.9) Essential hypertension (CMS/HCC) Unspecified essential hypertension Gastroesophageal reflux disease, unspecified whether esophagitis present Type 2 diabetes mellitus with stage 3a chronic kidney disease, without long-term current use of insulin (HCC) (CMS/HCC)- Primary documented in this encounter [facility] HealthcareEvaluation note* Diagnosis Essential hypertension (CMS/HCC)- Primary Unspecified essential hypertension Obesity (BMI 30-39.9) Type 2 diabetes mellitus without complication, without long-term current use of insulin (CMS/HCC) Pre-op testing Unspecified pre-operative examination Essential hypertension (CMS/HCC)- Primary Unspecified essential hypertension Obesity (BMI 30-39.9) Type 2 diabetes mellitus without complication, without long-term current use of insulin (CMS/HCC) Pre-operative clearance Unspecified pre-operative examination Encounter for subsequent annual wellness visit (AWV) in Medicare patient- Primary Essential hypertension (CMS/HCC) Unspecified essential hypertension Type 2 diabetes mellitus without complication, without long-term current use of insulin (CMS/HCC) Obesity (BMI 30-39.9) Essential hypertension (CMS/HCC)- Primary Unspecified essential hypertension Gastroesophageal reflux disease, unspecified whether esophagitis present Stage 3a chronic kidney disease (HCC) (CMS/HCC) Type 2 diabetes mellitus without complication, without long-term current use of insulin (CMS/HCC) Type 2 diabetes mellitus with stage 3a chronic kidney disease, without long-term current use of insulin (HCC) (CMS/HCC) Screening for prostate cancer Special screening for malignant neoplasm of prostate Obesity (BMI 30-39.9) Bronchitis- Primary Bronchitis, not specified as acute or chronic Obesity (BMI 30-39.9) Essential hypertension (CMS/HCC) Unspecified essential hypertension Gastroesophageal reflux disease, unspecified whether esophagitis present Benign prostatic hyperplasia, unspecified whether lower urinary tract symptoms present- Primary Essential hypertension (CMS/HCC) Unspecified essential hypertension 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 documented in this encounter [facility] note* Diagnosis Essential hypertension (CMS/HCC)- Primary Unspecified essential hypertension Obesity (BMI 30-39.9) Type 2 diabetes mellitus without complication, without long-term current use of insulin (CMS/HCC) Pre-op testing Unspecified pre-operative examination Essential hypertension (CMS/HCC)- Primary Unspecified essential hypertension Obesity (BMI 30-39.9) Type 2 diabetes mellitus without complication, without long-term current use of insulin (CMS/HCC) Pre-operative clearance Unspecified pre-operative examination Encounter for subsequent annual wellness visit (AWV) in Medicare patient- Primary Essential hypertension (CMS/HCC) Unspecified essential hypertension Type 2 diabetes mellitus without complication, without long-term current use of insulin (CMS/HCC) Obesity (BMI 30-39.9) Essential hypertension (CMS/HCC)- Primary Unspecified essential hypertension Gastroesophageal reflux disease, unspecified whether esophagitis present Stage 3a chronic kidney disease (HCC) (CMS/HCC) Type 2 diabetes mellitus without complication, without long-term current use of insulin (CMS/HCC) Type 2 diabetes mellitus with stage 3a chronic kidney disease, without long-term current use of insulin (HCC) (CMS/HCC) Screening for prostate cancer Special screening for malignant neoplasm of prostate Obesity (BMI 30-39.9) Bronchitis- Primary Bronchitis, not specified as acute or chronic Obesity (BMI 30-39.9) Essential hypertension (CMS/HCC) Unspecified essential hypertension Gastroesophageal reflux disease, unspecified whether esophagitis present 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 documented in this encounter [facility] note* Diagnosis Preop examination- Primary Unspecified pre-operative examination Hypertension, unspecified type Preop examination Unspecified pre-operative examination Hypertension, unspecified type [facility] Diagnosis Primary osteoarthritis of left knee- Primary [facility] Diagnosis Essential hypertension (CMS/HCC)- Primary Unspecified essential hypertension Obesity (BMI 30-39.9) Type 2 diabetes mellitus without complication, without long-term current use of insulin (CMS/HCC) Pre-op testing Unspecified pre-operative examination Essential hypertension (CMS/HCC)- Primary Unspecified essential hypertension Obesity (BMI 30-39.9) Type 2 diabetes mellitus without complication, without long-term current use of insulin (CMS/HCC) Pre-operative clearance Unspecified pre-operative examination Encounter for subsequent annual wellness visit (AWV) in Medicare patient- Primary Essential hypertension (CMS/HCC) Unspecified essential hypertension Type 2 diabetes mellitus without complication, without long-term current use of insulin (CMS/HCC) Obesity (BMI 30-39.9) Essential hypertension (CMS/HCC)- Primary Unspecified essential hypertension Gastroesophageal reflux disease, unspecified whether esophagitis present Stage 3a chronic kidney disease (HCC) ([facility]/HCC) Type 2 diabetes mellitus without complication, without long-term current use of insulin (CMS/HCC) Type 2 diabetes mellitus with stage 3a chronic kidney disease, without long-term current use of insulin (HCC) ([facility]) Screening for prostate cancer Special screening for malignant neoplasm of prostate Obesity (BMI 30-39.9) Bronchitis- Primary Bronchitis, not specified as acute or chronic Obesity (BMI 30-39.9) Essential hypertension (CMS/HCC) Unspecified essential hypertension Gastroesophageal reflux disease, unspecified whether esophagitis present Diverticulitis- Primary Diverticulitis of colon (without mention of hemorrhage) Obesity (BMI 30-39.9) Class 2 severe obesity due to excess calories with serious comorbidity and body mass index (BMI) of 35.0 to 35.9 in adult (CMS/[facility]) Type 2 diabetes mellitus without complication, without long-term current use of insulin (CMS/HCC) documented in this encounter [facility] HealthcareEvaluation note* Diagnosis Essential hypertension (CMS/HCC)- Primary Unspecified essential hypertension Obesity (BMI 30-39.9) Type 2 diabetes mellitus without complication, without long-term current use of insulin (CMS/HCC) Pre-op testing Unspecified pre-operative examination Essential hypertension (CMS/HCC)- Primary Unspecified essential hypertension Obesity (BMI 30-39.9) Type 2 diabetes mellitus without complication, without long-term current use of insulin (CMS/HCC) Pre-operative clearance Unspecified pre-operative examination Encounter for subsequent annual wellness visit (AWV) in Medicare patient- Primary Essential hypertension (CMS/HCC) Unspecified essential hypertension Type 2 diabetes mellitus without complication, without long-term current use of insulin (CMS/HCC) Obesity (BMI 30-39.9) Essential hypertension (CMS/HCC)- Primary Unspecified essential hypertension Gastroesophageal reflux disease, unspecified whether esophagitis present Stage 3a chronic kidney disease (HCC) (CMS/HCC) Type 2 diabetes mellitus without complication, without long-term current use of insulin (CMS/HCC) Type 2 diabetes mellitus with stage 3a chronic kidney disease, without long-term current use of insulin (HCC) (CMS/HCC) Screening for prostate cancer Special screening for malignant neoplasm of prostate Obesity (BMI 30-39.9) Bronchitis- Primary Bronchitis, not specified as acute or chronic Obesity (BMI 30-39.9) Essential hypertension (CMS/HCC) Unspecified essential hypertension Gastroesophageal reflux disease, unspecified whether esophagitis present Diverticulitis- Primary Diverticulitis of colon (without mention of hemorrhage) Obesity (BMI 30-39.9) Class 2 severe obesity due to excess calories with serious comorbidity and body mass index (BMI) of 35.0 to 35.9 in adult (CMS/HCC) Type 2 diabetes mellitus without complication, without long-term current use of insulin (CMS/HCC) Acute pain of right knee- Primary documented in this encounter [facility] HealthcareEvaluation note* Diagnosis Essential hypertension (CMS/HCC)- Primary Unspecified essential hypertension Obesity (BMI 30-39.9) Type 2 diabetes mellitus without complication, without long-term current use of insulin Pre-op testing Unspecified pre-operative examination Essential hypertension (CMS/HCC)- Primary Unspecified essential hypertension Obesity (BMI 30-39.9) Type 2 diabetes mellitus without complication, without long-term current use of insulin Pre-operative clearance Unspecified pre-operative examination Encounter for subsequent annual wellness visit (AWV) in Medicare patient- Primary Essential hypertension (CMS/HCC) Unspecified essential hypertension Type 2 diabetes mellitus without complication, without long-term current use of insulin Obesity (BMI 30-39.9) Essential hypertension (CMS/HCC)- Primary Unspecified essential hypertension Gastroesophageal reflux disease, unspecified whether esophagitis present Stage 3a chronic kidney disease (HCC) (CMS/HCC) Type 2 diabetes mellitus without complication, without long-term current use of insulin Type 2 diabetes mellitus with stage 3a chronic kidney disease, without long-term current use of insulin (HCC) (CMS/HCC) Screening for prostate cancer Special screening for malignant neoplasm of prostate Obesity (BMI 30-39.9) Bronchitis- Primary Bronchitis, not specified as acute or chronic Obesity (BMI 30-39.9) Essential hypertension ([facility]/HCC) Unspecified essential hypertension Gastroesophageal reflux disease, unspecified whether esophagitis present Diverticulitis- Primary Diverticulitis of colon (without mention of hemorrhage) Obesity (BMI 30-39.9) Class 2 severe obesity due to excess calories with serious comorbidity and body mass index (BMI) of 35.0 to 35.9 in adult ([facility]) Type 2 diabetes mellitus without complication, without long-term current use of insulin Encounter for subsequent annual wellness visit (AWV) in Medicare patient- Primary Essential hypertension ([facility]) Unspecified essential hypertension Gastroesophageal reflux disease, unspecified whether esophagitis present Benign prostatic hyperplasia, unspecified whether lower urinary tract symptoms present Class 2 severe obesity due to excess calories with serious comorbidity and body mass index (BMI) of 35.0 to 35.9 in adult ([facility]) Type 2 diabetes mellitus with stage 3a chronic kidney disease, without long-term current use of insulin (HCC) ([facility]) Chronic cough- Primary Cough documented in this encounter [facility] HealthcareEvaluation note* Diagnosis Essential hypertension ([facility]/HCC)- Primary Unspecified essential hypertension Obesity (BMI 30-39.9) Type 2 diabetes mellitus without complication, without long-term current use of insulin Pre-op testing Unspecified pre-operative examination Essential hypertension ([facility]/HCC)- Primary Unspecified essential hypertension Obesity (BMI 30-39.9) Type 2 diabetes mellitus without complication, without long-term current use of insulin Pre-operative clearance Unspecified pre-operative examination Encounter for subsequent annual wellness visit (AWV) in Medicare patient- Primary Essential hypertension ([facility]/HCC) Unspecified essential hypertension Type 2 diabetes mellitus without complication, without long-term current use of insulin Obesity (BMI 30-39.9) Essential hypertension ([facility]/HCC)- Primary Unspecified essential hypertension Gastroesophageal reflux disease, unspecified whether esophagitis present Stage 3a chronic kidney disease (HCC) ([facility]) Type 2 diabetes mellitus without complication, without long-term current use of insulin Type 2 diabetes mellitus with stage 3a chronic kidney disease, without long-term current use of insulin (HCC) ([facility]) Screening for prostate cancer Special screening for malignant neoplasm of prostate Obesity (BMI 30-39.9) Bronchitis- Primary Bronchitis, not specified as acute or chronic Obesity (BMI 30-39.9) Essential hypertension ([facility]/HCC) Unspecified essential hypertension Gastroesophageal reflux disease, unspecified whether esophagitis present Diverticulitis- Primary Diverticulitis of colon (without mention of hemorrhage) Obesity (BMI 30-39.9) Class 2 severe obesity due to excess calories with serious comorbidity and body mass index (BMI) of 35.0 to 35.9 in adult ([facility]) Type 2 diabetes mellitus without complication, without long-term current use of insulin Encounter for subsequent annual wellness visit (AWV) in Medicare patient- Primary Essential hypertension ([facility]) Unspecified essential hypertension Gastroesophageal reflux disease, unspecified whether esophagitis present Benign prostatic hyperplasia, unspecified whether lower urinary tract symptoms present Class 2 severe obesity due to excess calories with serious comorbidity and body mass index (BMI) of 35.0 to 35.9 in adult ([facility]) Type 2 diabetes mellitus with stage 3a chronic kidney disease, without long-term current use of insulin (HCC) ([facility]) Bronchitis- Primary Bronchitis, not specified as acute or chronic Essential hypertension ([facility]) Unspecified essential hypertension Gastroesophageal reflux disease, unspecified whether esophagitis present documented in this encounter [facility] HealthcareEvaluation note* Diagnosis Essential hypertension ([facility]/HCC)- Primary Unspecified essential hypertension Obesity (BMI 30-39.9) Type 2 diabetes mellitus without complication, without long-term current use of insulin Pre-op testing Unspecified pre-operative examination Essential hypertension ([facility]/HCC)- Primary Unspecified essential hypertension Obesity (BMI 30-39.9) Type 2 diabetes mellitus without complication, without long-term current use of insulin Pre-operative clearance Unspecified pre-operative examination Encounter for subsequent annual wellness visit (AWV) in Medicare patient- Primary Essential hypertension ([facility]/HCC) Unspecified essential hypertension Type 2 diabetes mellitus without complication, without long-term current use of insulin Obesity (BMI 30-39.9) Essential hypertension ([facility]/HCC)- Primary Unspecified essential hypertension Gastroesophageal reflux disease, unspecified whether esophagitis present Stage 3a chronic kidney disease (HCC) ([facility]) Type 2 diabetes mellitus without complication, without long-term current use of insulin Type 2 diabetes mellitus with stage 3a chronic kidney disease, without long-term current use of insulin (HCC) ([facility]) Screening for prostate cancer Special screening for malignant neoplasm of prostate Obesity (BMI 30-39.9) Bronchitis- Primary Bronchitis, not specified as acute or chronic Obesity (BMI 30-39.9) Essential hypertension ([facility]/HCC) Unspecified essential hypertension Gastroesophageal reflux disease, unspecified whether esophagitis present Diverticulitis- Primary Diverticulitis of colon (without mention of hemorrhage) Obesity (BMI 30-39.9) Class 2 severe obesity due to excess calories with serious comorbidity and body mass index (BMI) of 35.0 to 35.9 in adult ([facility]) Type 2 diabetes mellitus without complication, without long-term current use of insulin Encounter for subsequent annual wellness visit (AWV) in Medicare patient- Primary Essential hypertension ([facility]) Unspecified essential hypertension Gastroesophageal reflux disease, unspecified whether esophagitis present Benign prostatic hyperplasia, unspecified whether lower urinary tract symptoms present Class 2 severe obesity due to excess calories with serious comorbidity and body mass index (BMI) of 35.0 to 35.9 in adult ([facility]) Type 2 diabetes mellitus with stage 3a chronic kidney disease, without long-term current use of insulin ([facility]) ([facility]) Bronchitis- Primary Bronchitis, not specified as acute or chronic Essential hypertension ([facility] [facility]) Unspecified essential hypertension Gastroesophageal reflux disease, unspecified whether esophagitis present Moderate persistent asthma without complication ([facility] [place] [facility])- Primary Bronchitis Bronchitis, not specified as acute or chronic Essential hypertension ([facility]) Unspecified essential hypertension Class 2 severe obesity due to excess calories with serious comorbidity and body mass index (BMI) of 35.0 to 35.9 in adult ([facility]) Lumbar back pain Lumbago Allergic rhinitis, unspecified seasonality, unspecified trigger documented in this encounter [facility] HealthcareEvaluation note* Diagnosis Essential hypertension- Primary Unspecified essential hypertension Obesity (BMI 30-39.9) Type 2 diabetes mellitus without complication, without long-term current use of insulin ([facility]) Pre-op testing Unspecified pre-operative examination Essential hypertension- Primary Unspecified essential hypertension Obesity (BMI 30-39.9) Type 2 diabetes mellitus without complication, without long-term current use of insulin ([facility]) Pre-operative clearance Unspecified pre-operative examination Encounter for subsequent annual wellness visit (AWV) in Medicare patient- Primary Essential hypertension Unspecified essential hypertension Type 2 diabetes mellitus without complication, without long-term current use of insulin ([facility]) Obesity (BMI 30-39.9) Essential hypertension- Primary Unspecified essential hypertension Gastroesophageal reflux disease, unspecified whether esophagitis present Stage 3a chronic kidney disease ([facility]) Type 2 diabetes mellitus without complication, without long-term current use of insulin (HCC) Type 2 diabetes mellitus with stage 3a chronic kidney disease, without long-term current use of insulin (HCC) Screening for prostate cancer Special screening for malignant neoplasm of prostate Obesity (BMI 30-39.9) Bronchitis- Primary Bronchitis, not specified as acute or chronic Obesity (BMI 30-39.9) Essential hypertension Unspecified essential hypertension Gastroesophageal reflux disease, unspecified whether esophagitis present Diverticulitis- Primary Diverticulitis of colon (without mention of hemorrhage) Obesity (BMI 30-39.9) Class 2 severe obesity due to excess calories with serious comorbidity and body mass index (BMI) of 35.0 to 35.9 in adult ([facility]) Type 2 diabetes mellitus without complication, without long-term current use of insulin ([facility]) Encounter for subsequent annual wellness visit (AWV) in Medicare patient- Primary Essential hypertension Unspecified essential hypertension Gastroesophageal reflux disease, unspecified whether esophagitis present Benign prostatic hyperplasia, unspecified whether lower urinary tract symptoms present Class 2 severe obesity due to excess calories with serious comorbidity and body mass index (BMI) of 35.0 to 35.9 in adult ([facility]) Type 2 diabetes mellitus with stage 3a chronic kidney disease, without long-term current use of insulin ([facility]) Bronchitis- Primary Bronchitis, not specified as acute or chronic Essential hypertension Unspecified essential hypertension Gastroesophageal reflux disease, unspecified whether esophagitis present Moderate persistent asthma without complication ([facility])- Primary Bronchitis Bronchitis, not specified as acute or chronic Essential hypertension Unspecified essential hypertension Class 2 severe obesity due to excess calories with serious comorbidity and body mass index (BMI) of 35.0 to 35.9 in adult ([facility]) Lumbar back pain Lumbago Allergic rhinitis, unspecified seasonality, unspecified trigger Dyspnea on exertion- Primary Other dyspnea and respiratory abnormality Moderate persistent asthma without complication (HCC) Essential hypertension Unspecified essential hypertension Stage 3a chronic kidney disease ([facility]) Obesity (BMI 30-39.9) Lumbar back pain Lumbago documented in this encounter [facility] HealthcareEvaluation note* Diagnosis Essential hypertension- Primary Unspecified essential hypertension Obesity (BMI 30-39.9) Type 2 diabetes mellitus without complication, without long-term current use of insulin ([facility]) Pre-op testing Unspecified pre-operative examination Essential hypertension- Primary Unspecified essential hypertension Obesity (BMI 30-39.9) Type 2 diabetes mellitus without complication, without long-term current use of insulin (HCC) Pre-operative clearance Unspecified pre-operative examination Encounter for subsequent annual wellness visit (AWV) in Medicare patient- Primary Essential hypertension Unspecified essential hypertension Type 2 diabetes mellitus without complication, without long-term current use of insulin ([facility]) Obesity (BMI 30-39.9) Essential hypertension- Primary Unspecified essential hypertension Gastroesophageal reflux disease, unspecified whether esophagitis present Stage 3a chronic kidney disease ([facility]) Type 2 diabetes mellitus without complication, without long-term current use of insulin ([facility]) Type 2 diabetes mellitus with stage 3a chronic kidney disease, without long-term current use of insulin ([facility]) Screening for prostate cancer Special screening for malignant neoplasm of prostate Obesity (BMI 30-39.9) Bronchitis- Primary Bronchitis, not specified as acute or chronic Obesity (BMI 30-39.9) Essential hypertension Unspecified essential hypertension Gastroesophageal reflux disease, unspecified whether esophagitis present Diverticulitis- Primary Diverticulitis of colon (without mention of hemorrhage) Obesity (BMI 30-39.9) Class 2 severe obesity due to excess calories with serious comorbidity and body mass index (BMI) of 35.0 to 35.9 in adult ([facility]) Type 2 diabetes mellitus without complication, without long-term current use of insulin ([facility]) Encounter for subsequent annual wellness visit (AWV) in Medicare patient- Primary Essential hypertension Unspecified essential hypertension Gastroesophageal reflux disease, unspecified whether esophagitis present Benign prostatic hyperplasia, unspecified whether lower urinary tract symptoms present Class 2 severe obesity due to excess calories with serious comorbidity and body mass index (BMI) of 35.0 to 35.9 in adult ([facility]) Type 2 diabetes mellitus with stage 3a chronic kidney disease, without long-term current use of insulin ([facility]) Bronchitis- Primary Bronchitis, not specified as acute or chronic Essential hypertension Unspecified essential hypertension Gastroesophageal reflux disease, unspecified whether esophagitis present Moderate persistent asthma without complication ([facility])- Primary Bronchitis Bronchitis, not specified as acute or chronic Essential hypertension Unspecified essential hypertension Class 2 severe obesity due to excess calories with serious comorbidity and body mass index (BMI) of 35.0 to 35.9 in adult ([facility]) Lumbar back pain Lumbago Allergic rhinitis, unspecified seasonality, unspecified trigger Dyspnea on exertion- Primary Other dyspnea and respiratory abnormality Moderate persistent asthma without complication ([facility]) Essential hypertension Unspecified essential hypertension Stage 3a chronic kidney disease ([facility]) Obesity (BMI 30-39.9) Lumbar back pain Lumbago Essential hypertension Unspecified essential hypertension Type 2 diabetes mellitus without complication, without long-term current use of insulin (HCC) Gastroesophageal reflux disease, unspecified whether esophagitis present documented in this encounter [facility] HealthcareEvaluation note* Diagnosis Essential hypertension- Primary Unspecified essential hypertension Obesity (BMI 30-39.9) Type 2 diabetes mellitus without complication, without long-term current use of insulin (HCC) Pre-op testing Unspecified pre-operative examination Essential hypertension- Primary Unspecified essential hypertension Obesity (BMI 30-39.9) Type 2 diabetes mellitus without complication, without long-term current use of insulin ([facility]) Pre-operative clearance Unspecified pre-operative examination Encounter for subsequent annual wellness visit (AWV) in Medicare patient- Primary Essential hypertension Unspecified essential hypertension Type 2 diabetes mellitus without complication, without long-term current use of insulin ([facility]) Obesity (BMI 30-39.9) Essential hypertension- Primary Unspecified essential hypertension Gastroesophageal reflux disease, unspecified whether esophagitis present Stage 3a chronic kidney disease ([facility]) Type 2 diabetes mellitus without complication, without long-term current use of insulin ([facility]) Type 2 diabetes mellitus with stage 3a chronic kidney disease, without long-term current use of insulin ([facility]) Screening for prostate cancer Special screening for malignant neoplasm of prostate Obesity (BMI 30-39.9) Bronchitis- Primary Bronchitis, not specified as acute or chronic Obesity (BMI 30-39.9) Essential hypertension Unspecified essential hypertension Gastroesophageal reflux disease, unspecified whether esophagitis present Diverticulitis- Primary Diverticulitis of colon (without mention of hemorrhage) Obesity (BMI 30-39.9) Class 2 severe obesity due to excess calories with serious comorbidity and body mass index (BMI) of 35.0 to 35.9 in adult ([facility]) Type 2 diabetes mellitus without complication, without long-term current use of insulin ([facility]) Encounter for subsequent annual wellness visit (AWV) in Medicare patient- Primary Essential hypertension Unspecified essential hypertension Gastroesophageal reflux disease, unspecified whether esophagitis present Benign prostatic hyperplasia, unspecified whether lower urinary tract symptoms present Class 2 severe obesity due to excess calories with serious comorbidity and body mass index (BMI) of 35.0 to 35.9 in adult ([facility]) Type 2 diabetes mellitus with stage 3a chronic kidney disease, without long-term current use of insulin ([facility]) Bronchitis- Primary Bronchitis, not specified as acute or chronic Essential hypertension Unspecified essential hypertension Gastroesophageal reflux disease, unspecified whether esophagitis present Moderate persistent asthma without complication (HCC)- Primary Bronchitis Bronchitis, not specified as acute or chronic Essential hypertension Unspecified essential hypertension Class 2 severe obesity due to excess calories with serious comorbidity and body mass index (BMI) of 35.0 to 35.9 in adult ([facility]) Lumbar back pain Lumbago Allergic rhinitis, unspecified seasonality, unspecified trigger Dyspnea on exertion- Primary Other dyspnea and respiratory abnormality Moderate persistent asthma without complication (HCC) Essential hypertension Unspecified essential hypertension Stage 3a chronic kidney disease ([facility]) Obesity (BMI 30-39.9) Lumbar back pain Lumbago Benign prostatic hyperplasia, unspecified whether lower urinary tract symptoms present- Primary documented in this encounter [facility] HealthcareEvaluation note* Diagnosis Essential hypertension- Primary Unspecified essential hypertension Obesity (BMI 30-39.9) Type 2 diabetes mellitus without complication, without long-term current use of insulin ([facility]) Pre-op testing Unspecified pre-operative examination Essential hypertension- Primary Unspecified essential hypertension Obesity (BMI 30-39.9) Type 2 diabetes mellitus without complication, without long-term current use of insulin ([facility]) Pre-operative clearance Unspecified pre-operative examination Encounter for subsequent annual wellness visit (AWV) in Medicare patient- Primary Essential hypertension Unspecified essential hypertension Type 2 diabetes mellitus without complication, without long-term current use of insulin ([facility]) Obesity (BMI 30-39.9) Essential hypertension- Primary Unspecified essential hypertension Gastroesophageal reflux disease, unspecified whether esophagitis present Stage 3a chronic kidney disease ([facility] [facility] Type 2 diabetes mellitus without complication, without long-term current use of insulin ([facility]) Type 2 diabetes mellitus with stage 3a chronic kidney disease, without long-term current use of insulin ([facility]) Screening for prostate cancer Special screening for malignant neoplasm of prostate Obesity (BMI 30-39.9) Bronchitis- Primary Bronchitis, not specified as acute or chronic Obesity (BMI 30-39.9) Essential hypertension Unspecified essential hypertension Gastroesophageal reflux disease, unspecified whether esophagitis present Diverticulitis- Primary Diverticulitis of colon (without mention of hemorrhage) Obesity (BMI 30-39.9) Class 2 severe obesity due to excess calories with serious comorbidity and body mass index (BMI) of 35.0 to 35.9 in adult ([facility]) Type 2 diabetes mellitus without complication, without long-term current use of insulin ([facility]) Encounter for subsequent annual wellness visit (AWV) in Medicare patient- Primary Essential hypertension Unspecified essential hypertension Gastroesophageal reflux disease, unspecified whether esophagitis present Benign prostatic hyperplasia, unspecified whether lower urinary tract symptoms present Class 2 severe obesity due to excess calories with serious comorbidity and body mass index (BMI) of 35.0 to 35.9 in adult ([facility]) Type 2 diabetes mellitus with stage 3a chronic kidney disease, without long-term current use of insulin ([facility]) Bronchitis- Primary Bronchitis, not specified as acute or chronic Essential hypertension Unspecified essential hypertension Gastroesophageal reflux disease, unspecified whether esophagitis present Moderate persistent asthma without complication ([facility])- Primary Bronchitis Bronchitis, not specified as acute or chronic Essential hypertension Unspecified essential hypertension Class 2 severe obesity due to excess calories with serious comorbidity and body mass index (BMI) of 35.0 to 35.9 in adult ([facility]) Lumbar back pain Lumbago Allergic rhinitis, unspecified seasonality, unspecified trigger Dyspnea on exertion- Primary Other dyspnea and respiratory abnormality Moderate persistent asthma without complication ([facility]) Essential hypertension Unspecified essential hypertension Stage 3a chronic kidney disease ([facility]) Obesity (BMI 30-39.9) Lumbar back pain Lumbago Essential hypertension- Primary Unspecified essential hypertension Dyspnea on exertion Other dyspnea and respiratory abnormality Abnormal echocardiogram Nonspecific (abnormal) findings on radiological and other examination of other intrathoracic organs documented in this encounter [facility] HealthcareEvaluation note* Diagnosis Essential hypertension- Primary Unspecified essential hypertension Obesity (BMI 30-39.9) Type 2 diabetes mellitus without complication, without long-term current use of insulin ([facility]) Pre-op testing Unspecified pre-operative examination Essential hypertension- Primary Unspecified essential hypertension Obesity (BMI 30-39.9) Type 2 diabetes mellitus without complication, without long-term current use of insulin ([facility]) Pre-operative clearance Unspecified pre-operative examination Encounter for subsequent annual wellness visit (AWV) in Medicare patient- Primary Essential hypertension Unspecified essential hypertension Type 2 diabetes mellitus without complication, without long-term current use of insulin ([facility]) Obesity (BMI 30-39.9) Essential hypertension- Primary Unspecified essential hypertension Gastroesophageal reflux disease, unspecified whether esophagitis present Stage 3a chronic kidney disease ([facility]) Type 2 diabetes mellitus without complication, without long-term current use of insulin (HCC) Type 2 diabetes mellitus with stage 3a chronic kidney disease, without long-term current use of insulin ([facility]) Screening for prostate cancer Special screening for malignant neoplasm of prostate Obesity (BMI 30-39.9) Bronchitis- Primary Bronchitis, not specified as acute or chronic Obesity (BMI 30-39.9) Essential hypertension Unspecified essential hypertension Gastroesophageal reflux disease, unspecified whether esophagitis present Diverticulitis- Primary Diverticulitis of colon (without mention of hemorrhage) Obesity (BMI 30-39.9) Class 2 severe obesity due to excess calories with serious comorbidity and body mass index (BMI) of 35.0 to 35.9 in adult ([facility]) Type 2 diabetes mellitus without complication, without long-term current use of insulin ([facility]) Encounter for subsequent annual wellness visit (AWV) in Medicare patient- Primary Essential hypertension Unspecified essential hypertension Gastroesophageal reflux disease, unspecified whether esophagitis present Benign prostatic hyperplasia, unspecified whether lower urinary tract symptoms present Class 2 severe obesity due to excess calories with serious comorbidity and body mass index (BMI) of 35.0 to 35.9 in adult ([facility]) Type 2 diabetes mellitus with stage 3a chronic kidney disease, without long-term current use of insulin ([facility]) Bronchitis- Primary Bronchitis, not specified as acute or chronic Essential hypertension Unspecified essential hypertension Gastroesophageal reflux disease, unspecified whether esophagitis present Moderate persistent asthma without complication ([facility])- Primary Bronchitis Bronchitis, not specified as acute or chronic Essential hypertension Unspecified essential hypertension Class 2 severe obesity due to excess calories with serious comorbidity and body mass index (BMI) of 35.0 to 35.9 in adult ([facility]) Lumbar back pain Lumbago Allergic rhinitis, unspecified seasonality, unspecified trigger Dyspnea on exertion- Primary Other dyspnea and respiratory abnormality Moderate persistent asthma without complication ([facility]) Essential hypertension Unspecified essential hypertension Stage 3a chronic kidney disease ([facility]) Obesity (BMI 30-39.9) Lumbar back pain Lumbago Benign prostatic hyperplasia, unspecified whether lower urinary tract symptoms present- Primary documented in this encounter [facility]* Diagnosis Essential hypertension- Primary Unspecified essential hypertension Obesity (BMI 30-39.9) Type 2 diabetes mellitus without complication, without long-term current use of insulin ([facility]) Pre-op testing Unspecified pre-operative examination Essential hypertension- Primary Unspecified essential hypertension Obesity (BMI 30-39.9) Type 2 diabetes mellitus without complication, without long-term current use of insulin ([facility]) Pre-operative clearance Unspecified pre-operative examination Encounter for subsequent annual wellness visit (AWV) in Medicare patient- Primary Essential hypertension Unspecified essential hypertension Type 2 diabetes mellitus without complication, without long-term current use of insulin ([facility]) Obesity (BMI 30-39.9) Essential hypertension- Primary Unspecified essential hypertension Gastroesophageal reflux disease, unspecified whether esophagitis present Stage 3a chronic kidney disease ([facility]) Type 2 diabetes mellitus without complication, without long-term current use of insulin ([facility]) Type 2 diabetes mellitus with stage 3a chronic kidney disease, without long-term current use of insulin ([facility]) Screening for prostate cancer Special screening for malignant neoplasm of prostate Obesity (BMI 30-39.9) Bronchitis- Primary Bronchitis, not specified as acute or chronic Obesity (BMI 30-39.9) Essential hypertension Unspecified essential hypertension Gastroesophageal reflux disease, unspecified whether esophagitis present Diverticulitis- Primary Diverticulitis of colon (without mention of hemorrhage) Obesity (BMI 30-39.9) Class 2 severe obesity due to excess calories with serious comorbidity and body mass index (BMI) of 35.0 to 35.9 in adult ([facility]) Type 2 diabetes mellitus without complication, without long-term current use of insulin ([facility]) Encounter for subsequent annual wellness visit (AWV) in Medicare patient- Primary Essential hypertension Unspecified essential hypertension Gastroesophageal reflux disease, unspecified whether esophagitis present Benign prostatic hyperplasia, unspecified whether lower urinary tract symptoms present Class 2 severe obesity due to excess calories with serious comorbidity and body mass index (BMI) of 35.0 to 35.9 in adult ([facility]) Type 2 diabetes mellitus with stage 3a chronic kidney disease, without long-term current use of insulin ([facility]) Bronchitis- Primary Bronchitis, not specified as acute or chronic Essential hypertension Unspecified essential hypertension Gastroesophageal reflux disease, unspecified whether esophagitis present Moderate persistent asthma without complication ([facility])- Primary Bronchitis Bronchitis, not specified as acute or chronic Essential hypertension Unspecified essential hypertension Class 2 severe obesity due to excess calories with serious comorbidity and body mass index (BMI) of 35.0 to 35.9 in adult ([facility]) Lumbar back pain Lumbago Allergic rhinitis, unspecified seasonality, unspecified trigger Dyspnea on exertion- Primary Other dyspnea and respiratory abnormality Moderate persistent asthma without complication ([facility]) Essential hypertension Unspecified essential hypertension Stage 3a chronic kidney disease ([facility]) Obesity (BMI 30-39.9) Lumbar back pain Lumbago Essential hypertension- Primary Unspecified essential hypertension Moderate persistent asthma without complication (HCC) Type 2 diabetes mellitus with stage 3a chronic kidney disease, without long-term current use of insulin (HCC) Class 2 severe obesity due to excess calories with serious comorbidity and body mass index (BMI) of 35.0 to 35.9 in adult ([facility]) Abnormal echocardiogram Nonspecific (abnormal) findings on radiological and other examination of other intrathoracic organs documented in this encounter [facility] Narrative - Reported* Type Description Date Medical History GERD Medical History HTN Medical History arthritis Medical History BPH Surgical History knee replacement [facility] Discharge instructions No data available for this section General Surgery [facility] Discharge instructionsNot on filedocumented [facility] No data available for this section General Surgery Invisible Sentinel Summary Purpose Family History No Family History Records FoundNo Family History Records FoundNo Family History Records FoundNo Family History Records FoundNo Family History Records FoundNo Family History Records Found Advance Directives No Advanced Directives Records FoundNo Advanced Directives Records FoundNo Advanced Directives Records FoundNo Advanced Directives Records FoundNo Advanced Directives Records FoundNo Advanced Directives Records Found Reason for Referral Specialty Diagnoses / Procedures Referred By Cathy vences Referred To Contact Diagnoses Preop examination Hypertension, unspecified type Procedures ECG 12 lead Analilia Martinez DO [address] [place] [address] Referral ID Status Reason Start Date Expiration Date V isits Requested Visits Authorized [id number] Pending Review 09/20/2023 09/19/2024 1 1 Additional Source Comments (unrecognized sect ion and content) No Status Records FoundNo Status Records FoundNo Status Records FoundNo Status Records FoundNo Status Records FoundNo Status Records Found INFORMATION SOURCE (unrecogn ized section and content) DATE CREATED AUTHOR 05/07/2018 [facility] DATE CREATED AUTHOR AUTHOR'S ORGANIZ ATION 08/13/2022 [facility] DATE CREATED AUTHOR AUTHOR'S ORGANIZ ATION 08/27/2022 [facility] DATE CREATED AUTHOR AUTHOR'S ORGANIZ ATION 12/23/2024 [facility] DATE CREATED AUTHOR AUTHOR'S ORGANIZ ATION 05/03/2025 [facility] DATE CREATED AUTHOR AUTHOR'S ORGANIZ ATION 05/05/2025 [facility] EPIC REASON FOR VISIT (unrecogniz ed section and content) Specialty Diagnoses / Procedures Referred By Contac t Referred To Contact Physical Therapy Diagnoses Presence of artificial knee joint, left Procedures RI OFFICE/OUTPATIENT NEW HIGH MDM 60 MINUTES Analilia Martinez, DO [address] [facility] [address] [place] [address] Dorothy Smith, PT [address] [place] [address] Referral ID Status Reason Start Date Expiration Date Visits Requested Visits Authorized [id number] Authorized Specialty Services Required 10/24/2023 04/21/2024 99 99 Reason Comments Follow-up Reason Comments GERD Hypertension Diabetes Reason Onset Date Comments Med Refill 09/14/2024 Reason Comments Hypertension Reason Comments Med Refill Reason Onset Date Comments Med Refill 10/05/2024 Specialty Diagnoses / Procedures Referred By Contac t Referred To Contact Diagnoses 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 Procedures RI TOTAL KNEE ARTHROPLASTY REPLACEMENT TOTAL JOINT KNEE Analilia Martinez, DO [address] [facility] [address] [place] [address] Referral ID Status Reason Start Date Expiration Date Visits Re quested Visits Authorized [id number] 1 1 Reason Onset Date Comments Pain Meds 11/25/2024 Reason Comments Cough Reason Comments Asthma Reason Onset Date Comments Med Refill 04/12/2025 Reason Onset Date Comments Med Refill 04/29/2025 Patient Care team informatio n (unrecognized section and content) Compliance Nurse Relationship Specialty Start Date End Date Zohaib Cross MD [address] [place] [address] PCP - Devoted 06/16/23 Zohaib Cross MD [address] [place] [address] PCP - General Family Medicine 10/24/23 Linda Bradley NP [address] [place] [address] Nurse Practitioner Family Medicine 05/17/23 Compliance Nurse Relationship Specialty Start Date End Date Zohaib Cross MD [address] [place] [address] PCP - [facility]oted 06/16/23 Zohaib Cross MD [address] [place] [address] PCP - General Family Medicine 10/24/23 Linda Bradley NP [address] [place] [address] Nurse Practitioner Family Medicine 05/17/23 Compliance Nurse Relationship Specialty Start Date End Date Zohaib Cross MD [address] [place] [address] PCP - Devoted 06/16/23 Zohaib Cross MD [address] [place] [address] PCP - General Family Medicine 10/24/23 Linda Bradley NP [address] [place] [address] Nurse Practitioner Family Medicine 05/17/23 Compliance Nurse Relationship Specialty Start Date End Date Zohaib Cross MD [address] [place] [address] PCP - Devoted 06/16/23 Zohaib Cross MD [address] [place] [address] PCP - General Family Medicine 10/24/23 Linda Bradley NP [address] [place] [address] Nurse Practitioner Family Medicine 05/17/23 Compliance Nurse Relationship Specialty Start Date End Date Zohaib Cross MD [address] [place] [address] PCP - Devoted 06/16/23 Zohaib Cross MD [address] [place] [address] PCP - General Family Medicine 10/24/23 Linda Bradley NP [address] [place] [address] Nurse Practitioner Family Medicine 05/17/23 Compliance Nurse Relationship Specialty Start Date End Date Zohaib Cross MD [address] [place] [address] PCP - Devoted 09/16/22 Zohaib Cross MD [address] [place] [address] PCP - General Family Medicine 10/24/23 Linda Bradley NP [address] [place] [address] Nurse Practitioner Family Medicine 05/17/23 Compliance Nurse Relationship Specialty Start Date End Date Zohaib Cross MD [address] [place] [address] PCP - Devoted 09/16/22 Zohaib Cross MD [address] [place] [address] PCP - General Family Medicine 10/24/23 Linda Bradley NP [address] [place] [address] Nurse Practitioner Family Medicine 05/17/23 Compliance Nurse Relationship Specialty Start Date End Date Zohaib Cross MD [address] [place] [address] PCP - Devoted 09/16/22 Zohaib Cross MD [address] [place] [address] PCP - General Family Medicine 10/24/23 Linda Bradley NP [address] [place] [address] Nurse Practitioner Family Medicine 05/17/23 Compliance Nurse Relationship Specialty Start Date End Date Zohaib Cross MD [address] [place] [address] PCP - Devoted 09/16/22 Zohaib Cross MD [address] [place] [address] PCP - General Family Medicine 10/24/23 Linda Bradley NP [address] [place] [address] Nurse Practitioner Family Medicine 05/17/23 Compliance Nurse Relationship Specialty Start Date End Date Zohaib Cross MD [address] [place] [address] PCP - Devoted 09/16/22 Zohaib Cross MD [address] [place] [address] PCP - General Family Medicine 10/24/23 Linda Bradley NP [address] [place] [address] Nurse Practitioner Family Medicine 05/17/23 Compliance Nurse Relationship Specialty Start Date End Date Zohaib Cross MD [address] [place] [address] PCP - Devoted 09/16/22 Zohaib Cross MD [address] [place] [address] PCP - General Family Medicine 10/24/23 Linda Bradley NP [address] [place] [address] Nurse Practitioner Family Medicine 05/17/23 Compliance Nurse Relationship Specialty Start Date End Date Zohaib Cross MD [address] [place] [address] PCP - Devoted 09/16/22 Zohaib Cross MD [address] [place] [address] PCP - General Family Medicine 10/24/23 Linda Bradley NP [address] [place] [address] Nurse Practitioner Family Medicine 05/17/23 Compliance Nurse Relationship Specialty Start Date End Date Zohaib Cross MD [address] [place] [address] PCP - Devoted 09/16/22 Zohaib Cross MD [address] [place] [address] PCP - General Family Medicine 10/24/23 Linda Bradley NP [address] [place] [address] Nurse Practitioner Family Medicine 05/17/23 Compliance Nurse Relationship Specialty Start Date End Date Zohaib Cross MD [address] [place] [address] PCP - Devoted 09/16/22 Zohaib Cross MD [address] [place] [address] PCP - General Family Medicine 10/24/23 Linda Bradley NP [address] [place] [address] Nurse Practitioner Family Medicine 05/17/23 Compliance Nurse Relationship Specialty Start Date End Date Linda Bradley, SALES TRAINER-GENERAL LEDGER ACCOUNTANT [address] [place] [address] PCP - General Nurse Practitioner 03/06/22 Compliance Nurse Relationship Specialty Start Date End Date Linda Bradley, SALES TRAINER-[facility] [address] [place] [address] PCP - General Nurse Practitioner 03/06/22 Compliance Nurse Relationship Specialty Start Date End Date Zohaib Cross MD [address] [place] [address] PCP - Devoted 09/16/22 Zohaib Cross MD [address] [place] [address] PCP - General Family Medicine 10/24/23 Linda Bradley NP [address] [place] [address] Nurse Practitioner Family Medicine 05/17/23 Compliance Nurse Relationship Specialty Start Date End Date Zohaib Cross MD [address] [place] [address] PCP - Devoted 09/16/22 Zohaib Cross MD [address] [place] [address] PCP - General Family Medicine 10/24/23 Linda Bradley NP [address] [place] [address] Nurse Practitioner Family Medicine 05/17/23 Compliance Nurse Relationship Specialty Start Date End Date Zohaib Cross MD [address] [place] [address] PCP - Devoted 09/16/22 Zohaib Cross MD [address] [place] [address] PCP - General Family Medicine 10/24/23 Linad Bradley NP [address] [place] [address] Nurse Practitioner Family Medicine 05/17/23 Compliance Nurse Relationship Specialty Start Date End Date Zohaib Cross MD [address] [place] [address] PCP - Devoted 09/16/22 Zohaib Cross MD [address] [place] [address] PCP - General Family Medicine 10/24/23 Linda Bradley NP [address] [place] [address] Nurse Practitioner Family Medicine 05/17/23 Compliance Nurse Relationship Specialty Start Date End Date Zohaib Cross MD [address] [place] [address] PCP - Devoted 09/16/22 Zohaib Cross MD [address] [place] [address] PCP - General Family Medicine 10/24/23 Linda Bradley NP [address] [place] [address] Nurse Practitioner Family Medicine 05/17/23 Compliance Nurse Relationship Specialty Start Date End Date Zohaib Cross MD [address] [place] [address] PCP - Devoted 09/16/22 Zohaib Cross MD [address] [place] [address] PCP - General Family Medicine 10/24/23 Linda Bradley PIPELINES MANAGER [address] [place] [address] Nurse Practitioner Family Medicine 05/17/23 Compliance Nurse Relationship Specialty Start Date End Date Zohaib Cross MD [address] [place] [address] PCP - Devoted 09/16/22 Zohaib Cross MD [address] [place] [address] PCP - General Family Medicine 10/24/23 Linda Bradley NP [address] [place] [address] Nurse Practitioner Family Medicine 05/17/23 Compliance Nurse Relationship Specialty Start Date End Date Zohaib Cross MD [address] [place] [address] PCP - Devoted 09/16/22 Zohaib Cross MD [address] [place] [address] PCP - General Family Medicine 10/24/23 Linda Bradley NP [address] [place] [address] Nurse Practitioner Family Medicine 05/17/23 Compliance Nurse Relationship Specialty Start Date End Date Zohaib Cross MD [address] [place] [address] PCP - Devoted 09/16/22 Zohaib Cross MD [address] [place] [address] PCP - General Family Medicine 10/24/23 Linda Bradley NP [address] [place] [address] Nurse Practitioner Family Medicine 05/17/23 Compliance Nurse Relationship Specialty Start Date End Date Zohaib Cross MD [address] [place] [address] PCP - Devoted 09/16/22 Zohaib Cross MD [address] [place] [address] PCP - General Family Medicine 10/24/23 Linda Bradley NP [address] [place] [address] Nurse Practitioner Family Medicine 05/17/23 Compliance Nurse Relationship Specialty Start Date End Date Zohaib Cross MD [address] [place] [address] PCP - Devoted 09/16/22 Zohaib Cross MD [address] [place] [address] PCP - General Family Medicine 10/24/23 Linda Bradley NP [address] [place] [address] Nurse Practitioner Family Medicine 05/17/23 Compliance Nurse Relationship Specialty Start Date End Date Zohaib Cross MD [address] [place] [address] PCP - Devoted 09/16/22 Zohaib Cross MD [address] [place] [address] PCP - General Family Medicine 10/24/23 Linda Bradley NP [address] [place] [address] Nurse Practitioner Family Medicine 05/17/23 Compliance Nurse Relationship Specialty Start Date End Date Zohaib Cross MD [address] [place] [address] PCP - Devoted 09/16/22 Zohaib Cross MD [address] [place] [address] PCP - General Family Medicine 10/24/23 Linda Bradley NP [address] [place] [address] Nurse Practitioner Family Medicine 05/17/23 Compliance Nurse Relationship Specialty Start Date End Date Zohaib Cross MD [address] [place] [address] PCP - Devoted 09/16/22 Zohaib Cross MD [address] [place] [address] PCP - General Family Medicine 10/24/23 Linda Bradley NP [address] [place] [address] Nurse Practitioner Family Medicine 05/17/23 Compliance Nurse Relationship Specialty Start Date End Date Zohaib Cross MD [address] [place] [address] PCP - Devoted 09/16/22 Zohaib Cross MD [address] [place] [phone] PCP - General Family Medicine 10/24/23 Linda Bradley NP [address] [place] [phone] Nurse Practitioner Family Medicine 05/17/23 Compliance Nurse Relationship Specialty Start Date End Date Zohaib Cross MD [address] [place] [phone] PCP - Devoted 09/16/22 Zohaib Cross MD [address] [place] [address] PCP - General [facility] Medicine 10/24/23 Linda Bradley NP [address] [place] [phone] Nurse Practitioner [facility] Medicine 05/17/23 Scheduled Active and Recently Administ ered Medications (unrecognized section and content) Medication Order 10/21/2023 10/22/2023 10/23/2023 acetaminophen (TYLENOL EXTRA STRENGTH) tablet 1,000 mg 1,000 mg, oral, Every 6 hours scheduled, First dose on Sat10/23/23 at 1415, Start 6 hours after the pre-op dose. 1415 (Due) acetaminophen (TYLENOL) tablet 650 mg (COMPLETED) 650 mg, oral, Once, On Sat10/23/23 at 0645, For 1 dose, Pre-op 0659 (Given - Provid er: Martina Canales RN) amLODIPine (NORVASC) tablet 10 mg 10 mg, oral, Daily, First dose on Sat10/23/23 at 1415, Look-alike/sound-alike medication - verify indication for use. Avoid grapefruit juice. 1415 (Due) ceFAZolin (ANCEF) IVPB 2000 mg/50 mL in iso-osmotic dextrose (40 mg/mL premix) (COMPLETED) 2,000 mg, intravenous, at 100 mL/hr, Administer over 30 Minutes, Once, On Sat10/23/23 at 0645, For 1 dose, Pre-op, Look-alike/sound-alike medication - verify indication for use., Indication: Surgical prophylaxis 0753 (Given - Provid er: Fang Cuevas, SALES TRAINER-OUTDOOR LANDSCAPE ARCHITECT) ceFAZolin (ANCEF) IVPB 2000 mg/50 mL in iso-osmotic dextrose (40 mg/mL premix) 2,000 mg, intravenous, at 100 mL/hr, Administer over 30 Minutes, Every 8 hours, First dose on Sat10/23/23 at 1400, For 2 doses, Pharmacy to adjust per renal function; Start 8 hours after pre-op dose for total of 3 doses including pre-op dose. Infuse all doses within 24 hours of initial dose. For patient less than 120 kg. Look-alike/sound-alike medication - verify indication for use., Indication: Surgical prophylaxis 1358 (New Bag - Prov ider: Franco Sosa, HERLINDA)1428 (Due: Stop Bag - Provider: Franco Sosa RN) celecoxib (CeleBREX) capsule 200 mg (COMPLETED) 200 mg, oral, Once, On Sat10/23/23 at 0645, For 1 dose, Pre-op, Look-alike/sound-alike medication - verify indication for use. 0659 (Given - Provid er: Martina Canales RN) celecoxib (CeleBREX) capsule 200 mg 200 mg, oral, 2 times daily, First dose on Sat10/23/23 at 2100, Use with caution for patients with renal insufficiency or greater than 80 years of age. Start 12 hours after the Pre-op dose; IF already receiving ketorolac [TORADOL], then start 12 hours after last ketorolac [TORADOL] dose. Look-alike/sound-alike medication - verify indication for use. finasteride (PROSCAR) tablet 5 mg 5 mg, oral, Daily, First dose on Sat10/23/23 at 1415, Look-alike/sound-alike medication - verify indication for use. Crushed or broken tablets should not be handled by a woman who is or may become because of the potential for absorption and the subsequent potential risk to fetus. 1415 (Due) lisinopriL (PRINIVIL,ZESTRIL) tablet 20 mg 20 mg, oral, Daily, First dose on Sat10/23/23 at 1415, Look-alike/sound-alike medication - verify indication for use. 1415 (Due) midazolam (VERSED) injection 2 mg (COMPLETED) 2 mg, intravenous, Once, On Sat10/23/23 at 0645, For 1 dose, Pre-op, Indication: Other, Indication: pre procedure block 0645 (Not Given - Pr ovider: Martina Canales RN - Reason: Other - Comment: OUTDOOR LANDSCAPE ARCHITECT will give dose they pulled)0716 (Given - Provider: DENNIS Dennis)0719 (Given - Provider: DENNIS Dennis) pantoprazole (PROTONIX) EC tablet 40 mg 40 mg, oral, Daily, First dose on Sat10/23/23 at 1415, Look-alike/sound-alike medication - verify indication for use. If patient is receiving enteral feeding, consider alternative PPI or continue IV pantoprazole until the delayed-release tablet can be taken orally, Indication: Stress Ulcer Prophylaxis (Contraindication to H2RA) 1415 (Due) tamsulosin (FLOMAX) 24 hr capsule 0.4 mg 0.4 mg, oral, Nightly, First dose on Sat10/23/23 at 2200, Do not crush or chew. tranexamic acid (LYSTEDA) tablet 1,950 mg (COMPLETED) 1,950 mg, oral, Once, On Sat10/23/23 at 0645, For 1 dose, Pre-op 0659 (Given - Provid er: Martina Canales RN) Continuous Medication Order 10/21/2023 10/22/2023 10/23/2023 lactated ringers infusion (CANCELED) 100 mL/hr, intravenous, Continuous, Starting on Sat10/23/23 at 0645, Pre-op, If fluid restriction is not indicated, infuse at a rate up to 5 mL/kg/hr not to exceed the total replacement volume (2 ml/kg/hr) from the time NPO status was initiated. 0703 (New Bag - Prov ider: Martina Canales RN)0740 (Continued by Anesthesia - Provider: DENNIS Dennis)0834 (Rate/Dose Change - Provider: DENNIS Dennis)0843 (Paused - Provider: DENNIS Dennis - Comment: Switch to gravity)0844 (New Bag - Provider: DENNIS Dennis)0944 (Anesthesia Volume Adjustment - Provider: DENNIS Dennis) lactated ringers infusion 125 mL/hr, intravenous, Continuous, Starting on Sat10/23/23 at 1415 1415 (Due) PRN Medication Order 10/21/2023 10/22/2023 10/23/2023 bacitracin ointment (CANCELED) As needed, Starting on Sat10/23/23 at 0952, Intra-op 0952 (Given - Provid er: Analilia Martinez DO) HYDROmorphone (PF) (DILAUDID) injection 0.5 mg 0.5 mg, intravenous, Every 5 min PRN, pain scale 1-6, Starting on Sat10/23/23 at 1003, PACU (only), If IV push, administer over over 2 to 3 minutes. Look-alike/sound-alike medication - verify indication for use. HYDROmorphone (PF) (DILAUDID) injection 0.5 mg 0.5 mg, intravenous, Every 5 min PRN, severe pain - pain scale 7-10, Starting on Sat10/23/23 at 1003, PACU (only), If IV push, administer over over 2 to 3 minutes. Look-alike/sound-alike medication - verify indication for use. naloxone (NARCAN) injection 0.1 mg 0.1 mg, intravenous, As needed, respiratory depression, Starting on Sat10/23/23 at 1003, For 4 doses, PACU (only), Maximum dose: 0.4 mg Look-alike/sound-alike medication - verify indication for use. ondansetron (PF) (ZOFRAN) injection 4 mg 4 mg, intravenous, Once as needed, nausea, Starting on Sat10/23/23 at 1003, For 1 dose, PACU (only), Administer over 2-5 minutes. ondansetron (PF) (ZOFRAN) injection 4 mg 4 mg, intravenous, Every 6 hours PRN, nausea, vomiting, Starting on Sat10/23/23 at 1402, Administer over 2-5 minutes. oxyCODONE (ROXICODONE) immediate release tablet 10 mg(Linked Group 1) 10 mg, oral, Every 3 hours PRN, severe pain - pain scale 7-10, Starting on Sat10/23/23 at 1402, The oral route is preferred for patients tolerating oral intake without nausea and vomiting. IV pain medications should be used if the oral route is ineffective for symptom control or if patient unable to take medications orally. Look-alike/sound-alike medication - verify indication for use. Immediate release. oxyCODONE (ROXICODONE) immediate release tablet 5 mg(Linked Group 1) 5 mg, oral, Every 3 hours PRN, moderate pain - pain scale 4-6, Starting on Sat10/23/23 at 1402, The oral route is preferred for patients tolerating oral intake without nausea and vomiting. IV pain medications should be used if the oral route is ineffective for symptom control or if patient unable to take medications orally. Look-alike/sound-alike medication - verify indication for use. Immediate release. Linked Groups Order Group 1: oxyCODONE (ROXICODONE) immediate release tablet 5 mgJump to med 5 mg, oral, Every 3 hours PRN, moderate pain - pain scale 4-6, Starting on Sat10/23/23 at 1402, The oral route is preferred for patients tolerating oral intake without nausea and vomiting. IV pain medications should be used if the oral route is ineffective for symptom control or if patient unable to take medications orally. Look-alike/sound-alike medication - verify indication for use. Immediate release. Or oxyCODONE (ROXICODONE) immediate release tablet 10 mgJump to med 10 mg, oral, Every 3 hours PRN, severe pain - pain scale 7-10, Starting on Sat10/23/23 at 1402, The oral route is preferred for patients tolerating oral intake without nausea and vomiting. IV pain medications should be used if the oral route is ineffective for symptom control or if patient unable to take medications orally. Look-alike/sound-alike medication - verify indication for use. Immediate release. FOR RECORDS PERTAINING TO PATIENTS WHO ARE OR HAVE BEEN ENROLLED IN A CHEMICAL DEPENDENCY/SUBSTANCEABUSE PROGRAM, SOME INFORMATION MAY BE OMITTED. This clinical summary was aggregated from multiple sources. Caution should be exercised in using it in the provision of clinical care. This summary normalizes information from multiple sources, and as a consequence, information in this document may materially change the coding, format and clinical context of patient data. In addition, data may be omitted in some cases. CLINICAL DECISIONS SHOULD BE BASED ON THE PRIMARY CLINICAL RECORDS. [facility] [employer], [facility]. provides no warranty or guarantee of the accuracy or completeness of information in this document.
== END 2025-06-02 16:35 | disposition home or self-care (01) ==
PROVIDERS: PCP Nurse Practitioner; Visit Provider Internal Medicine Cardiovascular Disease
DX: I77.89 Other specified disorders of arteries and arterioles (principal)
CPT/HCPCS: 36415; 80048

== ENCOUNTER 2025-06-07 13:11 | Outpatient (OUT) | payer OTHER, SELFPAY ==
--- OUTSIDE RECORDS SUMMARY | 2025-06-07 13:14 | XMS_ITS | Encounter Summary ---
Author Organization [facility] Address [address] [place] [address] Care Team Providers Care Tractor Distributor Name Role Phone Linda Bradley REFRIGERATING ENGINEER Unavailable [phone] Zohaib Cross MD Unavailable Zohaib Cross MD Primary Care Provider [phone] Encounter Details Date Type Department Care Team (Late st Contact Info) Description 09/15/2023 Abstract [facility] [address] [place] [address] Linda Bradley, REFRIGERATING ENGINEER [address] [place] [address] Social History Tobacco Use Types Packs/Day Years [...] ROGERS Do you prefer to stay at [facility], rather than going out and doing new [...] on filedocumented in this encounter Care Teams Tractor Distributor Relationship Specialty Start Date End Date Zohaib Cross MD [address] [place] [phone] PCP - Devoted 09/16/22 Zohaib Cross MD [address] [place] [address] PCP - General Family Medicine 10/24/23 Linda Bradley NP Nurse Practitioner Family Medicine 05/17/23 documented as of this encounter
--- OUTSIDE RECORDS SUMMARY | 2025-06-07 13:14 | XMS_ITS | Patient Health Record ---
Author Organization [facility] Address [address] [place], [place] [id number] Care Team Providers Care Vehicle Service Agent Name Role Phone Leela Weiss Unavailable [phone] Allergies No Known Allergies Reason For Referral No Information Immunizations Vaccine Route Administration Date Status Comme nts *Pneumococcal polysaccharide [id number] IM Intramuscular 05/17/2020 Administered Status:Complet e ,Reason:Given or N/A Social History Sex Assigned At : Social History Observation Description Sex Assigned At Male Problems Problem Type SNOMED Code ICD Code Onset Dates Problem Status W/U Status Risk Notes Problem Essential hypertension (85953692) Essential (primary) hypertension (I10) Active confirmed Comment:Good control, same regimen,Descript ion:Essential hypertension Problem Acute bronchitis due to mycoplasma pneumoniae (008837539) Acute bronchitis due to Mycoplasma pneumoniae (J20.0) Active confirmed Comment:Rx prednisone + doxycycline, Problem Allergic rhinitis caused by pollen (disorder) (81032089) Allergic rhinitis due to pollen (J30.1) Active confirmed Comment:Start Singulair (may need prior Auth, but has failed at least 3 antihistamines)+ Flonase., Problem Heartburn (04271382) Heartburn (R12) Active confirmed Comment:needs gi referral, last saw Dr krysta alonzo. cannot remember, may be established pt. Dr. Valero per chart. Pt to try tums to see if will relieve,Story:no t well controlled with ranitadine and nexium, Problem Vaccination given (632530058) Encounter for immunization (Z23) Active confirmed Problem Benign prostatic hypertrophy without outflow obstruction (867873808) BPH (benign prostatic hypertrophy) (600.00) (600.00) Active confirmed Comment:Make follow up appt. to discuss other Rx options., Problem Proteinuria (99791580) Abnormal presence of protein in urine (R80.9) 2007 Active confirmed Description:Prot einuria Problem Osteoarthritis of knee (220758778) Arthritis of knee, degenerative (M17.10) Active confirmed Comment:Moderat e ly severe. Encouraged him to keep walking as he is able. Handicapped Rx recommendation, 5 yrs, given. 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) Active confirmed Problem Gastroesophageal reflux disease (205327336) GERD (gastroesophage al reflux disease) (K21.9) Active confirmed Comment:Good control, same regimen., Problem Acute maxillary sinusitis (45710428) Acute maxillary antritis (J01.00) Active confirmed Comment:Rx amoxicillin, Afrin spray.,Descripti on:Acute maxillary sinusitis Problem Acute sinusitis (07863797) Sinusitis, acute (J01.90) Active confirmed Comment:-pt has [...] (600.0) (600.0) 2007 Active confirmed Problem Hyperlipidemia (06038816) Hyperlipidemia (E78.5) Active confirmed Comment:not taking a statiin - no mi , no strokes, Problem Depression screening (632190581) Screening for depression (Z13.31) Active confirmed Description:Dep r ession screening Problem Actinic keratosis () Keratosis, actinic (702.0) (702.0) 2007 Active confirmed Problem Fatigue (44434204) Fatigue (R53.83) Active confirmed Comment:Likely related to poor sleep due to BPH., Problem Osteoarthritis of knee (691337189) OA (osteoarthritis ) of knee (M17.9) Active confirmed Comment:Bilat. Stable, but painful. Recommend LOSING 10 lbs, first, if not enough benefit, then will REFER to Ortho for hyaluronate gel injections., Problem Depression screening (768458491) Depression screening (Z13.31) Active confirmed Problem Hypertension (49051515) Hypertension (I10) Active confirmed Comment:Good control, SAME regimen., Problem Hyperlipidemia (52840120) Hyperlipidemia NEC/NOS (272.4) (272.4) 2007 Active confirmed Problem Acute frontal sinusitis (66003499) Sinusitis, acute frontal (461.1) (461.1) Active confirmed Comment:Increase rest and fluids. C/w decongestant PRN. F/u in 1 week with any worsening or persisting symptoms. All questions answered. PVU., Problem Hypertension, essential (401.) (401) 2007 Active confirmed Problem Medication therapy changed (254279120191835) Medication therapy changed (Z79.899) Active confirmed Comment:will request 2 week follow up and repeat lab,Story:will drop nsaids and myranda due to dec. gfr: 54-45., Problem Wax in ear (283159724) Wax in ear (H61.20) Active confirmed Comment:needs irrigation after the viral syndrome resolves, Problem Low back pain (139291438) Lumbago (724.2) (724.2) 2008 Active confirmed Problem Asthma (067552962) Asthma (J45.909) Active confirmed Comment:will dx asthma and start albuterol inhlaer. Symptoms are chronic but mild,Story:impro shelly comfort, cleared secretions and inc. PFT with albuterol tx, Problem Avitaminosis D (99569016) Avitaminosis D (E55.9) 2008 Active confirmed Description:Cierra min D deficiency Problem Diverticulitis (87998164) Diverticulitis (K57.92) Active confirmed Problem Osteoarthritis of right knee joint (344797219947285) Osteoarthritis of right knee, unspecified osteoarthritis type (M17.11) Active confirmed Comment:Does N OT want to have knee surgery; injections don't last; opiates not a good option either; recommend staying active; will try naproxen instead of ibuprofen to see if that helps., Problem Medication refill (V68.1) (Z76.0) Active confirmed Comment:Refill Flomax, Problem Dyspnea (540274435) SOB (shortness of breath) (R06.02) Active confirmed Problem Acute upper respiratory infection (99134973) Acute upper respiratory infection (J06.9) 2008 Active confirmed Comment:Symptoma tic treatment, most likely viral, Problem Lower urinary tract symptoms due to benign prostatic hypertrophy (71534707156929) BPH associated with nocturia (N40.1) Active confirmed Comment:NO infection; Likely needs surgery at this point, since he is already on tamsulosin; I suggested taking it BID until he sees the urologist, but he needs to make appt today ([facility], [facility] [place])., Problem Urinary frequency (130493885) Urinary frequency (R35.0) Active confirmed Problem Cholesterol screening (703003244) Screening for cholesterol level (Z13.220) Active confirmed Problem Renal function tests abnormal (860713154) Decreased GFR (R94.4) Active confirmed Comment:will refer to nephrology,Story :no improvement with d/c of nsaid and MYRANDA inhibitor creatinine WNL, Problem Osteoarthritis of knee (183453006) Osteoarthritis, knee (M17.10) Active confirmed Comment:Gradua ll y worsening, so will talk with his ortho, about Rx options, but basically he has to decide when hes' ready for knee surgery. Meanwhile, PRN ibuprofen + ranitidine (on the days when he takes the NSAID)., Problem Allergic rhinitis (32489617) Allergic rhinitis (J30.9) 2009 Active confirmed Comment:pt to stop OTC nsal spray decongestant. PVU,Story:ASSESS MENT: 1. Avoid any irritants. 2. Will start nasal steroid. 3., Problem Essential hypertension (75335237) BP (high blood pressure) (I10) Active confirmed Comment:Up a bit today, not taking his meds every day. Cautioned to take them every day., Problem Joint pain (13230197) Pain in joint, unspecified site (719.40) (719.40) 2008 Active confirmed Problem Dermatitis (745740436) Dermatitis (L30.9) Active confirmed Comment:short course of steroids as pt has active dermatitis, Problem Hypertension (83567525) HTN (hypertension) (I10) Active confirmed Comment:Same regimen. Has enough for 4-5 months. Exercise, diet emphasized., Problem Administrative reason for encounter (269532854) Administrative encounter (Z02.9) Active confirmed Comment:Disabil i ty placard renewal, see attached [facility] letter., Problem Dyslipidemia (388680471) Dyslipidemia (E78.5) Active confirmed Comment:Doing well, continue same regimen. No need to treat the TGs other than dietary., Problem Preoperative cardiovascular examination (486294214) Preoperative cardiovascular examination (Z01.810) Active confirmed Comment:LOW ris k for upcoming knee surgery. See attached letter., Problem Impaired fasting glycaemia (879653220) Elevated fasting blood sugar (790.21) (790.21) Active confirmed Comment:Diet, exercise. Portion control., Problem Impaired fasting glycaemia (089626734) Elevated fasting glucose (R73.01) Active confirmed Comment:IMPROVE D , with dietary restrictions. CONTINUE. Get as much exercise as able., Problem Insomnia (548228117) Cannot sleep (G47.00) 2008 Active confirmed Description:Inso mnia Problem Osteoarthritis (207630889) OA (osteoarthritis ) (M19.90) Active confirmed Problem Impacted cerumen (85524210) Excessive ear wax, bilateral (H61.23) Active confirmed Problem Medicine refill (Z76.0) Active confirmed Comment:Omemaria luisaz o eran, for GERD. Make follow up appt for that, Problem [facility] current use of non-steroidal anti-inflammatory drug (484358977853110) NSAID long-term use (Z79.1) Active confirmed Problem Essential hypertension (03882510) BP (high blood pressure) (401.9) (401.9) Active confirmed Comment:Good control, continue same regimen., Problem Acute pharyngitis (704083009) Acute pharyngitis (J02.9) 2008 Active confirmed Problem Benign prostatic hypertrophy without outflow obstruction (966443628) BPH (benign prostatic hyperplasia) (600.90) (600.90) Active confirmed Comment:Follow up with urology., Problem Elevated PSA (612068694) Elevated PSA (R97.20) Active confirmed Problem History of urinary frequency (Z87.898) Active confirmed Problem Heel pain (0806215) Heel pain (M79.673) Active confirmed Comment:improvi n g, will treat symptomatically, Problem Dizziness and giddiness (064300503) Dizziness on standing (R42) Active confirmed Comment:Could be related to Photo therapy , will do lab work .Continue same medication for now, Problem Acute bronchitis (disorder) (63520080) Bronchitis, acute (466.0) (466.0) 2008 Active confirmed Problem Sinusitis, acute (461.) (461) 2009 Active confirmed Story:ASSESSMENT : Symptoms and exam consistent with Acute sinusitis., Problem Leukocytosis (335631010) Leukocytosis (D72.829) Active confirmed Problem Acute maxillary sinusitis (01664381) Sinusitis, acute maxillary (461.0) (461.0) 2008 Active confirmed Problem Acute bronchitis (26726354) Bronchitis, acute (J20.9) Active confirmed Comment:Resolved ; and the CT scan, recommended due to the tortuous aorta seen on CXR, was Neg (see Scanneed Doccuments). Reassured. ., Problem Chest discomfort (290943508) Chest discomfort (R07.89) Active confirmed Comment:gettign base line testing due to pt age and HTN,Story:withou t alarm symptoms (no palps, dizziness, sweating, radiation, sob, cough, vomiting), Problem Gastroesophageal reflux disease (284703543) Reflux, esophageal (530.81) (530.81) 2008 Active confirmed Problem Plain X-ray of chest abnormal (finding) (6797313320) Abnormal CXR (R93.89) Active confirmed Comment:Recent CXR in ER showed prominent T-aortic knob, they recommended CT. will get CT, Problem Chronic pain (96270764) Chronic pain (G89.29) 2008 Active confirmed Problem Malaise and fatigue (864840405) Symptom, malaise and fatigue (780.7) (780.7) 2008 Active confirmed Plan Of Treatment No Information Insurance Providers Payer Name Payer Address Payer Phone Subscriber Number Group Number Insured Name Patient Relationship to Insured Coverage Start Date Coverage End Date Medicare NGS PPS [address] [place], [place] [id number] GarrettLams Self - patient is the insured 4 [employer] [facility] [address] [address] [place] [phone] [id number] 3 [facility] 0 Ignacio Garrett Self - patient is the insured 2 Medicare NGS PPS [address] [place], [place] [id number] Ignacio Garrett Self - patient is the insured 5 9 Medical (General) History Surgical History Surgery Date(Month/Year) SURGICAL: Tonsillectomy and adenoidectom y, ProblemStatus: Active, 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
--- OUTSIDE RECORDS SUMMARY | 2025-06-07 13:14 | XMS_ITS | Encounter Summary ---
Author Organization [facility] Address [address] [place] [address] Care Team Providers Care Service Technician Name Role Phone Linda Bradley BIOMETRY TEACHER Unavailable [phone] Zohaib Cross MD Unavailable Zohaib Cross MD Primary Care Provider [phone] Encounter Details Date Type Department Care Team (Late st Contact Info) Description 12/18/2023 Orders Only [facility] [address] [place] [address] Linda Bradley, BIOMETRY TEACHER [address] [place] [address] Social History Tobacco Use Types Packs/Day Years [...] Patient Health Questionnaire-2 Score 0 12/03/2023 [facility] - Occupational Stress Questionnaire Answer Date [...] (12/18/2023 9:40 AM EDT) us Linda Bradley BIOMETRY TEACHER LAB CHG PERFORMABLES Final Resu lt documented in this encounter Visit Diagnoses Not on filedocumented in this encounter Additional Health Concerns Assessment Noted Time PHQ-9 Depression Total Score: 3 12/03/19 24 10:28 AM EDT documented as of this encounter Care Teams Service Technician Relationship Specialty Start Date End Date Zohaib Cross MD [address] [place] [address] PCP - Devoted 09/16/22 Zohaib Cross MD [address] [place] [address] PCP - General Family Medicine 10/24/23 Linda Bradley NP Nurse Practitioner Family Medicine 05/17/23 documented as of this encounter
--- OUTSIDE RECORDS SUMMARY | 2025-06-07 13:14 | XMS_ITS | Encounter Summary ---
Author Organization [facility] Address [address] [place] [address] Care Team Providers Care Automotive Starter Repairer Name Role Phone Linda Bradley NP Unavailable [phone] Zohaib Cross MD Unavailable Zohaib Cross MD Primary Care Provider [phone] Encounter Details Date Type Department Care Team (Late st Contact Info) Description 10/07/2023 Orders Only [facility] [address] [place] [address] Linda Bradley NP [address] [place] [address] Social History Tobacco Use Types Packs/Day Years [...] on filedocumented in this encounter Care Teams Automotive Starter Repairer Relationship Specialty Start Date End Date Zohaib Cross MD [address] [place] [address] PCP - Devoted 09/16/22 Zohaib Cross MD [address] [place] [address] PCP - General Family Medicine 10/24/23 Linda Bradley NP Nurse Practitioner Family Medicine 05/17/23 documented as of this encounter
--- OUTSIDE RECORDS SUMMARY | 2025-06-07 13:14 | XMS_ITS | Clinical Summary ---
Author Organization [facility] [employer] Address [id number] [address] [place] [address] Care Team Providers Care Semiautomatic Stitcher Operator Name Role Phone JulianneLinda marcos Robert BORJA-GLASS RIBBON MACHINE OPERATOR Primary Care Provider Allergies No known active allergies Medications tamsulosin (FLOMAX) 0.4 mg capsule,extende d release 24hr Take 1 capsule (0.4 mg total) by mouth nightly. Active amLODIPine (NORVASC) 5 mg tablet Take 2 tablets (10 mg total) by mouth in the morning. Active finasteride (PROSCAR) 5 mg tablet Take 1 tablet (5 mg total) by mouth in the morning. Active siobwued-bkom-T A-calcium &mins (THERAGRAN-M) 9 mg iron-400 mcg [...] 03/26/2033 03/26/2023 Medical Devices Implanted Type Area Advertisement Compositor Device Identifier Shelf Expiration Date Model / Serial / Lot Cement Bn Palacos Radpq 40g Rpl [id number] - [id number] Implanted:Qty: 1 on 05/22/2017 by Satinder Martinez DO at [facility] Cement Right: Knee [employer] 08/21/2021 [id number] / [id number] 01 / [id number] Cement Bn Palacos Radpq 40g Rpl [id number] - [id number] Implanted:Qty: 1 on 05/22/2017 by Satinder Martinez DO at [facility] Cement Right: Knee [employer] 10/22/202152-6092-685- 01 / [id number] / [id number] Cement Bn Bio 40gm Rpl [id number] - [id number] Implanted:Qty: 1 on 10/23/2023 by Satinder Martinez DO at [facility] Cement Left: Knee [employer] 12/14/2025 [id number] / N/A / [id number] Cmpt Fem 10 Std Kn Rt Cmnt - [id number] Implanted:Qty: 1 on 05/22/2017 by Satinder Martinez DO at [facility] Orthopedic Implant Right: Knee [employer] [id number] 12/14/2026 [id number] / [id number] / [id number] Xtn Stm 30mm 14mm Kn Tib - [id number] Implanted:Qty: 1 on 05/22/2017 by Satinder Martinez DO at [facility] Orthopedic Implant Right: Knee [employer] 01/19/2027 [id number] / [id number] / [id number] [place] Artc 14mm Persona 1012 - [id number] Implanted:Qty: 1 on 05/22/2017 by Satinder Martinez DO at [facility] Orthopedic Implant Right: Knee [employer] [id number] 11/13/2021 [id number] / [id number] / [id number] Cmpt Ptlr 35mm Alply Psn - [id number] Implanted:Qty: 1 on 05/22/2017 by Satinder Martinez DO at [facility] Orthopedic Implant Right: Knee [employer] [id number] 01/13/2025 [id number] / [id number] / [id number] Description:35 mm byron, 9.0 t hick Surface Artc 11mm Persona Ese Cngr 8-11 Ef Kn Lt Vivacit-E - Sn/A - [id number] Implanted:Qty: 1 on 10/23/2023 by Satinder Martinez DO at [facility] Orthopedic Implant Left: Knee [employer] [id number] 02/20/2028 [id number] 11 / N/A / [id number] Component Ptlr 35mm Persona Alprickie Kn Strl Lf - Sn/A - [id number] Implanted:Qty: 1 on 10/23/2023 by Satinder Martinez DO at [facility] Orthopedic Implant Left: Knee [employer] [id number] 06/29/2028 [id number] / N/A / [id number] Persona The Personalized Knee System, Cruciate Retaining (Cr) Left 8, Pps Porous Plasma [place] Standard Femur Implanted:Qty: 1 on 10/23/2023 by Satinder Martinez DO at [facility] Other Implant Left: Knee [employer] [id number] 07/11/2033 59-0551-023- 01 / N/A / [id number] Persona The Personalized Knee System 0 Degree Spiked Keel Left Size E [place], Tibia Implanted:Qty: 1 on 10/23/2023 by Satinder Martinez DO at [facility] Other Implant Left: Knee [employer] [id number] 07/14/2033 92-3618-917- 01 / N/A / [id number] Bsplt Tib 5d G Kn Rt Cmnt Stm - [id number] Implanted:Qty: 1 on 05/22/2017 by Satinder Martinez DO at [facility] Plate Right: Knee [employer] [id number] 10/16/2026 [id number] / [id number] / [id number] Explanted Type Area Advertisement Compositor Device Identifier Shelf Expiration Date Model / Serial / Lot Scr Gd 48mm Qd-Spr Kn Hd Mis - [id number] Explanted:Qty: 1 on 05/22/2017 by Satinder Martinez DO at [facility] Screw Right: Knee [employer] [id number] 11/13/2026 [id number] / NA / [id number] Incv/ Scr Bn 35mm 3.5mm St Dup Use [id number] - Sna - [id number] Explanted:Qty: 1 on 05/22/2017 by Satinder Martinez DO at [facility] Screw Right: Knee [employer] 03/15/2027 [id number] / NA / [id number] Scr Bn 35mm 6.5mm St Olaf Hip Rpl [id number] - [id number] Explanted:Qty: 1 on 05/22/2017 by Satinder Martinez DO at [facility] Screw Right: Knee [employer] [id number] 03/15/2027 [id number] / NA / [id number] Scr Gd 48mm Qd-Spr Kn Hd Mis - [id number] Explanted:Qty: 1 on 05/22/2017 by Satinder Martinez DO at [facility] Screw Right: Knee [employer] [id number] 11/13/2026 [id number] / NA / [id number] Screw Bn 35mm 6.5mm St Hip Actb Trlg Strl Rpl [id number]+32 - Sn/A - [id number] Explanted:Qty: 2 on 10/23/2023 at [facility] Screw Left: Knee [employer] [id number] 11/27/2032 [id number] / N/A / [id number] Guide 27mm Hx Hd Scr Srg - Sn/A - [id number] Explanted:Qty: 2 on 10/23/2023 at [facility] Screw Left: Knee [employer] [id number] 05/14/203369-2466-307-27 / N/A / [id number] Screw Gd 48mm Qd-Spr Hex Hd Mis Strl - Sn/A - [id number] Explanted:Qty: 11 on 10/23/2023 at [facility] Screw Left: Knee [employer] [id number] 08/19/203359-3698-453-48 / N/A / [id number] Screw Gd 48mm Qd-Spr Hex Hd Mis Strl - Sn/A - [id number] Explanted:Qty: 1 on 10/23/2023 at [facility] Screw Left: Knee [employer] [id number] 07/07/2033 90-3412-111-48 / N/A / [id number] Insurance [employer] MEDICARE ADVANTAGE Care Teams Semiautomatic Stitcher Operator Relationship Specialty Start Date End Date Linda Bradley, EVAPORATOR SUPERVISOR-GLASS RIBBON MACHINE OPERATOR PCP - General Nurse Practitioner 03/06/22
--- OUTSIDE RECORDS SUMMARY | 2025-06-07 13:14 | XMS_ITS | Encounter Summary ---
Author Organization [facility] Address [address] [place] [address] Care Team Providers Care Senior Cisco Network Engineer Name Role Phone Julianneedinadeemgrace Linda STACIE Unavailable [phone] Zohaib Cross MD Unavailable Zohaib Cross MD Primary Care Provider [phone] Encounter Details Date Type Department Care Team (Late st Contact Info) Description 11/16/2024 Orders Only [facility] [address] [facility] [place] [address] Social History Tobacco Use Types [...] often do you attend chur ch or orthodoxy services? 1 to 4 times per year 12/03/2023 Do you belong to any clubs o r organizations such as christian groups, unions, fraternal or athletic groups, or [...] Recorded Patient Health Questionnaire-2 Score 0 12/03/2023 [facility] - Occupational [...] Modality Body, Pelvis, Abdomen Computed T omography [facility] CT PROCEDURES Final Result documented in this encounter Visit Diagnoses Not on filedocumented in this encounter Additional Health Concerns Assessment Noted Time PHQ-9 Depression Total Score: 3 12/03/19 24 10:28 AM EDT documented as of this encounter Care Teams Senior Cisco Network Engineer Relationship Specialty Start Date End Date Zohaib Cross MD [address] [place] [address] PCP - Devoted 09/16/22 Zohaib Cross MD [address] [place] [address] PCP - General Family Medicine 10/24/23 Linda Bradley NP Nurse Practitioner Family Medicine 05/17/23 documented as of this encounter
--- OUTSIDE RECORDS SUMMARY | 2025-06-07 13:14 | XMS_ITS | Encounter Summary ---
Author Organization [facility] Address [address] [place] [address] Care Team Providers Care Noise Tester Name Role Phone Linda Bradley ACCELERATOR TECHNICIAN Unavailable [phone] Zohaib Cross MD Unavailable Zohaib Cross MD Primary Care Provider [phone] Encounter Details Date Type Department Care Team (Late st Contact Info) Description 10/22/2023 Abstract [facility] [address] [facility] [address] [place] [address] Timo Durán DO [address] [facility] [address] [place] [address] Social History Tobacco Use Types Packs/Day Years [...] on filedocumented in this encounter Care Teams Noise Tester Relationship Specialty Start Date End Date Zohaib Cross MD [address] [place] [address] PCP - Devoted 09/16/22 Zohaib Cross MD [address] [place] [address] PCP - General Family Medicine 10/24/23 Linda Bradley NP Nurse Practitioner Family Medicine 05/17/23 documented as of this encounter
--- OUTSIDE RECORDS SUMMARY | 2025-06-07 13:14 | XMS_ITS | Clinical Summary ---
Author Organization [facility] Address [address] [place] [address] Care Team Providers Care Production Tool Engineer Name Role Phone Julianneedijaxon Linda QUINONES Unavailable [phone] Zohaib Cross MD Unavailable Zohaib Cross MD Primary Care Provider [phone] Allergies No known active allergies Medications Blood Glucose Monitoring Suppl (Definigen Verio Reflect) w/Device kit 1 each by Other route Daily as needed (as needed) 3 Active Inspiration Biopharmaceuticalsuch Verio test strip 1 each by Other route Daily as needed 3 Active albuterol HFA 90 mcg/act inhalerIndication s:Bronchitis Inhale 2 puffs every 6 (six) hours if needed for shortness of breath or wheezing 18 g 5 Active Fluticasone-Umecl idin-Vilant (Trelegy Ellipta) 100-62.5-25 MCG/ACT aerosol powderIndications :Moderate persistent asthma without complication (HCC) Inhale 1 puff Daily Rinse mouth after use 1 each 1 5 Active fluticasone (Flonase) 50 MCG/ACT nasal sprayIndications: Allergic rhinitis, unspecified seasonality, unspecified trigger Administer 2 sprays into each nostril Daily Shake gently. Before first use, prime pump. After use, clean tip and replace cap. 16 g 2 5 Active loratadine (Claritin) 10 MG tabletIndications :Allergic rhinitis, unspecified seasonality, unspecified trigger Take 1 tablet (10 mg) by mouth Daily 30 tablet 2 5 Active aspirin 81 MG EC tabletIndications :Essential hypertension Take 1 tablet (81 mg) by mouth Daily 90 tablet 2 5 06/14/20 25 Active amLODIPine (Norvasc) 10 MG tabletIndications :Essential hypertension Take 1 tablet (10 mg) by mouth Daily 90 tablet 1 5 07/06/20 25 Active omeprazole (PriLOSEC) [address] capsuleIndication s:Gastroesophagea l reflux disease, unspecified whether esophagitis present Take 1 capsule (20 mg) by mouth in the morning. Take before meals. 90 capsule 1 5 07/06/20 25 Active lisinopril 30 MG tabletIndications :Essential hypertension Take 1 tablet (30 mg) by mouth Daily 90 tablet 1 5 07/06/20 25 Active tamsulosin (Flomax) 0.4 MG 24 hr capsuleIndication s:Benign prostatic hyperplasia, unspecified whether lower urinary tract symptoms present Take 1 capsule (0.4 mg) by mouth Daily Take 0.4 mg by mouth Daily 90 capsule 5 07/11/20 25 Active finasteride (Proscar) 5 MG tabletIndications :Benign prostatic hyperplasia, unspecified whether lower urinary tract symptoms present Take 1 tablet (5 mg) by mouth Daily 90 tablet 1 5 07/28/20 25 Active Active Problems Problem Noted Date Diagnosed Date Abnormal echocardiogram 04/15/2025 Assessment & Plan (05/04/2025 6:28 AM EDT): Dilated aortic root 4.1cm, referred to [facility] Cardiology Dyspnea on exertion 03/16/2025 Assessment & [...] 10:38 AM EST): Er follow up from [facility] on 11/09/24 Given atbs and dietary [...] 12/03/2023 Allergic rhinitis 12/03/2023 Encounter for subsequent [facility] wellness visit (AWV) in Medicare patient [...] Presence of right artificial knee joint 08/14/20 23 BPH (benign prostatic hyperplasia) 05/19/2019 Overview (12/03/2023): [facility] Urology Assessment & Plan (12/02/2024 7:45 [...] Description 05/04/2025 9:40 AM EDT [facility] [address] [place] [address] Linda Bradley NP Essential hypertension (Primary Dx); Moderate persistent asthma without complication (HCC); Type 2 diabetes mellitus with stage 3a chronic kidney disease, without long-term current use of insulin (HCC); Class 2 severe obesity due to excess calories with serious comorbidity and body mass index (BMI) of 35.0 to 35.9 in adult ([facility]); Abnormal echocardiogram 05/04/2025 Bamboo flowsheet [facility] [address] [place] [address] Linda Bradley NP 04/29/2025 Refill [facility] [address] [place] [address] Linda Bradley NP Benign prostatic hyperplasia, unspecified whether lower urinary tract symptoms present (Primary Dx) 04/15/2025 Orders Only [facility] [address] [place] [address] Linda Bradley NP Essential hypertension (Primary Dx); Dyspnea on exertion; Abnormal echocardiogram 04/14/2025 Clinisync Result Encounter [facility] External Department Unsolicited Linda Bradley NP 04/12/2025 [facility] [address] [place] [address] Linda Bradley NP 04/12/2025 Refill [facility] [address] [place] [address] Linda Bradley NP Benign prostatic hyperplasia, unspecified whether lower urinary tract symptoms present (Primary Dx) 04/07/2025 Refill [facility] [address] [place] [address] Linda Bradley NP Essential hypertension ; Type 2 diabetes mellitus without complication, without long-term current use of insulin (HCC); Gastroesophageal reflux disease, unspecified whether esophagitis present 03/16/2025 9:20 AM EDT [facility] [address] [place] [address] Linda Bradley NP Dyspnea on exertion (Primary Dx); Moderate persistent asthma without complication (HCC); Essential hypertension ; Stage 3a chronic kidney disease ([facility]HCC); Obesity (BMI 30-39.9); Lumbar back pain 03/16/2025 Bamboo flowsheet [facility] [address] [place] [address] Linda Bradley NP 03/10/2025 Refill [facility] [address] [place] [address] Linda Bradley NP Essential hypertension 03/09/2025 Abstract [facility] [address] [place] [address] Linda Bradley NP 03/08/2025 Refill [facility] [address] [facility] [place] [address] Linda Bradley NP Essential hypertension from Last 3 Months Immunizations Immunization Administration [...] often do you attend chur ch or buddhism services? 1 to 4 times per year 12/03/2023 Do you belong to any clubs o r organizations such as mu-ism groups, unions, fraternal or athletic groups, or [...] Recorded Patient Health Questionnaire-2 Score 0 12/02/2024 [facility] Occupat ional Health - Occupational Stress [...] EDT) Blood Venous blood specimen / Unknown us Linda Bradley NP LAB BLOOD ORDERABLES Final Resu lt Performing Organization Address City/[facility]/ZIP Co de Phone Number [facility] * Basic metabolic panel (05/10/2025 9:48 AM EDT) Blood Venous blood specimen / Unknown us Linda Bradley NP LAB BLOOD ORDERABLES Final Resu lt Performing Organization Address City/[facility]/ZIP Co de Phone Number [facility] * (ABNORMAL) POCT glycosylated hemoglobin (Hb A1C) docked device (05/04/2025 10:40 AM EDT) Hemoglobin A1C 6.5 Blood Venous blood specimen / Unknown 05/04/2025 10:40 AM EDT Linda Bradley NP POINT OF CARE TEST ENTER/EDIT O RDERABLES Final Result * CA ECHO DOPPLER COMPLETE (04/14/2025 7:22 PM EDT) Anatomical Region Laterality Modality Other 04/14/2025 7:22 PM EDT Narrative 04/14/2025 7:23 PM EDT [facility] [place] [id number] Cardiology Report Signed Patient: FELIZ RUCKER MR#: [id number] : 1940 Acct:[id number] Age/Sex: 84 / M ADM Date: 04/14/25 Loc: CARD Attending Dr: Linda Bradley NP Ordering Physician: Linda Bradley NP Date of Service: 04/14/25 Procedure(s): CA echo doppler complete Accession Number(s): [id number] cc: Linda Bradley NP Patient Name: FELIZ ALVARADO MR#: [id number] : 1940 Exam Date: 04/14/2025 Ordering Doctor: [...] Area (VTI): 4.65 cm2, 4.65 cm2 Deceleration [place]: 4.44 m/s2 Pressure Half-Time: 354.93 ms Peak [...] BROWN Signed By: 04/14/251922 DD/ 21 TD/TT: Wafer Abrading Machine Tender: Procedure Note Radiology, Radiologist, - 04/14/2025 [place] [address] Cardiology Report Signed Patient: CELENA RUCKERR#: [id number] : 1940cct:[id number] Age/Sex: 84 / MADM Date: 04/14/25 Loc: CARD Attending Dr: Linda Bradley NP Ordering Physician: Linda Bradley NP Date of Service: 04/14/25 Procedure(s): CA echo doppler complete Accession Number(s): [id number] cc: Linda Bradley NP Patient Name: FELIZ ALVARADO MR#: [id number] : 1940 Exam Date: 04/14/2025 Ordering Doctor: [...] Area (VTI): 4.65 cm2, 4.65 cm2 Deceleration [place]: 4.44 m/s2 Pressure Half-Time: 354.93 ms Peak [...] SHELDON BROWN Signed By:04/14/251922 DD/ 21 TD/TT: Wafer Abrading Machine Tender: us Linda Bradley CLIENT EXPERIENCE SPECIALIST [facility] Final Result * Microalbumin / creatinine, urine ratio (08/10/2024 8:17 AM EST) Urine Urine specimen obtained by clean catch procedure / Unknown us Linda Bradley CLIENT EXPERIENCE SPECIALIST LAB URINE ORDERABLES Final Resu lt [facility] from Last 3 Months or Most Recently Relevant to Health Maintenance Insurance [employer] Care Teams Production Tool Engineer Relationship Specialty Start Date End Date Zohaib Cross MD [address] [place] [address] PCP - Devoted 09/16/22 Zohaib Cross MD [address] [place] [address] PCP - General Family Medicine 10/24/23 Linda Bradley NP Nurse Practitioner Family Medicine 05/17/23
--- OUTSIDE RECORDS SUMMARY | 2025-06-07 13:14 | XMS_ITS | Encounter Summary ---
Author Organization [facility] Address [address] [place] [address] Care Team Providers Care Retail Sales Teammate Name Role Phone Linda Bradley PRE SALES TECHNICAL CONSULTANT Unavailable [phone] Zohaib Cross MD Unavailable Zohaib Cross MD Primary Care Provider [phone] Encounter Details Date Type Department Care Team (Late st Contact Info) Description 12/21/2024 External Result Encounter [facility] [address] [place] [address] Linda Bradley, STACIE [address] [place] [address] Social History Tobacco Use Types Packs/Day Years [...] often do you attend chur ch or sabianism services? 1 to 4 times per year 12/03/2023 Do you belong to any clubs o r organizations such as anglican groups, unions, fraternal or athletic groups, or [...] Recorded Patient Health Questionnaire-2 Score 0 12/02/2024 [facility] Questionnaire Answer Date [...] place to sleep or slept in a retirement (including now)? No 12/03/2023 Sex and Gender [...] PM EDT THIS EXAM WAS PERFORMED AT [facility] History: Cough Procedure: 2 view PA and [...] MD on 12/21/2024 7:04 PM Linda Bradley PRE SALES TECHNICAL CONSULTANT IMG XR PROCEDURES Final Result documented in this encounter Visit Diagnoses Not on filedocumented in this encounter Additional Health Concerns Assessment Noted Time PHQ-9 Depression Total Score: 3 12/03/19 25 4:31 PM EDT documented as of this encounter Care Teams Retail Sales Teammate Relationship Specialty Start Date End Date Zohaib Cross MD [address] [place] [address] PCP - Devoted 09/16/22 Zohaib Cross MD [address] [place] [address] PCP - General Family Medicine 10/24/23 Linda Bradley NP Nurse Practitioner Family Medicine 05/17/23 documented as of this encounter
--- OUTSIDE RECORDS SUMMARY | 2025-06-07 13:14 | XMS_ITS | Encounter Summary ---
Author Organization [facility] Address [address], [address] [place] [address] Care Team Providers Care Information Management Specialist Name Role Phone Satinder Dyer Primary Care Provider Unavailabl e Reason for Visit * Reason Comments Medication Refill Encounter Details Date Type Department Care Team (Late st Contact Info) Description 10/26/2016 Refill [facility] - [address] [place] [address] Gavin Najera MD [address] [place] [address] Medication Refill Social History Tobacco Use Types [...] symptoms documented in this encounter Care Teams Information Management Specialist Relationship Specialty Start Date End Date Satinder Dyer PCP - General 07/15/15 documented as of this encounter
--- OUTSIDE RECORDS SUMMARY | 2025-06-07 13:14 | XMS_ITS | Encounter Summary ---
Author Organization [facility] Address [address] [place] [address] Care Team Providers Care Poiser Balance Name Role Phone Linda Bradley MIXED SIGNAL DESIGN ENGINEER Unavailable [phone] Zohaib Cross MD Unavailable Zohaib Cross MD Primary Care Provider [phone] Encounter Details Date Type Department Care Team (Late st Contact Info) Description 03/02/2025 Abstract [facility] [address] [place] [address] Linda Bradley, STACIE [address] [place] [address] Social History Tobacco Use Types Packs/Day Years [...] often do you attend chur ch or cheondoism services? 1 to 4 times per year 12/03/2023 Do you belong to any clubs o r organizations such as scientologist groups, unions, fraternal or athletic groups, or [...] Recorded Patient Health Questionnaire-2 Score 0 12/02/2024 [facility] Questionnaire Answer Date Recorded [...] place to sleep or slept in a care home (including now)? No 12/03/2023 Sex and [...] documented as of this encounter Care Teams Poiser Balance Relationship Specialty Start Date End Date Zohaib Cross MD [address] [place] [address] PCP - Devoted 09/16/22 Zohaib Cross MD [address] [place] [address] PCP - General Family Medicine 10/24/23 Linda Bradley NP Nurse Practitioner Family Medicine 05/17/23 documented as of this encounter
--- OUTSIDE RECORDS SUMMARY | 2025-06-07 13:14 | XMS_ITS | Encounter Summary ---
Author Organization [facility] Address [address] [place] [address] Care Team Providers Care Recreational Programs Director Name Role Phone Julianneedijaxon Linda STACIE Unavailable [phone] Zohaib Cross MD Unavailable Zohaib Cross MD Primary Care Provider [phone] Encounter Details Date Type Department Care Team (Late st Contact Info) Description 12/09/2023 Abstract [facility] [address] [place] [address] Ruben Irwin MONOTYPE SETTER [address] [place], [place] [id number] Social History Tobacco Use Types Packs/Day Years [...] often do you attend chur ch or yazidi services? 1 to 4 times per year [...] Recorded Patient Health Questionnaire-2 Score 0 12/03/2023 [facility] - [...] documented as of this encounter Care Teams Recreational Programs Director Relationship Specialty Start Date End Date Zohaib Cross MD [address] [place] [phone] PCP - Devoted 09/16/22 Zohaib Cross MD [address] [place] [address] PCP - General Family Medicine 10/24/23 Linda Bradley NP Nurse Practitioner Family Medicine 05/17/23 documented as of this encounter
--- OUTSIDE RECORDS SUMMARY | 2025-06-07 13:14 | XMS_ITS | Encounter Summary ---
Author Organization [facility] Address [address] [place] [address] Care Team Providers Care Parliamentary Counsel Name Role Phone Linda Bradley SUPPLY CHAIN ANALYST Unavailable [phone] Zohaib Cross MD Unavailable Zohaib Cross MD Primary Care Provider [phone] Encounter Details Date Type Department Care Team (Late st Contact Info) Description 03/09/2025 Abstract [facility] [address] [place] [address] Linda Bradley, STACIE [address] [place] [address] Social History Tobacco Use Types Packs/Day Years [...] often do you attend chur ch or christianity services? 1 to 4 times per year 12/03/2023 Do you belong to any clubs o r organizations such as latter-day groups, unions, fraternal or athletic groups, or [...] Score 0 12/02/2024 [facility] - Occupational Stress Questionnaire Answer [...] place to sleep or slept in a intermediate (including now)? No 12/03/2023 Sex and Gender [...] documented as of this encounter Care Teams Parliamentary Counsel Relationship Specialty Start Date End Date Zohaib Cross MD [address] [place] [address] PCP - Devoted 09/16/22 Zohaib Cross MD [address] [place] [address] PCP - General Family Medicine 10/24/23 Linda Bradley NP Nurse Practitioner Family Medicine 05/17/23 documented as of this encounter
--- OUTSIDE RECORDS SUMMARY | 2025-06-07 13:14 | XMS_ITS | Clinical Summary ---
Author Organization [facility] Address [address], [address] [place] [address] Care Team Providers Care Reexaminer Name Role Phone Satinder Dyer Primary Care [...] on file Insurance MEDICARE MEDICARE Care Teams Reexaminer Relationship Specialty Start Date End Date Satinder Dyer PCP - General 07/15/15
--- NOTE | 2025-06-07 13:15 | CT_ITS ---
[address] [address] Patient Name: FELIZ ALVARADO MRN: [id number] date: 1940 Sex: M Assigned Patient Location: CT Current Patient Location: CT Accession/Order Number: [id number] Exam Date: 06/07/2025 13:25 Report Date: 06/07/2025 20:59 At the request of: GOPI HENAO MD Procedure: CT angio chest CTA chest CLINICAL DATA: Enlarged ascending aorta. TECHNIQUE: Intravenous contrast-enhanced CT angiography of the chest was performed. Axial, sagittal, coronal, and 3D-dimensional reconstructions were created and reviewed. These CT exams were performed using one or more of the following dose reduction techniques: Automated exposure control, adjustment of the mA and/or kV according to patient size, or use of iterative reconstruction technique. COMPARISON: None. FINDINGS: Chest: Mediastinum:Ascending aorta 3.4 x 3.9 cm. Cardiomegaly. Coronary disease. No pericardial effusion. No suspicious mediastinal or hilar adenopathy. No central pulmonary emboli. Lungs:Hypoventilatory change. No focal airspace opacity, effusion or pneumothorax. No suspicious pulmonary nodule. Abd: Fatty infiltration liver.[ Soft tissues/Bones: Multilevel degenerative changes of the thoracic spine. CT/CT angio chest IMPRESSION: Ascending aorta up to 3.9 cm. No aortic aneurysm or dissection identified. Cardiomegaly with coronary disease. Impression dictated by: Donnie Tong M.D. 06/07/2025 8:59 PM Dictation Location: [place] [address] Electronically authenticated by: [id number] Y Date: 06/07/2025 20:59
--- OUTSIDE RECORDS SUMMARY | 2025-06-07 13:18 | XMS_ITS | CCD ---
Author Organization [facility] Care Team Providers Care Supervisor Loading Name Role Phone PRIETOERNESTINACATHY SNIDER Unavailable Unavailable ANALILIA GRANADOS Unavailable Unavailable Shaye Puentes Unavailable AICHHOLZ, SOIL SORT WORKER LINDA Admitting Unavailable AICHHOLZ, SOIL SORT WORKER LINDA Attending Unavailable AICHHOLZ, SOIL SORT WORKER LINDA Primary Care Unavailable AICHHOLZ, SOIL SORT WORKER LINDA Consulting Unavailable DR DEBRA VALENTE Consulting Unavailable AICHHOLZ, SOIL SORT WORKER LINDA Admitting Unavailable AICHHOLZ, SOIL SORT WORKER LINDA Attending Unavailable AICHHOLZ, SOIL SORT WORKER LINDA Primary Care Unavailable AICHHOLZ, SOIL SORT WORKER LINDA Consulting Unavailable AICHHOLZ, SOIL SORT WORKER LINDA Admitting Unavailable AICHHOLZ, SOIL SORT WORKER LINDA Attending Unavailable AICHHOLZ, SOIL SORT WORKER LINDA Primary Care Unavailable AICHHOLZ, SOIL SORT WORKER LINDA Consulting Unavailable AICHHOLZ, SOIL SORT WORKER LINDA Admitting Unavailable AICHHOLZ, SOIL SORT WORKER LINDA Attending Unavailable AICHHOLZ, SOIL SORT WORKER LINDA Primary Care Unavailable AICHHOLZ, SOIL SORT WORKER LINDA Consulting Unavailable AICHHOLZ, LINDA J Primary Care Physician Raoul BURKS Attending Unavailable AICHHOLZ, LINDA LINDA Jones Referring Unavailabl e Raoul BURKS Attending Unavailable Aichholz DIRECTOR HOSPICE OPERATIONS, Linda Unavailable Zohaib Cross MD Unavailable Zohaib Cross MD Primary Care Provider Aicpriti DIRECTOR HOSPICE OPERATIONS, Linda Unavailable Zohaib Cross MD Unavailable Linda Wong Primary Care Provider LINDA BRADLEY Referring Unavailable LINDA BRADLEY Primary Care Unavailable BEBE MCCLAIN Attending Unavailable BEBE MCCLAIN Referring Unavailable LINDA BRADLEY Attending Unavailable BEBE MCCLAIN Referring Unavailable BEBE MCCLAIN Attending Unavailable LINDA BRADLEY Attending Unavailable LINDA BRADLEY Attending Unavailable LINDA BRADLEY Attending Unavailable LINDA BRADLEY Attending Unavailable KIRK, LINDA Attending Unavailable KIRK, LINDA Attending Unavailable KIRK, LINDA Attending Unavailable GOPI HENAO Attending Unavailable Allergies Allergy Classification Reported Allergen(s) Allergy Type Date of Onset Reaction(s) Facility (1 source) No Known Medication Allergies; Translations: [No Known Medication Allergies] Propensity to adverse reactions (disorder) [facility] Repository Medications Current Medications Medication Drug Class(es) Dates Sig (Normalized) Sig (Original) [id number] 200 actuat albuterol 0.09 mg/actuat metered dose [...] Status: Ordered take 2 tablets by mo [facility] in the morning amLODIPine (NORVASC) 5 mg [...] 09/21/2024 Active Blood Glucose Monitoring Sup pl (Single Touch Systemsuch Verio Reflect) w/Device kit (20 sources) Start: 08-15-2023 Blood Glucose Monitoring Suppl (Single Touch Systemsuch Verio Reflect) w/Device kit 1 each by Other route Daily as needed (as needed) 08/15/2023 Active Start: 08-15-2023 Blood Glucose Monitoring Suppl (Single Touch Systemsuch Verio Reflect) w/Device kit 1 each by [...] meals. 100 tablet 1 10/14/2023 01/22/2024 Active ravfjveh-snwb-AT-calcium &mi ns (THERAGRAN-M) 9 mg iron-400 mcg tablet (3 sources) kvqlcgul-rzku-SW -calcium &mins (THERAGRAN-M) 9 mg iron-400 mcg tablet Take 1 tablet by mouth in the morning. 0 ouyoeaev-jeqh-RF -calcium &mins (THERAGRAN-M) 9 mg iron-400 mcg tablet Take 1 tablet by mouth in the morning. 0 Active Naproxen (1 source) Nonsteroidal Anti-inflammatory Drug Naprosyn Active omega 9-cip-txf-fish oil (Fish OiL) 300-1,000 mg capsule (1 [...] Active Start: 08-22-2022 take 1 capsule by [facility] once daily omeprazole 20 mg Cap-DR [...] sources) Opioid Agonist Start: 10-23-2023 End: 10-23-2023 take 1 tablet by mouth every three [...] Translations: [Essential hypertension] Onset: 08-14-2023 08-22-2022 Chronic Heart valve disorders (2 sources) Nonrheumatic aortic (valve) insufficiency; Translations: [Nonrheumatic aortic (valve) insufficiency] Onset: 06-02-2025 Chronic Hyperplasia of prostate (20 sources) Benign prostatic hyperplasia; Translations: [Benign prostatic hyperplasia without lower urinary tract symptoms] Onset: 05-19-2019 08-22-2022 Chronic Osteoarthritis (20 sources) Osteoarthritis of left knee joint; Translations: [Unilateral primary osteoarthritis, left knee] Onset: 05-22-2017 Resolved: 08-03-2024 10-27-2023 Chronic Other aftercare (1 source) Antibiotic prophylaxis indicated; Translations: [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 of 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] 10-28-2023 Episodic Other circulatory disease (2 sources) Other specified disorders of arteries and arterioles; Translations: [Other specified disorders of arteries and arterioles] Onset: 06-02-2025 Chronic Other connective tissue disease (20 sources) Artificial [...] Test Name Value Interpretation Reference Range Facility Orders Onlyon 06-03-2025 Orders Only [id number] Feliz Rucker 1940 M Date Provider Department Center 06/03/2025 [facility]GOPI HENAO CARD [facility] Family History Problem Relation Age of Onset Other Mother Throat cancer Father Cancer Sister Dementia Brother Other Brother Family Status - Relation Status Age at Mother Father Sister Brother Brother Normal [facility] Office Visiton 06-02-2025 Follow-up visit [id number] Feliz Rucker 1940 M Date Provider Department Center 06/02/2025 [facility] Family History Problem Relation Age of Onset Other Mother Throat cancer Father Cancer Sister Dementia Brother Other Brother Family Status - Relation Status Age at Mother Father Sister Brother Brother Level of Service:51298 LA OFFICE/OUTPATIENT NEW MODERATE MDM 45 MINUTES Reason for Visit and Comments: New Patient [632] - Patient is here today as a new patient to establish care with cardiology for an abnormal Echo. Patient complains of SOB and weakness in the hot weather occasional dizziness/lightheade d. Hypertension [262161] Hyperlipidemia [182] Shortness of Breath [679767] Fatigue [46] Dizziness [952731] Normal [facility] HbA1c (Bld) [Mass fraction]o n 05-04-2025 Interpretation and review of laboratory results Abnormal [facility] [employer] [facility] Healthcar e Laboratory - Hematology and Cell countson 05-04-2025 HbA1c (Bld) [Mass fraction] 6.5 % [facility] Healthcare Orders Onlyon 04-29-2025 Orders Only [id number] Feliz Garrett 1940 M Date Provider Department Center 04/29/2025 [id number], HISTORICAL [facility] Kristopher [facility] No family history on file Normal [facility] CA ECHO DOPPLER COMPLETEon 0 04-14-2025 [place] [address] Cardiology Report Signed Patient: FELIZ RUCKER MR#: [id number] : 1940 Acct:[id number] Age/Sex: 84 / M ADM Date: 04/14/25 Loc: CARD Attending Dr: Linda Bradley NP Ordering Physician: Linda Bradley NP Date of Service: 04/14/25 Procedure(s): CA echo doppler complete Accession Number(s): [id number] cc: Linda Bradley NP Patient Name: FELIZ LANDIS MR#: [id number] : 1940 Exam Date: 04/14/2025 Ordering Doctor: EDMOND BRADLEY SOIL SORT WORKER ECHOCARDIOGRAM REPORT PROCEDURE: CA ECHO DOPPLER COMPLETE [...] Area (VTI): 4.65 cm2, 4.65 cm2 Deceleration [place]: 4.44 m/s2 Pressure Half-Time: 354.93 ms Peak [...] By: SHELDON SRIVASTAVA (more content not included)... [facility] Radiology, Radiologist, MD - 04/14/2025 [place] [address] Cardiology Report Signed Patient: FELIZ RUCKER MR#: [id number] : 1940 Acct:[id number] Age/Sex: 84 / M ADM Date: 04/14/25 Loc: CARD Attending Dr: Linda Bradley NP Ordering Physician: Linda Bradley NP Date of Service: 04/14/25 Procedure(s): CA echo doppler complete Accession Number(s): [id number] cc: Linda Bradley NP Patient Name: FELIZ LANDIS MR#: [id number] : 1940 Exam Date: 04/14/2025 Ordering Doctor: [...] Area (VTI): 4.65 cm2, 4.65 cm2 Deceleration [place]: 4.44 m/s2 Pressure Half-Time: 354.93 ms Peak [...] SRIVASTAVA Signed By: 04/14/251922 DD/ 21 TD/TT: Loans Officer: [facility] [employer] Radiology Study observation (narrative) [facility] CA ECHO DOPPLER COMPLETEOrde red By: Radiologist Radiology on 04-14-2025 [facility] [employer] Work Phone: XR LUMBAR SPINE 2 OR 3[address] [address] XRay Report Signed Patient: FELIZ RUCKER MR#: [id number] : 1940 Acct:[id number] Age/Sex: 84 / M ADM Date: 01/07/25 Loc: RAD Attending Dr: Linda Bradley NP Ordering Physician: Linda Bradley NP Date of Service: 01/07/25 Procedure(s): XR lumbar spine 2-3V Accession Number(s): [id number] cc: Linda Bradley NP [facility] [place] [id number] Patient Name: FELIZ LANDIS MRN: [facility]:[id number] date: 1940 Sex: M Assigned Patient Location: RAD Current Patient Location: RAD Accession/Order Number: [id number] Exam Date: 01/07/2025 13:42 Report Date: 01/07/2025 [...] Salinas Jr., D.O.01/07/2025 1:43 PM Dictation Location: [place] [address] Electronically authenticated by: [id number] Y Date: 01/07/2025 13:43 Dictated By: Surya Salinas M.D. Signed By: 01/07/25 1346 DD/ 1343 TD/TT: Loans Officer: [facility] Radiology, Radiologist, MD - 01/07/2025 [place] [address] XRay Report Signed Patient: FELIZ RUCKER MR#: [id number] : 1940 Acct:[id number] Age/Sex: 84 / M ADM Date: 01/07/25 Loc: RAD Attending Dr: Linda Bradley NP Ordering Physician: Linda Bradley NP Date of Service: 01/07/25 Procedure(s): XR lumbar spine 2-3V Accession Number(s): [id number] cc: Linda Bradley NP [address] [place] [address] Patient Name: FELIZ LANDIS MRN: [id number] date: 1940 Sex: M Assigned Patient Location: RAD Current Patient Location: RAD Accession/Order Number: [id number] Exam Date: 01/07/2025 13:42 Report Date: 01/07/2025 [...] Salinas Jr., D.O.01/07/2025 1:43 PM Dictation Location: [place] [address] Electronically authenticated by: [id number] Y Date: 01/07/2025 13:43 Dictated By: Surya Salinas M.D. Signed By: 01/07/25 1346 DD/ 1343 TD/TT: Loans Officer: [employer] Radiology Study observation (narrative) [employer] XR LUMBAR SPINE 2 OR 3VOrder ed By: Radiologist Radiology on 01-07-2025 [employer] Work Phone: XR Knee - left 1 [...] Stable LT total knee replacement. Bebe Mcclain TERMITE RENEWAL INSPECTOR-SOIL SORT WORKER [facility] Rad[facility] Study observation (narrative) [employer] HbA1c (Bld) [Mass fraction]o n 08-03-2024 Interpretation and review of laboratory results Abnormal [facility] Healthcar e Laboratory - Hematology and Cell countson 08-03-2024 HbA1c (Bld) [Mass fraction] 6.5 % [facility] ABO Rh Repeaton 10-23-2023 ABO O [facility] Rh Nom (Bld) [facility] XR Knee - left 1 or 2 Viewso n 10-23-2023 Antonio Warner MD - 10/23/2023 CLINICAL INFORMATION: Post-operative evaluation TECHNIQUE/PROCEDURE: 2 views of the left knee COMPARISON: No relevant prior studies available. IMPRESSION: Left knee arthroplasty demonstrates anatomic alignment with expected postoperative changes in the soft tissues and the intra-articular space. Finalized by Antonio Warner MD on 10/23/2023 10:43 AM [facility] Radiology Study observation (narrative) [facility] XR Knee - left 1 or 2 ViewsO rdered By: Antonio Warner on 10-23-2023 [facility] Work Phone: Basic Metabolic Panelon 09-16 Anion gap [Moles/Vol] 8 mmol/L 5 - 15 mmol/L [facility] Calcium [Mass/Vol] 9.2 mg/dL 8.5 - 10. 5 mg/dL [facility] Chloride [Moles/Vol] 100 mmol/L 98 - 10 9 mmol/L [facility] CO2 [Moles/Vol] 29 mmol/L 22 - 32 mmol/L [facility] Creatinine [Mass/Vol] 1.17 mg/dL 0.60 - 1.30 mg/dL [facility] Comment on above: METHOD TRACEABLE TO IDMS STANDARD eGFR (CKD-EPI)non-race dependent 61 - PINF [facility] Comment on above: Reported eGFR is based on the CKD-EPI 2020 equation that does not use a race coefficient. Glucose [Mass/Vol] 120 mg/dL High 65 - 99 mg/dL [facility] Interpretation and review of laboratory results Abnormal [facility] Potassium [Moles/Vol] 4.3 mmol/L 3.5 - 5.0 mmol/L [facility] Sodium [Moles/Vol] 137 mmol/L 134 - 146 mmol/L [facility] Urea nitrogen [Mass/Vol] 18 mg/dL 5 - 27 mg/dL [facility] CBC auto differentialon 09-16 Basophils (Bld) [#/Vol] 0.1 10*3/uL [facility] Basophils/100 WBC (Bld) 0.9 % [facility] Eosinophils (Bld) [#/Vol] 0.0 10*3/uL [facility] Eosinophils/100 WBC (Bld) 0.4 % [facility] Erythrocyte distribution width (RBC) [Ratio] 14.2 % 11.5 - 15.0 % [facility] Hematocrit (Bld) [Volume fraction] 45.1 % 39 - 49 % [facility] Hemoglobin (Bld) [Mass/Vol] 15.0 g/dL 13.0 - 17.0 g/dL [facility] Lymphocytes (Bld) [#/Vol] 2.7 10*3/uL [facility] Lymphocytes/100 WBC (Bld) 35.3 % [facility] MCH (RBC) [Entitic mass] 30.1 pg 27 - 34 pg [facility] MCHC (RBC) [Mass/Vol] 33.2 g/dL 32 - 36 g/dL [facility] MCV (RBC) [Entitic vol] 91 fL 80 - 100 fL [facility] Monocytes (Bld) [#/Vol] 0.7 10*3/uL [facility] Monocytes/100 WBC (Bld) 8.6 % [facility] Neutrophils (Bld) [#/Vol] 4.2 10*3/uL [facility] Neutrophils/100 WBC (Bld) 54.8 % [facility] Platelet mean volume (Bld) [Entitic vol] 7.3 fL 7 - 12 fL [facility] Platelets (Bld) [#/Vol] 399 10*3/uL [facility] RBC (Bld) [#/Vol] 4.98 10*6/uL [facility] WBC corrected for nucl RBC Auto (Bld) [#/Vol] 7.6 [facility] [employer] [facility] ECG 12 leadon 09-26-2023 [employer] Patient Correspondenceon Patient Correspondence [id number] #1.00CD:127 Normal [facility] Facesheeton 08-23-2022 Facesheet [id number] #1.00CD:127 Normal [facility] Facesheet [id number] #1.00CD:127 Normal [facility] RAD - CT Reporton 08-15-2022 RAD - CT Report [id number] #1.00CD:127 Normal [facility] CT ABD/PELV W CONon 08-08-20 CT ABD/PELV [...] by: DEBRA VALENTE Date: 2022-08-08 16:45 Normal [facility] Physician Referralon 022 Physician Referral [id number] #1.00CD:127 Normal [facility] CBC AUTO DIFFon 07-24-2022 BASO # 0.1 103/ul Normal 0.0-0.1 [facility] Comment on above: Performed By: #### C BC #### [facility] [address] [place] [address] Dr. Jogre Zavala Basophils/100 WBC (Bld) 0.4 % Normal 0.2-2.0 [facility] Comment on above: Performed By: #### C BC #### [facility] [address] [place] [address] Dr. Jorge Zavala EO # 0.0 103/ul Normal 0.0-0.7 [facility] Comment on above: Performed By: #### C BC #### [facility] [address] [place] [address] [address] Jorge Zavala Eosinophils/100 WBC (Bld) 0.3 % Critically low 0.9-7.0 [facility] Comment on above: Performed By: #### C BC #### [facility] [address] [place] [address] Dr. Jorge Zavala Erythrocyte distribution width (RBC) [Ratio] 13.2 % Normal 11.0-15.0 [facility] Comment on above: Performed By: #### C BC #### [facility] [address] [place] [address] Dr. Jorge Zavala Hematocrit (Bld) [Volume fraction] 42.6 % Normal 42.0-54.0 [facility] Comment on above: Performed By: #### C BC #### [facility] [address] [place] [address] Dr. Jorge Zavala Hemoglobin (Bld) [Mass/Vol] 14.2 g/dL Normal 14.0-18.0 [facility] Comment on above: Performed By: #### C BC #### [facility] [address] [place] [address] Dr. Jorge Zavala IG # 0.05 10e3/ul Critically high 0.00-0.03 [facility] Comment on above: Performed By: #### C BC #### [facility] [address] [place] [address] Dr. Jorge Zavala IG % 0.4 % Normal 0.0-0.5 [facility] Comment on above: Performed By: #### C BC #### [facility] [address] [place] [address] Dr. Jorge Zavala LYMPH # 4.4 103/ul Critically high 1.2-3.8 [facility] Comment on above: Performed By: #### C BC #### [facility] [address] [place] [address] Dr. Jorge Zavala Lymphocytes/100 WBC (Bld) 39.0 % Normal 20.5-60.0 [facility] Comment on above: Performed By: #### C BC #### [facility] [address] [place] [address] Dr. Jorge Zavala MANUAL DIFF REQ NO Normal [facility] Comment on above: Performed By: #### C BC #### [facility] [address] [place] [address] Dr. Jorge Zavala MCH (RBC) [Entitic mass] 30.0 pg Normal 25.9-34.0 [facility] Comment on above: Performed By: #### C BC #### [facility] [address] [place] [address] [address] Jorge Zavala MCHC (RBC) [Mass/Vol] 33.3 g/dL Normal 29.9-35.2 [facility] Comment on above: Performed By: #### C BC #### [facility] [address] [place] [address] [address] Jorge Zavala MCV (RBC) [Entitic vol] 90.1 fL Normal 80.0-94.0 [facility] Comment on above: Performed By: #### C BC #### [facility] [address] [place] [address] [address] Jorge Zavala MONO # 0.9 103/ul Critically high 0.3-0.8 [facility] Comment on above: Performed By: #### C BC #### [facility] [address] [place] [address] [address] Jorge Zavala Monocytes/100 WBC (Bld) 7.6 % Normal 1.7-12.0 [facility] Comment on above: Performed By: #### C BC #### [facility] [address] [place] [address] [address] Jorge Zavala NEUT # 5.8 103/ul Normal 1.4-6.5 [facility] Comment on above: Performed By: #### C BC #### [facility] [address] [place] [address] [address] Jorge Zavala Neutrophils/100 WBC (Bld) 52.3 % Normal 43.0-75.0 [facility] Comment on above: Performed By: #### C BC #### [facility] [address] [place] [address] [address] Jorge Zavala Platelet mean volume (Bld) [Entitic vol] 9.1 fL Critically low 9.5-13.5 [facility] Comment on above: Performed By: #### C BC #### [facility] [address] [place] [address] [address] Jorge Zavala PLT 405 103/ul Normal 150-450 [facility] Comment on above: Performed By: #### C BC #### [facility] [address] [place] [address] [address] Jorge Zavala RBC 4.73 106/ul Normal 4.70-6.10 [facility] Comment on above: Performed By: #### C BC #### [facility] [address] [place] [address] [address] Jorge Zavala WBC 11.2 103/ul Critically high 4.0-11.0 [facility] Comment on above: Performed By: #### C BC #### [facility] [address] [place] [address] Dr. Jorge Zavala GLYCOHEMOGLOBIN A1Con 2021 ADA RECOMMENDATION SEE BELOW Normal [facility] Comment on above: Result Comment: ADA RECOMMENDED LIMIT 4.0 - 6.0 ADA THERAPEUTIC TARGET < 7.0 ACTION SUGGESTED > 7.0 Performed By: #### A 1C #### [facility] [address] [place] [address] Dr. Jorge Zavala Glucose [Mass/Vol] 131 mg/dL Normal [facility] Comment on above: Performed By: #### A 1C #### [facility] [address] [place] [address] Dr. Jorge Zavala HbA1c (Bld) [Mass fraction] 6.2 % Normal 4.5-6.2 [facility] Comment on above: Performed By: #### A 1C #### [facility] [address] [place] [address] Dr. Jorge Zavala PROF CHEM 8 (BAS METB)on Anion gap [Moles/Vol] 8.4 mmol/L Normal [facility] Comment on above: Performed By: #### C BC #### [facility] [address] [place] [address] Dr. Jorge Zavala Calcium [Mass/Vol] 8.4 mg/dL Critically low 8.5-10.1 [facility] Comment on above: Performed By: #### C BC #### [facility] [address] [place] [address] Dr. Jorge Zavala Chloride [Moles/Vol] 103 mmol/L Normal 98-107 [facility] Comment on above: Performed By: #### C BC #### [facility] [address] [place] [address] [address] Jorge Zavala CO2 [Moles/Vol] 27.6 mmol/L Normal 21.0-32.0 [facility] Comment on above: Performed By: #### C BC #### [facility] [address] [place] [address] [address] Jorge Zavala Creatinine [Mass/Vol] 1.32 mg/dL Critically high 0.70-1.30 [facility] Comment on above: Performed By: #### C BC #### [facility] [address] [place] [address] [address] Jorge Zavala EGFR-AF ROMANIAN >60 Normal >=60 [facility] Comment on above: Performed By: #### C BC #### [facility] [address] [place] [address] [address] Jorge Zavala EGFR-NON AF ROMANIAN 52 mL/min/1.73m2 Critically low >=60 [facility] Comment on above: Performed By: #### C BC #### [facility] [address] [place] [address] [address] Jorge Zavala Glucose [Mass/Vol] 138 mg/dL Critically high 74-106 T [facility] Comment on above: Performed By: #### C BC #### [facility] [address] [place] [address] [address] Jorge Zavala Potassium [Moles/Vol] 4.0 mmol/L Normal 3.5-5.1 [facility] Comment on above: Performed By: #### C BC #### [facility] [address] [place] [address] [address] Jorge Zavala Sodium [Moles/Vol] 135 mmol/L Critically low 136-145 [facility] Comment on above: Performed By: #### C BC #### [facility] [address] [place] [address] [address] Jorge Zavala Urea nitrogen [Mass/Vol] 20.0 mg/dL Critically high 7.0-18.0 [facility] Comment on above: Performed By: #### C BC #### [facility] [address] [place] [address] [address] Jorge Zavala Urea nitrogen/Creatinine [Mass ratio] 15.2 mg/mg Normal [facility] Comment on above: Performed By: #### C BC #### [facility] [address] [place], [place] [address] Dr. Jorge Zavala SED RATE WESTERGRENon 2021 SED RATE 53 mm/hr Critically high <=20 [facility] Comment on above: Performed By: #### S EDR #### [facility] [address] [place] [address] [address] Jorge Zavala COVID Quick Testingon 2021 Result Negative [facility] [employer] Other SARS-CoV-2 (COVID-19) RNA NA A+probe Ql (Resp)on 02-26-2022 SARS-CoV-2 (COVID-19) RNA IGLESIA+probe Ql (Unsp spec) Negative [facility] [employer] Other PSA, FREE AND TOTAL RATIOon 02-24-2022 % Free PSA 30.0 % Normal [facility] Comment on above: Result Comment: The [...] men. Performed By: #### C BC #### [facility] [address] [address] [address] Jorge Zavala Prostate specific Ag [Mass/Vol] 4.0 ng/mL Normal 0.0-4.0 [facility] Comment on above: Result Comment: Juventino GILL methodology. . According to the [employer], Serum PSA should decrease and [...] disease. Performed By: #### C BC #### [facility] [address] [place] [address] Dr. Jorge Zavala PSA, Free 1.20 ng/mL Normal N/A [facility] Comment on above: Result Comment: Juventino klein ECLIA methodology. Performed By: #### C BC #### [facility] [address] [place] [address] Dr. Jorge Zavala CBC AUTO DIFFon 12-06-2021 BASO # 0.0 103/ul Normal 0.0-0.1 [facility] Comment on above: Performed By: #### C BC #### [facility] [address] [place] [address] Dr. Jorge Zavala Basophils/100 WBC (Bld) 0.3 % Normal 0.2-2.0 [facility] Comment on above: Performed By: #### C BC #### [facility] [address] [place] [address] Dr. Jorge Zavala EO # 0.0 103/ul Normal 0.0-0.7 [facility] Comment on above: Performed By: #### C BC #### [facility] [address] [place] [address] Dr. Jorge Zavala Eosinophils/100 WBC (Bld) 0.3 % Critically low 0.9-7.0 [facility] Comment on above: Performed By: #### C BC #### [facility] [address] [place] [address] Dr. Jorge Zavala Erythrocyte distribution width (RBC) [Ratio] 12.9 % Normal 11.0-15.0 [facility] Comment on above: Performed By: #### C BC #### [facility] [address] [place] [address] Dr. Jorge Zavala Hematocrit (Bld) [Volume fraction] 44.8 % Normal 42.0-54.0 [facility] Comment on above: Performed By: #### C BC #### [facility] [address] [place] [address] Dr. Jorge Zavala Hemoglobin (Bld) [Mass/Vol] 14.6 g/dL Normal 14.0-18.0 [facility] Comment on above: Performed By: #### C BC #### [facility] [address] [place] [address] Dr. Jorge Zavala IG # 0.04 10e3/ul Critically high 0.00-0.03 [facility] Comment on above: Performed By: #### C BC #### [facility] [address] [place] [address] Dr. Jorge Zavala IG % 0.4 % Normal 0.0-0.5 [facility] Comment on above: Performed By: #### C BC #### [facility] [address] [place] [address] Dr. Jorge Zavala LYMPH # 2.9 103/ul Normal 1.2-3.8 [facility] Comment on above: Performed By: #### C BC #### [facility] [address] [place] [address] Dr. Jorge Zaavla Lymphocytes/100 WBC (Bld) 30.2 % Normal 20.5-60.0 [facility] Comment on above: Performed By: #### C BC #### [facility] [address] [place] [address] Dr. Jorge Zavala MANUAL DIFF REQ NO Normal [facility] Comment on above: Performed By: #### C BC #### [facility] [address] [place] [address] Dr. Jorge Zavala MCH (RBC) [Entitic mass] 30.1 pg Normal 25.9-34.0 [facility] Comment on above: Performed By: #### C BC #### [facility] [address] [place] [address] Dr. Jorge Zavala MCHC (RBC) [Mass/Vol] 32.6 g/dL Normal 29.9-35.2 [facility] Comment on above: Performed By: #### C BC #### [facility] [address] [address] [address] Jorge Zavala MCV (RBC) [Entitic vol] 92.4 fL Normal 80.0-94.0 [facility] Comment on above: Performed By: #### C BC #### [facility] [address] [address] [address] Jorge Zavala MONO # 0.9 103/ul Critically high 0.3-0.8 [facility] Comment on above: Performed By: #### C BC #### [facility] [address] [address] [address] Jorge Zavala Monocytes/100 WBC (Bld) 8.9 % Normal 1.7-12.0 [facility] Comment on above: Performed By: #### C BC #### [facility] [address] [place] [address] Dr. Jorge Zavala NEUT # 5.7 103/ul Normal 1.4-6.5 [facility] Comment on above: Performed By: #### C BC #### [facility] [address] [place] [address] Dr. Jorge Zavala Neutrophils/100 WBC (Bld) 59.9 % Normal 43.0-75.0 [facility] Comment on above: Performed By: #### C BC #### [facility] [address] [address] [address] Jorge Zavala Platelet mean volume (Bld) [Entitic vol] 9.6 fL Normal 9.5-13.5 [facility] Comment on above: Performed By: #### C BC #### [facility] [address] [address] [address] Jorge Zavala PLT 312 103/ul Normal 150-450 [facility] Comment on above: Performed By: #### C BC #### [facility] [address] [place] [address] Dr. Jorge Zavala RBC 4.85 106/ul Normal 4.70-6.10 [facility] Comment on above: Performed By: #### C BC #### [facility] [address] [address] [address] Jorge Zavala WBC 9.5 103/ul Normal 4.0-11.0 [facility] Comment on above: Performed By: #### C BC #### [facility] [address] [address] [address] Jorge Zavala FERRITINon 12-06-2021 Ferritin [Mass/Vol] 135.0 ng/mL Normal 17.9-464.0 [facility] Comment on above: Performed By: #### F ERR, PSASC, IRON #### [facility] [address] [address] [address] Jorge Zavala GLYCOHEMOGLOBIN A1Con 2021 ADA RECOMMENDATION ADA THERAPEUTIC TARGET 6.0 - 7.0 ACTION SUGGESTED > 7.0 Normal [facility] Comment on above: Performed By: #### C BC #### [facility] [address] [address] [address] Jorge Zavala Glucose [Mass/Vol] 131 mg/dL Normal [facility] Comment on above: Performed By: #### C BC #### [facility] [address] [address] [address] Jorge Zavala HbA1c (Bld) [Mass fraction] 6.2 % Critically high <=6.0 [facility] Comment on above: Performed By: #### C BC #### [facility] [address] [address] [address] Jorge Zavala IRONon 12-06-2021 Iron [Mass/Vol] 93.0 ug/dL Normal 49.0-181.0 [facility] Comment on above: Performed By: #### F ERR, PSASC, IRON #### [facility] [address] [address] [address] Jorge Zavala LIPID PROFILEon 12-06-2021 CHOL-HDL RATIO NORM SEE BELOW Normal [facility] Comment on above: Result Comment: 3.3 - 4.4 LOW RISK 4.4 - 7.1 AVERAGE RISK 7.1 - 11.0 MODERATE RISK >11.0 HIGH RISK Performed By: #### C MP, LIPID #### [facility] [address] [address] [address] Jorge Zavala Cholesterol [Mass/Vol] 205 mg/dL Critically high <=200 [facility] Comment on above: Performed By: #### C MP, LIPID #### [facility] [address] [address] [address] oJrge Zavala Cholesterol in HDL [Mass/Vol] 33 mg/dL Critically low 40-60 [facility] Comment on above: Performed By: #### C MP, LIPID #### [facility] [address] [address] [address] Jorge Zavala Cholesterol in LDL [Mass/Vol] 127.2 mg/dL Normal [facility] Comment on above: Performed By: #### C MP, LIPID #### [facility] [address] [place] [address] Dr. Jorge Zavala Cholesterol.total/Ch olesterol in HDL [Mass ratio] 6.2 {ratio} Normal [facility] Comment on above: Performed By: #### C MP, LIPID #### [facility] [address] [address] [address] Jorge Zavala HDL NORMAL > or = 60 mg/dl - LOW CARDIOVASCULAR RISK <40 mg/dl - HIGH CARDIOVASCULAR RISK Normal [facility] Comment on above: Performed By: #### C MP, LIPID #### [facility] [address] [address] [address] oJrge Zavala LDL CALC NORMAL SEE BELOW Normal [facility] Comment on above: Result Comment: <100 mg/dl OPTIMAL 100 - 129 mg/dl NEAR OR ABOVE OPTIMAL 130 - 159 mg/dl BORDERLINE HIGH 160 - 189 mg/dl HIGH >190 mg/dl VERY HIGH Performed By: #### C MP, LIPID #### [facility] [address] [address] [address] Jorge Zavala Triglyceride [Mass/Vol] 224 mg/dL Critically high <=150 [facility] Comment on above: Performed By: #### C MP, LIPID #### [facility] [address] [address] [address] Jorge Zavala VLDL CALC 44.8 mg/dL Normal [facility] Comment on above: Performed By: #### C MP, LIPID #### [facility] [address] [place] [address] Dr. Jorge Zavala MICROALBUMIN, RAND URon 11-15 mALB 6.8 mg/L Normal <=30.0 [facility] Comment on above: Performed By: #### C BC #### [facility] [address] [place] [address] Dr. Jorge Zavala PROF 14(COMP METB)on 022 Albumin [Mass/Vol] 3.7 g/dL Normal 3.4-5.0 [facility] Comment on above: Performed By: #### C MP, LIPID #### [facility] [address] [place] [address] Dr. Jorge Zavala Albumin/Globulin [Mass ratio] 0.8 {ratio} Normal [facility] Comment on above: Performed By: #### C MP, LIPID #### [facility] [address] [place] [address] Dr. Jorge Zavala ALP [Catalytic activity/Vol] 93 U/L Normal 46-116 [facility] Comment on above: Performed By: #### C MP, LIPID #### [facility] [address] [place] [address] Dr. Jorge Zavala ALT [Catalytic activity/Vol] 30 U/L Normal 16-63 [facility] Comment on above: Performed By: #### C MP, LIPID #### [facility] [address] [place] [address] Dr. Jorge Zavala Anion gap [Moles/Vol] 11.5 mmol/L Normal [facility] Comment on above: Performed By: #### C MP, LIPID #### [facility] [address] [place] [address] Dr. Jorge Zavala AST [Catalytic activity/Vol] 25 U/L Normal 15-37 [facility] Comment on above: Performed By: #### C MP, LIPID #### [facility] [address] [place] [address] Dr. Jorge Zavala Bilirubin [Mass/Vol] 0.8 mg/dL Normal 0.2-1.3 [facility] Comment on above: Performed By: #### C MP, LIPID #### [facility] [address] [place] [address] Dr. Jorge Zavala Calcium [Mass/Vol] 8.5 mg/dL Normal 8.5-10.1 [facility] Comment on above: Performed By: #### C MP, LIPID #### [facility] [address] [address] [address] Jorge Zavala Chloride [Moles/Vol] 103 mmol/L Normal 98-107 [facility] Comment on above: Performed By: #### C MP, LIPID #### [facility] [address] [place] [address] Dr. Jorge Zavala CO2 [Moles/Vol] 27.7 mmol/L Normal 22.0-30.0 [facility] Comment on above: Performed By: #### C MP, LIPID #### [facility] [address] [place] [address] Dr. Jorge Zavala Creatinine [Mass/Vol] 1.36 mg/dL Critically high 0.66-1.25 [facility] Comment on above: Performed By: #### C MP, LIPID #### [facility] [address] [place] [address] Dr. Jorge Zavala EGFR-AF ROMANIAN >60 Normal >=60 [facility] Comment on above: Performed By: #### C MP, LIPID #### [facility] [address] [place] [address] Dr. Jorge Zavala EGFR-NON AF ROMANIAN 50 mL/min/1.73m2 Critically low >=60 [facility] Comment on above: Performed By: #### C MP, LIPID #### [facility] [address] [place] [address] Dr. Jorge Zavala Globulin (S) [Mass/Vol] 4.4 g/dL Normal [facility] Comment on above: Performed By: #### C MP, LIPID #### [facility] [address] [place] [address] Dr. Jorge Zavala Glucose [Mass/Vol] 118 mg/dL Critically high 74-106 [facility] Comment on above: Performed By: #### C MP, LIPID #### [facility] [address] [place] [address] Dr. Jorge Zavala Potassium [Moles/Vol] 4.2 mmol/L Normal 3.4-5.0 [facility] Comment on above: Performed By: #### C MP, LIPID #### [facility] [address] [place] [address] Dr. Jorge Zavala Protein [Mass/Vol] 8.1 g/dL Normal 6.1-8.2 [facility] Comment on above: Performed By: #### C MP, LIPID #### [facility] [address] [place] [address] Dr. Jorge Zavala Sodium [Moles/Vol] 138 mmol/L Normal 137-145 [facility] Comment on above: Performed By: #### C MP, LIPID #### [facility] [address] [place] [address] Dr. Jorge Zavala Urea nitrogen [Mass/Vol] 15.0 mg/dL Normal 7.0-18.0 [facility] Comment on above: Performed By: #### C MP, LIPID #### [facility] [address] [place] [address] Dr. Jorge Zavala Urea nitrogen/Creatinine [Mass ratio] 11.0 mg/mg Normal [facility] Comment on above: Performed By: #### C MP, LIPID #### [facility] [address] [place] [address] Dr. oJrge Zavala UA RANDOM W/MICROSCOPICon BACTERIA NONE SEEN Normal NONE SEEN [facility] Comment on above: Performed By: #### U AMIC #### [facility] [address] [place] [address] Dr. Jorge Zavala Bilirubin Ql (U) Negative Normal NEGATIVE [facility] Comment on above: Performed By: #### U AMIC #### [facility] [address] [place] [address] Dr. Jorge Zavala CAST NONE SEEN Normal NONE SEEN [facility] Comment on above: Performed By: #### U AMIC #### [facility] [address] [place] [address] Dr. Jorge Zavala Clarity (U) CLEAR Normal CLEAR [facility] Comment on above: Performed By: #### U AMIC #### [facility] [address] [address] [address] Jorge Zavala Color (U) YELLOW Normal YELLOW [facility] Comment on above: Performed By: #### U AMIC #### [facility] [address] [place] [address] Dr. Jorge Zavala Crystals LM Nom (Urine sed) NONE SEEN Normal NONE SEEN [facility] Comment on above: Performed By: #### U AMIC #### [facility] [address] [place] [address] Dr. Jorge Zavala Epithelial cells LM Ql (Urine sed) FEW Abnormal NONE SEEN /RARE [facility] Comment on above: Performed By: #### U AMIC #### [facility] [address] [place] [address] Dr. Jorge Zavala Glucose Ql (U) Negative Normal NEGATIVE [facility] Comment on above: Performed By: #### U AMIC #### [facility] [address] [place] [address] Dr. Jorge Zavala Hemoglobin Ql (U) Negative Normal NEGATIVE [facility] Comment on above: Performed By: #### U AMIC #### [facility] [address] [address] [address] Jorge Zavala Ketones Ql (U) Negative Normal NEGATIVE [facility] Comment on above: Performed By: #### U AMIC #### [facility] [address] [place] [address] Dr. Jorge Zavala LEUKOCYTES Negative Normal NEGATIVE [facility] Comment on above: Performed By: #### U AMIC #### [facility] [address] [place] [address] Dr. Jorge Zavala MUCOUS NONE SEEN Normal NONE SEEN [facility] Comment on above: Performed By: #### U AMIC #### [facility] [address] [address] [address] Jorge Zavala Nitrite Ql (U) Negative Normal NEGATIVE [facility] Comment on above: Performed By: #### U AMIC #### [facility] [address] [address] [address] Jorge Zavala pH (U) 6.0 [pH] Normal 5-9 [facility] Comment on above: Performed By: #### U AMIC #### [facility] [address] [address] [address] Jorge Zavala RBC NONE SEEN Abnormal 0-2 [facility] Comment on above: Performed By: #### U AMIC #### [facility] [address] [address] [address] Jorge Zavala SPEC GRAVITY 1.020 Normal 1.005-<=1.02 5 [facility] Comment on above: Performed By: #### U AMIC #### [facility] [address] [address] [address] Jorge Zavala UA PROTEIN Negative Normal NEGATIVE/ TRACE [facility] Comment on above: Performed By: #### U AMIC #### [facility] [address] [place] [address] Dr. Jorge Zavala Urobilinogen Qn (U) 0.2 {Nato'U}/dL Normal 0.2 - 1. 0 [facility] Comment on above: Performed By: #### U AMIC #### [facility] [address] [address] [address] Jorge Zavala WBC NONE SEEN Normal NONE SEEN [facility] Comment on above: Performed By: #### U AMIC #### [facility] [address] [address] [address] Jorge Zavala Progress Noteon 05-06-2018 HIM IP Note OR Computer Engineering Technician Normal [facility] HIM IP Note OR Computer Engineering Technician Normal [facility] Progress Noteon 10-31-2017 HIM IP Note OR Computer Engineering Technician Normal [facility] PSA, Diagnosticon 10-29-2017 Prostatic Spec. Ag 5.48 ug/L High <4.1 [facility] Comment on above: Result Comment: The Jose Guadalupe ECLIA assay is used. Results obtained with different assay methods cannot be used interchangeably.[email or web address] [id number], [place] [id number] ([phone] Performed By: #### P CAITLYN ####[id number] [place], [place] [id number] Vital Signs Date Time Vital Sign Value Performing Clinician Facility 05-04-2025 09:53-0400 Body mass index (BMI) [Ratio] 34.68 kg/m2 Lindadelaney Whitakermathewz DIRECTOR HOSPICE OPERATIONS Work Phone: [facility] 05-04-2025 09:53-0400 Body temperature 98.29 [degF] Linda Juliannemathewz DIRECTOR HOSPICE OPERATIONS Work Phone: [facility] 05-04-2025 09:53-0400 Body weight 88.81 kg Linda Juliannemathewz DIRECTOR HOSPICE OPERATIONS Work Phone: [facility] 05-04-2025 09:53-0400 Diastolic blood pressure 70 mm[Hg] Linda Juliannehholz DIRECTOR HOSPICE OPERATIONS Work Phone: [facility] 05-04-2025 09:53-0400 Heart rate 84 /min Linda Julianneediholz DIRECTOR HOSPICE OPERATIONS Work Phone: [facility] 05-04-2025 09:53-0400 Respiratory rate 22 /min Linda Juliannemathewz DIRECTOR HOSPICE OPERATIONS Work Phone: [facility] 05-04-2025 09:53-0400 SaO2% (BldA) [Mass fraction] 96 % Linda Oscarz DIRECTOR HOSPICE OPERATIONS Work Phone: [facility] 05-04-2025 09:53-0400 Systolic blood pressure 138 mm[Hg] Linda Aichholz DIRECTOR HOSPICE OPERATIONS Work Phone: [facility] 03-16-2025 09:34-0400 Diastolic blood pressure 64 mm[Hg] Linda Aichholz DIRECTOR HOSPICE OPERATIONS Work Phone: [facility] 03-16-2025 09:34-0400 Systolic blood pressure 138 mm[Hg] Linda Aichholz DIRECTOR HOSPICE OPERATIONS Work Phone: [facility] 03-16-2025 09:22-0400 Body mass index (BMI) [Ratio] 35.22 kg/m2 Linda Aichholz DIRECTOR HOSPICE OPERATIONS Work Phone: [facility] 03-16-2025 09:22-0400 Body temperature 98.1 [degF] Linda Aichholz DIRECTOR HOSPICE OPERATIONS Work Phone: [facility] 03-16-2025 09:22-0400 Body weight 90.17 kg Linda Aichholz DIRECTOR HOSPICE OPERATIONS Work Phone: [facility] 03-16-2025 09:22-0400 Heart rate 90 /min Linda Aichholz DIRECTOR HOSPICE OPERATIONS Work Phone: [facility] 03-16-2025 09:22-0400 Respiratory rate 22 /min Linda Aichholz DIRECTOR HOSPICE OPERATIONS Work Phone: [facility] 03-16-2025 09:22-0400 SaO2% (BldA) [Mass fraction] 97 % Linda Aichholz DIRECTOR HOSPICE OPERATIONS Work Phone: [facility] 01-06-2025 11:05-0400 Body mass index (BMI) [Ratio] 34.72 kg/m2 Linda Aichholz DIRECTOR HOSPICE OPERATIONS Work Phone: [facility] 01-06-2025 11:05-0400 Body temperature 98.49 [degF] Linda Aichholz DIRECTOR HOSPICE OPERATIONS Work Phone: [facility] 01-06-2025 11:05-0400 Body weight 88.91 kg Linda Aichholz DIRECTOR HOSPICE OPERATIONS Work Phone: [facility] 01-06-2025 11:05-0400 Diastolic blood pressure 70 mm[Hg] Linda Aichholz DIRECTOR HOSPICE OPERATIONS Work Phone: [facility] 01-06-2025 11:05-0400 Heart rate 87 /min Linda Aichholz DIRECTOR HOSPICE OPERATIONS Work Phone: [facility] 01-06-2025 11:05-0400 Respiratory rate 22 /min Linda Aichholz DIRECTOR HOSPICE OPERATIONS Work Phone: [facility] 01-06-2025 11:05-0400 SaO2% (BldA) [Mass fraction] 96 % Linda Aichholz DIRECTOR HOSPICE OPERATIONS Work Phone: [facility] 01-06-2025 11:05-0400 Systolic blood pressure 138 mm[Hg] Linda Aichholz DIRECTOR HOSPICE OPERATIONS Work Phone: [facility] 12-21-2024 14:03-0400 Body mass index (BMI) [Ratio] 34.29 kg/m2 Linda Aichholz DIRECTOR HOSPICE OPERATIONS Work Phone: [facility] 12-21-2024 14:03-0400 Body temperature 98.8 [degF] Linda Aichholz DIRECTOR HOSPICE OPERATIONS Work Phone: [facility] 12-21-2024 14:03-0400 Body weight 87.82 kg Linda Aichholz DIRECTOR HOSPICE OPERATIONS Work Phone: [facility] 12-21-2024 14:03-0400 Diastolic blood pressure 72 mm[Hg] Linda Aichholz DIRECTOR HOSPICE OPERATIONS Work Phone: [facility] 12-21-2024 14:03-0400 Heart rate 92 /min Linda Aichholz DIRECTOR HOSPICE OPERATIONS Work Phone: [facility] 12-21-2024 14:03-0400 Respiratory rate 20 /min Linda Aichholz DIRECTOR HOSPICE OPERATIONS Work Phone: [facility] 12-21-2024 14:03-0400 SaO2% (BldA) [Mass fraction] 94 % Linda Aichholz DIRECTOR HOSPICE OPERATIONS Work Phone: [facility] 12-21-2024 14:03-0400 Systolic blood pressure 120 mm[Hg] Linda Aichholz DIRECTOR HOSPICE OPERATIONS Work Phone: [facility] 11-16-2024 10:10-0500 Diastolic blood pressure 80 mm[Hg] Linda Aichholz DIRECTOR HOSPICE OPERATIONS Work Phone: [facility] 11-16-2024 10:10-0500 Systolic blood pressure 162 mm[Hg] Linda Moorez DIRECTOR HOSPICE OPERATIONS Work Phone: [facility] 11-16-2024 10:04-0500 Body height 160 cm Lindadelaney Moorez DIRECTOR HOSPICE OPERATIONS Work Phone: [facility] 11-16-2024 10:04-0500 Body mass index (BMI) [Ratio] 35.11 kg/m2 Lindadelaney Moorez DIRECTOR HOSPICE OPERATIONS Work Phone: [facility] 11-16-2024 10:04-0500 Body temperature 98.49 [degF] Linda Moorez DIRECTOR HOSPICE OPERATIONS Work Phone: [facility] 11-16-2024 10:04-0500 Body weight 89.9 kg Linda Moorez DIRECTOR HOSPICE OPERATIONS Work Phone: [facility] 11-16-2024 10:04-0500 Heart rate 84 /min Lindadelaney Moorez DIRECTOR HOSPICE OPERATIONS Work Phone: [facility] 11-16-2024 10:04-0500 Respiratory rate 21 /min Lindadelaney Moorez DIRECTOR HOSPICE OPERATIONS Work Phone: [facility] 11-16-2024 10:04-0500 SaO2% (BldA) [Mass fraction] 96 % Lindadelaney Moorez DIRECTOR HOSPICE OPERATIONS Work Phone: [facility] 09-14-2024 15:27-0500 Body mass index (BMI) [Ratio] 35.29 kg/m2 Lindadelaney Moorez DIRECTOR HOSPICE OPERATIONS Work Phone: [facility] 09-14-2024 15:27-0500 Body temperature 98.8 [degF] Linda Darnellholz DIRECTOR HOSPICE OPERATIONS Work Phone: [facility] 09-14-2024 15:27-0500 Body weight 90.36 kg Linda Darnellholz DIRECTOR HOSPICE OPERATIONS Work Phone: [facility] 09-14-2024 15:27-0500 Diastolic blood pressure 70 mm[Hg] Linda Aichholz DIRECTOR HOSPICE OPERATIONS Work Phone: [facility] 09-14-2024 15:27-0500 Heart rate 89 /min Linda Aichholz DIRECTOR HOSPICE OPERATIONS Work Phone: [facility] 09-14-2024 15:27-0500 Respiratory rate 22 /min Linda Aichholz DIRECTOR HOSPICE OPERATIONS Work Phone: [facility] 09-14-2024 15:27-0500 SaO2% (BldA) [Mass fraction] 97 % Linda Aichholz DIRECTOR HOSPICE OPERATIONS Work Phone: [facility] 09-14-2024 15:27-0500 Systolic blood pressure 110 mm[Hg] Linda Aichholz DIRECTOR HOSPICE OPERATIONS Work Phone: [facility] 08-03-2024 13:10-0500 Body height 160 cm Linda Aichholz DIRECTOR HOSPICE OPERATIONS Work Phone: [facility] 08-03-2024 13:10-0500 Body mass index (BMI) [Ratio] 35.25 kg/m2 Linda Aichholz DIRECTOR HOSPICE OPERATIONS Work Phone: [facility] 08-03-2024 13:10-0500 Body temperature 98.49 [degF] Linda Aichholz DIRECTOR HOSPICE OPERATIONS Work Phone: [facility] 08-03-2024 13:10-0500 Body weight 90.27 kg Linda Aichholz DIRECTOR HOSPICE OPERATIONS Work Phone: [facility] 08-03-2024 13:10-0500 Diastolic blood pressure 72 mm[Hg] Linda Aichholz DIRECTOR HOSPICE OPERATIONS Work Phone: [facility] 08-03-2024 13:10-0500 Heart rate 92 /min Linda Aichholz DIRECTOR HOSPICE OPERATIONS Work Phone: [facility] 08-03-2024 13:10-0500 Respiratory rate 19 /min Linda Aichholz DIRECTOR HOSPICE OPERATIONS Work Phone: [facility] 08-03-2024 13:10-0500 SaO2% (BldA) [Mass fraction] 96 % Linda Julianneedijaxon DIRECTOR HOSPICE OPERATIONS Work Phone: [facility] 08-03-2024 13:10-0500 Systolic blood pressure 130 mm[Hg] Linda Patrickjaxon DIRECTOR HOSPICE OPERATIONS Work Phone: [facility] 10-23-2023 12:35-0500 Diastolic blood pressure 69 mm[Hg] Analilia Martinez DO Work Phone: [facility] [employer] 10-23-2023 12:35-0500 Heart rate 71 /min Analilia Martinez DO Work Phone: [facility] 10-23-2023 12:35-0500 SaO2% (BldA) [Mass fraction] 96 % Analilia Martinez DO Work Phone: [facility] 10-23-2023 12:35-0500 Systolic blood pressure 139 mm[Hg] Analilia Martinez DO Work Phone: [facility] 10-23-2023 12:05-0500 Respiratory rate 17 /min Analilia Martinez DO Work Phone: [facility] 10-23-2023 10:05-0500 Body temperature 97 [degF] Analilia Martinez DO Work Phone: [facility] 10-23-2023 06:49-0500 Body height 165.1 cm Analilia Martinez DO Work Phone: [facility] 10-23-2023 06:49-0500 Body mass index (BMI) [Ratio] 31.62 kg/m2 Analilia Martinez DO Work Phone: [facility] 10-23-2023 06:49-0500 Body weight 86.18 kg Analilia Martinez DO Work Phone: [facility] [employer] [facility] 09-26-2023 10:41-0500 Body height 165.1 cm Pmh 1 [facility] 09-26-2023 10:41-0500 Body mass index (BMI) [Ratio] 31.62 kg/m2 Pm 1 [facility] [employer] [facility] 09-26-2023 10:41-0500 Body weight 86.18 kg Pm 1 [facility] [employer] [facility] 08-22-2022 15:30-0500 Blood Pressure Location Raoul SuVoltaL [facility] 08-22-2022 15:30-0500 Diastolic blood pressure 80 mm[Hg] Raoul LOWERYL [facility] 08-22-2022 15:30-0500 Heart rate 80 /min Raoul SuVoltaL [facility] 08-22-2022 15:30-0500 Respiratory rate 16 /min Raoul LOWERYL [facility] 08-22-2022 15:30-0500 Systolic blood pressure 124 mm[Hg] aRoul LOWERYL [employer] [facility] 02-26-2022 10:40-0400 Body height 167.64 cm Shaye Chowdaryault Other [employer] Other 02-26-2022 10:40-0400 Body mass index (BMI) [Ratio] 31.47 kg/m2 Shaye Dhaval Other [employer] Other 02-26-2022 10:40-0400 Body temperature 98.7 [degF] Shaye Dhaval Other [employer] Other 02-26-2022 10:40-0400 Body weight 88.45 kg Shaye Chowdaryault Other [employer] Other 02-26-2022 10:40-0400 Respiratory rate 18 /min Shaye Dhaval Other [employer] Other 02-26-2022 10:40-0400 SaO2% (BldA) [Mass fraction] 96 % Shaye Chowdaryault Other [facility] [employer] Other Encounters Encounter Date Encounter Type Care Provider Facility Start: 06-02-2025 End: 06-03-2025 ambulatory [facility] Start: 05-04-2025 End: 05-04-2025 Bamboo flowsheet Linda Bradley DIRECTOR HOSPICE OPERATIONS Work Phone: [facility] Start: 05-04-2025 End: 05-04-2025 Bamboo flowsheet iLnda Bradley DIRECTOR HOSPICE OPERATIONS Work Phone: [facility] Start: 05-04-2025 End: 05-04-2025 ambulatory LINDA BRADLEY Not Available Start: 05-04-2025 End: 05-04-2025 Office outpatient visit 25 minutes Linda Bradley DIRECTOR HOSPICE OPERATIONS Work Phone: [facility] Comment on above: Essential hypertensi on (Primary Dx); Moderate persistent asthma without complication (HCC); Type 2 diabetes mellitus with stage 3a chronic kidney disease, without long-term current use of insulin (HCC); Class 2 severe obesity due to excess calories with serious comorbidity and body mass index (BMI) of 35.0 to 35.9 in adult ([facility]-HCC); Abnormal echocardiogram Start: 04-29-2025 End: 04-29-2025 Refill Linda Bradley DIRECTOR HOSPICE OPERATIONS Work Phone: [facility] Comment on above: Benign prostatic hyp erplasia, unspecified whether lower urinary tract symptoms present (Primary Dx) Start: 04-15-2025 End: 04-15-2025 Orders Only Linda Bradley DIRECTOR HOSPICE OPERATIONS Work Phone: [facility] Comment on above: Essential hypertensi on (Primary Dx); Dyspnea on exertion; Abnormal echocardiogram Start: 04-14-2025 End: 04-14-2025 Clinisync Result Encounter Linda Bradley DIRECTOR HOSPICE OPERATIONS Work Phone: [facility] External Department Unsolicited Start: 04-14-2025 End: 04-14-2025 Clinisync Result Encounter Lindadelaney Whitakermathewz DIRECTOR HOSPICE OPERATIONS Work Phone: [facility] External Department Unsolicited Start: 04-12-2025 End: 04-12-2025 Refill Linda Aichholz DIRECTOR HOSPICE OPERATIONS Work Phone: [facility] Comment on above: Benign prostatic hyp erplasia, unspecified whether lower urinary tract symptoms present (Primary Dx) Start: 04-07-2025 End: 04-07-2025 Refill Linda Aichholz DIRECTOR HOSPICE OPERATIONS Work Phone: [facility] Comment on above: Essential hypertensi on ; Type 2 diabetes mellitus without complication, without long-term current use of insulin ([facility]); Gastroesophageal reflux disease, unspecified whether esophagitis present Start: 03-16-2025 End: 03-16-2025 Bamboo flowsheet Linda Aichholz DIRECTOR HOSPICE OPERATIONS Work Phone: [facility] Start: 03-16-2025 End: 03-16-2025 Bamboo flowsheet Linda Aichholz DIRECTOR HOSPICE OPERATIONS Work Phone: [facility] Start: 03-16-2025 End: 03-16-2025 ambulatory LINDA AICHHOLZ Not Available Start: 03-16-2025 End: 03-16-2025 Office outpatient visit 25 minutes Linda Darnellholz DIRECTOR HOSPICE OPERATIONS Work Phone: [facility] Comment on above: Dyspnea on exertion (Primary Dx); Moderate persistent asthma without complication ([facility]); Essential hypertension ; Stage 3a chronic kidney disease ([facility]-HCC); Obesity (BMI 30-39.9); Lumbar back pain Start: 01-07-2025 End: 01-07-2025 Clinisync Result Encounter Lindadelaney Whitakermathewz DIRECTOR HOSPICE OPERATIONS Work Phone: [facility] External Department Unsolicited Start: 01-07-2025 End: 01-07-2025 Clinisync Result Encounter Linda Darnellholz DIRECTOR HOSPICE OPERATIONS Work Phone: [facility] External Department Unsolicited Start: 01-06-2025 End: 01-06-2025 Bamboo flowsheet Linda Kirk DIRECTOR HOSPICE OPERATIONS Work Phone: [facility] Start: 01-06-2025 End: 01-06-2025 Bamboo flowsheet Linda Kirk DIRECTOR HOSPICE OPERATIONS Work Phone: [facility] Start: 01-06-2025 End: 01-06-2025 ambulatory LINDA DARNELLHOLZ Not Available Start: 01-06-2025 End: 01-06-2025 Office outpatient visit 25 minutes Linda Kirk DIRECTOR HOSPICE OPERATIONS Work Phone: [facility] Comment on above: Moderate persistent asthma without complication (CMS/HCC) (Primary Dx); Bronchitis; Essential hypertension (CMS/HCC); Class 2 severe obesity due to excess calories with serious comorbidity and body mass index (BMI) of 35.0 to 35.9 in adult (CMS/HCC); Lumbar back pain; Allergic rhinitis, unspecified seasonality, unspecified trigger Start: 12-21-2024 End: 12-21-2024 ambulatory LINDA BRADLEY [facility] Start: 12-21-2024 End: 12-21-2024 Bamboo flowsheet Linda Kirk DIRECTOR HOSPICE OPERATIONS Work Phone: [facility] Start: 12-21-2024 End: 12-21-2024 Bamboo flowsheet Linda Kirk DIRECTOR HOSPICE OPERATIONS Work Phone: [facility] Start: 12-21-2024 End: 12-21-2024 Office outpatient visit 25 minutes Linda Bradley DIRECTOR HOSPICE OPERATIONS Work Phone: [facility] Comment on above: Bronchitis (Primary Dx); Essential hypertension (CMS/HCC); Gastroesophageal reflux disease, unspecified whether esophagitis present Start: 12-21-2024 End: 12-21-2024 ambulatory LINDA DARNELLHOLZ Not Available Start: 12-17-2024 End: 12-17-2024 Refill Linda Kirk DIRECTOR HOSPICE OPERATIONS Work Phone: [facility] Comment on above: Chronic cough (Prima ry Dx) Start: 12-02-2024 End: 12-02-2024 ambulatory LINDA AICHHOLZ Not Available Start: 11-25-2024 End: 11-25-2024 Telephone encounter Jr. Sheldon Cruz DO Work Phone: [facility] Comment on above: Pain Meds Start: 11-23-2024 End: 11-23-2024 ambulatory BEBE MCCLAIN Not Available Start: 11-16-2024 End: 11-16-2024 Bamboo flowsheet Linda Kirk DIRECTOR HOSPICE OPERATIONS Work Phone: [facility] Start: 11-16-2024 End: 11-16-2024 Bamboo flowsheet Linda Kirk DIRECTOR HOSPICE OPERATIONS Work Phone: [facility] Start: 11-16-2024 End: 11-16-2024 Office outpatient visit 25 minutes Linda Bradley DIRECTOR HOSPICE OPERATIONS Work Phone: [facility] Comment on above: Diverticulitis (Prim kandice Dx); Obesity (BMI 30-39.9); Class 2 severe obesity due to excess calories with serious comorbidity and body mass index (BMI) of 35.0 to 35.9 in adult ([facility]); Type 2 diabetes mellitus without complication, without long-term current use of insulin ([facility]) Start: 11-16-2024 End: 11-16-2024 ambulatory LINDA AICHHOLZ Not Available Start: 10-12-2024 End: 10-12-2024 Bamboo flowsheet Bebe Mcclain DIRECTOR HOSPICE OPERATIONS Work Phone: [facility] Start: 10-12-2024 End: 10-12-2024 Bamboo flowsheet Bebe Mcclain DIRECTOR HOSPICE OPERATIONS Work Phone: [facility] Start: 10-12-2024 End: 10-12-2024 Office outpatient visit 15 minutes Bebe Mcclain DIRECTOR HOSPICE OPERATIONS Work Phone: [facility] Comment on above: Status post total le ft knee replacement; Primary osteoarthritis of left knee Start: 10-12-2024 End: 10-12-2024 ambulatory BEBE MCCLAIN Not Available Start: 10-05-2024 End: 10-06-2024 Refill Karla Munguia DIRECTOR HOSPICE OPERATIONS Work Phone: [facility] Comment on above: Benign prostatic hyp erplasia, unspecified whether lower urinary tract symptoms present (Primary Dx); Essential hypertension ([facility]) Start: 09-30-2024 End: 09-30-2024 Refill Linda Aichholz DIRECTOR HOSPICE OPERATIONS Work Phone: [facility] Comment on above: Type 2 diabetes radha itus with stage 3a chronic kidney disease, without long-term current use of insulin (HCC) ([facility]) (Primary Dx) Start: 09-14-2024 End: 09-14-2024 Office outpatient visit 15 minutes Linda Oscarz DIRECTOR HOSPICE OPERATIONS Work Phone: [facility] Comment on above: Bronchitis (Primary Dx); Obesity (BMI 30-39.9); Essential hypertension ([facility]); Gastroesophageal reflux disease, unspecified whether esophagitis present Start: 09-14-2024 End: 09-14-2024 Refill Linda Aichholz DIRECTOR HOSPICE OPERATIONS Work Phone: [facility] Comment on above: Essential hypertensi on (CMS/HCC) Start: 08-03-2024 End: 08-03-2024 Bamboo flowsheet Linda Aichholz DIRECTOR HOSPICE OPERATIONS Work Phone: [facility] Start: 08-03-2024 End: 08-03-2024 Bamboo flowsheet Linda Aichholz DIRECTOR HOSPICE OPERATIONS Work Phone: [facility] Start: 08-03-2024 End: 08-03-2024 Telephone encounter Linda Juliannehholz DIRECTOR HOSPICE OPERATIONS Work Phone: [facility] Start: 08-03-2024 End: 08-03-2024 ambulatory LINDA AICHHOLZ Not Available Start: 08-03-2024 End: 08-03-2024 Office outpatient visit 25 minutes Linda Aichholz DIRECTOR HOSPICE OPERATIONS Work Phone: [facility] Comment on above: Essential hypertensi on [...] 06-15-2024 End: 06-15-2024 Telephone encounter Linda Bradley DIRECTOR HOSPICE OPERATIONS Work Phone: [facility] Comment on above: Essential hypertensi on (CMS/HCC) Start: 12-03-2023 Patient encounter procedure Linda Bradley NP Work Phone: [facility] Start: 10-31-2023 Reedsyheet Analilia moralez DO Work Phone: [facility] Start: 10-31-2023 Reedsyheet Analilia moralez DO Work Phone: [facility] Start: 10-31-2023 End: 10-31-2023 Postop follow up visit related to original px Analilia Martinez DO Work Phone: [facility] Comment on above: Status post total le ft knee replacement (Primary Dx) Start: 10-30-2023 End: 10-30-2023 ambulatory Dorothy Smith PT Work Phone: [facility] Comment on above: Primary osteoarthrit is of left knee (Primary Dx); Status post left knee replacement; Acute pain of left knee Start: 10-28-2023 Telephone encounter Bebe banks DIRECTOR HOSPICE OPERATIONS Work Phone: [facility] Start: 10-28-2023 End: 10-28-2023 ambulatory Dorothy Smith PT Work Phone: [facility] Comment on above: Primary osteoarthrit is of left knee (Primary Dx); Status post left knee replacement; Acute pain of left knee Start: 10-25-2023 End: 10-25-2023 ambulatory Dorothy Smith PT Work Phone: [facility] Comment on above: Primary osteoarthrit is of left knee (Primary Dx); Status post left knee replacement; Acute pain of left knee; Presence of artificial knee joint, left Start: 10-23-2023 End: 10-23-2023 Subsequent hospital visit by physician Analilia Martinez DO Work Phone: [facility] - Surgery Start: 10-01-2023 Preoperative state Droothy black PT Work Phone: [facility] Start: 09-26-2023 End: 09-26-2023 Patient encounter procedure [facility] Pre-Admission Testing 1 [facility] - Pre Admit Comment on above: Preop examination (P rimary Dx); Hypertension, unspecified type Start: 09-26-2023 End: 09-26-2023 Preprocedural examination done Pm 1 [facility] Start: 09-17-2023 Patient encounter status Dorothy Smith PT Work Phone: [facility] Start: 08-22-2022 End: 08-23-2022 ambulatory Raoul R NILL Facility: [place] Start: 08-22-2022 End: 08-22-2022 Patient encounter procedure Raoul R NILL General Surgery Nill[facility] Start: 08-08-2022 End: 08-09-2022 ambulatory [employer] LINDA BRADLEY Facility:[facility] Start: 07-25-2022 ambulatory Raoul R NILL Facility : [facility] Start: 07-24-2022 End: 07-25-2022 ambulatory [employer] WORK[employer] LINDA KIRK Facility:[facility] Start: 02-26-2022 End: 02-26-2022 ambulatory Shaye Puentes Other [employer] Other Start: 02-26-2022 Office outpatient vi sit 25 minutes Shaye Puentes [facility] Start: 02-23-2022 End: 02-24-2022 ambulatory EDMOND BRADLEY Facility:[facility] Start: 12-06-2021 End: 12-07-2021 ambulatory EDMOND BRADLEY Facility:[facility] Start: 10-28-2017 End: 10-29-2017 Patient encounter CATHY SANTACROCE [facility] Procedures Date Procedure Procedure Detail Performing Clinician Start: 05-04-2025 Hemoglobin glycosylated a1c Linda edwards DIRECTOR HOSPICE OPERATIONS Work Phone: Start: 04-14-2025 CA ECHO DOPPLER COMPLETE Linda Bradley N P Work Phone: Start: 01-07-2025 XR LUMBAR SPINE 2 OR 3V Linda Bradley DIRECTOR HOSPICE OPERATIONS Work Phone: Start: 10-12-2024 Radiologic examination knee 1/2 views Bebe Mcclain DIRECTOR HOSPICE OPERATIONS Work Phone: Start: 08-03-2024 Hemoglobin glycosylated a1c Linda edwards DIRECTOR HOSPICE OPERATIONS Work Phone: Start: 10-23-2023 Radiologic examination knee 1/2 views Analilia Martinez DO Work Phone: Start: 10-23-2023 REPEATED ABORH Analilia Martinez DO Work Phone: Start: 12-06-2021 PSA screening EDMOND BRADLEY Comment on above: Performed By: #### FERR, PSASC, IRON ### # [facility] [address] [place] [address] Dr. Jorge Zavala Start: 10-28-2017 PSA, DIAGNOSTIC CATHY SANTAERNESTINAOCE Arthroplasty of right knee Antonio kamran BURKS Esophagogastroduodenoscopy Antonio kamran BURKS Extraction of cataract Vernondelaney BURKS Plan of Treatment Date Care Activity Detail Author Start: 03-26-2033 DTaP,Tdap and Td Vaccines (2 - Td or Tdap) DTaP,Tdap and Td Vaccines (2 - Td or Tdap) [employer] Start: 12-07-2025 End: 12-07-2025 Patient encounter procedure 12/07/2025 11:00 AM EDT Office Visit [facility] [address] [place] [address] Linda Bradley NP [address] [place] [phone] [facility] Start: 12-02-2025 Medicare Annual Wellness (AWV) Medicare Annual Wellness (AWV) [facility] Start: 11-04-2025 Hemoglobin A1c measurement Diabetes: Hemoglobin A1C [facility] Start: 08-10-2025 Urine screening for protein Diabetes: Urine Protein Screening [facility] Start: 08-04-2025 End: 08-04-2025 Patient encounter procedure 08/04/2025 9:40 AM EST Office Visit [facility] [address] [place] [address] Linda Bradley NP [address] [place] [phone] [facility] Start: 06-04-2025 Hemoglobin A1c measurement Diabetes: Hemoglobin A1C [facility] Start: 05-17-2025 Influenza vaccination [facility] Start: 05-04-2025 End: 05-04-2026 Basic metabolic 1998 panel - Serum or Plasma Basic metabolic panel Lab Routine Essential hypertension Type 2 diabetes mellitus with stage 3a chronic kidney disease, without long-term current use of insulin (HCC) Expected: 05/04/2025 (Approximate), Expires: 05/04/2026 [facility] Comment on above: Expected: 05/04/2025 (Approximate), Expi res: 05/04/2026 Start: 05-04-2025 End: 05-04-2026 CBC W Auto Differential panel - Blood CBC and differential Lab Routine Moderate persistent asthma without complication (HCC) Expected: 05/04/2025 (Approximate), Expires: 05/04/2026 [facility] Work Phone: Comment on above: Expected: 05/04/2025 (Approximate), Expi res: 05/04/2026 Start: 05-04-2025 End: 05-04-2025 Patient encounter procedure 05/04/2025 9:40 AM EDT Office Visit [facility] [address] [place] [address] Linda Bradley NP [address] [place] [phone] [facility] Start: 04-15-2025 Urine screening for protein Diabetes: Urine Protein Screening [facility] Start: 03-16-2025 End: 03-16-2027 Echocardiogram 2D complete Echocardiogram 2D complete Echocardiography Routine Essential hypertension Dyspnea on exertion Expected: 03/16/2025 (Approximate), Expires: 03/16/2027 [facility] Comment on above: Expected: 03/16/2025 (Approximate), Expi res: 03/16/2027 Start: 03-16-2025 End: 03-16-2026 Pulmonary function report Pulmonary Function Test Imaging Routine Moderate persistent asthma without complication (HCC) Dyspnea on exertion Expected: 03/16/2025, Expires: 03/16/2026 [facility] Work Phone: Comment on above: Expected: 03/16/2025, Expires: Start: 02-18-2025 End: 02-18-2025 Patient encounter procedure 02/18/2025 2:40 PM EDT Office Visit [facility] [address] [place] [address] Linda Bradley NP [address] [place] [phone] [facility] Start: 01-31-2025 Hemoglobin A1c measurement Diabetes: Hemoglobin A1C [facility] Start: 01-06-2025 End: 01-06-2026 XR Lumbar spine 2 or 3 Views XR lumbar spine 2 or 3 views Imaging Routine Lumbar back pain Expected: 01/06/2025, Expires: 01/06/2026 [facility] Work Phone: Comment on above: Expected: 01/06/2025, Expires: Start: 12-31-2024 End: 12-31-2024 Patient encounter procedure 12/31/2024 2:20 PM EDT Office Visit [facility] [address] [place] [address] Linda Bradley, STACIE [address] [place] [phone] [facility] Start: 12-21-2024 End: 12-21-2024 Patient encounter procedure 12/21/2024 2:00 PM EDT Office Visit [facility] [address] [place] [address] Linda Bradley, STACIE [address] [place] [phone] Arrived [facility] Comment on above: Arrived Start: 12-21-2024 End: 12-21-2025 XR Chest 2 Views XR chest 2 views Imaging Routine Bronchitis Expected: 12/21/2024, Expires: 12/21/2025 [facility] Work Phone: Comment on above: Expected: 12/21/2024, Expires: Start: 12-02-2024 End: 12-02-2024 Patient encounter procedure 12/02/2024 4:30 PM EDT Office Visit [facility] [address] [place] [address] Linda Bradley DIRECTOR HOSPICE OPERATIONS [address] [place] [phone] [facility] Start: 12-02-2024 Medicare Annual Wellness (AWV) Medicare Annual Wellness (AWV) [facility] Start: 11-16-2024 End: 11-16-2024 Patient encounter procedure 11/16/2024 10:00 AM EST Office Visit [facility] [address] [place] [address] Linda Bradley NP [address] [place] [address] Diverticulitis (Primary Dx); Obesity (BMI 30-39.9); Class 2 severe obesity due to excess calories with serious comorbidity and body mass index (BMI) of 35.0 to 35.9 in adult ([facility]) [facility] Comment on above: Diverticulitis (Primary Dx); Obesity (BMI 30-39.9); Class 2 severe obesity due to excess calories with serious comorbidity and body mass index (BMI) of 35.0 to 35.9 in adult ([facility]) Start: 10-16-2024 Hemoglobin A1c measurement Diabetes: Hemoglobin A1C [facility] Start: 10-12-2024 End: 10-12-2024 Patient encounter procedure [facility] Comment on above: Status post total left knee replacement; Primary osteoarthritis of left knee Start: 10-01-2024 Pneumococcal Vaccine: 65+ Years (2 - PCV) Pneumococcal Vaccine: 65+ Years (2 - PCV) [facility] Comment on above: Postponed from 05/17/2021 (Patient Refus ed) Start: 10-01-2024 Pneumococcal Vaccine: 65+ Years (2 of 2 - PCV) Pneumococcal Vaccine: 65+ Years (2 of 2 - PCV) [facility] Comment on above: Postponed from 05/17/2021 (Patient Refus ed) Start: 09-28-2024 Influenza vaccination Influenza Vaccine (#1) [facility] Comment on above: Postponed from 05/17/2024 (Patient Refus ed) Start: 09-26-2024 Adult BMI Screening Adult BMI Screening [facility] Start: 09-26-2024 Tobacco Screening Tobacco Screening [facility] Start: 09-14-2024 End: 09-14-2024 Patient encounter procedure 09/14/2024 3:20 PM EST Office Visit [facility] [address] [place] [address] Linda Bradley, STACIE [address] [place] [phone] [facility] Start: 08-03-2024 End: 08-03-2025 CBC W Auto Differential panel - Blood CBC and differential Lab Routine Gastroesophageal reflux disease, unspecified whether esophagitis present Stage 3a chronic kidney disease (HCC) (CMS/HCC) Expected: 08/03/2024 (Approximate), Expires: 08/03/2025 [facility] Work Phone: Comment on above: Expected: 08/03/2024 (Approximate), Expi res: 08/03/2025 Start: 08-03-2024 End: 08-03-2025 Comprehensive metabolic 2000 panel - Serum or Plasma Comprehensive metabolic panel Lab Routine Essential hypertension (CMS/HCC) Stage 3a chronic kidney disease (HCC) ([facility]/HCC) Type 2 diabetes mellitus with stage 3a chronic kidney disease, without long-term current use of insulin (HCC) (CMS/HCC) Expected: 08/03/2024 (Approximate), Expires: 08/03/2025 [facility] Comment on above: Expected: 08/03/2024 (Approximate), Expi res: 08/03/2025 Start: 08-03-2024 End: 08-03-2025 Lipid 1996 panel - Serum or Plasma Lipid panel Lab Routine Type 2 diabetes mellitus with stage 3a chronic kidney disease, without long-term current use of insulin (HCC) (CMS/HCC) Expected: 08/03/2024 (Approximate), Expires: 08/03/2025 [facility] Comment on above: Expected: 08/03/2024 (Approximate), Expi res: 08/03/2025 Start: 08-03-2024 End: 08-03-2025 Microalbumin/Creatinine panel in random Urine Microalbumin / creatinine, urine ratio Lab Routine Essential hypertension ([facility]/HCC) Type 2 diabetes mellitus with stage 3a chronic kidney disease, without long-term current use of insulin (HCC) (CMS/HCC) Expected: 08/03/2024 (Approximate), Expires: 08/03/2025 [facility] Comment on above: Expected: 08/03/2024 (Approximate), Expi res: 08/03/2025 Start: 08-03-2024 End: 08-03-2025 Prostate specific Ag [Mass/volume] in Serum or Plasma PSA Lab Routine Screening for prostate cancer Expected: 08/03/2024 (Approximate), Expires: 08/03/2025 [facility] Comment on above: Expected: 08/03/2024 (Approximate), Expi res: 08/03/2025 Start: 08-03-2024 End: 08-03-2025 Urinalysis complete panel - Urine Urinalysis with reflex microscopic (clean catch) Lab Routine Essential hypertension (CMS/HCC) Type 2 diabetes mellitus with stage 3a chronic kidney disease, without long-term current use of insulin (HCC) (CMS/HCC) Expected: 08/03/2024 (Approximate), Expires: 08/03/2025 [facility] Comment on above: Expected: 08/03/2024 (Approximate), Expi res: 08/03/2025 Start: 05-17-2024 Influenza vaccination Influenza Vaccine (#1) [facility] Start: 03-15-2024 Influenza vaccination Influenza Vaccine (#1) [facility] Comment on above: Postponed from 05/17/2023 (Patient Refus ed) Start: 03-06-2024 Urine screening for protein Diabetes: Urine Protein Screening [facility] Start: 12-03-2023 End: 12-03-2023 Patient encounter procedure 12/03/2023 10:30 AM EDT Office Visit [facility] [address] [place] [address] Linda Bradley NP [address] [place] [address] [facility] Start: 11-07-2023 End: 11-07-2023 Patient encounter procedure 11/07/2023 10:30 AM EST Office Visit [facility] [address] [place] [phone] Bebe Mcclain NP [address] [place], [place] [id number] [facility] Start: 10-31-2023 End: 10-31-2023 Patient encounter procedure [facility] Comment on above: Status post total left knee replacement (Primary Dx) Start: 10-23-2023 End: 10-23-2023 Admission to same day surgery center 10/23/2023 7:45 AM EST - 10/23/2023 10:15 AM EST Surgery [facility] [address] [place] [address] Analilia Martinez, DO [address] [place] [address] REPLACEMENT TOTAL JOINT KNEE [00709 (CPT )] [facility] Comment on above: REPLACEMENT TOTAL JOINT KNEE [78355 (CPT )] Start: 10-23-2023 End: 10-23-2023 Arthrp kne condyle&platu medial&lat compartments REPLACEMENT TOTAL JOINT KNEE left knee degenerative joint disease 10/23/2023 7:45 AM EST [facility] Start: 10-23-2023 Subsequent hospital visit by physician 10/23/2023 7:45 AM EST Hospital Encounter [facility] [address] [place] [address] Analilia Martinez, DO [address] [place] [address] [facility] Start: 10-15-2023 End: 09-20-2024 Crossmatch RBC Crossmatch RBC Blood Bank Routine Preop examination Hypertension, unspecified type Expected: 10/15/2023, Expires: 09/20/2024 [facility] Comment on above: Expected: 10/15/2023, Expires: Start: 10-15-2023 End: 09-20-2024 Type and screen(includes indirect scotty) Type and screen(includes indirect scotty) Blood Bank Routine Preop examination Hypertension, unspecified type Expected: 10/15/2023, Expires: 09/20/2024 [facility] Work Phone: Comment on above: Expected: 10/15/2023, Expires: Start: 05-17-2023 Influenza vaccination Influenza Vaccine [facility] Start: 08-08-2022 Medicare Annual Wellness (AWV) Medicare Annual Wellness (AWV) [facility] Start: 05-17-2021 Pneumococcal Vaccine: 65+ Years (2 of 2 - PCV) Pneumococcal Vaccine: 65+ Years (2 of 2 - PCV) [facility] Start: 2004 Fall Risk Screening Fall Risk Screening [facility] Start: 1989 Administration of varicella zoster vaccine Zoster (Shingles) Vaccine (1 of 2) [facility] Start: 1957 Adult BMI Follow Up Plan Adult BMI Follow Up Plan [facility] Start: 1951 Depression Screening Depression Screening [facility] Start: 1949 Glaucoma screening Diabetes: Retinopathy Screening [facility] Start: 1939 Hemoglobin A1c measurement Diabetes: Hemoglobin A1C [facility] Start: 1939 Medicare Annual Wellness Visit Medicare Annual Wellness Visit [facility] Immunizations Immunization Date Immunization Notes Care Provider Janeth caceres 03-26-2023 tetanus toxoid, redu sarbjit diphtheria toxoid, and acellular pertussis vaccine, adsorbed Pmh 1 [facility] 05-17-2020 pneumococcal polysaccharide vaccine, 23 valent Linda Bradley DIRECTOR HOSPICE OPERATIONS Work Phone: [facility] 09-16-2016 pneumococcal polysaccharide vaccine, 23 valent Linda Bradley DIRECTOR HOSPICE OPERATIONS Work Phone: [facility] NEGATED: Highlighted row has not occurred!08-22-2022 influenza virus vaccine, unspecified formulation Raoul BURKS [facility] [place] Payers Date Payer Category Payer Medicare (Managed Care) [facility] [id number] 2022 Unknown [id number] 2022 Medicare [id number] 2015 Medicare [id number] 1959 Medicare [id number] 1939 Unknown [id number] 2.16.840.1.008672.3.579. 2.593 1939 Unknown [id number] 2.16.840.1.075885.3.579. 2.593 1939 Unknown [id number] 2.16.840.1.072308.3.579. 2.593 1939 Unknown [id number] 2.16.840.1.244887.3.579. 2.593 1939 Unknown [id number] 2.16.840.1.303409.3.579. 2.727 1939 Unknown [id number] 2.16.840.1.779851.3.579. 2.727 1939 Unknown [id number] 2.16.840.1.109303.3.579. 2.1286 1939 Unknown [id number] 2.16.840.1.026841.3.579. 2.1259 1939 Unknown [id number] 2.16.840.1.865960.3.579. 2.1259 1939 Unknown [id number] 2.16.840.1.222347.3.579. 2.1259 1939 Unknown [id number] 2.16.840.1.321772.3.579. 2.9 1939 Unknown [id number] 2.16.840.1.748344.3.579. 2.1258 1939 Unknown [id number] 2.16.840.1.896961.3.579. 2.1258 1939 Unknown [id number] 2.16.840.1.898898.3.579. 2.1258 1939 Unknown [id number] 2.16.840.1.656542.3.579. 2.1258 1939 Unknown [id number] 2.16.840.1.846829.3.579. 2.1258 1939 Unknown [id number] 2.16.840.1.864519.3.579. 2.1258 1939 Unknown [id number] 2.16.840.1.433736.3.579. 2.1258 1939 Unknown [id number] 2.16.840.1.592751.3.579. 2.1259 Social History Date Type Detail Facility Unknown if ever smoked [employer] Other Start: 10-01-2023 End: 12-03-2023 Sex Assigned At [facility] Start: 08-22-2022 End: 08-14-2023 Tobacco smoking status Never smoked tobacco (finding) [facility] [place] Tobacco smoking status Never Gener al [facility] Start: 08-14-2023 End: 10-23-2023 Tobacco use and [...] Start: 09-26-2023 End: 10-23-2023 Tobacco smoking status [facility] Ex-smoker [facility] History of tobacco use Current smoker [facility] Start: 09-26-2023 Alcohol Comment 1 beer nightly [facility] History of tobacco use Cigarette Smoker [facility] Medical Equipment Procedure Code Equipment Code Equipment Origin al Text Equipment Identifier Dates [id number] Start: 08-15-2023 End: 09-30-2024 1 each by Other route Daily as needed [id number] Start: 08-15-2023 1 each by Other route Daily as needed (daily as needed) [id number] Start: 09-30-2024 End: 01-08-2025 Cement Bn Palaco s Radpq 40g Rpl [id number] - [id number] Start: 05-22-2017 Srfc Artc 14mm P ersona 10-12 - [id number], [id number] FDA Start: 05-22-2017 Bsplt Tib 5d G K n Rt Cmnt Stm - [id number]$$ [id number], [id number] FDA Start: 05-22-2017 Cement Bn Bio 40 gm Rpl [id number] - [id number] Start: 10-23-2023 Component Ptlr 3 5mm Persondelaney Guzman Strl Lf - Sn/A - [id number] 83(21)N/A, [id number] FDA Start: 10-23-2023 Persona The Personalized Knee System 0 Degree Spiked Keel Left Size E Osseoti, Tibia ()[id number] 42(21)N/A, [id number] FDA Start: 10-23-2023 Functional Status Date Assessment Result Facility 08-22-2022 Functional Status N/A General Dao cathy Summers Clinical Notes 02-26-2022 to 06-02-2025 JAY JAY CHAMPAGNE - 05/04/2025 9:40 AM EDAnn Marie Bradley, DIRECTOR HOSPICE OPERATIONS - 05/04/2025 9:40 AM EDAnn Marie Bradley, DIRECTOR HOSPICE OPERATIONS - 05/04/2025 6:28 AM EDTLisa Kirk, DIRECTOR HOSPICE OPERATIONS - 05/04/2025 6:27 AM EDTPatient Instructions Note Date & Type Note Facility 06-02-2025 Note Subjective Patient ID: Feliz Landis is a 85 y.o. male who [...] above echo windows. He is not limited in activity, he carried a refrigerator yesterday! Plan: echo [...] or reassess echo before visit for AR. [facility] 05-04-2025 History of Presen t illness Narrative Pt wanted to talk to you about seeing the real estate sales agent and getting the result that his heart [...] mg, Oral, Daily Blood Glucose Monitoring Suppl ([email or web address] Reflect) w/Device kit 1 each, Daily PRN finasteride (PROSCAR) 5 mg, Oral, Daily fluticasone (Flonase) 50 MCG/ACT nasal spray 2 sprays, Each Nostril, Daily, Shake gently. Before first use, prime pump. After use, clean tip and replace cap. Jrogusmcpjr-Wmzeoaxaq-Ngcfuo (Trelegy Ellipta) 100-62.5-25 MCG/ACT aerosol powder 1 puff, Inhalation, Daily, Rinse mouth after use lisinopril 30 mg, Oral, Daily loratadine (CLARITIN) 10 mg, Oral, Daily omeprazole (PRILOSEC) 20 mg, Oral, Daily before breakfast Technorides VerSwitchForce test strip 1 each, Daily PRN tamsulosin [...] 12/03/2023 BPH (benign prostatic hyperplasia) 05/19/2019 [facility] Chronic kidney disease, stage III (moderate) ([facility]) 12/03/2023 Diverticulosis 12/03/2023 Elevated prostate specific antigen (PSA) 12/03/2023 Elevated sed rate 12/03/2023 Headache 12/03/2023 Hearing deficit, bilateral 12/03/2023 History of 2019 novel coronavirus disease (COVID-19) Hyperlipidemia 12/03/2023 Obesity (BMI 30-39.9) 09/17/2023 Tinnitus, bilateral 12/03/2023 Type 2 diabetes mellitus without complication, without long-term current use of insulin ([facility]) 09/17/2023 Past Surgical History: Procedure Laterality Date [...] excess calories with serious comorbidity in adult ([facility]) Discussed with patient their BMI (actual, verses recommended). We have also discussed lifestyle modifications: attempts to perform physical activity as chronic conditions allow, also to monitor dietary intake: increasing protein/fruits/veggies and lowering carb intake (unless contraindicated). Limit sodas, juices, and sugary drinks. Moderate persistent asthma without complication (HCC) Current meds: trelegy as well as albuterol prn ECHO completed PFT's: not completed, recommend pt call [facility] reschedule Relevant Orders CBC and differential Abnormal echocardiogram Dilated aortic root 4.1cm, referred to [facility] Cardiology Associated Problem(s): Abnormal echocardiogram Dilated aortic root 4.1cm, referred to [facility] Cardiology Associated Problem(s): Class 2 severe obesity due to excess calories with serious comorbidity in adult ([facility]-HCC) Discussed with patient their BMI (actual, verses [...] completed PFT's: not completed, recommend pt call [facility] reschedule documented in this encounter [facility] 05-04-2025 Instructions Linda Bradley NP - 05/04/2025 9:40 AM EDT Call [facility] about rescheduling the Pulmonary Function Test A1c for diabetes is good as well, 6.5% if you want to stay off your diabetes pills we will just periodic monitor it 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 Before first use, prime pump. After use, clean tip and replace cap. Tnbjsxddphw-Xvdsrkpxc-Ogvpta (Trelegy Ellipta) 100-62.5-25 MCG/ACT aerosol powder 1 puff, Inhalation, Daily, Rinse mouth after use lisinopril 30 mg, Oral, Daily loratadine (CLARITIN) 10 mg, Oral, Daily metFORMIN (GLUCOPHAGE) 500 mg, Oral, Daily with breakfast omeprazole (PRILOSEC) 20 mg, Oral, Daily before breakfast Technorides VerSwitchForce test strip 1 each, Daily PRN tamsulosin [...] 12/03/2023 BPH (benign prostatic hyperplasia) 05/19/2019 [facility] Chronic kidney disease, stage III (moderate) ([facility]-HCC) 12/03/2023 Diverticulosis 12/03/2023 Elevated prostate specific antigen (PSA) 12/03/2023 Elevated sed rate 12/03/2023 Headache 12/03/2023 Hearing deficit, bilateral 12/03/2023 History of 2019 novel coronavirus disease (COVID-19) Hyperlipidemia 12/03/2023 Obesity (BMI 30-39.9) 09/17/2023 Tinnitus, bilateral 12/03/2023 Type 2 diabetes mellitus without complication, without long-term current use of insulin ([facility]) 09/17/2023 Past Surgical History: Procedure Laterality Date [...] drinks. Chronic kidney disease, stage III (moderate) ([facility]-HCC) Keep BP and glucose at goal Current meds: tia/amlodipine Moderate persistent asthma without complication ([facility]) Current meds: trelegy as well as albuterol [...] Problem(s): Chronic kidney disease, stage III (moderate) (CMS-HCC) [...] amlodipine, lisinopril documented in this encounter [facility] 03-16-2025 Instructions Linda Bradley NP - 03/16/2025 9:20 AM EDT Will order Ultra sound of heart and breathing test at [facility], they should call you for appt You can try chiropractor for your neck and low back Also please schedule a diabetic eye appt with your eye doctor documented in this encounter [facility] 01-06-2025 History of Presen t illness Narrative Associated Problem(s): Moderate persistent asthma without complication ([facility]) Albuterol inhaler prn Add trelegy , rinse [...] 875-125 MG tablet Blood Glucose Monitoring Suppl (Technorides Verio Reflect) w/Device kit 1 each, Daily PRN Lancets (Single Touch Systemsuch Delica Plus [id number]) misc 1 each, Other, Daily PRN lisinopril [...] 12/03/2023 BPH (benign prostatic hyperplasia) 05/19/2019 [facility] Chronic kidney disease, stage III (moderate) (HCC) ([facility]) 12/03/2023 Diverticulosis 12/03/2023 Elevated prostate specific antigen (PSA) 12/03/2023 Elevated sed rate 12/03/2023 Headache 12/03/2023 Hearing deficit, bilateral 12/03/2023 History of 2019 novel coronavirus disease (COVID-19) Hyperlipidemia ([facility]/HCC) 12/03/2023 Obesity (BMI 30-39.9) 09/17/2023 Tinnitus, bilateral [...] Items Addressed This Visit Essential hypertension (CMS/HCC) Please check blood pressure daily and record [...] excess calories with serious comorbidity in adult ([facility]) Discussed with patient their BMI (actual, verses recommended). We have also discussed lifestyle modifications: attempts to perform physical activity as chronic conditions allow, also to monitor dietary intake: increasing protein/fruits/veggies and lowering carb intake (unless contraindicated). Limit sodas, juices, and sugary drinks. Moderate persistent asthma without complication ([facility]) Albuterol inhaler prn Add trelegy , rinse mouth after use Fu in 6 weeks Relevant Medications Udqfxwhqzny-Wmafuifxn-Dposij (Trelegy Ellipta) 100-62.5-25 MCG/ACT aerosol powder Lumbar back pain Relevant Orders XR lumbar spine 2 or 3 views Associated Problem(s): Class 2 severe obesity due to excess calories with serious comorbidity in adult ([facility]) Discussed with patient their BMI (actual, verses recommended). We have also discussed lifestyle modifications: attempts to perform physical activity as chronic conditions allow, also to monitor dietary intake: increasing protein/fruits/veggies and lowering carb intake (unless contraindicated). Limit sodas, juices, and sugary drinks. Associated Problem(s): Essential hypertension ([facility]) Please check blood pressure daily and record [...] asthma sxs documented in this encounter [facility] 01-06-2025 Instructions Linda Bradley NP - 01/06/2025 11:00 AM EDT Trelegy inhaler; 1 puff once a day, rinse mouth after use, you will take this every day Albuterol: only use as needed for wheezing or shortness of breath Also add allergy pill and nasal spray every day Xray order for low back documented in this encounter [facility] 12-21-2024 Note XR CHEST 2 VWS History: Cough Procedure: 2 view PA and Lateral chest radiograph. Comparison: 02/14/2021 Findings: The heart and lungs show no acute findings, and the mediastinum and leatha are grossly negative . No pneumothorax. Impression: No acute pulmonary process. Finalized by Debra Corona MD on 12/21/2024 7:04 PM [facility] 12-21-2024 History of Presen t [...] crush or chew. Blood Glucose Monitoring Suppl (Technorides Verio Reflect) w/Device kit 1 each, Daily PRN doxycycline (VIBRA-TABS) 100 mg, Oral, 2 times daily, Take with a full glass of water and do not lie down for at least 30 minutes after. finasteride (PROSCAR) 5 mg, Oral, Daily Lancets (Single Touch Systemsuch Delica Plus [id number]) misc 1 each, Other, Daily PRN lisinopril [...] 12/03/2023 BPH (benign prostatic hyperplasia) 05/19/2019 [facility] Chronic kidney disease, stage III (moderate) (HCC) ([facility]) 12/03/2023 Diverticulosis 12/03/2023 Elevated prostate specific antigen (PSA) 12/03/2023 Elevated sed rate 12/03/2023 Headache 12/03/2023 Hearing deficit, bilateral 12/03/2023 History of 2019 novel coronavirus disease (COVID-19) Hyperlipidemia ([facility]) 12/03/2023 Obesity (BMI 30-39.9) 09/17/2023 Tinnitus, bilateral [...] 2 views documented in this encounter [facility] 12-21-2024 Instructions Linda Bradley NP - 12/21/2024 [...] of fluids documented in this encounter [facility] 11-25-2024 Telephone encounter Note Yes I will send in MDP for patient. [facility] 11-25-2024 Miscellaneous Notes Yes I will send in MDP for patient. Patients daughter, Tati Garcia, called and said that her Dad is having a lot of pain and wanted to know if he can get pain medication that he originally turned down patient was here on Thursday 11/23 with Bebe. Please advise? Daughters number [phone] documented in this encounter [facility] 11-25-2024 Telephone encounter Note Patients daughter, Tati Garcia, called and said that her Dad is having a lot of pain and wanted to know if he can get pain medication that he originally turned down patient was here on Thursday 11/23 with Bebe. Please advise? Daughters number [phone] [facility] 11-16-2024 History of Presen t illness Narrative [...] on file. HPI: ER fu for diverticulitis [facility] ER on 11/09/24: uncomplicated diverticulitis, sent home [...] 875-125 MG tablet Blood Glucose Monitoring Suppl (Technorides Verio Reflect) w/Device kit 1 each, Daily PRN finasteride (PROSCAR) 5 mg, Oral, Daily Lancets (Technorides Delica Plus [id number]) misc 1 each, Other, Daily PRN lisinopril 20 mg, Oral, Daily metFORMIN (GLUCOPHAGE) 500 mg, Oral, Daily with breakfast omeprazole (PRILOSEC) 20 mg, Oral, Daily before breakfast [email or web address] test strip 1 each, Daily PRN tamsulosin [...] rhinitis 12/03/2023 BPH (benign prostatic hyperplasia) 05/19/2019 [facility] Chronic kidney disease, stage III (moderate) (HCC) ([facility]) 12/03/2023 Diverticulosis 12/03/2023 Elevated prostate specific antigen (PSA) 12/03/2023 Elevated sed rate 12/03/2023 Headache 12/03/2023 Hearing deficit, bilateral 12/03/2023 History of 2019 novel coronavirus disease (COVID-19) Hyperlipidemia ([facility]) 12/03/2023 Obesity (BMI 30-39.9) 09/17/2023 Tinnitus, bilateral 12/03/2023 Type 2 diabetes mellitus without complication, without long-term current use of insulin ([facility]) 09/17/2023 Past Surgical History: Procedure Laterality Date [...] Diverticulitis - Primary Er follow up from [facility] on 11/09/24 Given atbs and dietary [...] excess calories with serious comorbidity in adult (CMS/HCC) Discussed with patient their BMI (actual, verses recommended). We have also discussed lifestyle modifications: attempts to perform physical activity as chronic conditions allow, also to monitor dietary intake: increasing protein/fruits/veggies and lowering carb intake (unless contraindicated). Limit sodas, juices, and sugary drinks. Chronic conditions: DM, HTN. Other Visit Diagnoses Type 2 diabetes mellitus without complication, without long-term current use of insulin (CMS/[facility]) Relevant Medications metFORMIN (Glucophage) 500 MG tablet Associated Problem(s): Class 2 severe obesity due to excess calories with serious comorbidity in adult (CMS/HCC) Discussed with patient their BMI (actual, verses recommended). We have also discussed lifestyle modifications: attempts to perform physical activity as chronic conditions allow, also to monitor dietary intake: increasing protein/fruits/veggies and lowering carb intake (unless contraindicated). Limit sodas, juices, and sugary drinks. Chronic conditions: DM, HTN. Associated Problem(s): Diverticulitis Er follow up from [facility] on 11/09/24 Given atbs and dietary [...] 3 weeks documented in this encounter [facility] 11-16-2024 Instructions Linda Bradley NP - 11/16/2024 [...] now 12/07/24 documented in this encounter [facility] 10-12-2024 History of Presen t illness Narrative [...] mg, Oral, Daily Blood Glucose Monitoring Suppl (Technorides Verio Reflect) w/Device kit 1 each, Daily PRN finasteride (PROSCAR) 5 mg, Oral, Daily Lancets (Technorides Delica Plus [id number]) misc 1 each, Other, Daily PRN lisinopril [...] Stable LT total knee replacement. Bebe Mcclain [employer] [facility] Procedures Orders Placed This Encounter Procedures XR [...] develop for requiring urgent evaluation. 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 Blood Glucose Monitoring Suppl (Single Touch Systemsuch Verio Reflect) w/Device kit 1 each, Daily PRN finasteride (PROSCAR) 5 mg, Daily Lancets (Single Touch Systemsuch Delica Plus [id number]) misc 1 each, Daily PRN lisinopril 20 mg, Oral, Daily metFORMIN (GLUCOPHAGE) 500 mg, Oral, Daily with breakfast methylPREDNISolone (Medrol Dospak) 4 MG tablets Take with food Follow schedule on package instructions omeprazole (PRILOSEC) 20 mg, Oral, Daily before breakfast [employer] test strip 1 each, Daily PRN tamsulosin [...] 12/03/2023 BPH (benign prostatic hyperplasia) 05/19/2019 [facility] Chronic kidney disease, stage III (moderate) (HCC) ([facility]/HCC) 12/03/2023 Diverticulosis 12/03/2023 Elevated prostate specific antigen (PSA) 12/03/2023 Elevated sed rate 12/03/2023 Headache 12/03/2023 Hearing deficit, bilateral 12/03/2023 History of 2019 novel coronavirus disease (COVID-19) Hyperlipidemia ([facility]/HCC) 12/03/2023 Obesity (BMI 30-39.9) 09/17/2023 Tinnitus, bilateral 12/03/2023 Type 2 diabetes mellitus without complication, without long-term current use of insulin (CMS/HCC) 09/17/2023 Past Surgical History: Procedure Laterality Date [...] Medications omeprazole (PriLOSEC) [address] capsule Obesity (BMI 30-39.9) Discussed with patient their [...] MG capsule documented in this encounter [facility] 09-14-2024 Instructions Linda Bradley NP - 09/14/2024 [...] to ER documented in this encounter [facility] 08-03-2024 Telephone encounter Note Please tell pt that his A1c is 6.5%, I would like him to take his metformin at 500mg daily, however if he does not want to take it we can monitor. Also he does need to get his diabetic eye exam completed [place] [facility] 08-03-2024 Miscellaneous Notes Please tell pt that his A1c is 6.5%, I would like him to take his metformin at 500mg daily, however if he does not want to take it we can monitor. Also he does need to get his diabetic eye exam completed [place] documented in this encounter [facility] 08-03-2024 History of Presen t illness Narrative [...] mg, Oral, Daily Blood Glucose Monitoring Suppl (Technorides Verio Reflect) w/Device kit 1 each, Daily PRN finasteride (PROSCAR) 5 mg, Daily Lancets (Single Touch Systemsuch Delica Plus [id number]) misc 1 each, Daily PRN lisinopril 20 mg, Oral, Daily metFORMIN (GLUCOPHAGE) 500 mg, Daily with breakfast omeprazole (PRILOSEC) 20 mg, Oral, Daily before breakfast Single Touch Systemsuch Verio test strip 1 each, Other, Daily [...] 12/03/2023 BPH (benign prostatic hyperplasia) 05/19/2019 [facility] Chronic kidney disease, stage III (moderate) (HCC) ([facility]) 12/03/2023 Diverticulosis 12/03/2023 Elevated prostate specific antigen (PSA) 12/03/2023 Elevated sed rate 12/03/2023 Headache 12/03/2023 Hearing deficit, bilateral 12/03/2023 History of 2019 novel coronavirus disease (COVID-19) Hyperlipidemia ([facility]) 12/03/2023 Obesity (BMI 30-39.9) 09/17/2023 Tinnitus, bilateral 12/03/2023 Type 2 diabetes mellitus without complication, without long-term current use of insulin ([facility]) 09/17/2023 Past Surgical History: Procedure Laterality Date [...] Items Addressed This Visit Essential hypertension (CMS/HCC) - Primary Please check blood pressure daily [...] complication, without long-term current use of insulin ([facility]) Relevant Medications aspirin 81 MG EC tablet Chronic kidney disease, stage III (moderate) (HCC) ([facility]) Check labs Relevant Orders CBC and differential Comprehensive metabolic panel Type 2 diabetes mellitus with diabetic chronic kidney disease ([facility]) Check blood sugars daily, notify if <70 [...] diabetes mellitus with diabetic chronic kidney disease ([facility]) Check blood sugars daily, notify if <70 [...] possible Continue PPI Associated Problem(s): Essential hypertension (CMS/HCC) Please check blood pressure daily and record DASH diet Limit caffeine Take medication as directed Contact office if chest pain, pressure, dizziness, shortness of breath, swelling legs Recommend slow position changes documented in this encounter [facility] 08-03-2024 Instructions Linda Bradley NP - 08/03/2024 1:00 PM EST Check labs, fasting 8 hours Continue all meds Fu in 3 months documented in this encounter [facility] 06-15-2024 Telephone encounter Note Please call to schedule a fu appt with me [place] [facility] 06-15-2024 Miscellaneous Notes Please call to schedule a fu appt with me [place] documented in this encounter [facility] 10-31-2023 History of Presen t illness Narrative Images from the original note were not included. HISTORY OF PRESENT ILLNESS: Feliz Garrett is an 83 y.o. @ male. Chief complaint s/p LT TKA LT knee: 1st po 8 days s/p LT TKA (10/23/23). Ambulating with walker. [place] intact, no redness or drainage. Here with [...] 4 tablet 3 Blood Glucose Monitoring Suppl (Technorides Verio Reflect) w/Device kit 1 each by [...] each day at the same time. Lancets (Technorides Delica Plus [id number]) misc 1 each by Other route Daily [...] time each day at the same time Jiniio test strip 1 each by Other route [...] fall BPH (benign prostatic hyperplasia) 05/19/2019 [facility] Chronic kidney disease, stage III (moderate) (HCC) ([facility]) Diverticulosis DM type 2 (diabetes mellitus, type 2) ([facility]) Elevated prostate specific antigen (PSA) Elevated sed rate Epigastric abdominal pain Epigastric abdominal pain, burning in nature. Worsens with food sometimes. Associated heart burn EGD many years ago showed stomach inflammation Fatigue GERD (gastroesophageal reflux disease) Headache Hearing deficit, bilateral History of 2019 novel coronavirus disease (COVID-19) Hyperlipidemia ([facility]) Hypertension ([facility]) Influenza vaccination declined Neoplasm, uncertain whether benign or malignant Obesity (BMI 30-39.9) 09/17/2023 Obesity with body mass index (BMI) of 30.0 to 39.9 Pre-op testing 09/17/2023 Prediabetes Tinnitus, bilateral Type 2 diabetes mellitus without complication, without long-term current use of insulin ([facility]) 09/17/2023 ALLERGIES: No Known Allergies VITALS: Visit Vitals Smoking Status Never PHYSICAL EXAM: Ortho Exam LEFT KNEE Ambulating with a walker Anyi removed, steri strips applied. No active drainage, [...] I am acting as scribe for Dr. Martinez/HERLINDA AVITIA D.O. documented in this encounter [facility] 10-30-2023 History of Presen t illness Narrative [...] out: 10:38 am Total time: 38 minutes [id number] TherEx x 30 minutes [id number] gait training x 8 minutes Precautions: WBAT [...] blanchable redness/bruising anterior knee. Pictures sent to [place] [id number]/NATALIO Randall. . Special tests: Negative Wilber Sign. [...] time: Heels apart = 0. Gait score: 12. Total Score = Balance + Gait 13/28. [...] railing with supervision, step to gait pattern. [facility] Goals Goal 1 : Patient will demonstrate [...] his tooth. documented in this encounter [facility] 10-28-2023 Telephone encounter Note Post op dental appointment. Is having implant that needs to be completed. Will send in abx but we recommend avoiding all dental work that is not an emergency for 6 months after surgery due to risk of infection. Patient notified. [facility] 10-28-2023 Miscellaneous Notes Post op dental appointment. Is having implant that needs to be completed. Will send in abx but we recommend avoiding all dental work that is not an emergency for 6 months after surgery due to risk of infection. Patient notified. documented in this encounter [facility] 10-28-2023 History of Presen t illness Narrative [...] out: 10:40 am Total time: 40 minutes [id number] TherEx x 30 minutes [id number] gait training x 10 minutes Precautions: WBAT [...] time: Heels apart = 0. Gait score: /12. Total Score = Balance + Gait 28. [...] railing with supervision, step to gait pattern. [employer] Goals Goal 1 : Patient will demonstrate [...] with pain. documented in this encounter [facility] 10-25-2023 History of Presen t illness Narrative [...] out: 10:45 am Total time: 45 minutes [id number] PT Eval x 20 minutes [id number] TherEx x 15 minutes [id number] gait training x 10 minutes Precautions: WBAT [...] time: Heels apart = 0. Gait score: /12. Total Score = Balance + Gait . [...] railing with supervision, step to gait pattern. [facility] Goals Goal 1 : Patient will demonstrate [...] achieve PLOF. documented in this encounter [facility] 10-23-2023 Progress note Formatting of t his note is different from the original. Physical Therapy Evaluation Discharge Recommendations PT Recommendations: Home Home Recommendations: Intermittent caregiver support for: Post Discharge Therapy Recommendations: Home Physical Therapy Rheologist Support for-: ADL Deficits, Mobility Deficits Past Medical History: Diagnosis Date Arthritis Asthma long time ago, no inhaler use BPH (benign prostatic hypertrophy) COVID-19 01/2021 GERD (gastroesophageal reflux disease) Hyperlipidemia Hypertension PONV (postoperative nausea and vomiting) Visual impairment glasses Past Surgical History: Procedure Laterality Date REPLACMENT TOTAL JOINT KNEE Right 05/22/2017 Performed by Analilia Martinez DO at [facility] CUFF REPAIR Right 6 Clicks: [...] socks Weight Bearing Status: WBAT L LE Telemetry/Inventory Checker: No Oxygen Used: room air Other: S/P [...] Principal Problem: Primary osteoarthritis of left knee [facility] [employer] [facility] 10-23-2023 Miscellaneous Notes Physical Therapy Evaluation Discharge Recommendations PT Recommendations: Home Home Recommendations: Intermittent caregiver support for: Post Discharge Therapy Recommendations: Home Physical Therapy Rheologist Support for-: ADL Deficits, Mobility Deficits Past Medical History: Diagnosis Date Arthritis Asthma long time ago, no inhaler use BPH (benign prostatic hypertrophy) COVID-19 01/2021 GERD (gastroesophageal reflux disease) Hyperlipidemia Hypertension PONV (postoperative nausea and vomiting) Visual impairment glasses Past Surgical History: Procedure Laterality Date REPLACMENT TOTAL JOINT KNEE Right 05/22/2017 Performed by Analilia Martinez DO at [facility] CUFF REPAIR Right 6 Clicks: [...] socks Weight Bearing Status: WBAT L LE Telemetry/Inventory Checker: No Oxygen Used: room air Other: S/P [...] Fair Standing Balance: Dynamic: Fair RLE Assessment: (4-/) LLE Assessment: (/5) Activity Tolerance Endurance: Tolerates <30 minutes activity [...] Martinez DO Anesthesia: Anesthesiologist: Prateek Franz DO METAL MOULDER: Fang Cuevas APRN-METAL MOULDER Regional, Monitored Anesthesia Care, Spinal OR staff: Recycling Or Rubbish Collector Primary: Heydi Manjarrez RN Scrub Person: Gomez Lagos; Felisha Valera Acrobatic Dancer: Ester Pimentel Estimated blood loss: 50 mL [...] dressings were applied. documented in this encounter [facility] 10-23-2023 Hospital course Narrative Summary: Status post left knee replaced Orthopaedic Discharge Summary Patient ID: Feliz Landis [id number] 83 y.o. 1940 Admit date: 10/23/2023 Discharge [...] Studies: Daily hemoglobin and hematocrit Hospital Course:See [facility] inpatient notes for specifics Patient was admitted [...] Analilia Martinez DO documented in this encounter [facility] [employer] [facility] 10-23-2023 Note CLINICAL INFORMATION : Post-operative evaluation TECHNIQUE/PROCEDURE: 2 views of the left knee COMPARISON: No relevant prior studies available. IMPRESSION: Left knee arthroplasty demonstrates anatomic alignment with expected postoperative changes in the soft tissues and the intra-articular space. Finalized by Antonio Warner MD on 10/23/2023 10:43 AM [facility] 10-23-2023 Procedure note Summary: Left total knee replacement Feliz Landis Date of : 1940 Date of Surgery: 10/23/2023 Preoperative diagnosis: Primary osteoarthritis left knee Postoperative diagnosis: Same Procedure: Left total knee arthroplasty Implants: [place] persona size 8 Press-Fit CR femur, size E Press-Fit tibia, 11 mm medial constrained polyethylene spacer, size 35 patella cemented. Surgeon: Analilia Martinez DO Anesthesia: Anesthesiologist: Prateek Franz DO METAL MOULDER: Fang Cuevas APRN-[facility], Monitored Anesthesia Care, Spinal OR staff: Recycling Or Rubbish Collector Primary: Heydi Manjarrez RN Scrub Person: Gomez Lagos; Felisha Valera Acrobatic Dancer: Ester Pimentel Estimated blood loss: 50 mL [...] bacitracin Adaptic and sterile dressings were applied. [facility] [employer] [facility] 10-23-2023 Attending History and physical note HISTORY AND PHYSICAL INTERVAL NOTE: Feliz Lorenzojoss Landis 1940 [id number] H&P reviewed. The patient was examined and there are no changes to the H&P. Analilia Martinez DO Source Note - Analilia Martinez DO - 10/18/2023 12:25 PM EST [facility] [employer] [facility] 10-23-2023 History and physical note HISTORY AND PHYSICAL INTERVAL NOTE: Feliz Gerry Landis 1940 [id number] H&P reviewed. The patient was examined and there are no changes to the H&P. Analilia Martinez DO Source Note - Analilia Martinez DO - 10/18/2023 12:25 PM EST documented in this encounter [facility] 09-26-2023 Instructions Yaneth Cabrera RN - 09/26/2023 10:30 AM EST Preoperative Education Checklist- Joints/Spine Surgery date: 10/23/23 Surgery time: 0745 a.m. Arrival time: 0610 a.m. Return between 10/15-10/22/23 Mon-Fri 7 a.m.- 4 p.m. to [facility] for your last blood test where they will give you a green armband to bring in the day of your surgery! 1. Bring a photo ID and your insurance card with you the day of surgery. You will check in at the main lobby of the [facility]- registration desk is straight ahead as soon as you walk in. Tell them you are here for surgery. 2. If you have a Living Will/Durable Power of Drier for Health Care that is not on [...] after you have bathed. 5. No nail mauritian/acrylic on at least one finger. If you are having a hand, wrist, foot, or leg surgery then ALL nail mauritian and artificial/acrylic nails MUST be removed from [...] please call the Preadmission Testing office at [phone] Mon.-Fri. 7 a.m.-3 p.m. Leave a voicemail if needed. Pre-Surgery Instructions: Medication Instructions amLODIPine (NORVASC) 5 mg tablet Take morning of procedure finasteride (PROSCAR) 5 mg tablet Stop taking 0 days prior to procedure lisinopriL (PRINIVIL,ZESTRIL) 20 mg tablet Take morning of procedure jekfxthr-blfz-LB-calcium &mins (THERAGRAN-M) 9 mg iron-400 mcg tablet Stop taking 0 days prior to procedure omega 1-mzi-vih-fish oil (Fish OiL) 300-1,000 mg capsule Stop [...] blood clots, an IV, and possibly a BELT BRANDER pump and/or a NERVE BLOCK (both used [...] doctor does not round on patients at [facility] to see you while you are [...] hospital [facility] who work in the hospital [...] with your doctor. documented in this encounter [facility] 09-26-2023 Miscellaneous Notes Preoperative Education Checklist- Joints/Spine Surgery date: 10/23/23 Surgery time: 0745 a.m. Arrival time: 0610 a.m. Return between 10/15-10/22/23 Mon-Fri 7 a.m.- 4 p.m. to [facility] for your last blood test where they will give you a green armband to bring in the day of your surgery! 1. Bring a photo ID and your insurance card with you the day of surgery. You will check in at the main lobby of the [facility]- registration desk is straight ahead as soon as you walk in. Tell them you are here for surgery. 2. If you have a Living Will/Durable Power of Drier for Health Care that is not on [...] after you have bathed. 5. No nail mauritian/acrylic on at least one finger. If you are having a hand, wrist, foot, or leg surgery then ALL nail mauritian and artificial/acrylic nails MUST be removed from [...] please call the Preadmission Testing office at [phone] Mon.-Fri. 7 a.m.-3 p.m. Leave a voicemail if needed. Pre-Surgery Instructions: Medication Instructions amLODIPine (NORVASC) 5 mg tablet Take morning of procedure finasteride (PROSCAR) 5 mg tablet Stop taking 0 days prior to procedure lisinopriL (PRINIVIL,ZESTRIL) 20 mg tablet Take morning of procedure qlztgmec-iqld-GV-calcium &mins (THERAGRAN-M) 9 mg iron-400 mcg tablet Stop taking 0 days prior to procedure omega 7-fxs-giy-fish oil (Fish OiL) 300-1,000 mg capsule Stop [...] blood clots, an IV, and possibly a BELT BRANDER pump and/or a NERVE BLOCK (both used [...] doctor does not round on patients at [facility] to see you while you are [...] hospital [facility] who work in the [...] Both verbalized understanding. documented in this encounter [facility] 09-26-2023 Nurse Note Preoperative Education Checklist- Joints/Spine Surgery date: 10/23/23 Surgery time: 0745 a.m. Arrival time: 0610 a.m. Return between 10/15-10/22/23 Mon-Fri 7 a.m.- 4 p.m. to [facility] for your last blood test where they will give you a green armband to bring in the day of your surgery! 1. Bring a photo ID and your insurance card with you the day of surgery. You will check in at the main lobby of the [facility]- registration desk is straight ahead as soon as you walk in. Tell them you are here for surgery. 2. If you have a Living Will/Durable Power of Drier for Health Care that is not on [...] after you have bathed. 5. No nail mauritian/acrylic on at least one finger. If you are having a hand, wrist, foot, or leg surgery then ALL nail mauritian and artificial/acrylic nails MUST be removed from [...] please call the Preadmission Testing office at [phone] Mon.-Fri. 7 a.m.-3 p.m. Leave a voicemail if needed. Pre-Surgery Instructions: Medication Instructions amLODIPine (NORVASC) 5 mg tablet Take morning of procedure finasteride (PROSCAR) 5 mg tablet Stop taking 0 days prior to procedure lisinopriL (PRINIVIL,ZESTRIL) 20 mg tablet Take morning of procedure htlmdytb-gyxa-HG-calcium &mins (THERAGRAN-M) 9 mg iron-400 mcg tablet Stop taking 0 days prior to procedure omega 5-woe-ygr-fish oil (Fish OiL) 300-1,000 mg capsule Stop [...] blood clots, an IV, and possibly a BELT BRANDER pump and/or a NERVE BLOCK (both used [...] doctor does not round on patients at [facility] to see you while you are [...] to the follow-up appointment with your doctor. [facility] 09-26-2023 Nurse Note CHG wipes and surgical instructions reviewed with patient and his daughter. Both verbalized understanding. [facility] 08-22-2022 Note Chief Complaint consultation for [...] no N/V; no wt loss; had EGD 2017 with inflammation, reports colonoscopy 9 years ago, [...] virus vaccine, inac (more content not included)... [facility] Comment on above: Result Comment: Elec tronically [...] primary care provider to discuss antibiotic therapy [employer] Other Evaluation + Plan note No data available for this section General Surgery [facility] Evaluation note* Diagnosis Primary osteoarthritis of left knee- Primary Status post left knee replacement Acute pain of left knee Presence of artificial knee joint, left [facility] Diagnosis Prophylactic antibiotic- Primary Encounter [...] of left knee documented in this encounter [facility]* Diagnosis Status post total left knee replacement- Primary documented in this encounter [facility]* Diagnosis Essential hypertension (CMS/HCC)- Primary [...] Obesity (BMI 30-39.9) documented in this encounter [facility]* Diagnosis Essential hypertension (CMS/HCC) Unspecified essential hypertension documented in this encounter [facility]* Diagnosis Essential hypertension (CMS/HCC)- Primary [...] Unspecified essential hypertension documented in this encounter [facility]* Diagnosis Essential hypertension (CMS/HCC)- [...] without long-term current use of insulin (HCC) ([facility]/HCC) Screening for prostate cancer Special screening for malignant neoplasm of prostate Obesity (BMI 30-39.9) Bronchitis- Primary Bronchitis, not specified as acute or chronic Obesity (BMI 30-39.9) Essential hypertension (CMS/HCC) Unspecified essential hypertension Gastroesophageal reflux disease, unspecified whether esophagitis present documented in this encounter [facility]* Diagnosis Essential hypertension (CMS/HCC)- [...] (HCC) (CMS/HCC)- Primary [facility] [...] of left knee documented in this encounter [facility]* Diagnosis Preop examination- Primary Unspecified pre-operative examination Hypertension, unspecified type Preop examination Unspecified pre-operative examination Hypertension, unspecified type documented in this encounter [facility]* Diagnosis Primary osteoarthritis of left knee- Primary documented in this encounter [facility]* Diagnosis Essential hypertension (CMS/HCC)- Primary [...] of insulin (CMS/HCC) documented in this encounter [facility]* Diagnosis Essential hypertension (CMS/HCC)- [...] right knee- Primary documented in this encounter [facility]* Diagnosis Essential hypertension (CMS/HCC)- [...] present Stage 3a chronic kidney disease (HCC) ([facility]/HCC) Type 2 diabetes mellitus without complication, without long-term current use of insulin Type 2 diabetes mellitus with stage 3a chronic kidney disease, without long-term current use of insulin (HCC) ([facility]) Screening for prostate cancer Special screening for malignant neoplasm of prostate Obesity (BMI 30-39.9) Bronchitis- Primary Bronchitis, not specified as acute or chronic Obesity (BMI 30-39.9) Essential hypertension ([facility]/HCC) Unspecified essential hypertension Gastroesophageal reflux disease, unspecified whether esophagitis present Diverticulitis- Primary Diverticulitis of colon (without mention of hemorrhage) Obesity (BMI 30-39.9) Class 2 severe obesity due to excess calories with serious comorbidity and body mass index (BMI) of 35.0 to 35.9 in adult ([facility]) Type 2 diabetes mellitus without complication, without long-term current use of insulin Encounter for subsequent annual wellness visit (AWV) in Medicare patient- Primary Essential hypertension ([facility]/HCC) Unspecified essential hypertension Gastroesophageal reflux disease, unspecified whether esophagitis present Benign prostatic hyperplasia, unspecified whether lower urinary tract symptoms present Class 2 severe obesity due to excess calories with serious comorbidity and body mass index (BMI) of 35.0 to 35.9 in adult ([facility]) Type 2 diabetes mellitus with stage 3a chronic kidney disease, without long-term current use of insulin (HCC) ([facility]) Chronic cough- Primary Cough documented in this encounter [facility] HealthcareEvaluation note* Diagnosis Essential hypertension (CMS/HCC)- Primary Unspecified essential hypertension Obesity (BMI 30-39.9) Type 2 diabetes mellitus without complication, without long-term current use of insulin Pre-op testing Unspecified pre-operative examination Essential hypertension ([facility]/HCC)- Primary Unspecified essential hypertension Obesity (BMI 30-39.9) Type 2 diabetes mellitus without complication, without long-term current use of insulin Pre-operative clearance Unspecified pre-operative examination Encounter for subsequent annual wellness visit (AWV) in Medicare patient- Primary Essential hypertension (CMS/HCC) Unspecified essential hypertension Type 2 diabetes mellitus without complication, without long-term current use of insulin Obesity (BMI 30-39.9) Essential hypertension ([facility]/HCC)- Primary Unspecified essential hypertension Gastroesophageal reflux disease, unspecified whether esophagitis present Stage 3a chronic kidney disease (HCC) ([facility]) Type 2 diabetes mellitus without complication, without long-term current use of insulin Type 2 diabetes mellitus with stage 3a chronic kidney disease, without long-term current use of insulin (HCC) ([facility]) Screening for prostate cancer Special screening for malignant neoplasm of prostate Obesity (BMI 30-39.9) Bronchitis- Primary Bronchitis, not specified as acute or chronic Obesity (BMI 30-39.9) Essential hypertension ([facility]/HCC) Unspecified essential hypertension Gastroesophageal reflux disease, unspecified whether esophagitis present Diverticulitis- Primary Diverticulitis of colon (without mention of hemorrhage) Obesity (BMI 30-39.9) Class 2 severe obesity due to excess calories with serious comorbidity and body mass index (BMI) of 35.0 to 35.9 in adult ([facility]) Type 2 diabetes mellitus without complication, without long-term current use of insulin Encounter for subsequent annual wellness visit (AWV) in Medicare patient- Primary Essential hypertension ([facility]) Unspecified essential hypertension Gastroesophageal reflux disease, unspecified whether esophagitis present Benign prostatic hyperplasia, unspecified whether lower urinary tract symptoms present Class 2 severe obesity due to excess calories with serious comorbidity and body mass index (BMI) of 35.0 to 35.9 in adult ([facility]) Type 2 diabetes mellitus with stage 3a chronic kidney disease, without long-term current use of insulin (HCC) ([facility]) Bronchitis- Primary Bronchitis, not specified as acute or chronic Essential hypertension ([facility]) Unspecified essential hypertension Gastroesophageal reflux disease, unspecified whether esophagitis present documented in this encounter [facility] HealthcareEvaluation note* Diagnosis Essential hypertension ([facility])- Primary Unspecified essential hypertension Obesity (BMI 30-39.9) Type 2 diabetes mellitus without complication, without long-term current use of insulin Pre-op testing Unspecified pre-operative examination Essential hypertension ([facility])- Primary Unspecified essential hypertension Obesity (BMI 30-39.9) Type 2 diabetes mellitus without complication, without long-term current use of insulin Pre-operative clearance Unspecified pre-operative examination Encounter for subsequent annual wellness visit (AWV) in Medicare patient- Primary Essential hypertension ([facility]) Unspecified essential hypertension Type 2 diabetes mellitus without complication, without long-term current use of insulin Obesity (BMI 30-39.9) Essential hypertension ([facility])- Primary Unspecified essential hypertension Gastroesophageal reflux disease, unspecified whether esophagitis present Stage 3a chronic kidney disease (HCC) ([facility]) Type 2 diabetes mellitus without complication, without long-term current use of insulin Type 2 diabetes mellitus with stage 3a chronic kidney disease, without long-term current use of insulin (HCC) ([facility]) Screening for prostate cancer Special screening for malignant neoplasm of prostate Obesity (BMI 30-39.9) Bronchitis- Primary Bronchitis, not specified as acute or chronic Obesity (BMI 30-39.9) Essential hypertension ([facility]) Unspecified essential hypertension Gastroesophageal reflux disease, unspecified whether esophagitis present Diverticulitis- Primary Diverticulitis of colon (without mention of hemorrhage) Obesity (BMI 30-39.9) Class 2 severe obesity due to excess calories with serious comorbidity and body mass index (BMI) of 35.0 to 35.9 in adult ([facility]) Type 2 diabetes mellitus without complication, without long-term current use of insulin Encounter for subsequent annual wellness visit (AWV) in Medicare patient- Primary Essential hypertension ([facility]) Unspecified essential hypertension Gastroesophageal reflux disease, unspecified whether esophagitis present Benign prostatic hyperplasia, unspecified whether lower urinary tract symptoms present Class 2 severe obesity due to excess calories with serious comorbidity and body mass index (BMI) of 35.0 to 35.9 in adult ([facility]) Type 2 diabetes mellitus with stage 3a chronic kidney disease, without long-term current use of insulin (HCC) ([facility]) Bronchitis- Primary Bronchitis, not specified as acute or chronic Essential hypertension ([facility]) Unspecified essential hypertension Gastroesophageal reflux disease, unspecified whether esophagitis present Moderate persistent asthma without complication ([facility])- Primary Bronchitis Bronchitis, not specified as acute or chronic Essential hypertension ([facility]) Unspecified essential hypertension Class 2 severe obesity due to excess calories with serious comorbidity and body mass index (BMI) of 35.0 to 35.9 in adult ([facility]) Lumbar back pain Lumbago Allergic rhinitis, unspecified seasonality, unspecified trigger documented in this encounter [facility] HealthcareEvaluation note* Diagnosis Essential hypertension- Primary Unspecified essential hypertension Obesity (BMI 30-39.9) Type 2 diabetes mellitus without complication, without long-term current use of insulin ([facility]) Pre-op testing Unspecified pre-operative examination Essential hypertension- Primary Unspecified essential hypertension Obesity (BMI 30-39.9) Type 2 diabetes mellitus without complication, without long-term current use of insulin ([facility]) Pre-operative clearance Unspecified pre-operative examination Encounter for subsequent annual wellness visit (AWV) in Medicare patient- Primary Essential hypertension Unspecified essential hypertension Type 2 diabetes mellitus without complication, without long-term current use of insulin ([facility]) Obesity (BMI 30-39.9) Essential hypertension- Primary Unspecified essential hypertension Gastroesophageal reflux disease, unspecified whether esophagitis present Stage 3a chronic kidney disease [place] [place] Type 2 diabetes mellitus without complication, without long-term current use of insulin ([facility]) Type 2 diabetes mellitus with stage 3a chronic kidney disease, without long-term current use of insulin ([facility]) Screening for prostate cancer Special screening for [...] (BMI) of 35.0 to 35.9 in adult [place] [place] Type 2 diabetes mellitus without complication, without long-term current use of insulin ([facility]) Encounter for subsequent annual wellness visit (AWV) in Medicare patient- Primary Essential hypertension Unspecified essential hypertension Gastroesophageal reflux disease, unspecified whether esophagitis present Benign prostatic hyperplasia, unspecified whether lower urinary tract symptoms present Class 2 severe obesity due to excess calories with serious comorbidity and body mass index (BMI) of 35.0 to 35.9 in adult [place] [place] Type 2 diabetes mellitus with stage 3a chronic kidney disease, without long-term current use of insulin ([facility]) Bronchitis- Primary Bronchitis, not specified as acute or chronic Essential hypertension Unspecified essential hypertension Gastroesophageal reflux disease, unspecified whether esophagitis present Moderate persistent asthma without complication ([facility])- Primary Bronchitis Bronchitis, not specified as acute or chronic Essential hypertension Unspecified essential hypertension Class 2 severe obesity due to excess calories with serious comorbidity and body mass index (BMI) of 35.0 to 35.9 in adult [place] [place] Lumbar back pain Lumbago Allergic rhinitis, unspecified seasonality, unspecified trigger Dyspnea on exertion- Primary Other dyspnea and respiratory abnormality Moderate persistent asthma without complication ([facility]) Essential hypertension Unspecified essential hypertension Stage 3a chronic kidney disease ([facility] [place] Obesity (BMI 30-39.9) Lumbar back pain Lumbago documented in this encounter [facility] HealthcareEvaluation note* Diagnosis Essential hypertension- Primary Unspecified essential hypertension Obesity (BMI 30-39.9) Type 2 diabetes mellitus without complication, without long-term current use of insulin ([facility]) Pre-op testing Unspecified pre-operative examination Essential hypertension- Primary Unspecified essential hypertension Obesity (BMI 30-39.9) Type 2 diabetes mellitus without complication, without long-term current use of insulin ([facility]) Pre-operative clearance Unspecified pre-operative examination Encounter for subsequent annual wellness visit (AWV) in Medicare patient- Primary Essential hypertension Unspecified essential hypertension Type 2 diabetes mellitus without complication, without long-term current use of insulin ([facility]) Obesity (BMI 30-39.9) Essential hypertension- Primary Unspecified essential hypertension Gastroesophageal reflux disease, unspecified whether esophagitis present Stage 3a chronic kidney disease [place] [place] Type 2 diabetes mellitus without complication, without long-term current use of insulin ([facility]) Type 2 diabetes mellitus with stage 3a chronic kidney disease, without long-term current use of insulin ([facility]) Screening for prostate cancer Special screening for [...] (BMI) of 35.0 to 35.9 in adult [place] [place] Type 2 diabetes mellitus without complication, without long-term current use of insulin ([facility]) Encounter for subsequent annual wellness visit (AWV) in Medicare patient- Primary Essential hypertension Unspecified essential hypertension Gastroesophageal reflux disease, unspecified whether esophagitis present Benign prostatic hyperplasia, unspecified whether lower urinary tract symptoms present Class 2 severe obesity due to excess calories with serious comorbidity and body mass index (BMI) of 35.0 to 35.9 in adult ([facility] [place] Type 2 diabetes mellitus with stage 3a chronic kidney disease, without long-term current use of insulin ([facility]) Bronchitis- Primary Bronchitis, not specified as acute or chronic Essential hypertension Unspecified essential hypertension Gastroesophageal reflux disease, unspecified whether esophagitis present Moderate persistent asthma without complication (HCC)- Primary Bronchitis Bronchitis, not specified as acute or chronic Essential hypertension Unspecified essential hypertension Class 2 severe obesity due to excess calories with serious comorbidity and body mass index (BMI) of 35.0 to 35.9 in adult ([facility]) Lumbar back pain Lumbago Allergic rhinitis, unspecified seasonality, unspecified trigger Dyspnea on exertion- Primary Other dyspnea and respiratory abnormality Moderate persistent asthma without complication (HCC) Essential hypertension Unspecified essential hypertension Stage 3a chronic kidney disease ([facility]) Obesity (BMI 30-39.9) Lumbar back pain Lumbago Essential hypertension Unspecified essential hypertension Type 2 diabetes mellitus without complication, without long-term current use of insulin (HCC) Gastroesophageal reflux disease, unspecified whether esophagitis present documented in this encounter [facility] HealthcareEvaluation note* Diagnosis Essential hypertension- Primary [...] without long-term current use of insulin (HCC) Obesity (BMI 30-39.9) Essential hypertension- Primary Unspecified essential hypertension Gastroesophageal reflux disease, unspecified whether esophagitis present Stage 3a chronic kidney disease ([facility]) Type 2 diabetes mellitus without complication, without [...] (BMI) of 35.0 to 35.9 in adult [place] [place] Type 2 diabetes mellitus without complication, without long-term current use of insulin ([facility]) Encounter for subsequent annual wellness visit (AWV) in Medicare patient- Primary Essential hypertension Unspecified essential hypertension Gastroesophageal reflux disease, unspecified whether esophagitis present Benign prostatic hyperplasia, unspecified whether lower urinary tract symptoms present Class 2 severe obesity due to excess calories with serious comorbidity and body mass index (BMI) of 35.0 to 35.9 in adult ([facility] [place] Type 2 diabetes mellitus with stage 3a chronic kidney disease, without long-term current use of insulin ([facility]) Bronchitis- Primary Bronchitis, not specified as acute or chronic Essential hypertension Unspecified essential hypertension Gastroesophageal reflux disease, unspecified whether esophagitis present Moderate persistent asthma without complication ([facility])- Primary Bronchitis Bronchitis, not specified as acute or chronic Essential hypertension Unspecified essential hypertension Class 2 severe obesity due to excess calories with serious comorbidity and body mass index (BMI) of 35.0 to 35.9 in adult ([facility] [place] Lumbar back pain Lumbago Allergic rhinitis, unspecified seasonality, unspecified trigger Dyspnea on exertion- Primary Other dyspnea and respiratory abnormality Moderate persistent asthma without complication ([facility]) Essential hypertension Unspecified essential hypertension Stage 3a chronic kidney disease ([facility] [place] Obesity (BMI 30-39.9) Lumbar back pain Lumbago Benign prostatic hyperplasia, unspecified whether lower urinary tract symptoms present- Primary documented in this encounter [facility] HealthcareEvaluation note* Diagnosis Essential hypertension- Primary Unspecified essential hypertension Obesity (BMI 30-39.9) Type 2 diabetes mellitus without complication, without long-term current use of insulin ([facility]) Pre-op testing Unspecified pre-operative examination Essential hypertension- Primary Unspecified essential hypertension Obesity (BMI 30-39.9) Type 2 diabetes mellitus without complication, without long-term current use of insulin ([facility]) Pre-operative clearance Unspecified pre-operative examination Encounter for subsequent annual wellness visit (AWV) in Medicare patient- Primary Essential hypertension Unspecified essential hypertension Type 2 diabetes mellitus without complication, without long-term current use of insulin ([facility]) Obesity (BMI 30-39.9) Essential hypertension- Primary Unspecified essential hypertension Gastroesophageal reflux disease, unspecified whether esophagitis present Stage 3a chronic kidney disease [place] [place] Type 2 diabetes mellitus without complication, without long-term current use of insulin ([facility]) Type 2 diabetes mellitus with stage 3a chronic kidney disease, without long-term current use of insulin ([facility]) Screening for prostate cancer Special screening for [...] (BMI) of 35.0 to 35.9 in adult ([facility] [place] Type 2 diabetes mellitus without complication, without long-term current use of insulin ([facility]) Encounter for subsequent annual wellness visit (AWV) in Medicare patient- Primary Essential hypertension Unspecified essential hypertension Gastroesophageal reflux disease, unspecified whether esophagitis present Benign prostatic hyperplasia, unspecified whether lower urinary tract symptoms present Class 2 severe obesity due to excess calories with serious comorbidity and body mass index (BMI) of 35.0 to 35.9 in adult ([facility] [place] Type 2 diabetes mellitus with stage 3a chronic kidney disease, without long-term current use of insulin ([facility]) Bronchitis- Primary Bronchitis, not specified as acute or chronic Essential hypertension Unspecified essential hypertension Gastroesophageal reflux disease, unspecified whether esophagitis present Moderate persistent asthma without complication ([facility])- Primary Bronchitis Bronchitis, not specified as acute or chronic Essential hypertension Unspecified essential hypertension Class 2 severe obesity due to excess calories with serious comorbidity and body mass index (BMI) of 35.0 to 35.9 in adult ([facility] [place] Lumbar back pain Lumbago Allergic rhinitis, unspecified seasonality, unspecified trigger Dyspnea on exertion- Primary Other dyspnea and respiratory abnormality Moderate persistent asthma without complication ([facility]) Essential hypertension Unspecified essential hypertension Stage 3a chronic kidney disease ([facility] [place] Obesity (BMI 30-39.9) Lumbar back pain Lumbago Essential hypertension- Primary Unspecified essential hypertension Dyspnea on exertion Other dyspnea and respiratory abnormality Abnormal echocardiogram Nonspecific (abnormal) findings on radiological and other examination of other intrathoracic organs documented in this encounter [facility] HealthcareEvaluation note* Diagnosis Essential hypertension- Primary Unspecified essential hypertension Obesity (BMI 30-39.9) Type 2 diabetes mellitus without complication, without long-term current use of insulin ([facility]) Pre-op testing Unspecified pre-operative examination Essential hypertension- Primary Unspecified essential hypertension Obesity (BMI 30-39.9) Type 2 diabetes mellitus without complication, without long-term current use of insulin ([facility]) Pre-operative clearance Unspecified pre-operative examination Encounter for subsequent annual wellness visit (AWV) in Medicare patient- Primary Essential hypertension Unspecified essential hypertension Type 2 diabetes mellitus without complication, without long-term current use of insulin ([facility]) Obesity (BMI 30-39.9) Essential hypertension- Primary Unspecified essential hypertension Gastroesophageal reflux disease, unspecified whether esophagitis present Stage 3a chronic kidney disease [place] [place] Type 2 diabetes mellitus without complication, without long-term current use of insulin ([facility]) Type 2 diabetes mellitus with stage 3a chronic kidney disease, without long-term current use of insulin ([facility]) Screening for prostate cancer Special screening for [...] (BMI) of 35.0 to 35.9 in adult ([facility] [place] Type 2 diabetes mellitus without complication, without long-term current use of insulin ([facility]) Encounter for subsequent annual wellness visit (AWV) in Medicare patient- Primary Essential hypertension Unspecified essential hypertension Gastroesophageal reflux disease, unspecified whether esophagitis present Benign prostatic hyperplasia, unspecified whether lower urinary tract symptoms present Class 2 severe obesity due to excess calories with serious comorbidity and body mass index (BMI) of 35.0 to 35.9 in adult ([facility] [place] Type 2 diabetes mellitus with stage 3a chronic kidney disease, without long-term current use of insulin ([facility]) Bronchitis- Primary Bronchitis, not specified as acute or chronic Essential hypertension Unspecified essential hypertension Gastroesophageal reflux disease, unspecified whether esophagitis present Moderate persistent asthma without complication ([facility])- Primary Bronchitis Bronchitis, not specified as acute or chronic Essential hypertension Unspecified essential hypertension Class 2 severe obesity due to excess calories with serious comorbidity and body mass index (BMI) of 35.0 to 35.9 in adult [place] [place] Lumbar back pain Lumbago Allergic rhinitis, unspecified seasonality, unspecified trigger Dyspnea on exertion- Primary Other dyspnea and respiratory abnormality Moderate persistent asthma without complication ([facility]) Essential hypertension Unspecified essential hypertension Stage 3a chronic kidney disease [place] [place] Obesity (BMI 30-39.9) Lumbar back pain Lumbago Benign prostatic hyperplasia, unspecified whether lower urinary tract symptoms present- Primary documented in this encounter [facility] HealthcareEvaluation note* Diagnosis Essential hypertension- Primary Unspecified essential hypertension Obesity (BMI 30-39.9) Type 2 diabetes mellitus without complication, without long-term current use of insulin ([facility]) Pre-op testing Unspecified pre-operative examination Essential hypertension- Primary Unspecified essential hypertension Obesity (BMI 30-39.9) Type 2 diabetes mellitus without complication, without long-term current use of insulin ([facility]) Pre-operative clearance Unspecified pre-operative examination Encounter for subsequent annual wellness visit (AWV) in Medicare patient- Primary Essential hypertension Unspecified essential hypertension Type 2 diabetes mellitus without complication, without long-term current use of insulin ([facility]) Obesity (BMI 30-39.9) Essential hypertension- Primary Unspecified essential hypertension Gastroesophageal reflux disease, unspecified whether esophagitis present Stage 3a chronic kidney disease [place] [place] Type 2 diabetes mellitus without complication, without long-term current use of insulin ([facility]) Type 2 diabetes mellitus with stage 3a chronic kidney disease, without long-term current use of insulin ([facility]) Screening for prostate cancer Special screening for [...] (BMI) of 35.0 to 35.9 in adult [place] [place] Type 2 diabetes mellitus without complication, without long-term current use of insulin ([facility]) Encounter for subsequent annual wellness visit (AWV) in Medicare patient- Primary Essential hypertension Unspecified essential hypertension Gastroesophageal reflux disease, unspecified whether esophagitis present Benign prostatic hyperplasia, unspecified whether lower urinary tract symptoms present Class 2 severe obesity due to excess calories with serious comorbidity and body mass index (BMI) of 35.0 to 35.9 in adult [place] [place] Type 2 diabetes mellitus with stage 3a chronic kidney disease, without long-term current use of insulin ([facility]) Bronchitis- Primary Bronchitis, not specified as acute or chronic Essential hypertension Unspecified essential hypertension Gastroesophageal reflux disease, unspecified whether esophagitis present Moderate persistent asthma without complication (HCC)- Primary Bronchitis Bronchitis, not specified as acute or chronic Essential hypertension Unspecified essential hypertension Class 2 severe obesity due to excess calories with serious comorbidity and body mass index (BMI) of 35.0 to 35.9 in adult [place] [place] Lumbar back pain Lumbago Allergic rhinitis, unspecified seasonality, unspecified trigger Dyspnea on exertion- Primary Other dyspnea and respiratory abnormality Moderate persistent asthma without complication (HCC) Essential hypertension Unspecified essential hypertension Stage 3a chronic kidney disease ([facility]) Obesity (BMI 30-39.9) Lumbar back pain Lumbago Essential hypertension- Primary Unspecified essential hypertension Moderate persistent asthma without complication (HCC) Type 2 diabetes mellitus with stage 3a chronic kidney disease, without long-term current use of insulin (HCC) Class 2 severe obesity due to excess calories with serious comorbidity and body mass index (BMI) of 35.0 to 35.9 in adult [place] [place] Abnormal echocardiogram Nonspecific (abnormal) findings on radiological and other examination of other intrathoracic organs documented in this encounter [facility] general Narrative - Reported* Type Description Date Medical History GERD Medical History HTN Medical History arthritis Medical History BPH Surgical History knee replacement [facility] Other [facility] Discharge instructions No data available for this section General Surgery [facility] Discharge instructionsNot on filedocumented in this [facility]Prem[facility] System[facility] note No data available for this section General Surgery [place] Summary Purpose Family History No Family History [...] Hypertension, unspecified type Procedures ECG 12 lead Analliia Martinez DO [address] [address] Referral ID Status Reason Start Date Expiration Date V isits Requested Visits Authorized [id number] Pending Review 09/20/2023 09/19/2024 1 1 Additional Source Comments (unrecognized sect ion and content) No Status Records FoundNo Status Records FoundNo Status Records FoundNo Status Records FoundNo Status Records FoundNo Status Records Found INFORMATION SOURCE (unrecogn ized section and content) DATE CREATED AUTHOR 05/07/2018 [facility] DATE CREATED AUTHOR AUTHOR'S ORGANIZ ATION 08/13/2022 [facility] DATE CREATED AUTHOR AUTHOR'S ORGANIZ ATION 08/27/2022 [facility] DATE CREATED AUTHOR AUTHOR'S ORGANIZ ATION 12/23/2024 [facility] DATE CREATED AUTHOR AUTHOR'S ORGANIZ ATION 05/05/2025 [facility] DATE CREATED AUTHOR AUTHOR'S ORGANIZ ATION 06/07/2025 [facility] REASON FOR VISIT (unrecogniz ed section and content) Specialty Diagnoses / Procedures Referred By Cathy vences Referred To Contact Physical Therapy Diagnoses Presence of artificial knee joint, left Procedures LA OFFICE/OUTPATIENT NEW HIGH MDM 60 MINUTES Analilia Martinez, DO [address] [place] [address] Dorothy Smith, PT [address] [place] [address] Referral ID Status Reason Start Date Expiration Date Visits Requested Visits Authorized [id number] Authorized Specialty Services Required 10/24/2023 04/21/2024 99 99 Reason Comments Follow-up Reason Comments GERD Hypertension Diabetes Reason Onset Date Comments Med Refill 09/14/2024 Reason Comments Hypertension Reason Comments Med Refill Reason Onset Date Comments Med Refill 10/05/2024 Specialty Diagnoses / Procedures Referred By Cathy vences Referred To Contact Diagnoses 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 Procedures LA TOTAL KNEE ARTHROPLASTY REPLACEMENT TOTAL JOINT KNEE Analilia Martinez, DO [address] [place] [address] Referral ID Status Reason Start Date Expiration Date Visits Re quested Visits Authorized [id number] 1 1 Reason Onset Date Comments Pain Meds 11/25/2024 Reason Comments Cough Reason Comments Asthma Reason Onset Date Comments Med Refill 04/12/2025 Reason Onset Date Comments Med Refill 04/29/2025 Patient Care team informatio n (unrecognized section and content) Supervisor Loading Relationship Specialty Start Date End Date Zohaib Cross MD [address] [place] [address] PCP - Devoted 06/16/23 Zohaib Cross MD [address] [place] [address] PCP - General Family Medicine 10/24/23 Linda Bradley NP [address] [place] [address] Nurse Practitioner Family Medicine 05/17/23 Supervisor Loading Relationship Specialty Start Date End Date Zohaib Cross MD [address] [place] [address] PCP - Devoted 06/16/23 Zohaib Cross MD [address] [place] [address] PCP - General Family Medicine 10/24/23 Linda Bradley NP [address] [place] [address] Nurse Practitioner Family Medicine 05/17/23 Supervisor Loading Relationship Specialty Start Date End Date Zohaib Cross MD [address] [place] [address] PCP - Devoted 06/16/23 Zohaib rCoss MD [address] [place] [address] PCP - General Family Medicine 10/24/23 Linda Bradley NP [address] [place] [address] Nurse Practitioner Family Medicine 05/17/23 Supervisor Loading Relationship Specialty Start Date End Date Zohaib Cross MD [address] [place] [address] PCP - Devoted 06/16/23 Zohaib Cross MD [address] [place] [address] PCP - General Family Medicine 10/24/23 Linda Bradley NP [address] [place] [address] Nurse Practitioner Family Medicine 05/17/23 Supervisor Loading Relationship Specialty Start Date End Date Zohaib Cross MD [address] [place] [address] PCP - Devoted 06/16/23 Zohaib Cross MD [address] [place] [address] PCP - General Family Medicine 10/24/23 Linda Bradley NP [address] [place] [address] Nurse Practitioner Family Medicine 05/17/23 Supervisor Loading Relationship Specialty Start Date End Date Zohaib Cross MD [address] [place] [address] PCP - Devoted 09/16/22 Zhoaib Cross MD [address] [place] [address] PCP - General Family Medicine 10/24/23 Linda Bradley NP [address] [place] [address] Nurse Practitioner Family Medicine 05/17/23 Supervisor Loading Relationship Specialty Start Date End Date Zohaib Cross MD [address] [place] [address] PCP - Devoted 09/16/22 Zohaib Cross MD [address] [place] [address] PCP - General Family Medicine 10/24/23 Linda Bradley DIRECTOR HOSPICE OPERATIONS [address] [place] [address] Nurse Practitioner Family Medicine 05/17/23 Supervisor Loading Relationship Specialty Start Date End Date Zohaib Cross MD [address] [place] [address] PCP - Devoted 09/16/22 Zohaib Cross MD [address] [place] [address] PCP - General Family Medicine 10/24/23 Linda Bradley NP [address] [place] [address] Nurse Practitioner Family Medicine 05/17/23 Supervisor Loading Relationship Specialty Start Date End Date Zohaib Cross MD [address] [place] [address] PCP - Devoted 09/16/22 Zohaib Cross MD [address] [place] [address] PCP - General Family Medicine 10/24/23 Linda Bradley NP [address] [place] [address] Nurse Practitioner Family Medicine 05/17/23 Supervisor Loading Relationship Specialty Start Date End Date Zohaib Cross MD [address] [place] [address] PCP - Devoted 09/16/22 Zohaib Cross MD [address] [place] [address] PCP - General Family Medicine 10/24/23 Linda Bradley NP [address] [place] [address] Nurse Practitioner Family Medicine 05/17/23 Supervisor Loading Relationship Specialty Start Date End Date Zohaib Cross MD [address] [place] [address] PCP - Devoted 09/16/22 Zohaib Cross MD [address] [place] [address] PCP - General Family Medicine 10/24/23 Linda Bradley NP [address] [place] [address] Nurse Practitioner Family Medicine 05/17/23 Supervisor Loading Relationship Specialty Start Date End Date Zohaib Cross MD [address] [place] [address] PCP - Devoted 09/16/22 Zohaib Cross MD [address] [place] [address] PCP - General Family Medicine 10/24/23 Linda Bradley NP [address] [place] [address] Nurse Practitioner Family Medicine 05/17/23 Supervisor Loading Relationship Specialty Start Date End Date Zohaib Cross MD [address] [place] [address] PCP - Devoted 09/16/22 Zohaib Cross MD [address] [place] [address] PCP - General Family Medicine 10/24/23 Linda Bradley NP [address] [place] [address] Nurse Practitioner Family Medicine 05/17/23 Supervisor Loading Relationship Specialty Start Date End Date Zohaib Cross MD [address] [place] [address] PCP - Devoted 09/16/22 Zohaib Cross MD [address] [place] [address] PCP - General Family Medicine 10/24/23 Linda Bradley NP [address] [place] [address] Nurse Practitioner Family Medicine 05/17/23 Supervisor Loading Relationship Specialty Start Date End Date Linda Bradley, [employer]AL INSPECTOR-[employer]IL SORT WORKER [address] [place] [address] PCP - General Nurse Practitioner 03/06/22 Supervisor Loading Relationship Specialty Start Date End Date Linda Bradley, TERMITE RENEWAL INSPECTOR-SOIL SORT WORKER [address] [place] [address] PCP - General Nurse Practitioner 03/06/22 Supervisor Loading Relationship Specialty Start Date End Date Zohaib Cross MD [address] [place] [address] PCP - Devoted 09/16/22 Zohaib Cross MD [address] [place] [address] PCP - General Family Medicine 10/24/23 Linda Bradley NP [address] [place] [address] Nurse Practitioner Family Medicine 05/17/23 Supervisor Loading Relationship Specialty Start Date End Date Zohaib Cross MD [address] [place] [address] PCP - Devoted 09/16/22 Zohaib Cross MD [address] [place] [address] PCP - General Family Medicine 10/24/23 Linda Bradley NP [address] [place] [address] Nurse Practitioner Family Medicine 05/17/23 Supervisor Loading Relationship Specialty Start Date End Date Zohaib Cross MD [address] [place] [address] PCP - Devoted 09/16/22 Zohaib Cross MD [address] [place] [address] PCP - General Family Medicine 10/24/23 Linda Bradley NP [address] [place] [address] Nurse Practitioner Family Medicine 05/17/23 Supervisor Loading Relationship Specialty Start Date End Date Zohaib Cross MD [address] [place] [address] PCP - Devoted 09/16/22 Zohaib Cross MD [address] [place] [address] PCP - General Family Medicine 10/24/23 Linda Bradley NP [address] [place] [address] Nurse Practitioner Family Medicine 05/17/23 Supervisor Loading Relationship Specialty Start Date End Date Zohaib Cross MD [address] [place] [address] PCP - Devoted 09/16/22 Zohaib Cross MD [address] [place] [address] PCP - General Family Medicine 10/24/23 Linda Bradley NP [address] [place] [address] Nurse Practitioner Family Medicine 05/17/23 Supervisor Loading Relationship Specialty Start Date End Date Zohaib Cross MD [address] [place] [address] PCP - Devoted 09/16/22 Zohaib Cross MD [address] [place] [address] PCP - General Family Medicine 10/24/23 Linda Bradley NP [address] [place] [address] Nurse Practitioner Family Medicine 05/17/23 Supervisor Loading Relationship Specialty Start Date End Date Zohaib Cross MD [address] [place] [address] PCP - Devoted 09/16/22 Zohaib Cross MD [address] [place] [address] PCP - General Family Medicine 10/24/23 Linda Bradley NP [address] [place] [address] Nurse Practitioner Family Medicine 05/17/23 Supervisor Loading Relationship Specialty Start Date End Date Zohaib Cross MD [address] [place] [address] PCP - Devoted 09/16/22 Zohaib Cross MD [address] [place] [address] PCP - General Family Medicine 10/24/23 Linda Bradley NP [address] [place] [address] Nurse Practitioner Family Medicine 05/17/23 Supervisor Loading Relationship Specialty Start Date End Date Zohaib Cross MD [address] [place] [address] PCP - Devoted 09/16/22 Zohaib Cross MD [address] [place] [address] PCP - General Family Medicine 10/24/23 Linda Bradley NP [address] [place] [address] Nurse Practitioner Family Medicine 05/17/23 Supervisor Loading Relationship Specialty Start Date End Date Zohaib Cross MD [address] [place] [address] PCP - Devoted 09/16/22 Zohaib Cross MD [address] [place] [address] PCP - General Family Medicine 10/24/23 Linda Bradley NP [address] [place] [address] Nurse Practitioner Family Medicine 05/17/23 Supervisor Loading Relationship Specialty Start Date End Date Zohaib Cross MD [address] [place] [address] PCP - Devoted 09/16/22 Zohaib Cross MD [address] [place] [address] PCP - General Family Medicine 10/24/23 Linda Bradley NP [address] [place] [address] Nurse Practitioner Family Medicine 05/17/23 Supervisor Loading Relationship Specialty Start Date End Date Zohaib Cross MD [address] [place] [address] PCP - Devoted 09/16/22 Zohaib Cross MD [address] [place] [address] PCP - General Family Medicine 10/24/23 Linda Bradley NP [address] [place] [address] Nurse Practitioner Family Medicine 05/17/23 Supervisor Loading Relationship Specialty Start Date End Date Zohaib Cross MD [address] [place] [address] PCP - Devoted 09/16/22 Zohaib Cross MD [address] [place] [address] PCP - General Family Medicine 10/24/23 Linda Bradley NP [address] [place] [address] Nurse Practitioner Family Medicine 05/17/23 Supervisor Loading Relationship Specialty Start Date End Date Zohaib Cross MD [address] [place] [address] PCP - Devoted 09/16/22 Zohaib Cross MD [address] [place] [address] PCP - General Family Medicine 10/24/23 Linda Bradley NP [address] [place] [address] Nurse Practitioner Family Medicine 05/17/23 Supervisor Loading Relationship Specialty Start Date End Date Zohaib Cross MD [address] [place] [address] PCP - Devoted 09/16/22 Zohaib Cross MD [address] [place] [address] PCP - General Family Medicine 10/24/23 Linda Bradley NP [address] [place] [address] Nurse Practitioner Family Medicine 05/17/23 Supervisor Loading Relationship Specialty Start Date End Date Zohaib Cross MD [address] [place] [address] PCP - Devoted 09/16/22 Zohaib Cross MD [address] [place] [address] PCP - General Family Medicine 10/24/23 Linda Bradley NP [address] [place] [address] Nurse Practitioner Family Medicine 05/17/23 Scheduled Active and Recently Administ [...] prophylaxis 0753 (Given - Provid er: Fang Cuevas APRN-METAL MOULDER) ceFAZolin (ANCEF) IVPB 2000 mg/50 mL in [...] 1358 (New Bag - Prov ider: Franco Sosa RN)1428 (Due: Stop Bag - Provider: Franco Sosa [...] Canales RN - Reason: Other - Comment: METAL MOULDER will give dose they pulled)0716 (Given - Provider: RAIZA DennisMETAL MOULDER)0719 (Given - Provider: RAIZA DennisMETAL MOULDER) pantoprazole (PROTONIX) EC tablet 40 mg 40 [...] BE BASED ON THE PRIMARY CLINICAL RECORDS. [employer] provides no warranty or guarantee of the accuracy or completeness of information in this document.
== END 2025-06-07 13:12 | disposition home or self-care (01) ==
LOC: CT 13:11
PROVIDERS: PCP Nurse Practitioner; Visit Provider Internal Medicine Cardiovascular Disease
DX: I77.89 Other specified disorders of arteries and arterioles (principal); I51.7 Cardiomegaly
CPT/HCPCS: 71275; Q9967